=== PATIENT | female | born 1930 | race Caucasian/White ===

== ENCOUNTER 2016-08-28 09:37 | Inpatient (IN) | payer MEDICARE ==
[~2016-08-28] VITALS: Ht 160 cm; Wt 68.5 kg
[~2016-08-28 09:37] MED LIST: AC325T PO; ADV250-14 IH; ALBU0.632 NEB; ALBU2.5V4 IH; ALBU2.5V4 NEB; ALBU2.5V52 INH; ALBU8.5HRX INH; ALBUNEBRX NEB; ALBUTEROL; ALPR0.2550 PO; ALPR1TAB2 PO; AMOX400T12 PO; ASCO-262 PO; ASCO500C14; ASCO500C14 PO; ASPI-84; ATOR40TA; ATRV10T PO; AZMACORT; BENZ100C18 PO; CA C1TAB26 PO; CETI10TA17 PO; CHOL10003 PO; CLAR-19 PO; CLOT10TR11 PO; CO Q PO; CPR500T; CYAN10007 PO; DCS100C PO; DIGO125T91; DIGO250T15 PO; DIGO250T96 PO; DILT180C PO; DILT300C PO; DILT360C26 PO; DLT180CCR; DLT180CCR PO; DOCU-161 PO; DONE10TA41 PO; Diltiazem Hcl PO; E400C; E400C PO; ERGO400C; ERGO400C PO; FAMO20TA5 PO; FLUT1AER IH; FLUT1DIS26 INH; FLUT1DIS27 IH; FLUT1DIS27 INH; FLUT1DIS3 IH; FRSM40T; FRSM40T PO; FURO-124 PO; FURO40TA4 PO; INUL1TAB4 PO; KCL10CCR; KCL10CCR PO; KCL20TCR PO; LECITHIN; LEVO250T11 PO; LEVO250T7 PO; LEVO500T2 PO; LEVO500T69 PO; LEVO500T78 PO; LEVO50TA6 PO; LEVO750T24 GT; LEVO75TA57; LIDOCAINE VISCOUS PO; LVF500T PO; LVT.05T PO; Lecithin PO; MAGN250T13 PO; MAGN400T6 PO; MELA3TAB PO; MELO-195 PO; MEMA10TA22 PO; METH4TAB10 PO; METO25TA PO; METO50TA7 PO; MNTL10T; MONT10TA21 PO; MONT10TA24 PO; NITR100C10 PO; PANT40TA3 PO; PNT40TEC PO; POLY119P; POLY17PO23 PO; POTA-51 PO; POTA10TA36 PO; POTA20TA8 PO; PRAV40TA PO; PRAV40TA2 PO; PRAV80TA2 PO; PRD20T PO; PRED10TA PO; PRED10TA22 PO; PRED5TAB PO; PREMARIN; PROBIOTIC1 EACH PO; RT-ALBUINH INH; STOOL SOFTENER; UBID100C8 PO; VITA1CAP21 PO; VITA400T9 PO; Vitamin C; Vitamin D; WARF-48 PO; WARF5TAB6 PO; WRF2.5T; WRF2.5T PO; WRF5T; WRF5T PO
--- OUTSIDE RECORDS SUMMARY | 2016-08-28 09:43 | XMS REPORT | Continuity of Care Document ---
Author Author [facility] Organization [facility] Address Unknown Phone Unavailable Care Team Providers Care Electronics Repair Technician Name Role Phone MichaelleYo PCP [phone] Source Comments Some departments are not documenting in the electronic medical record. If you do not see the information that you expected, contact Release of Information in the Health Information Management department at [phone] for further assistance in locating additional records.[facility] Active Allergies and Adverse Reactions Allergen Noted Date Severity Reactions Comments Ambien 12/01/2014 High DELUSIONS Augmentin 12/01/2014 Low NAUSEA AND VOMITING Codeine 12/01/2014 Low NAUSEA AND VOMITING Duricef 12/01/2014 Medium RASH Halcion 12/01/2014 High DELUSIONS Iodine 12/02/2014 Medium RASH, SEE COMMENTS Has tolerated with Solu medrol and Diphenhydramine. Lemon 12/02/2014 High ANAPHYLAXIS Current Medications Prescription Sig. Disp. Refills Start End Date Status Date potassium chloride SR Take 40 mEq by mouth Active (K-DUR) 20 mEq tablet twice daily. magnesium oxide (MAG-OX) Take 400 mg by mouth Active 400 mg tablet daily. polyethylene glycol 3350 Take 17 g by mouth daily. Active (GLYCOLAX; MIRALAX) 17 gram/dose powder montelukast (SINGULAIR) Take 10 mg by mouth at Active 10 mg tablet bedtime daily. ascorbic acid (VITAMIN-C) Take 500 mg by mouth Active 500 mg tablet daily. ondansetron (ZOFRAN) 4 mg Take 4 mg by mouth every Active tablet 12 hours as needed for Nausea. albuterol 0.083% Inhale 2.5 mg solution as Active (PROVENTIL; VENTOLIN) 2.5 directed every 6 hours as mg /3 mL (0.083 %) needed for Wheezing. nebulizer solution furosemide (LASIX) 40 mg Take 40 mg by mouth Active tablet daily. levothyroxine (SYNTHROID) Take 50 mcg by mouth Active 50 mcg tablet daily. pantoprazole DR Take 40 mg by mouth Active (PROTONIX) 40 mg tablet daily. pravastatin (PRAVACHOL) Take 40 mg by mouth at Active 40 mg tablet bedtime daily. warfarin (COUMADIN) 5 mg Take by mouth as Active tablet directed. Takes 2.5mg once nightly on Saturday and Saturday, Take 5mg all other nights.Managed by Dr. Cook's office acetylcysteine (MUCOMYST) Take a total of 3 doses 30 mL 0 12/01/19 Active 200 mg/mL (20 %) solution of Mucomyst, each dose is 15 1200mg of a 20% solution. 2 dose today, and 1 in am 5/6 fluticasone-salmeterol Inhale 1 Puff by mouth Active (ADVAIR DISKUS) 250-50 every 12 hours. mcg inhalation disk Active Problems Problem Noted Date S/P AV kerri ablation 12/01/2014 Pacemaker 12/01/2014 Atrial fibrillation (HCC) 10/21/2014 Overview: 09/21/14: ECHO: Normal LV. EF 60. Pulm HTN w estimated PA pressure 55. 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 Mild mitral regurg. Moderate aortic stenosis. Moderate biatrial enlargement. Aortic stenosis 10/21/2014 Social History Tobacco Use Types Packs/Day Years Used Date Never Smoker Last Filed Vital Signs Vital Sign Reading Time Taken Blood Pressure 116/68 02/21/2015 1:06 PM CDT Pulse 70 02/21/2015 1:06 PM CDT Temperature 36.4 C (97.5 F) 12/02/2014 7:35 AM CDT Respiratory Rate - - Height 1.6 m (5' 2.99") 02/21/2015 1:06 PM CDT Weight 65.772 kg (145 lb) 02/21/2015 1:06 PM CDT Body Mass Index 25.69 02/21/2015 1:06 PM CDT Oxygen Saturation 96% 12/02/2014 7:35 AM CDT Plan of Care Health Maintenance Due Date Last Done Comments Physical (Comprehensive) 1938 Exam Pertussis Vaccine 1942 Tetanus Vaccine 1948 Breast Cancer Screening 1971 Shingles Vaccine 1991 Osteoporosis Screening 1996 Prevnar/Pneumovax (#1) 1996 Influenza Vaccine 03/29/2015 Results from Last 3 Months Not on file
--- NOTE | 2016-08-28 09:54 | ED Fever ---
History of Present Illness General Chief Complaint: Abdominal/GI Problems Stated Complaint: LETHARGIC Nursing Triage Note: Pt to ED via [facility] from home. Family reports pt is currently being treated for UTI and began having n/v/d last night at 2200. Family reports pt has been more lethargic than normal this morning and recorded a BP of 90/40 at home this AM. Sepsis Screen: No Definite Risk Source: patient, family, EMS, RN notes reviewed Exam Limitations: no limitations History of Present Illness Time seen by provider: 09:50 Initial Comments As above. Started on Macrobid yesterday for recurrent UTI but started throwing up p/ taking it, which is her problems c/ a lot of antibiotics. Was in here not that long ago for a UTI. Timing/Duration: getting worse Fever Quality: greater than 100.5 F Fever Therapy CNC SET UP OPERATOR: none Associated Symptoms: nausea/vomiting weakness Allergies and Home Medications Allergies Coded Allergies: amoxicillin (Verified Allergy, Unknown, 06/21/15) cefadroxil (Verified Allergy, Unknown, 06/21/15) clavulanic acid (Verified Allergy, Unknown, 06/21/15) codeine (Verified Allergy, Unknown, 06/21/15) haloperidol (Verified Allergy, Unknown, 06/21/15) iodine (Verified Allergy, Unknown, 06/21/15) triazolam (Verified Allergy, Unknown, 06/21/15) zolpidem (Verified Allergy, Unknown, 06/21/15) donepezil (Verified Adverse Reaction, Severe, 11/20/15) NAUSEA/VOMITING promethazine HCl (Unverified Adverse Reaction, Mild, 06/21/15) Home Medications Acetaminophen 325 Mg Tablet 650 MG PO Q4H PRN PRN PAIN (Reported) TAKES 2 (325MG) TABLET Albuterol Sulfate 18 Gm Hfa.aer.ad 2 PUFF INH Q4H PRN PRN SHORTNESS OF BREATH ( Reported) Albuterol Sulfate 2.5 Mg/3 Ml Vial.neb 2.5 MG NEB Q4H PRN PRN SHORTNESS OF BREATH (Reported) Albuterol Sulfate 2.5 Mg/3 Ml Vial.neb 2.5 MG IH BID (Reported) Cetirizine HCl 10 Mg Tablet 10 MG PO DAILY (Reported) Famotidine 20 Mg Tablet #60 20 MG PO BID Prescribed by: ZBIGNIEW HILTON on 07/23/16950 Fluticasone/Vilanterol 1 Each Blst.w.dev 1 PUFF IH DAILY (Reported) Furosemide 40 Mg Tablet 40 MG PO DAILY (Reported) IF PATIENT HAS A 4 POUND WEIGHT GAIN IN 1 WEEK, INCREASE TO 40 MG TWICE DAILY Levofloxacin 250 Mg Tablet #2 250 MG PO DAILY Prescribed by: ZBIGNIEW HILTON on 07/23/16950 Levothyroxine Sodium 50 Mcg Tablet 50 MCG PO DAILY (Reported) Magnesium Oxide 250 Mg Tablet 250 MG PO DAILY (Reported) Melatonin 3 Mg Tablet #30 6 MG PO HS Prescribed by: ZBIGNIEW HILTON on 07/23/16950 Montelukast Sodium 10 Mg Tablet 10 MG PO HS (Reported) Potassium Chloride 20 Meq Tab.er.prt 40 MEQ PO BID (Reported) TAKES 2 (20 MEQ) TABLETS Pravastatin Sodium 40 Mg Tablet 40 MG PO HS (Reported) Warfarin Sodium 5 Mg Tablet 2.5 MG PO SuMoTuWeFrSa@1800 (Reported) TAKES 1/2 OF A (5 MG) TABLET Warfarin Sodium 5 Mg Tablet 5 MG PO Th@1800 (Reported) Constitutional: see HPI fever weakness Psychiatric/Neurological: See HPI Weakness All Other Systems Reviewed Negative Unless Noted: Yes (Negative excepted noted.) Past Tbrhnqc-Prchcx-Jxueew Hx Patient Social History Recent Foreign Travel: No Contact w/Someone Who Travel: No Recent Infectious Disease Expo: No Recent Hopitalizations: No Immunizations Up To Date Tetanus Booster (TDap): Unknown PED Vaccines UTD: No Date of Pneumonia Vaccine: Jun 09, 2014 Date of Influenza Vaccine: May 31, 2016 Seasonal Allergies Seasonal Allergies: No Surgeries HX Surgeries: Yes (SINUS, HEMORRHOIDECTOMY, hiatal hernia, av node ablation) Surgeries: Abdominal, Appendectomy, Bladder Surgery, Breast, Cardiac, Eye Surgery, Gallbladder, Hysterectomy, Oophorectomy, Pacemaker Respiratory Hx Respiratory Disorders: Yes (RESPIRATORY ARREST MULTIPLE TIMES--ON VENT IN PAST) Respiratory Disorders: Asthma, Pneumonia Cardiovascular Hx Cardiac Disorders: Yes (PACEMAKER, AORTIC STENOSIS, av NODE ABLATION) Cardiac Disorders: Atrial Fibrillation, Chronic Edema/Swelling, Heart Murmur, High Cholesterol, Irregular Heartbeat, Valvular Heart Disease Neurological Hx Neurological Disorders: Yes Neurological Disorders: Dementia Reproductive System Hx Reproductive Disorders: No Sexually Transmitted Disease: No HIV/AIDS: No Female Reproductive Disorders: Denies Genitourinary Hx Genitourinary Disorders: Yes (acute renal failure after UTI) Genitourinary Disorders: Bladder Infection, Renal Failure Gastrointestinal Hx Gastrointestinal Disorders: Yes Gastrointestinal Disorders: Chronic Constipation, Irritable Bowel Musculoskeletal Hx Musculoskeletal Disorders: Yes (MULTIPLE FX R LOWER LEG) Musculoskeletal Disorders: Osteoporosis, Arthritis Endocrine Hx Endocrine Disorders: Yes Endocrine Disorders: Hypothyroidsim HEENT HX ENT Disorders: Yes HEENT Disorders: Cataract Loss of Vision: Denies Hearing Impairment: Denies Cancer Hx Cancer: No Psychosocial Hx Psychiatric Problems: No Integumentary HX Skin/Integumentary Disorder: No Blood Transfusions Hx Blood Disorders: No Adverse Reaction to a Blood Tr: No Family Medical History Family Medial History: Alzheimer's disease 19 MOTHER FHx: throat cancer 19 FATHER Physical Exam Vital Signs Vital Sign - Last 12Hours 08/28/16 09:40 Temp 101.0 Pulse 70 Resp 18 B/P 120/60 Pulse Ox 100 O2 Delivery Nasal Cannula O2 Flow Rate 2 Capillary Refill : Less Than 3 Seconds General Appearance: WD/WN no apparent distress obese HEENT: other (orophay) Neck: supple Respiratory: lungs clear no respiratory distress Cardiovascular: regular rate, rhythm Gastrointestinal: No rebound, tenderness (suprapubic) other (obese) Extremities: No pedal edema, No swelling Neurologic/Psychiatric: alert motor weakness (mild; generalized) depressed affect Skin: warm/dry Progress/Results/Core Measures Results/Orders Lab Results Laboratory Tests Test 08/28/16 09:49 08/28/16 10:00 08/28/16 10:25 Range/Units Activated Partial Thromboplast Time 38 H 24-35 SEC Alanine Aminotransferase (ALT/SGPT) 11 0-55 U/L Albumin 3.3 3.2-4.5 G/DL Alkaline Phosphatase 47 40-136 U/L Anion Gap 10 5-14 MMOL/L Aspartate Amino Transf (AST/SGOT) 26 5-34 U/L BUN/Creatinine Ratio 16 Band Neutrophils 26 % Basophils # (Auto) 0.0 0.0-0.1 10^3/uL Basophils % (Manual) 0 % Basophils (%) (Auto) 0 0-10 % Blood Urea Nitrogen 25 H 7-18 MG/DL Calcium Level 8.4 L 8.5-10.1 MG/DL Carbon Dioxide Level 24 21-32 MMOL/L Chloride Level 112 H 98-107 MMOL/L Creatinine 1.58 H 0.60-1.30 MG/DL Dohle Bodies SLIGHT Eosinophils # (Auto) 0.1 0.0-0.3 10^3/uL Eosinophils % (Manual) 0 % Eosinophils (%) (Auto) 1 0-10 % Estimat Glomerular Filtration Rate 31 Glucose Level 122 H 70-105 MG/DL Hematocrit 43 35-52 % Hemoglobin 13.6 11.5-16.0 G/DL INR Comment 2.9 H 0.8-1.4 Lymphocytes # (Auto) 0.3 L 1.0-4.0 X 10^3 Lymphocytes % (Manual) 5 % Lymphocytes (%) (Auto) 2 L 12-44 % Mean Corpuscular Hemoglobin 29 25-34 PG Mean Corpuscular Hemoglobin Concent 32 32-36 G/DL Mean Corpuscular Volume 91 80-99 FL Mean Platelet Volume 11.0 H 7.4-10.4 FL Monocytes # (Auto) 0.9 0.0-1.0 X 10^3 Monocytes % (Manual) 2 % Monocytes (%) (Auto) 5 0-12 % Neutrophils # (Auto) 17.4 H 1.8-7.8 X 10^3 Neutrophils % (Manual) 67 % Neutrophils (%) (Auto) 93 H 42-75 % Platelet Count 219 130-400 10^3/uL Poikilocytosis SLIGHT Potassium Level 3.8 3.6-5.0 MMOL/L Prothrombin Time 29.8 H 12.2-14.7 SEC Red Blood Count 4.69 4.35-5.85 10^6/uL Red Cell Distribution Width 15.1 H 10.0-14.5 % Sodium Level 146 H 135-145 MMOL/L Total Bilirubin 1.9 H 0.1-1.0 MG/DL Total Protein 5.6 L 6.4-8.2 G/DL Toxic Granulation 1+ White Blood Count 18.8 H 4.3-11.0 10^3/uL Urine Amorphous Sediment FEW CHARLES URATES H /LPF Urine Bacteria FEW H /HPF Urine Bilirubin 2+ H NEGATIVE Urine Casts PRESENT /LPF Urine Clarity CLEAR Urine Color YELLOW Urine Crystals PRESENT H /LPF Urine Culture Indicated YES Urine Glucose (UA) NEGATIVE NEGATIVE Urine Hyaline Casts >50 H /LPF Urine Ketones 1+ H NEGATIVE Urine Leukocyte Esterase 1+ H NEGATIVE Urine Mucus LARGE H /LPF Urine Nitrite NEGATIVE NEGATIVE Urine Protein 2+ H NEGATIVE Urine RBC 2-5 H /HPF Urine RBC (Auto) NEGATIVE NEGATIVE Urine Specific [place] 1.020 1.016-1.022 Urine Urobilinogen NORMAL NORMAL MG/DL Urine WBC 2-5 /HPF Urine pH 5 5-9 Lactic Acid Level 2.7 *H 0.5-2.0 MMOL/L My Orders Orders-MIKEY MAXWELL DO Cbc With Automated Diff (08/28/16 09:49) Comprehensive Metabolic Panel (08/28/16 09:49) Lactic Acid Analyzer (08/28/16 09:49) Protime With Inr (08/28/16 09:49) Partial Thromboplastin Time (08/28/16 09:49) Ua Culture If Indicated (08/28/16 09:49) Blood Culture (08/28/16 09:49) Influenza A And B Antigens (08/28/16 09:49) Chest 1 View, Ap/Pa Only (08/28/16 09:49) Doherty Cath Insertion (08/28/16 09:49) Manual Differential (08/28/16 09:49) Acetaminophen Tablet (Tylenol Tablet) (08/28/16 10:45) Urine Culture (08/28/16 10:00) Ciprofloxacin Iv 400mg/200ml (Cipro Iv S (08/28/16 10:45) Saline Lock/Iv-Start (08/28/16 10:42) Ns Iv 1000 Ml (Sodium Chloride 0.9%) (08/28/16 10:42) Ct Abdomen/Pelvis Wo (08/28/16 11:17) Medications Given in ED Current Medications Medications Dose Ordered Sig/Marcelino Route Start Time Stop Time Status Last Admin Dose Admin Acetaminophen 1000 mg 1,000 mg ONCE ONCE PO 08/28/16 10:45 08/28/16 10:46 DC 08/28/16 10:40 1,000 MG Ciprofloxacin/ Dextrose 200 ml @ 200 mls/hr ONCE ONCE IV 08/28/16 10:45 08/28/16 11:44 DC 08/28/16 10:55 200 MLS/HR Sodium Chloride 1,000 ml @ 0 mls/hr Q0M ONCE IV 08/28/16 10:42 08/28/16 10:44 DC 08/28/16 10:55 1,000 MLS/HR Vital Signs/I&O Vital Sign - Last 12Hours 08/28/16 09:40 Temp 101.0 Pulse 70 Resp 18 B/P 120/60 Pulse Ox 100 O2 Delivery Nasal Cannula O2 Flow Rate 2 Blood Pressure Mean: 80 Departure Communication Time/Spoke to Admitting Phy: 11:52 Impression Impression: Primary Impression: Sepsis Additional Impressions: Pyelonephritis Fever Disposition: ADMITTED INPATIENT Condition: Stable Decision to Admit Reason: Admit from ER (General) Decision to Admit/Date: Aug 28, 2016 Time/Decision to Admit Time: 11:52 Departure-Patient Inst. Referrals: ESTEPHANIE MAY MD (PCP/Family) Primary Care Physician MIKEY MAXWELL DO Aug 28, 2016 09:54
[2016-08-28 10:01] LABS: BASOPHILS % (AUTO) 0 % (0-10); EOSINOPHILS # (AUTO) 0.1 10^3/uL (0.0-0.3); EOSINOPHILS % (AUTO) 1 % (0-10); LYMPHOCYTES # (AUTO) 0.3 X 10^3 (1.0-4.0); LYMPHOCYTES % (AUTO) 2 % (12-44); MEAN CORPUSCULAR HEMOGLOBIN 29 PG (25-34); MEAN CORPUSCULAR HGB CONC 32 G/DL (32-36); MEAN CORPUSCULAR VOLUME 91 FL (80-99); MONOCYTES # (AUTO) 0.9 X 10^3 (0.0-1.0); MONOCYTES % (AUTO) 5 % (0-12); NEUTROPHILS # (AUTO) 17.4 X 10^3 (1.8-7.8); NEUTROPHILS % (AUTO) 93 % (42-75); PLATELET COUNT 219 10^3/uL (130-400); RED BLOOD COUNT 4.69 10^6/uL (4.35-5.85); RED CELL DISTRIBUTION WIDTH 15.1 % (10.0-14.5); WHITE BLOOD COUNT 18.8 10^3/uL (4.3-11.0)
[2016-08-28 10:12] LABS: INR 2.9 (0.8-1.4); PROTHROMBIN TIME PATIENT 29.8 SEC (12.2-14.7)
[2016-08-28 10:17] LABS: KETONES,URINE 1+ (NEGATIVE); LEUKOCYTE ESTERASE ,URINE 1+ (NEGATIVE); NITRITE,URINE NEGATIVE (NEGATIVE); PH,URINE 5 (5-9); PROTEIN,URINE 2+ (NEGATIVE); UROBILINOGEN,URINE NORMAL (NORMAL)
[2016-08-28 10:19] LABS: ALBUMIN 3.3 G/DL (3.2-4.5); BILIRUBIN,TOTAL 1.9 MG/DL (0.1-1.0); CALCIUM 8.4 MG/DL (8.5-10.1); CREATININE SERUM 1.58 MG/DL (0.60-1.30); POTASSIUM 3.8 MMOL/L (3.6-5.0); TOTAL PROTEIN 5.6 G/DL (6.4-8.2)
[2016-08-28 10:24] LABS: BAND NEUTROPHILS 26 %; BASOPHILS % (MANUAL) 0 %; EOSINOPHILS % (MANUAL) 0 %; LYMPHOCYTES % (MANUAL) 5 %; NEUTROPHILS % (MANUAL) 67 %; POIKILOCYTOSIS SLIGHT
[2016-08-28 10:35] LABS: HYALINE CASTS, URINE >50 /LPF
--- NOTE | 2016-08-28 10:35 | Diagnostic Imaging Report ---
INDICATION: Urinary tract infection, hypotension EXAMINATION: Portable chest at 10:24 AM. Heart is enlarged. Pulmonary vascularity is normal. There is unipolar pacemaker. There are no infiltrates, effusions or pneumothoraces. IMPRESSION: Cardiomegaly without evidence of pulmonary venous hypertension. Dictated by: Dictated on workstation # [id number]
[2016-08-28 10:36] LABS: BILIRUBIN,URINE 2+ (NEGATIVE)
[2016-08-28] MEDS ORDERED: NS IV 1000 ML 1,000 ML IV ONE ×2 (10:42→12:30)
[2016-08-28] MEDS ORDERED: CIPROFLOXACIN IV 400MG/200ML 200 ML IV ONE (10:45)
[2016-08-28] MEDS ORDERED: ACETAMINOPHEN 500 MG TAB (TYLENOL) PO ONE (10:45)
--- NOTE | 2016-08-28 12:07 | Diagnostic Imaging Report ---
PROCEDURE: CT abdomen and pelvis without contrast. TECHNIQUE: Multiple contiguous axial images were obtained through the abdomen and pelvis without the use of intravenous contrast. INDICATION: Lethargic. Abdominal cramping. Urinary tract infection. COMPARISON: CT abdomen and pelvis without contrast, 06/19/2015. FINDINGS: Linear atelectasis and/or scarring in the lung bases. Calcified granulomas in the left lung base, liver, and spleen. Partially visualized cardiac pacer wire and cardiomegaly. Multiple exophytic low-attenuation lesions in the kidneys appear stable on this noncontrast exam, presumably representing cysts. Cholecystectomy. Diffuse arterial calcifications including aortic. There are a couple or tiny punctate calcifications in the left kidney, which may represent nonobstructing renal calculi versus atherosclerotic calcifications. There is mildly increased perinephric stranding about both kidneys. No fluid collections in the abdomen. Doherty catheter within a decompressed bladder. Colonic diverticulosis without evidence of active diverticulitis. Hysterectomy. The pancreas and adrenal glands are unremarkable. The appendix is not identified and may be surgically absent. No suspicious inflammatory changes in the region of the cecum. No lymphadenopathy. No evidence of bowel obstruction. IMPRESSION: Mildly increased perinephric stranding about both kidneys. These findings are nonspecific but can be seen in pyelonephritis. CT of the abdomen and pelvis is otherwise stable on this noncontrast exam. Dictated by: Dictated on workstation # [id number]
[2016-08-28] MEDS ORDERED: VANCOMYCIN IV ADD-VANTAGE 1,000 MG in SODIUM CHLORIDE (ADD-VANTAGE) 250 ML IV ONE (12:30)
[2016-08-28 13:46] VITALS: BP 97/61
--- NOTE | 2016-08-28 14:23 | Progress Note-Hospitalist ---
Standard Progress Note Progress Notes/Assess & Plan Date Seen 08/28/16 Assess & Plan/Chief Complaint The patient's an 86-year-old white female who is noted to be a DO NOT RESUSCITATE status. She had been admitted here on 07/20/16 with what was feared to be urinary tract infection and sepsis. Ultimately although her lactic acid was elevated her urine cultures were negative. She has not been one to be very vigorous and the family states she has not really been any better since her discharge. Apparently she was thought to have urinary tract infection and was started on Macrodantin yesterday however as has been her custom with many antibiotics she apparently vomited that. The white blood count was elevated at 18,000 in the emergency room the temperature at 100 and the lactic acid at 2.7. She also has been hypertensive however that was noted to be a problem on her previous admission. Physical exam: Elderly white female who was confused. Lungs were clear to auscultation. CV was regular without murmur. Abdomen soft. Impression: She needs criteria for at least Sirs. To this point we have no defined site of infection. Plan: IV fluids and prophylactic Antibiotics Labs PERLA MACEDO MD Aug 28, 2016 14:22
[2016-08-28] MEDS ORDERED: NITR100C10 PO (14:57)
[2016-08-28] MEDS ORDERED: ONDA4TAB10 PO (15:05)
[2016-08-28] MEDS ORDERED: CNC1KV INJ (15:05)
[2016-08-28] MEDS ORDERED: ALPR0.5T7 PO (15:05)
[2016-08-28] MEDS ORDERED: FAMO-119 PO (15:05)
[2016-08-28] MEDS ORDERED: PRED5TAB PO (15:05)
[2016-08-28] MEDS ORDERED: MELA1TAB10 PO (15:05)
[2016-08-28] MEDS ORDERED: CATHETER FLUSH 10 ML SYR IV PRN (15:15)
[2016-08-28 16:00] VITALS: BP 109/62
[2016-08-28] MEDS ORDERED: RT-ALBUTEROL SULF 2.5 MG/3 ML PRE-MIX VIAL INH PRN (16:00)
[2016-08-28] MEDS: metroNIDAZOLE 500 MG/100 ML IVPB (PRE-MIX) IV SCH (16:03)
[2016-08-28] MEDS: RT-ADVAIR HFA 115/21 MCG PER PUFF IH SCH (18:24)
[2016-08-28] MEDS: NS IV 1000 ML 1,000 ML IV SCH ×2 (18:52→20:57)
[2016-08-28 20:01] VITALS: BP 102/52
[2016-08-28] MEDS ORDERED: warFARin 5 MG (COUMADIN) TAB ONE (21:27)
[2016-08-29] VITALS: BP 107/52
[2016-08-29] MEDS: metroNIDAZOLE 500 MG/100 ML IVPB (PRE-MIX) IV SCH ×2 (03:30→15:49)
[2016-08-29 04:00] VITALS: BP 111/60
[2016-08-29] MEDS: NS IV 1000 ML 1,000 ML IV SCH ×3 (05:40→20:35)
[2016-08-29] MEDS: RT-ADVAIR HFA 115/21 MCG PER PUFF IH SCH ×2 (06:21→19:25)
[2016-08-29 06:26] LABS: BASOPHILS % (AUTO) 0 % (0-10); EOSINOPHILS # (AUTO) 0.5 10^3/uL (0.0-0.3); EOSINOPHILS % (AUTO) 4 % (0-10); LYMPHOCYTES # (AUTO) 1.1 X 10^3 (1.0-4.0); LYMPHOCYTES % (AUTO) 8 % (12-44); MEAN CORPUSCULAR HEMOGLOBIN 30 PG (25-34); MEAN CORPUSCULAR HGB CONC 32 G/DL (32-36); MEAN CORPUSCULAR VOLUME 92 FL (80-99); MEAN PLATELET VOLUME 11.3 FL (7.4-10.4); MONOCYTES # (AUTO) 0.6 X 10^3 (0.0-1.0); MONOCYTES % (AUTO) 5 % (0-12); NEUTROPHILS # (AUTO) 11.4 X 10^3 (1.8-7.8); NEUTROPHILS % (AUTO) 83 % (42-75); PLATELET COUNT 181 10^3/uL (130-400); RED BLOOD COUNT 4.24 10^6/uL (4.35-5.85); RED CELL DISTRIBUTION WIDTH 15.2 % (10.0-14.5); WHITE BLOOD COUNT 13.6 10^3/uL (4.3-11.0)
[2016-08-29 06:51] LABS: BILIRUBIN,TOTAL 1.8 MG/DL (0.1-1.0); CALCIUM 7.6 MG/DL (8.5-10.1); CREATININE SERUM 1.28 MG/DL (0.60-1.30); POTASSIUM 3.9 MMOL/L (3.6-5.0); TOTAL PROTEIN 4.9 G/DL (6.4-8.2)
[2016-08-29 08:27] VITALS: BP 125/66
[2016-08-29] MEDS: CIPROFLOXACIN 400 MG/D5W 200 ML (PRE-MIX) IV SCH (08:42)
[2016-08-29] MEDS ORDERED: RX-ALBUTEROL INHALER (VENTOLIN HFA) 18 GM IH PRN (09:15)
[2016-08-29] MEDS ORDERED: FUROSEMIDE 40 MG (LASIX) TAB PO PRN (09:15)
[2016-08-29] MEDS ORDERED: ACETAMINOPHEN 325 MG TABLET/CAPLET (TYLENOL) PO PRN (09:15)
[2016-08-29] MEDS ORDERED: RT-ALBUTEROL SULF 2.5 MG/3 ML PRE-MIX VIAL INH PRN (09:15)
[2016-08-29 09:23] LABS: INR 3.3 (0.8-1.4); PROTHROMBIN TIME PATIENT 33.7 SEC (12.2-14.7)
--- NOTE | 2016-08-29 09:38 | Consultation-Cardiology ---
HPI-Cardiology Cardiology Consultation: Date of Consultation 08/29/16 Date of Admission 08/28/16 Attending Physician Rei Dockery MD Admitting Physician Yo Braswell MD Consulting Physician Josue Cook MD HPI: Chief Complaint: Sepsis Ms. Cody is an 86 year old female admitted from the ED to room 411 with sepsis. Her daughter and spouse are at the bedside. Daughter reports she has had increasing weakness over the course of the last few days. She states she was seen by her PCP and was found to have a UTI. She was give abx tx. Daughter reports she continued to not feel well at home. She states she began having n/v/d. She checked her blood pressure at home and her systolic was 97. This morning she is feeling better. No c/o CP, dyspnea, palpitations. Continues to feel weak. Review of Systems-Cardiology Review of Systems Constitutional: As described under HPI Eyes: No blurred vision, No drainage, No pain, No vision change Ears/Nose/Throat: No ear discharge, No ear pain, No nasal drainage, No ulcerations Respiratory: As described under HPI Cardiovascular: As described under HPI Gastrointestinal: No constipation, diarrhea nausea vomitingNo stool coloration changes Genitourinary: No dysuria, No discharge, No frequency, No hematuria, No urgency Skin: No rash, No skin related problems, No ulcerations Psychiatric/Neurological: No anxiety, No depression, No focal weakness, No seizure, No syncope Hematologic: No bleeding abnormalities All Other Systems Reviewed Negative Unless Noted: Yes (Negative excepted noted.) QHQ-Ncvjfy-Okfamu Hx Patient Social History Alcohol Use: Denies Use Recreational Drug Use: No Smoking Status: Never a Smoker Recent Foreign Travel: No Recent Infectious Disease Expo: No Physical Abuse Screen: No Sexual Abuse: No Immunizations Up To Date Tetanus Booster (TDap): Unknown Date of Pneumonia Vaccine: Jun 09, 2014 Date of Influenza Vaccine: May 31, 2016 Past Medical History PMH As described under Assessment. Family Medical History Family Medical History: No reported h/o premature CAD or SCD Family History: 19 FATHER FHx: throat cancer 19 MOTHER Alzheimer's disease Allergies and Home Medications Allergies Coded Allergies: amoxicillin (Verified Allergy, Unknown, 06/21/15) cefadroxil (Verified Allergy, Unknown, 06/21/15) clavulanic acid (Verified Allergy, Unknown, 06/21/15) codeine (Verified Allergy, Unknown, 06/21/15) haloperidol (Verified Allergy, Unknown, 06/21/15) iodine (Verified Allergy, Unknown, 06/21/15) triazolam (Verified Allergy, Unknown, 06/21/15) zolpidem (Verified Allergy, Unknown, 06/21/15) donepezil (Verified Adverse Reaction, Severe, 11/20/15) NAUSEA/VOMITING promethazine HCl (Unverified Adverse Reaction, Mild, 06/21/15) Home Medications Acetaminophen 325 Mg Tablet 650 MG PO Q4H PRN PRN PAIN (Reported) TAKES 2 (325MG) TABLET Albuterol Sulfate 18 Gm Hfa.aer.ad 2 PUFF INH Q4H PRN PRN SHORTNESS OF BREATH ( Reported) Albuterol Sulfate 2.5 Mg/3 Ml Vial.neb 2.5 MG NEB Q4H PRN PRN SHORTNESS OF BREATH (Reported) Alprazolam 0.5 Mg Tablet 0.25 MG PO TID PRN PRN ANXIETY (Reported) TAKES 1/2 (0.5MG) TABLETS Cetirizine HCl 10 Mg Tablet 10 MG PO DAILY (Reported) Cyanocobalamin 1,000 Mcg/Ml Inj 1,000 MCG INJ MONTHLY (Reported) Famotidine 20 Mg Tablet 20 MG PO BID (Reported) Fluticasone/Vilanterol 1 Each Blst.w.dev 1 PUFF IH DAILY (Reported) Furosemide 40 Mg Tablet 40 MG PO DAILY PRN PRN 4LB WEIGHT GAIN (Reported) Levothyroxine Sodium 50 Mcg Tablet 50 MCG PO DAILY (Reported) Magnesium Oxide 250 Mg Tablet 250 MG PO DAILY (Reported) Melatonin/Pyridoxine 1 Each Tablet 6 MG PO HS PRN PRN SLEEP (Reported) Montelukast Sodium 10 Mg Tablet 10 MG PO HS (Reported) Nitrofurantoin Monohyd/M-Cryst 100 Mg Capsule 10Days 100 MG PO BID (Reported) 10 DAY SUPPLY FILLED 08-27-16 Ondansetron HCl 4 Mg Tablet 4 MG PO TID PRN PRN NAUSEA (Reported) Potassium Chloride 20 Meq Tab.er.prt 40 MEQ PO BID (Reported) TAKES 2 (20 MEQ) TABLETS Pravastatin Sodium 40 Mg Tablet 40 MG PO HS (Reported) Prednisone 5 Mg Tablet 2.5 MG PO DAILY (Reported) TAKES 1/2 (5MG) TABLET Warfarin Sodium 5 Mg Tablet 2.5 MG PO RobertTuWCharoa@1800 (Reported) TAKES 1/2 OF A (5 MG) TABLET Warfarin Sodium 5 Mg Tablet 5 MG PO Th@1800 (Reported) Physical Exam-Cardiology Physical Exam Vital Signs/I&O Vital Sign - Last 12Hours 08/29/16 08/29/16 08/29/16 08/29/16 04:00 06:23 08:00 08:27 Temp 97.3 97.6 Pulse 69 76 Resp 18 12 B/P 111/60 125/66 Pulse Ox 97 91 94 O2 Delivery Room Air Nasal Cannula Room Air O2 Flow Rate 2.00 2.00 08/29/16 12:00 Temp 98.4 Pulse 70 Resp 20 B/P 127/60 Pulse Ox 96 O2 Delivery Nasal Cannula O2 Flow Rate 2.00 Intake and Output 08/29/16 00:00 Intake Total 1600 ml Output Total 350 ml Balance 1250 ml Capillary Refill : Less Than 3 SecondsLess Than 3 Seconds Constitutional: appears stated ageNo apparent distress, well-developed well- nourished HEENT: PERRLNo discharge, hearing is well preserved oral hygience is goodNo ulceration, No xanthelasmas are seen Neck: No carotid bruit, carotid pulses are 2 + bilaterally Respiratory: No accessory muscle use, No respiratory distress, chest expansion is symmetric chest is bilaterally symmetric lungs clear to auscultation Cardiovascular: irregularly irregularNo JVD, S1 and S2 systolic murmur Gastrointestinal: No tender, soft roundNo spleenomegaly Extremities: No clubbing, No cyanosis, No significant edema Neurologic/Psychiatric: alert oriented x 3 power is 5/5 both on sides Skin: No rash, No ulcerations Data Review Labs Laboratory Tests 08/29/16 06:04: Alanine Aminotransferase (ALT/SGPT) 11, Albumin 3.0L, Alkaline Phosphatase 50, Anion Gap 8, Aspartate Amino Transf (AST/SGOT) 25, B-Type Natriuretic Peptide 140.1H, BUN/Creatinine Ratio 20, Basophils # (Auto) 0.0, Basophils (%) (Auto) 0 , Blood Urea Nitrogen 26H, Calcium Level 7.6L, Carbon Dioxide Level 20L, Chloride Level 116H, Creatinine 1.28, Eosinophils # (Auto) 0.5H, Eosinophils (% ) (Auto) 4, Estimat Glomerular Filtration Rate 40, Glucose Level 89, Hematocrit 39, Hemoglobin 12.5, INR Comment 3.3H, Lymphocytes # (Auto) 1.1, Lymphocytes (% ) (Auto) 8L, Mean Corpuscular Hemoglobin 30, Mean Corpuscular Hemoglobin Concent 32, Mean Corpuscular Volume 92, Mean Platelet Volume 11.3H, Monocytes # (Auto) 0.6, Monocytes (%) (Auto) 5, Neutrophils # (Auto) 11.4H, Neutrophils (%) (Auto) 83H, Platelet Count 181, Potassium Level 3.9, Prothrombin Time 33.7H, Red Blood Count 4.24L, Red Cell Distribution Width 15.2H, Sodium Level 144, Total Bilirubin 1.8H, Total Protein 4.9L, White Blood Count 13.6H Microbiology 08/28/16 Blood Culture - Preliminary, Resulted No growth 08/28/16 Urine Culture - Preliminary, Resulted NO GROWTH Radiology NAME: OLIVERIOJOSIE Arcos [facility] REC#: [id number] PT STATUS: REG ER : 1930 PHYSICIAN: MIKEY MAXWELL DO ADMIT DATE: 08/28/16/ER Signed Date of Exam: 08/28/16 CHEST 1 VIEW, AP/PA ONLY INDICATION: Urinary tract infection, hypotension EXAMINATION: Portable chest at 10:24 AM. Heart is enlarged. Pulmonary vascularity is normal. There is unipolar pacemaker. There are no infiltrates, effusions or pneumothoraces. IMPRESSION: Cardiomegaly without evidence of pulmonary venous hypertension. Dictated by: Dictated on workstation # [id number] Dict: 08/28/16 1033 Trans: 08/28/16 1142 [facility] [id number] Interpreted by: MELODY COLLIER Electronically signed by:MELODY COLLIER 08/28/16 1145 NAME: JOSIE DURON [facility] REC#: [id number] PT STATUS: ADM IN : 1930 PHYSICIAN: MIKEY MAXWELL DO ADMIT DATE: 08/28/16/4TH Signed Date of Exam: 08/28/16 CT ABDOMEN/PELVIS WO PROCEDURE: CT abdomen and pelvis without contrast. TECHNIQUE: Multiple contiguous axial images were obtained through the abdomen and pelvis without the use of intravenous contrast. INDICATION: Lethargic. Abdominal cramping. Urinary tract infection. COMPARISON: CT abdomen and pelvis without contrast, 06/19/2015. FINDINGS: Linear atelectasis and/or scarring in the lung bases. Calcified granulomas in the left lung base, liver, and spleen. Partially visualized cardiac pacer wire and cardiomegaly. Multiple exophytic low-attenuation lesions in the kidneys appear stable on this noncontrast exam, presumably representing cysts. Cholecystectomy. Diffuse arterial calcifications including aortic. There are a couple or tiny punctate calcifications in the left kidney, which may represent nonobstructing renal calculi versus atherosclerotic calcifications. There is mildly increased perinephric stranding about both kidneys. No fluid collections in the abdomen. Doherty catheter within a decompressed bladder. Colonic diverticulosis without evidence of active diverticulitis. Hysterectomy. The pancreas and adrenal glands are unremarkable. The appendix is not identified and may be surgically absent. No suspicious inflammatory changes in the region of the cecum. No lymphadenopathy. No evidence of bowel obstruction. IMPRESSION: Mildly increased perinephric stranding about both kidneys. These findings are nonspecific but can be seen in pyelonephritis. CT of the abdomen and pelvis is otherwise stable on this noncontrast exam. Dictated by: Dictated on workstation # [id number] Dict: 08/28/16 1150 Trans: 08/28/16 1634 [id number] Interpreted by: MILO GIORDANO MD Electronically signed by:MILO GIORDANO MD 08/28/16 1637 A/P-Cardiology Assessment/Admission Diagnosis Sepsis likely d/t UTI - medical services managing Possible pyelonephritis per CT on 08-29-16 Aortic stenosis, mod on echo of 09/21/14 (valve area 1.2 sq cm), but severe on cardiac cath of 05/03/15 (valve area 0.58 sq cm). She has been evaluated at [facility] in Aug 2015 for AVR/TAVR and has been told that conservative therapy appears best at this time Mod pulmonary hypertension (mean PA pressure 25 mmHg), elevated LVEDP (20 mmHg) , mild MR and mild CAD on cardiac cath of 05/03/15 Atrial fibrillation with RVR that was very difficult to control on meds. She is now post AV junction ablation per Dr. Paz November 2014. It appears ablation resulted in CHB and therefore PPM was implanted S/p single chamber St Ti pacemaker implantation, post AV kerri ablation, by Dr Paz at [facility] in November 2014 - functioning normally per interrogation of February 2016 Recurrent pneumonias (Jun 2014 and September 2014) managed by Dr Braswell, her fam phy , and by Dr Estes, her pulmonolgist Chronic warfarin anticoagulation for stroke prophylaxis. Supra-therapeutic INR - hold warfarin Maturity onset diabetes mellitus. Chronic intermittent leg swelling, likely related to venous insufficiency, currently under fair control Hypothyroidism, being treated with thyroid replacement therapy and being managed by Dr. Braswell. Hyperlipidemia, being treated with statin therapy. History of chronic sinusitis H/o COPD, being managed by her annual giving officer, Dr White Mild carotid arterial disease on u/s of Jun 2013 Obstructive sleep apnea was not documented on studies in 2014, according to the patient Generalized weakness and malaise of undetermined etiology Nausea of undetermined etiology (mid Jul 2014), possibly related to digoxin therapy Depression, being managed by Dr Braswell Nasal colonization with MRSA (detected on nasal swab done at time of cardiac cath of 05/03/15) for which topical antibiotic treatment has been completed Discussion and Recomendations Sepsis likely r/t UTI. Management of UTI and sepsis per medical services. Cardiac status clinically stable. Continue current cardiac regimen. Monitor lab closely. Monitor INR closely d/t abx tx. Supra therapeutic INR today. We have discussed her cardiac status with her and her family. We would like to thank Dr. Soto for this consult. Further recommendations will be based on her hospital course. This consult is being scribed by Vinod Yates APRN on behalf of Dr. Cook after assessment and discussion regarding plan of care. Clinical Quality Measures DVT/VTE Risk/Contraindication: Risk Factor Score Per Nursin RFS Level Per Nursing on Admit: 4+=Very High Contraindications-Pharm: Other *list below* Physician Assessment Physician Assessment Lungs: clear Cor: reg with 2/6 EBTH at card base A&R * As documented in our note above * Complex management due to multiple comorbidities * Monitor closely * I spoke with her and her fam in detail CHARLOTTE YATES Aug 29, 2016 09:38 JOSUE COOK MD FACP [facility] CCDS Aug 29, 2016 14:[address] Soto for this consult. Further recommendations will be based on her hospital course. This consult is being scribed by Vinod Yates APRN on behalf of Dr. Cook after assessment and discussion regarding plan of care. Clinical Quality Measures DVT/VTE Risk/Contraindication: Risk Factor Score Per Nursin RFS Level Per Nursing on Admit: 4+=Very High Contraindications-Pharm: Other *list below* CHARLOTTE YATES Aug 29, 2016 09:38
--- NOTE | 2016-08-29 10:46 | Progress Note-Hospitalist ---
Progress Note Progress Notes/Assess & Plan Date Seen 08/29/16 Diagonsis/Assessment & Plan Chart Review: No fever since 101 yesterday morning Pt on Cipro and Vanc due to multiple allergies WBC down from 18 to 13.6 Lactic acid 2.6 down from 2.7 INR 3.3 BNP pending and will hold Coumadin upon review of labs Reviewed CT scan showing perinephric stranding consistent with pyelonephritis Patient Interview: Pt states that she is somewhat tired during visit. Pt denies having any pain currently. Physical exam was stable. Pt states that she feels that she is recovering. Pt family requests that Doherty DC. Pt had a BM yesterday morning, and had a liquid BM this morning. Pt has been placed on a heart healthy diet, and pt requests normal diet. Pt also sees Dr. Braswell and Dr. Cook. Max fever 101.0 vital signs stable, pleasant, oriented 3, family at the bedside regular rate and rhythm, clear to all sedation bilaterally No edema Laboratory Tests 08/29/16 06:04 1A: Acute polynephritis confirmed on CT scan w/h/o urinary tract infection with sepsis 07/13 with fever and elevated lactic acid, elevated creatinine, and elevated total bilirubin. 2. Mild dementia 3. Dehydration intravascular volume depletion and renal insufficiency-improved 4. Elevated total bilirubin reflective of hepatic dysfunction 5. History of sick sinus syndrome with a pacemaker on Coumadin-Will hold Coumadin tonight and repeat tomorrow 6. COPD-patient may use her own ICS from home 7. History of cardiac arrest 4 in the distant past now a DO NOT RESUSCITATE 8. Nausea and vomiting will use Zofran when necessary 9. Insomnia 10. Obstipation hx Plan: DC Doherty cath PT Switch to regular diet Heplock IVF Reconcile home meds Consult Dr. Cook Check BNP for heart failure SS consult Continue abx Consult Dr Correa for evaluation of recurrent pyelonephritis Scribed by Alok Blevins under the direct supervision of Dr. Aggarwal. JAGRUTI AGGARWAL DO Aug 29, 2016 10:46 JAGRUTI AGGARWAL DO Aug 29, 2016 10:46
--- NOTE | 2016-08-29 11:10 | Occupational Therapy Eval ---
OT Evaluation-General/PLF Medical Diagnosis Admission Date Aug 28, 2016 at 12:15 Medical Diagnosis: sepsis, UTI Onset Date: Aug 28, 2016 Therapy Diagnosis Therapy Diagnosis: weakness, decreased self care, decreased activity tolerance , decr mobility Height/Weight Height (Feet): 5 Height (Inches): 3.00 Weight (Pounds): 151 Weight (Ounces): 1.0 Precautions Precautions/Isolations: Fall Prevention, Standard Precautions Safety Interventions: Notify Family Referral Physician: Nahed Referral Reason: Evaluation/Treatment Medical History Pertinent Medical History: Atrial Fib, Arthritis, COPD, Dementia, GERD, Hypothroidism Additional Medical History Hiatal hernia repair, pacemaker, aortic stenosis, hx respiratory arrest and on vet, asthma, pneumonia, chronic edema, valvular heart disease, chronic constipation, irritable bowel, multiple R LE fx, osteoporosis. Current History Admitted from ED, with abdominal pain, lethargy. Recent tx for UTI. Family reported recent neck and shoulder injections for pain. Social History Current Living Status: Spouse ADL-Prior Level of Function ADL PLOF Comments Family reported that pt has been able to manage her basic self care skills except she reported that she has trouble "getting in/out of bed and out of the bathtub". She does not drive DME/Equipment: Bath Bench, Bedside Commode, Grab Bars, Shower, Shower Hose Card Dealer, Tub, Toilet/Riser Drive Self: No OT Current Status Subjective Pt seen in room, up in bed, agreeable to OT. Reported pain 0/10 Appearance Alert, cooperative. Does not know current year or date Mental Status/Objective Patient Orientation: Person, Place, Situation Attachments: Fox Catheter, IV, Telemetry Current Glasses/Contacts: Yes Hand Dominance: Right Upper Extremity ROM Grossly WFL bilat Upper Extremity Strength Grossly WFL. Had difficulty following instructions for muscle testing ADL-Treatment ADL-Current Pt was able to transition from supine to sit EOB without assistance but with some skilled cues. She also scooted forward in bed and up toward toe top of the bed with SBA. Stood partially without mobility device. Pt was able to remove and reapply slipper socks. She had not been up to the bathroom but, per her daughter, uses a BSC over toilet at home to make toilet taller and provide armrests for pushing up. OT found BSC for her to use once fox has been DCd. Pt returned to bed, 4 rails up, all needs met. Functional Crowley Measure 0=Not Assessed/NA 4=Minimal Assistance 1=Total Assistance 5=Supervision or Setup 2=Maximal Assistance 6=Modified Crowley 3=Moderate Assistance 7=Complete IndependenceIRFPAI Quality Coding Scale 6 Independent with activity with or without an assistive device 5 Patient requires set up or clean up by helper. Patient completes activity by themselves 4 Supervision or touching assist (CGA). [place] provide cues , steadying assist 3 The helper provides less than half the effort to complete the activity 2 The helper provides more than half the effort to complete the activity 1 Dependent. The helper does all the effort to complete an activity 7 Patient refused to complete or attempt activity 9 The patient did not perform the activity before the current illness or injury 88 Not attempted due to Medical conditions or safety concerns Education OT Patient Education: Purpose of tx/functional activities, Rehab process Teaching Recipient: Patient, Family Teaching Methods: Discussion Response to Teaching: Verbalize Understanding OT Strap Buckler Machine Goals Strap Buckler Machine Goals Time Frame: 2 weeks Eating (FIM): 6 Grooming(FIM): 6 Bathing(FIM): 5 Upper Body Dressing(FIM): 5 Lower Body Dressing(FIM): 5 Toileting(FIM): 6 Toilet/Commode Transfer(FIM): 6 Shower Transfer(FIM): 6 Additional Goals: 2-Verbalize Understanding, 3-ImproveStrength/Valerio 1=Demonstrate adherence to instructed precautions during ADL tasks. 2=Patient will verbalize/demonstrate understanding of assistive devices/ modifications for ADL. 3=Patient will improve strength/tolerance for activity to enable patient to perform ADL's. OT Education/Plan Problem List/Assessment Assessment: Decreased Activ Tolerance, Decreased Safety Aware, Decreased UE Strength, Dependent Transfers, Impaired Funct Balance, Impaired Self-Care Skills Pt would benefit from skilled OT to increase her independence in basic self care to allow her to safely return home and decrease caregiver burden. Discharge Recommendations Plan/Recommendations: Continue POC Treatment Plan/Plan of Care Treatment,Training & Education: Yes Patient would benefit from OT for education, treatment and training to promote independence in ADL's, mobility, safety and/or upper extremity function for ADL' s. Plan of Care: ADL Retraining, Functional Mobility, UE Funct Exercise/Act, UE Neuromus Re-Ed/Coord Treatment Duration: Sep 12, 2016 # of days/week 5 Visits Per Week: 5 Agreement: Yes Rehab Potential: Good Time/GCodes Start Time: 08:45 Stop Time: 09:20 Total Time Billed (hr/min): 35 Billed Treatment Time visit, 35 minutes evaluation moderate complexity TUNDE CARMONA OT Aug 29, 2016 11:10
[2016-08-29 12:00] VITALS: BP 127/60
--- NOTE | 2016-08-29 13:27 | CONSULTATION REPORT ---
DATE OF CONSULTATION: 08/29/2016 ATTENDING PHYSICIAN: Dr. Soto. SUMMARY: After reviewing the patient's record, interviewing her and examining her, this is an 86-year-old lady admitted with the diagnosis of sepsis. CAT scan was performed shows possible mild stranding, possibility of bilateral pyelonephritis, no obstruction. The patient does not have clinical picture of pyelonephritis. She does not have flank pain. Her urinalysis is negative. Her urine culture preliminary is negative. I reviewed her CT scan, I do not think she has pyelonephritis definitely bilateral she has no flank tenderness at all. IMPRESSION: Sepsis. Doubt urological origin definitely doubt pyelonephritis. RECOMMENDATION: We will see her pesthela Job ID: [id number] Dictated Date: 08/29/2016 12:10:53 Flight Engineer Performance Qualified Date: 08/29/2016 13:23:17/sridevi
[2016-08-29] MEDS: VANCOMYCIN 1 GM/NS 250 ML IVPB IV SCH ×2 (13:56)
--- NOTE | 2016-08-29 14:02 | History & Physical-Hospitalist ---
HPI History of Present Illness: HPI/Chief Complaint The patient's an 86-year-old white female who was admitted from the emergency room on 08/28. She presented there with signs and symptoms suggesting infection. Her family reported a rather marked decline in performance over the 2 days prior to admission. She had been seen by her provider the day prior and diagnosed with a urinary tract infection. She was placed on Macrodantin and had attempted to take one only to vomit it. Interestingly she had been admitted on July 20 with a similar presentation. She was discharged after 2 days. She took Levaquin by mouth to complete a course and then apparently a second course of Levaquin. Her daughter states that she never seem to be herself. On presentation to the emergency room she had a temperature of 101F. In addition her white blood count was 18,800 and her lactic acid was 2.7. Her urine specific gravity and the remainder of her laboratory suggested that she was dehydrated as well. This very much mirrored the record from 07/20. The daughter reminds me that 27 years ago the patient was admitted by Dr. Braswell with similar symptoms of nausea and vomiting. She decline very rapidly and he transferred her from the medical floor to the ICU and consulted me. She experienced acute renal failure and required ventilator management. Source: patient, family, EMS Exam Limitations: no limitations Date Seen 08/29/16 Attending Physician Rei Macedo MD PCP Yo Braswell MD Referring Physician Date of Admission Aug 28, 2016 at 12:15 Home Medications & Allergies Home Medications Reviewed patient Home Medication Reconciliation Form Allergies Coded Allergies: amoxicillin (Verified Allergy, Unknown, 06/21/15) cefadroxil (Verified Allergy, Unknown, 06/21/15) clavulanic acid (Verified Allergy, Unknown, 06/21/15) codeine (Verified Allergy, Unknown, 06/21/15) haloperidol (Verified Allergy, Unknown, 06/21/15) iodine (Verified Allergy, Unknown, 06/21/15) triazolam (Verified Allergy, Unknown, 06/21/15) zolpidem (Verified Allergy, Unknown, 06/21/15) donepezil (Verified Adverse Reaction, Severe, 11/20/15) NAUSEA/VOMITING promethazine HCl (Unverified Adverse Reaction, Mild, 06/21/15) Past Rmhsgyq-[id number]-Sfeipf Hx Patient Social History Alcohol Use: Denies Use Recreational Drug Use: No Smoking Status: Never a Smoker Physical Abuse Screen: No Sexual Abuse: No Recent Foreign Travel: No Contact w/other who traveled: No Recent Hopitalizations: No Recent Infectious Disease Expo: No Immunizations Up To Date Tetanus Booster (TDap): Unknown Date of Pneumonia Vaccine: Jun 09, 2014 Date of Influenza Vaccine: May 31, 2016 Seasonal Allergies Seasonal Allergies: No Surgeries HX Surgeries: Yes (SINUS, HEMORRHOIDECTOMY, hiatal hernia, av node ablation) Surgeries: Abdominal, Appendectomy, Bladder Surgery, Breast, Cardiac, Eye Surgery, Gallbladder, Hysterectomy, Oophorectomy, Pacemaker Respiratory Hx Respiratory Disorders: Yes (RESPIRATORY ARREST MULTIPLE TIMES--ON VENT IN PAST) Cardiovascular Hx Cardiovascular Disorders: Yes (PACEMAKER, AORTIC STENOSIS, av NODE ABLATION) Cardiac Disorders: Atrial Fibrillation, Chronic Edema/Swelling, Heart Murmur, High Cholesterol, Irregular Heartbeat, Valvular Heart Disease Neurological Hx Neurological Disorders: Yes Neurological Disorders: Dementia Reproductive System Hx Reproductive Disorders: No Sexually Transmitted Disease: No HIV/AIDS: No Female Reproductive Disorders: Denies Genitourinary Hx Genitourinary Disorders: Yes (acute renal failure after UTI) Genitourinary Disorders: Bladder Infection, Renal Failure Gastrointestinal Hx Gastrointestinal Disorders: Yes Gastrointestinal Disorders: Chronic Constipation, Irritable Bowel Musculoskeletal Hx Musculoskeletal Disorders: Yes (MULTIPLE FX R LOWER LEG) Musculoskeletal Disorders: Osteoporosis, Arthritis Endocrine Hx Endocrine Disorders: Yes Endocrine Disorders: Hypothyroidsim HEENT HX ENT Disorders: Yes HEENT Disorders: Cataract Loss of Vision: Denies Hearing Impairment: Denies Cancer Hx Cancer: No Psychosocial Hx Psychiatric Problems: No Integumentary HX Skin/Integumentary Disorder: No Blood Transfusions Hx Blood Disorders: No Adverse Reaction to a Blood Tr: No Family Medical History Family Hx: Alzheimer's disease 19 MOTHER FHx: throat cancer 19 FATHER Review of Systems Constitutional: see HPI EENTM: no symptoms reported Respiratory: no symptoms reported Cardiovascular: no symptoms reported Gastrointestinal: nausea vomiting Genitourinary: see HPI Musculoskeletal: no symptoms reported Skin: no symptoms reported Psychiatric/Neurological: No Symptoms Reported Physical Exam Physical Exam Vital Signs Vital Sign - Last 12Hours 08/28/16 09:40 Temp 101.0 Pulse 70 Resp 18 B/P 120/60 Pulse Ox 100 O2 Delivery Nasal Cannula O2 Flow Rate 2 Capillary Refill : Less Than 3 SecondsLess Than 3 Seconds General Appearance: Other Eyes: Bilateral Eye Normal Inspection HEENT: Normal ENT Inspection Neck: Normal Inspection Respiratory: Chest Non Tender Lungs Clear Normal Breath Sounds No Accessory Muscle Use No Respiratory Distress Cardiovascular: Regular Rate, Rhythm No Edema No Gallop No JVD No Murmur Normal Peripheral Pulses Gastrointestinal: Normal Bowel Sounds No Organomegaly No Pulsatile Mass Non Tender Soft Back: Normal Inspection No CVA Tenderness No Vertebral Tenderness Extremity: Normal Capillary Refill Neurologic/Psychiatric: Alert Oriented x3 No Motor/Sensory Deficits Normal Mood/Affect Skin: Normal Color Warm/Dry Lymphatic: No Adenopathy Comments Chest x-ray showed no evidence of pneumonia. UA was negative. CT suggested the possibility of pyelonephritis bilaterally on the basis of stranding. Results Results/Procedures Lab Laboratory Tests 08/28/16 09:49 08/29/16 06:04 Assessment/Plan Admission Diagnosis 1.sepsis. 2.pyelonephritis Assessment and Plan Empiric IV antibiotics for at least 5 days inpatient Clinical Quality Measures DVT/VTE Risk/Contraindication: Risk Factor Score Per Nursin RFS Level Per Nursing on Admit: 4+=Very High Contraindications-Pharm: Other *list below* REI MACEDO MD Aug 29, 2016 14:02
--- NOTE | 2016-08-29 14:07 | Physical Therapy Evaluation ---
PT Evaluation-General Medical Diagnosis Admission Date Aug 28, 2016 at 12:15 Medical Diagnosis: weakness Onset Date: Aug 28, 2016 Therapy Diagnosis Therapy Diagnosis: impaired mobility, strength, enduance Height/Weight Height (Feet): 5 Height (Inches): 3.00 Weight (Pounds): 151 Weight (Ounces): 1.0 Precautions Precautions/Isolations: Fall Prevention, Standard Precautions Referral Physician: Rosy Soto Reason for Referral: Evaluation/Treatment Medical History Pertinent Medical History: Atrial Fib, Arthritis, COPD, GERD, Hypothroidism Additional Medical History aortic stenosis, pacemaker, pneumonia, DM, hyperlipidemia, chronic sinusitis, sleep apnea, depression Current History went to ER with UTI and sepsis Reviewed History: Yes Social History Home: Single Level Current Living Status: Spouse Entry Into Home: Stairs With Railing PT Steps Into Home: 2 Prior/Core FIM Prior Level of Function Functional [place] Measure 0=Not Assessed/NA 4=Minimal Assistance 1=Total Assistance 5=Supervision or Setup 2=Maximal Assistance 6=Modified [place] 3=Moderate Assistance 7=Complete [place] Bed Mobility: 7 Transfers (B,C,W/C) (FIM): 7 Gait: 7 PT Evaluation-Current Subjective Patient in bed with family in the room. She agrees reluctantly to PT. She seems a little confused and has some trouble answering questions and following directions. She has no complaints of pain. Pt/Family Goals to be independent at home Objective Patient Orientation: Confused Attachments: Oxygen, IV ROM/Strength ROM Lower Extremities WNL Strenght Lower Extremities 4/5 gross strength bilateral lower extremities Neuromuscular (Tone, Coordination, Reflexes) WNL Sensory Vision: Functional Hearing: Functional Sensation Right Lower Extremit: Intact Sensation Left Lower Extremity: Intact Transfers Functional [place] Measure 0=Not Assessed/NA 4=Minimal Assistance 1=Total Assistance 5=Supervision or Setup 2=Maximal Assistance 6=Modified [place] 3=Moderate Assistance 7=Complete [place] Transfers (B, C, W/C) (FIM): 4 Scootin Rollin Supine to/from Sit: 4 Sit to/from Stand: 4 min assist for supine to sit and CGA for sit to stand, cues for safety and hand placement Gait Mode of Locomotion: Walk Anticipated Mode of Locomotion: Walk Gait (FIM): 4 Distance: 150' Gait Level of Assist: 4 Gait Persons Needed: 1 Gait Assistive Device: FWW Comments/Gait Description slow but not LOB Balance Sitting Static: Normal Sitting Dynamic: Normal Standing Static: Fair Standing Dynamic: Fair Treatment Patient in recliner post tx, she also performed bilateral lower extremity exercises while seated x 20 (hip flexion, AP, LAQ) Assessment/Needs Patient has impaired mobility, strength and endurance post UTI and sepsis, she seems confused and has trouble following directions and answering questions Rehab Potential: Fair PT Tubing Oiler Goals Custodial Goals PT Tubing Oiler Goals Time Frame: Sep 05, 2016 Transfers (B,C,W/C) (FIM): 5 Gait (FIM): 5 Distance: 200' Gait Level of Assist: 5 Gait Assistive Device: FWW PT Plan Problem List Problem List: Activity Tolerance, Functional Strength, Safety, Balance, Gait, Transfer, Bed Mobility Treatment/Plan Treatment Plan: Continue Plan of Care Treatment Plan: Bed Mobility, Education, Functional Activity Valerio, Functional Strength, Gait, Safety, Therapeutic Exercise, Transfers Treatment Duration: Sep 05, 2016 # of days/week 5-6 Visits Per Week: 5-6 Minutes/Day (M-F): 15-30 Minutes/Day (Sat/Simpson): 15-30 Pt/Family Agrees w/Plan: Yes Safety Risks/Education Patient Education: Gait Training, Transfer Techniques, Safety Issues Teaching Recipient: Patient Teaching Methods: Demonstration, Discussion Response to Teaching: Reinforcement Needed Discharge Recommendations Plan Patient will perform bed mobility and transfer training, balance and endurance training, functional strengthening, stair training, gait training, and education , to improve functional mobility and independence at home. Therapy D/C Recommendations: Home w/ Family Support Time/GCodes Time In: 1335 Time Out: 1400 Total Billed Treatment Time: 25 Total Billed Treatment 1 visit EVL 15 min GT 10 min DUNG CAT PT Aug 29, 2016 14:07
[2016-08-29 16:17] VITALS: BP 121/58
[2016-08-29] MEDS: ONDANSETRON 4 MG (ZOFRAN) ORAL DISSOLVE TAB PO PRN (16:35)
[2016-08-29] MEDS ORDERED: warFARin 5 MG (COUMADIN) TAB PO SCH (18:00)
[2016-08-29] MEDS ORDERED: warFARin 2.5 MG (COUMADIN) TAB PO SCH (18:00)
[2016-08-29 20:25] VITALS: BP 135/60
[2016-08-29] MEDS: MELATONIN 3 MG TABLET PO PRN (20:35)
[2016-08-29] MEDS: SIMvastatin 20 MG (ZOCOR) TAB PO SCH (20:35)
[2016-08-29] MEDS: ALPRAZolam 0.25 MG (XANAX) TAB PO PRN (20:35)
[2016-08-29] MEDS: MONTELUKAST 10 MG (SINGULAIR) TAB PO SCH (20:36)
[2016-08-29] MEDS: FAMOTIDINE 20 MG (PEPCID) TABLET PO SCH (20:36)
[2016-08-29] MEDS: KCL 20 MEQ TAB (K-DUR) PO SCH (20:36)
[2016-08-30 00:55] VITALS: BP 136/65
[2016-08-30] MEDS: metroNIDAZOLE 500 MG/100 ML IVPB (PRE-MIX) IV SCH ×2 (03:06→15:16)
[2016-08-30 04:54] VITALS: BP 139/67
[2016-08-30 05:44] LABS: BASOPHILS % (AUTO) 0 % (0-10); EOSINOPHILS # (AUTO) 0.7 10^3/uL (0.0-0.3); EOSINOPHILS % (AUTO) 7 % (0-10); LYMPHOCYTES # (AUTO) 1.6 X 10^3 (1.0-4.0); LYMPHOCYTES % (AUTO) 15 % (12-44); MEAN CORPUSCULAR HEMOGLOBIN 29 PG (25-34); MEAN CORPUSCULAR HGB CONC 32 G/DL (32-36); MEAN CORPUSCULAR VOLUME 91 FL (80-99); MEAN PLATELET VOLUME 11.4 FL (7.4-10.4); MONOCYTES # (AUTO) 0.6 X 10^3 (0.0-1.0); MONOCYTES % (AUTO) 6 % (0-12); NEUTROPHILS # (AUTO) 7.9 X 10^3 (1.8-7.8); NEUTROPHILS % (AUTO) 73 % (42-75); PLATELET COUNT 188 10^3/uL (130-400); RED BLOOD COUNT 4.38 10^6/uL (4.35-5.85); WHITE BLOOD COUNT 10.8 10^3/uL (4.3-11.0)
[2016-08-30 05:58] LABS: INR 3.1 (0.8-1.4); PROTHROMBIN TIME PATIENT 32.2 SEC (12.2-14.7)
[2016-08-30 06:10] LABS: ALBUMIN 3.2 G/DL (3.2-4.5); BILIRUBIN,TOTAL 1.6 MG/DL (0.1-1.0); CALCIUM 7.9 MG/DL (8.5-10.1); CREATININE SERUM 0.95 MG/DL (0.60-1.30); POTASSIUM 3.7 MMOL/L (3.6-5.0); TOTAL PROTEIN 5.5 G/DL (6.4-8.2)
[2016-08-30] MEDS: RT-ADVAIR HFA 115/21 MCG PER PUFF IH SCH (07:31)
[2016-08-30 08:00] VITALS: BP 137/63
[2016-08-30] MEDS: ONDANSETRON 4 MG (ZOFRAN) ORAL DISSOLVE TAB PO PRN (08:08)
[2016-08-30] MEDS: predniSONE 5 MG TAB PO SCH (08:09)
[2016-08-30] MEDS: LEVOTHYROXINE 50 MCG (LEVOTHROID) TAB PO SCH (08:10)
[2016-08-30] MEDS: MAGNESIUM OXIDE (MAG-OX)400 MG TAB PO SCH (08:10)
[2016-08-30] MEDS: LORATADINE (CLARITIN) 10 MG TAB PO SCH (08:10)
[2016-08-30] MEDS: CIPROFLOXACIN 400 MG/D5W 200 ML (PRE-MIX) IV SCH ×2 (08:11→20:36)
[2016-08-30] MEDS: KCL 20 MEQ TAB (K-DUR) PO SCH ×2 (08:11→20:36)
[2016-08-30] MEDS ORDERED: NON-FORMULARY MEDICATION 1 EA EA (Fluticasone/Vilanterol (Breo Ellipta 100-25 Mcg INH) 1 P IH SCH (09:00)
--- NOTE | 2016-08-30 09:12 | Progress Note-Cardiology ---
Cardiology SOAP Progress Note Subjective: Some gen fatigue and malaise and chest tightness. Overall, feels somewhat better Objective: I&O/Vital Signs Vital Sign - Last 12Hours 08/30/16 08/30/16 08/30/16 08/30/16 00:55 01:00 04:54 07:00 Temp 98.0 98.4 Pulse 74 70 70 69 Resp 18 20 B/P 136/65 139/67 Pulse Ox 96 97 O2 Delivery Nasal Cannula Room Air O2 Flow Rate 2.00 08/30/16 07:32 Pulse Ox 97 O2 Flow Rate 2.00 Intake and Output 08/30/16 00:00 Intake Total 1710 ml Output Total 1175 ml Balance 535 ml Weight (Pounds): 151 Weight (Ounces): 1.0 Weight (Calculated Kilograms): [id number] Constitutional: appears stated ageNo apparent distress, well-developed well- nourished Respiratory: No accessory muscle use, No respiratory distress, chest expansion is symmetric chest is bilaterally symmetric lungs clear to auscultation Cardiovascular: irregularly irregularNo JVD, S1 and S2 systolic murmur Gastrointestional: No tender, soft roundNo spleenomegaly Extremities: No clubbing, No cyanosis, No significant edema Neurologic/Psychiatric: alert oriented x 3 power is 5/5 both on sides Skin: No rash, No ulcerations Results/Procedures: Labs Laboratory Tests 08/30/16 05:27: Alanine Aminotransferase (ALT/SGPT) 10, Albumin 3.2, Alkaline Phosphatase 50, Anion Gap 9, Aspartate Amino Transf (AST/SGOT) 22, BUN/Creatinine Ratio 17, Basophils # (Auto) 0.0, Basophils (%) (Auto) 0, Blood Urea Nitrogen 16, Calcium Level 7.9L, Carbon Dioxide Level 19L, Chloride Level 116H, Creatinine 0.95, Eosinophils # (Auto) 0.7H, Eosinophils (%) (Auto) 7, Estimat Glomerular Filtration Rate 56, Glucose Level 96, Hematocrit 40, Hemoglobin 12.7, INR Comment 3.1H, Lymphocytes # (Auto) 1.6, Lymphocytes (%) (Auto) 15, Mean Corpuscular Hemoglobin 29, Mean Corpuscular Hemoglobin Concent 32, Mean Corpuscular Volume 91, Mean Platelet Volume 11.4H, Monocytes # (Auto) 0.6, Monocytes (%) (Auto) 6, Neutrophils # (Auto) 7.9H, Neutrophils (%) (Auto) 73, Platelet Count 188, Potassium Level 3.7, Prothrombin Time 32.2H, Red Blood Count 4.38, Red Cell Distribution Width 15.0H, Sodium Level 144, Total Bilirubin 1.6H, Total Protein 5.5L, White Blood Count 10.8 Microbiology 08/28/16 Blood Culture - Preliminary, Resulted No growth 08/28/16 Urine Culture - Preliminary, Resulted NO GROWTH Laboratory Tests 08/28/16 09:49 08/29/16 06:04 08/30/16 05:27 A/P: Assessment: Sepsis likely d/t UTI - medical services managing Possible pyelonephritis per CT on 08-29-16 Aortic stenosis, mod on echo of 09/21/14 (valve area 1.2 sq cm), but severe on cardiac cath of 05/03/15 (valve area 0.58 sq cm). She has been evaluated at [facility] in Aug 2015 for AVR/TAVR and has been told that conservative therapy appears best at this time Mod pulmonary hypertension (mean PA pressure 25 mmHg), elevated LVEDP (20 mmHg) , mild MR and mild CAD on cardiac cath of 05/03/15 Atrial fibrillation with RVR that was very difficult to control on meds. She is now post AV junction ablation per Dr. Paz November 2014. It appears ablation resulted in CHB and therefore PPM was implanted S/p single chamber St Ti pacemaker implantation, post AV kerri ablation, by Dr Paz at [facility] in November 2014 - functioning normally per interrogation of February 2016 Recurrent pneumonias (Jun 2014 and September 2014) managed by Dr Braswell, her fam phy , and by Dr Estes, her pulmonolgist Chronic warfarin anticoagulation for stroke prophylaxis. Supra-therapeutic INR - hold warfarin Maturity onset diabetes mellitus. Chronic intermittent leg swelling, likely related to venous insufficiency, currently under fair control Hypothyroidism, being treated with thyroid replacement therapy and being managed by Dr. Braswell. Hyperlipidemia, being treated with statin therapy. History of chronic sinusitis H/o COPD, being managed by her bellows charger assembler, Dr White Mild carotid arterial disease on u/s of Jun 2013 Obstructive sleep apnea was not documented on studies in 2014, according to the patient Generalized weakness and malaise of undetermined etiology Nausea of undetermined etiology (mid Jul 2014), possibly related to digoxin therapy Depression, being managed by Dr Braswell Nasal colonization with MRSA (detected on nasal swab done at time of cardiac cath of 05/03/15) for which topical antibiotic treatment has been completed Plan: Continue current regimen I spoke with her and her family and answered CV-related questions TINA SERNA MD FACP FACC CCDS Aug 30, 2016 09:12
--- NOTE | 2016-08-30 09:48 | Physical Therapy Daily Note ---
PT Daily Note-Current Subjective Patient is in bed and agrees to PT. Family present. Pain Numeric Pain Scale: 0-No Pain Location: No Pain Reported Mental Status Patient Orientation: Confused Attachments: IV Transfers Functional [place] Measure 0=Not Assessed/NA 4=Minimal Assistance 1=Total Assistance 5=Supervision or Setup 2=Maximal Assistance 6=Modified [place] 3=Moderate Assistance 7=Complete IndependenceIRFPAI Quality Coding Scale 6 Independent with activity with or without an assistive device 5 Patient requires set up or clean up by helper. Patient completes activity by themselves 4 Supervision or touching assist (CGA). Potlatch provide cues , steadying assist 3 The helper provides less than half the effort to complete the activity 2 The helper provides more than half the effort to complete the activity 1 Dependent. The helper does all the effort to complete an activity 7 Patient refused to complete or attempt activity 9 The patient did not perform the activity before the current illness or injury 88 Not attempted due to Medical conditions or safety concerns Transfers (B, C, W/C) (FIM): 5 Scootin Rollin Supine to/from Sit: 5 Sit to/from Stand: 5 Gait Training Gait (FIM): 5 Distance (FIM): 3=150 ft Distance: 300' x 2 Gait Level of Assist: 5 Gait Assistive Device: FWW slow and functional with FWW; patient required 1 standing recovery period due to fatigue. Exercises Seated Therapy Exercises: Ankle pumps, Long arc quads Seated Reps: 20 Assessment Patient tolerated treatment well and is up in recliner with needs met. Family present. PT to increase activity as tolerated by patient. PT Vocational Rehabilitation Supervisor Goals Residential Goals PT Residential Goals Time Frame: Sep 05, 2016 Transfers (B,C,W/C) (FIM): 5 Gait (FIM): 5 Distance: 200' Gait Level of Assist: 5 Gait Assistive Device: FWW PT Plan Treatment/Plan Treatment Plan: Continue Plan of Care Treatment Plan: Bed Mobility, Education, Functional Activity Valerio, Functional Strength, Gait, Safety, Therapeutic Exercise, Transfers Treatment Duration: Sep 05, 2016 Visits Per Week: 5-6 Minutes/Day (M-F): 15-30 Minutes/Day (Sat/Simpson): 15-30 Time/GCodes Time In: 840 Time Out: 903 Total Billed Treatment Time: 23 Total Billed Treatment 1 visit FA x 2 23 min CHAIM MARIA PT Aug 30, 2016 09:48
[2016-08-30] MEDS ORDERED: BREO ELLIPTA IH SCH (10:30)
--- NOTE | 2016-08-30 10:44 | Progress Note-Hospitalist ---
Progress Note HPI/CC on Admission The patient's an 86-year-old white female who was admitted from the emergency room on 08/28. She presented there with signs and symptoms suggesting infection. Her family reported a rather marked decline in performance over the 2 days prior to admission. She had been seen by her provider the day prior and diagnosed with a urinary tract infection. She was placed on Macrodantin and had attempted to take one only to vomit it. Interestingly she had been admitted on July 20 with a similar presentation. She was discharged after 2 days. She took Levaquin by mouth to complete a course and then apparently a second course of Levaquin. Her daughter states that she never seem to be herself. On presentation to the emergency room she had a temperature of 101F. In addition her white blood count was 18,800 and her lactic acid was 2.7. Her urine specific gravity and the remainder of her laboratory suggested that she was dehydrated as well. This very much mirrored the record from 07/20. The daughter reminds me that 27 years ago the patient was admitted by Dr. Braswell with similar symptoms of nausea and vomiting. She decline very rapidly and he transferred her from the medical floor to the ICU and consulted me. She experienced acute renal failure and required ventilator management. Progress Notes/Assess & Plan Date Seen 08/30/16 Diagonsis/Assessment & Plan Chart Review: No fever WBC normal 10.8 Creat 0.95 Total bilirubin 10.6 BNP 140 Pt maintained on Cipro and Vanc due to allergy profile. Dr. Correa was consulted due to CT scan findings of pyelonephritis but that is the only consistent source for sepsis. Will need swingbed to continue IV antibiotics to completely treat recurrent issue. Patient Interview: Dr. Aggarwal discusses CT results and the possibility of swingbed to assist pt with full recovery. Pt an family agree with plan to DC next Saturday after continued management over the weekend with IVbantibiotics. Physical exam was stable. Pt denies having BM. Pt normally takes Miralax at home. Pt family states that Lasix is prn. Pt has 6 days of Brio with her, and normally takes one each night. Dr. Aggarwal discusses K+ supplements with pt and family, as they were unsure why pt required it. no fever, vital signs stable, pleasant, oriented 3, family at the bedside regular rate and rhythm, clear to all sedation bilaterally No edema Laboratory Tests 08/30/16 05:27 1A: Acute polynephritis confirmed on CT scan w/h/o urinary tract infection with sepsis 07/13 with fever and elevated lactic acid, elevated creatinine, and elevated total bilirubin. 2. Mild dementia 3. Dehydration intravascular volume depletion and renal insufficiency-improved 4. Elevated total bilirubin reflective of hepatic dysfunction 5. History of sick sinus syndrome with a pacemaker on Coumadin-Will hold Coumadin tonight and repeat tomorrow 6. COPD-patient may use her own ICS from home 7. History of cardiac arrest 4 in the distant past now a DO NOT RESUSCITATE 8. Nausea and vomiting will use Zofran when necessary 9. Insomnia 10. Obstipation hx Plan: Swingbed tomorrow Lactulose Midline placement Check labs in AM Restart Coumadin 2.5 mg daily - lower dose because holding home med since INR was toxic but now 3.1 Scribed by Alok Blevins under the direct supervision of Dr. Aggarwal. JAGRUTI AGGARWAL DO Aug 30, 2016 10:44
[2016-08-30] MEDS: LACTULOSE SYRUP 10GM/15ML (ENULOSE) 30ML UDC PO SCH ×2 (11:22→20:36)
[2016-08-30 12:00] VITALS: BP 136/64
[2016-08-30] MEDS: VANCOMYCIN 1 GM/NS 250 ML IVPB IV SCH ×2 (12:25)
[2016-08-30] MEDS: ALPRAZolam 0.25 MG (XANAX) TAB PO PRN ×2 (15:16→20:37)
--- NOTE | 2016-08-30 15:32 | Occ Therapy Progress Note ---
Therapy Progress Note In AM, pt declined OT, In PM family reported that she had just gotten Xanax and asked that she not be seen. Well follow family wishes. TUNDE CARMONA OT Aug 30, 2016 15:32
[2016-08-30 16:00] VITALS: BP 157/69
[2016-08-30] MEDS ORDERED: warFARin 2.5 MG (COUMADIN) TAB PO SCH (18:00)
[2016-08-30] MEDS ORDERED: warFARin 5 MG (COUMADIN) TAB PO SCH (18:00)
[2016-08-30 19:00] VITALS: BP 139/74
[2016-08-30] MEDS: MELATONIN 3 MG TABLET PO PRN (20:36)
[2016-08-30] MEDS: SIMvastatin 20 MG (ZOCOR) TAB PO SCH (20:37)
[2016-08-30] MEDS: MONTELUKAST 10 MG (SINGULAIR) TAB PO SCH (20:37)
[2016-08-30] MEDS: FAMOTIDINE 20 MG (PEPCID) TABLET PO SCH (20:37)
[2016-08-31 00:30] VITALS: BP 129/74
[2016-08-31] MEDS: metroNIDAZOLE 500 MG/100 ML IVPB (PRE-MIX) IV SCH (03:07)
[2016-08-31 04:00] VITALS: BP 148/82
[2016-08-31 05:24] LABS: BASOPHILS % (AUTO) 0 % (0-10); EOSINOPHILS # (AUTO) 0.7 10^3/uL (0.0-0.3); EOSINOPHILS % (AUTO) 8 % (0-10); LYMPHOCYTES # (AUTO) 1.7 X 10^3 (1.0-4.0); LYMPHOCYTES % (AUTO) 20 % (12-44); MEAN CORPUSCULAR HEMOGLOBIN 29 PG (25-34); MEAN CORPUSCULAR HGB CONC 33 G/DL (32-36); MEAN CORPUSCULAR VOLUME 90 FL (80-99); MEAN PLATELET VOLUME 11.3 FL (7.4-10.4); MONOCYTES # (AUTO) 0.6 X 10^3 (0.0-1.0); MONOCYTES % (AUTO) 7 % (0-12); NEUTROPHILS # (AUTO) 5.6 X 10^3 (1.8-7.8); NEUTROPHILS % (AUTO) 65 % (42-75); PLATELET COUNT 190 10^3/uL (130-400); RED BLOOD COUNT 4.11 10^6/uL (4.35-5.85); RED CELL DISTRIBUTION WIDTH 14.9 % (10.0-14.5); WHITE BLOOD COUNT 8.6 10^3/uL (4.3-11.0)
[2016-08-31 05:33] LABS: INR 3.1 (0.8-1.4); PROTHROMBIN TIME PATIENT 32.2 SEC (12.2-14.7)
[2016-08-31 05:43] LABS: ALANINE AMINOTRANSFERASE 12 U/L (0-55); ALBUMIN 3.2 G/DL (3.2-4.5); ANION GAP 7 MMOL/L (5-14); ASPARTATE AMINO TRANSFERASE 18 U/L (5-34); BLOOD UREA NITROGEN 9 MG/DL (7-18); BUN/CREATININE RATIO 11; CALCIUM 8.1 MG/DL (8.5-10.1); CARBON DIOXIDE 18 MMOL/L (21-32); CHLORIDE 119 MMOL/L (98-107); CREATININE SERUM 0.83 MG/DL (0.60-1.30); GFR ESTIMATED > 60; GLUCOSE 102 MG/DL (70-105); POTASSIUM 3.8 MMOL/L (3.6-5.0); SODIUM 144 MMOL/L (135-145); TOTAL PROTEIN 5.4 G/DL (6.4-8.2)
[2016-08-31 08:00] VITALS: BP 144/66
[2016-08-31] MEDS: predniSONE 5 MG TAB PO SCH (08:49)
[2016-08-31] MEDS: MAGNESIUM OXIDE (MAG-OX)400 MG TAB PO SCH (08:49)
[2016-08-31] MEDS: ONDANSETRON 4 MG (ZOFRAN) ORAL DISSOLVE TAB PO PRN (08:49)
[2016-08-31] MEDS: ALPRAZolam 0.25 MG (XANAX) TAB PO PRN (08:49)
[2016-08-31] MEDS: LORATADINE (CLARITIN) 10 MG TAB PO SCH (08:49)
[2016-08-31] MEDS: KCL 20 MEQ TAB (K-DUR) PO SCH (08:49)
[2016-08-31] MEDS: LEVOTHYROXINE 50 MCG (LEVOTHROID) TAB PO SCH (08:49)
[2016-08-31] MEDS: CIPROFLOXACIN 400 MG/D5W 200 ML (PRE-MIX) IV SCH (08:50)
[2016-08-31] MEDS: LACTULOSE SYRUP 10GM/15ML (ENULOSE) 30ML UDC PO SCH (08:50)
--- NOTE | 2016-08-31 10:57 | Discharge Summary-Hospitalist ---
Diagnosis/Chief Complaint Date of Admission Aug 28, 2016 at 12:15 Date of Discharge Discharge Date: Aug 31, 2016 Admission Diagnosis 1.sepsis. 2.pyelonephritis Discharge Diagnosis 1A: Acute polynephritis confirmed on CT scan w/h/o urinary tract infection with sepsis 07/13 with fever and elevated lactic acid, elevated creatinine, and elevated total bilirubin. 2. Mild dementia 3. Dehydration intravascular volume depletion and renal insufficiency-improved 4. Elevated total bilirubin reflective of hepatic dysfunction 5. History of sick sinus syndrome with a pacemaker on Coumadin-Will hold Coumadin tonight and repeat tomorrow 6. COPD-patient may use her own ICS from home 7. History of cardiac arrest 4 in the distant past now a DO NOT RESUSCITATE 8. Nausea and vomiting will use Zofran when necessary 9. Insomnia 10. Obstipation hx Chart Review: No fever WBC normal 10.8 Creat 0.95 Total bilirubin 10.6 BNP 140 Pt maintained on Cipro and Vanc due to allergy profile. Dr. Correa was consulted due to CT scan findings of pyelonephritis but that is the only consistent source for sepsis. Will need swingbed to continue IV antibiotics to completely treat recurrent issue. Patient Interview: Dr. Aggarwal discusses CT results and the possibility of swingbed to assist pt with full recovery. Pt an family agree with plan to DC next Saturday after continued management over the weekend with IVbantibiotics. Physical exam was stable. Pt denies having BM. Pt normally takes Miralax at home. Pt family states that Lasix is prn. Pt has 6 days of Brio with her, and normally takes one each night. Dr. Aggarwal discusses K+ supplements with pt and family, as they were unsure why pt required it. no fever, vital signs stable, pleasant, oriented 3, family at the bedside regular rate and rhythm, clear to all sedation bilaterally No edema Laboratory Tests 08/30/16 05:27 1A: Acute polynephritis confirmed on CT scan w/h/o urinary tract infection with sepsis 07/13 with fever and elevated lactic acid, elevated creatinine, and elevated total bilirubin. 2. Mild dementia 3. Dehydration intravascular volume depletion and renal insufficiency-improved 4. Elevated total bilirubin reflective of hepatic dysfunction 5. History of sick sinus syndrome with a pacemaker on Coumadin-Will hold Coumadin tonight and repeat tomorrow 6. COPD-patient may use her own ICS from home 7. History of cardiac arrest 4 in the distant past now a DO NOT RESUSCITATE 8. Nausea and vomiting will use Zofran when necessary 9. Insomnia 10. Obstipation hx Plan: Swingbed tomorrow Lactulose Midline placement Check labs in AM Restart Coumadin 2.5 mg daily - lower dose because holding home med since INR was toxic but now 3.1 Scribed by Alok Blevins under the direct supervision of Dr. Aggarwal. Reason Hospital Visit/Course The patient's an 86-year-old white female who was admitted from the emergency room on 08/28. She presented there with signs and symptoms suggesting infection. Her family reported a rather marked decline in performance over the 2 days prior to admission. She had been seen by her provider the day prior and diagnosed with a urinary tract infection. She was placed on Macrodantin and had attempted to take one only to vomit it. Interestingly she had been admitted on July 20 with a similar presentation. She was discharged after 2 days. She took Levaquin by mouth to complete a course and then apparently a second course of Levaquin. Her daughter states that she never seem to be herself. On presentation to the emergency room she had a temperature of 101F. In addition her white blood count was 18,800 and her lactic acid was 2.7. Her urine specific gravity and the remainder of her laboratory suggested that she was dehydrated as well. This very much mirrored the record from 07/20. The daughter reminds me that 27 years ago the patient was admitted by Dr. Braswell with similar symptoms of nausea and vomiting. She decline very rapidly and he transferred her from the medical floor to the ICU and consulted me. She experienced acute renal failure and required ventilator management. Notes from 08/31/2016: Chart Review: No fever WBC normal at 8.6 Hgb 12 Creat 0.83 Blood Cx coag negative Staph deemed contaminant INR 3.1 on low dose Coumadin 2.5 mg Patient Interview: Dr. Aggarwal informs pt that she will remain at [facility] on swingbed. Pt denies having BM, even though she had bowel meds. Pt is not concerned, and denies suppository. Pt states that she would like to DC. Dr. Aggarwal informs pt that she will likely be stable enough for DC on Saturday. Physical exam was stable. Pt family member states that pt has been stressed and was rude last night. Pt did not sleep well last night. Pt family requests that night time dose of Xanax be increased. No fever, vital signs stable, pleasant, up in chair, family at the bedside Irregular rate and rhythm, clear to auscultation bilaterally No edema Plan: Increase night time dose of Xanax. DC IV Swingbed today Scribed by Alok Blevins under the direct supervision of Dr. Aggarwal. Hospital course: Patient had an uneventful hospital course she was placed on empiric antibiotics of Cipro and vancomycin due to multiple allergies on her list to treat for sepsis and CT scan confirmed acute polynephritis the urology evaluated the patient finding that not confirmatory but regardless she responded for lactic acid normalized her white count normalized her fever was completely resolved on the treatment but she was deemed stable for swing bed to complete IV antibiotics and discharged on Saturday and maintain strengthening through the weekend before discharge. Discharge Summary Discharge Physical Examination Allergies: Coded Allergies: amoxicillin (Verified Allergy, Unknown, 06/21/15) cefadroxil (Verified Allergy, Unknown, 06/21/15) clavulanic acid (Verified Allergy, Unknown, 06/21/15) codeine (Verified Allergy, Unknown, 06/21/15) haloperidol (Verified Allergy, Unknown, 06/21/15) iodine (Verified Allergy, Unknown, 06/21/15) triazolam (Verified Allergy, Unknown, 06/21/15) zolpidem (Verified Allergy, Unknown, 06/21/15) donepezil (Verified Adverse Reaction, Severe, 11/20/15) NAUSEA/VOMITING promethazine HCl (Unverified Adverse Reaction, Mild, 06/21/15) Vitals & I&Os Vital Signs Date Time Temp Pulse Resp B/P Pulse Ox O2 Delivery O2 Flow Rate FiO2 08/31/16 09:00 Nasal Cannula 2.00 08/31/16 08:58 95 08/31/16 08:00 97.3 68 20 144/66 Hospital Course Labs (last 24 hrs) Laboratory Tests 08/31/16 05:10: Alanine Aminotransferase (ALT/SGPT) 12, Albumin 3.2, Alkaline Phosphatase 55, Anion Gap 7, Aspartate Amino Transf (AST/SGOT) 18, BUN/Creatinine Ratio 11, Basophils # (Auto) 0.0, Basophils (%) (Auto) 0, Blood Urea Nitrogen 9, Calcium Level 8.1L, Carbon Dioxide Level 18L, Chloride Level 119H, Creatinine 0.83, Eosinophils # (Auto) 0.7H, Eosinophils (%) (Auto) 8, Estimat Glomerular Filtration Rate > 60, Glucose Level 102, Hematocrit 37, Hemoglobin 12.0, INR Comment 3.1H, Lymphocytes # (Auto) 1.7, Lymphocytes (%) (Auto) 20, Mean Corpuscular Hemoglobin 29, Mean Corpuscular Hemoglobin Concent 33, Mean Corpuscular Volume 90, Mean Platelet Volume 11.3H, Monocytes # (Auto) 0.6, Monocytes (%) (Auto) 7, Neutrophils # (Auto) 5.6, Neutrophils (%) (Auto) 65, Platelet Count 190, Potassium Level 3.8, Prothrombin Time 32.2H, Red Blood Count 4.11L, Red Cell Distribution Width 14.9H, Sodium Level 144, Total Bilirubin 1.0, Total Protein 5.4L, White Blood Count 8.6 Microbiology 08/28/16 Blood Culture - Preliminary, Resulted No growth 08/28/16 Urine Culture - Final, Complete NO GROWTH Pending Labs Laboratory Tests 08/31/16 05:10: Alanine Aminotransferase (ALT/SGPT) 12, Albumin 3.2, Alkaline Phosphatase 55, Anion Gap 7, Aspartate Amino Transf (AST/SGOT) 18, BUN/Creatinine Ratio 11, Basophils # (Auto) 0.0, Basophils (%) (Auto) 0, Blood Urea Nitrogen 9, Calcium Level 8.1, Carbon Dioxide Level 18, Chloride Level 119, Creatinine 0.83, Eosinophils # (Auto) 0.7, Eosinophils (%) (Auto) 8, Estimat Glomerular Filtration Rate > 60, Glucose Level 102, Hematocrit 37, Hemoglobin 12.0, INR Comment 3.1, Lymphocytes # (Auto) 1.7, Lymphocytes (%) (Auto) 20, Mean Corpuscular Hemoglobin 29, Mean Corpuscular Hemoglobin Concent 33, Mean Corpuscular Volume 90, Mean Platelet Volume 11.3, Monocytes # (Auto) 0.6, Monocytes (%) (Auto) 7, Neutrophils # (Auto) 5.6, Neutrophils (%) (Auto) 65, Platelet Count 190, Potassium Level 3.8, Prothrombin Time 32.2, Red Blood Count 4.11, Red Cell Distribution Width 14.9, Sodium Level 144, Total Bilirubin 1.0, Total Protein 5.4, White Blood Count 8.6 Discharge Home Medications: Active Scripts Active Reported Cyanocobalamin Injection (Cyanocobalamin) 1,000 Mcg/Ml Inj 1,000 Mcg INJ MONTHLY Melatonin 3 mg Tablet (Melatonin/Pyridoxine) 1 Each Tablet 6 Mg PO HS PRN Pepcid (Famotidine) 20 Mg Tablet 20 Mg PO BID Ondansetron HCl 4 Mg Tablet 4 Mg PO TID PRN Prednisone 5 Mg Tablet 2.5 Mg PO DAILY TAKES 1/2 (5MG) TABLET Alprazolam 0.5 Mg Tablet 0.25 Mg PO TID PRN TAKES 1/2 (0.5MG) TABLETS Nitrofurantoin Hoke-Mcr 100 mg (Nitrofurantoin Monohyd/M-Cryst) 100 Mg Capsule 100 Mg PO BID 10 Days 10 DAY SUPPLY FILLED 08-27-16 Warfarin Sodium 5 Mg Tablet 5 Mg PO TH@1800 Breo Ellipta 100-25 Mcg INH (Fluticasone/Vilanterol) 1 Each Blst.w.dev 1 Puff IH DAILY Albuterol Sulfate 2.5 Mg/3 Ml Vial.neb 2.5 Mg NEB Q4H PRN Furosemide 40 Mg Tablet 40 Mg PO DAILY PRN Ventolin Hfa (Albuterol Sulfate) 18 Gm Hfa.aer.ad 2 Puff INH Q4H PRN Cetirizine HCl 10 Mg Tablet 10 Mg PO DAILY Montelukast Sodium 10 Mg Tablet 10 Mg PO HS Pravastatin Sodium 40 Mg Tablet 40 Mg PO HS Levothyroxine Sodium 50 Mcg Tablet 50 Mcg PO DAILY Klor-Con M20 (Potassium Chloride) 20 Meq Tab.er.prt 40 Meq PO BID TAKES 2 (20 MEQ) TABLETS Magnesium (Magnesium Oxide) 250 Mg Tablet 250 Mg PO DAILY Warfarin Sodium 5 Mg Tablet 2.5 Mg PO SUMOTUWEFRSA@1800 TAKES 1/2 OF A (5 MG) TABLET Tylenol (Acetaminophen) 325 Mg Tablet 650 Mg PO Q4H PRN TAKES 2 (325MG) TABLET Instructions to patient/family Please see electonic discharge instructions given to patient. Clinical Quality Measures DVT/VTE Risk/Contraindication: Risk Factor Score Per Nursin RFS Level Per Nursing on Admit: 4+=Very High Contraindications-Pharm: Other *list below* JAGRUTI AGGARWAL DO Aug 31, 2016 10:57
--- NOTE | 2016-08-31 12:23 | Progress Note-Cardiology ---
Cardiology SOAP Progress Note Subjective: Sitting up in a chair at the bedside. No c/o. Objective: I&O/Vital Signs Vital Sign - Last 12Hours 08/31/16 08/31/16 08/31/16 08/31/16 04:00 07:00 08:00 08:58 Temp 97.4 97.3 Pulse 70 74 68 Resp 18 20 B/P 148/82 144/66 Pulse Ox 98 98 95 O2 Delivery Room Air Room Air 08/31/16 09:00 O2 Delivery Nasal Cannula O2 Flow Rate 2.00 Intake and Output 08/31/16 00:00 Intake Total 3585 ml Output Total 1000 ml Balance 2585 ml Weight (Pounds): 151 Weight (Ounces): 1.0 Weight (Calculated Kilograms): 68.813502 Constitutional: appears stated ageNo apparent distress, well-developed well- nourished Respiratory: No accessory muscle use, No respiratory distress, chest expansion is symmetric chest is bilaterally symmetric lungs clear to auscultation Cardiovascular: irregularly irregularNo JVD, S1 and S2 systolic murmur Gastrointestional: No tender, soft roundNo spleenomegaly Extremities: No clubbing, No cyanosis, No significant edema Neurologic/Psychiatric: alert power is 5/5 both on sides Skin: No rash, No ulcerations Results/Procedures: Labs Laboratory Tests 08/31/16 05:10: Alanine Aminotransferase (ALT/SGPT) 12, Albumin 3.2, Alkaline Phosphatase 55, Anion Gap 7, Aspartate Amino Transf (AST/SGOT) 18, BUN/Creatinine Ratio 11, Basophils # (Auto) 0.0, Basophils (%) (Auto) 0, Blood Urea Nitrogen 9, Calcium Level 8.1L, Carbon Dioxide Level 18L, Chloride Level 119H, Creatinine 0.83, Eosinophils # (Auto) 0.7H, Eosinophils (%) (Auto) 8, Estimat Glomerular Filtration Rate > 60, Glucose Level 102, Hematocrit 37, Hemoglobin 12.0, INR Comment 3.1H, Lymphocytes # (Auto) 1.7, Lymphocytes (%) (Auto) 20, Mean Corpuscular Hemoglobin 29, Mean Corpuscular Hemoglobin Concent 33, Mean Corpuscular Volume 90, Mean Platelet Volume 11.3H, Monocytes # (Auto) 0.6, Monocytes (%) (Auto) 7, Neutrophils # (Auto) 5.6, Neutrophils (%) (Auto) 65, Platelet Count 190, Potassium Level 3.8, Prothrombin Time 32.2H, Red Blood Count 4.11L, Red Cell Distribution Width 14.9H, Sodium Level 144, Total Bilirubin 1.0, Total Protein 5.4L, White Blood Count 8.6 Microbiology 08/28/16 Blood Culture - Preliminary, Resulted No growth 08/28/16 Urine Culture - Final, Complete NO GROWTH A/P: Assessment: Sepsis likely d/t UTI - medical services managing Possible pyelonephritis per CT on 08-29-16 Aortic stenosis, mod on echo of 09/21/14 (valve area 1.2 sq cm), but severe on cardiac cath of 05/03/15 (valve area 0.58 sq cm). She has been evaluated at [facility] in Aug 2015 for AVR/TAVR and has been told that conservative therapy appears best at this time Mod pulmonary hypertension (mean PA pressure 25 mmHg), elevated LVEDP (20 mmHg) , mild MR and mild CAD on cardiac cath of 05/03/15 Atrial fibrillation with RVR that was very difficult to control on meds. She is now post AV junction ablation per Dr. Paz November 2014. It appears ablation resulted in CHB and therefore PPM was implanted S/p single chamber St Ti pacemaker implantation, post AV kerri ablation, by Dr Paz at [facility] in November 2014 - functioning normally per interrogation of February 2016 Recurrent pneumonias (Jun 2014 and September 2014) managed by Dr Braswell, her fam phy , and by Dr Estes, her pulmonolgist Chronic warfarin anticoagulation for stroke prophylaxis. Supra-therapeutic INR - hold warfarin Maturity onset diabetes mellitus. Chronic intermittent leg swelling, likely related to venous insufficiency, currently under fair control Hypothyroidism, being treated with thyroid replacement therapy and being managed by Dr. Braswell. Hyperlipidemia, being treated with statin therapy. History of chronic sinusitis H/o COPD, being managed by her physical medicine physician, Dr White Mild carotid arterial disease on u/s of Jun 2013 Obstructive sleep apnea was not documented on studies in 2014, according to the patient Generalized weakness and malaise of undetermined etiology Nausea of undetermined etiology (mid Jul 2014), possibly related to digoxin therapy Depression, being managed by Dr Braswell Nasal colonization with MRSA (detected on nasal swab done at time of cardiac cath of 05/03/15) for which topical antibiotic treatment has been completed Plan: Episode of confusion yesterday; spoke with family they are making arrangements for in home care assistance when discharged INR remains elevated at 3.1. Continue to hold warfarin until INR falls below 3.[address] Cook spoke with her and her family and answered CV-related questions Physician Assessment Physician Assessment Lungs: clear Cor: reg A&R * Complex management due to multiple comorbidities, including dementia and ing * Discussed her issues with her daughter CHARLOTTE ENG CUSTOMER LIAISON Aug 31, 2016 12:23 TINA COOK MD FACP FAC CCDS Aug 31, 2016 14:46
[2016-08-31] MEDS ORDERED: BREO ELLIPTA IH SCH (21:00)
[2016-08-31] MEDS ORDERED: ALPRAZolam 0.5 MG (XANAX) TAB PO SCH (21:00)
== END 2016-08-31 10:56 | disposition swing bed (61) | DRG 872 ==
LOC: EDUNIT# 09:37 → ER 09:39 → 4TH 12:15
PROVIDERS: ADMIT Internal Medicine; ATTEND Internal Medicine
DX: A41.9 Sepsis, unspecified organism (principal); N10 Acute pyelonephritis; J45.909 Unspecified asthma, uncomplicated; I35.0 Nonrheumatic aortic (valve) stenosis; I48.91 Unspecified atrial fibrillation; E11.9 Type 2 diabetes mellitus without complications; J44.9 Chronic obstructive pulmonary disease, unspecified; G47.33 Obstructive sleep apnea (adult) (pediatric); Z66 Do not resuscitate; F03.90 Unspecified dementia, unspecified severity, without behavioral disturbance, psychotic disturbance, mood disturbance, and anxiety; E03.9 Hypothyroidism, unspecified; E78.00 Pure hypercholesterolemia, unspecified; R01.1 Cardiac murmur, unspecified; M81.0 Age-related osteoporosis without current pathological fracture; R60.9 Edema, unspecified; M19.91 Primary osteoarthritis, unspecified site; K58.9 Irritable bowel syndrome, unspecified; I87.2 Venous insufficiency (chronic) (peripheral); E78.5 Hyperlipidemia, unspecified; F32.9 Major depressive disorder, single episode, unspecified; G47.00 Insomnia, unspecified; Z95.0 Presence of cardiac pacemaker
CPT/HCPCS: 36415; 51702; 53620; 71010; 74176; 76937; 80053; 81000; 83605; 83880; 85007; 85025; 85027; 85610; 85730; 87040; 87088; 94640; 94760; 96361; 96365; 96367

== ENCOUNTER 2016-08-31 08:42 | Inpatient (IN) | payer MEDICARE ==
[~2016-08-31] VITALS: Ht 160 cm; Wt 68.5 kg
[~2016-08-31 08:42] MED LIST changes: +ALPR0.5T7 PO; +CNC1KV INJ; +FAMO-119 PO; +MELA1TAB10 PO; +ONDA4TAB10 PO
[2016-08-31] MEDS ORDERED: FUROSEMIDE 40 MG (LASIX) TAB PO PRN (11:15)
[2016-08-31] MEDS ORDERED: RT-ALBUTEROL SULF 2.5 MG/3 ML PRE-MIX VIAL INH PRN (11:15)
[2016-08-31] MEDS ORDERED: CATHETER FLUSH 10 ML SYR IV PRN (11:15)
[2016-08-31] MEDS ORDERED: metroNIDAZOLE 500MG/100ML IVPB 100 ML IV SCH (11:15)
[2016-08-31] MEDS ORDERED: ONDANSETRON 4 MG (ZOFRAN) ORAL DISSOLVE TAB PO PRN (11:15)
--- OUTSIDE RECORDS SUMMARY | 2016-08-31 11:58 | XMS REPORT | Continuity of Care Document ---
Author Author [facility] Organization [facility] Address Unknown Phone Unavailable Care Team Providers Care Perinatal Social Worker Name Role Phone MichaelleYo PCP [phone] Source Comments Some departments are not documenting in the electronic medical record. If you do not see the information that you expected, contact Release of Information in the Health Information Management department at [phone] for further assistance in locating additional records.[facility] Active Allergies and Adverse Reactions Allergen [...]
[2016-08-31 12:00] VITALS: BP 149/74
--- NOTE | 2016-08-31 12:03 | Physical Therapy Evaluation ---
PT Evaluation-General Medical Diagnosis Admission Date Aug 31, 2016 at 10:57 Medical Diagnosis: weakness Onset Date: Aug 29, 2016 Therapy Diagnosis Therapy Diagnosis: general debility/weakness Height/Weight Height (Feet): 5 Height (Inches): 3.00 Weight (Pounds): 151 Weight (Ounces): 1.0 Precautions Precautions/Isolations: Standard Precautions Referral Physician: Charles Reason for Referral: Evaluation/Treatment Medical History Pertinent Medical History: Atrial Fib, Arthritis, COPD, Dementia, GERD, Hypothroidism Additional Medical History aortic stenosis, pacemaker, pneumonia, DM, hyperlipidemia, chronic sinusitis, sleep apnea, depression Current History SWB status Reviewed History: Yes Social History Home: Single Level Current Living Status: Spouse Prior/Core FIM Prior Level of Function Functional [place] Measure 0=Not Assessed/NA 4=Minimal Assistance 1=Total Assistance 5=Supervision or Setup 2=Maximal Assistance 6=Modified [place] 3=Moderate Assistance 7=Complete [place] Bed Mobility: 7 Transfers (B,C,W/C) (FIM): 7 Gait: 7 good family support PT Evaluation-Current Subjective Patient just out of shower with family assisting with ADL's. Pain Numeric Pain Scale: 0-No Pain Location: No Pain Reported Objective Patient Orientation: Confused Problem Solving: Fair ROM/Strength ROM Lower Extremities bilateral LE WFL Strenght Lower Extremities bilateral LE WFL Integumentary/Posture Integumentary refer to nursing notes Bowel Incontinence: No Bladder Incontinence: No Posture WNL Neuromuscular (Tone, Coordination, Reflexes) grossly intact Sensory Vision: Wears Glasses Hearing: Impaired Transfers Functional [place] Measure 0=Not Assessed/NA 4=Minimal Assistance 1=Total Assistance 5=Supervision or Setup 2=Maximal Assistance 6=Modified [place] 3=Moderate Assistance 7=Complete [place] Transfers (B, C, W/C) (FIM): 4 Scootin Rollin Supine to/from Sit: 4 Sit to/from Stand: 4 Sit to Lying (QC): 4 Lying to Sitting/Side of Bed(Q: 4 Sit to Stand (QC): 4 Chair/Fvh-md-Twung Xfer(QC): 4 Gait Does the Patient Walk?: Yes Mode of Locomotion: Walk Anticipated Mode of Locomotion: Walk Gait (FIM): 4 Distance (FIM): 3=150 ft Distance: 400' Walk 50 ft with 2 Turns(QC): 4 Walk 150 ft (QC): 4 Gait Level of Assist: 4 Gait Persons Needed: 1 Gait Assistive Device: FWW Comments/Gait Description close CGA for safety Balance Sitting Static: Normal Sitting Dynamic: Normal Standing Static: Normal Standing Dynamic: Normal Treatment Gait training with and without FWW in hallway 400' with close CGA for safety. Patient demonstrates NBOS and decreased gerda/gait sequence due to dementia. Assessment/Needs 86 y.o. female, will benefit from short term skilled PT to address functional strength and mobility to improve current LOF and to safely return to home with family at maximum LOF. Rehab Potential: Good PT Glass Melt Operator Goals Care Home Goals PT Care Home Goals Time Frame: Sep 07, 2016 Transfers (B,C,W/C) (FIM): 6 Sit to Lying (QC): 5 Lying-Sitting on Side/Bed(QC): 5 Sit to Stand (QC): 5 Rollin Chair/Uwg-hk-Svkmp Xfer(QC): 5 Does the Patient Walk: Yes Gait (FIM): 5 Gait distance (FIM): 3=150 ft Walk 50ft with 2 Turns (QC): 5 Walk 150 ft (QC): 5 Gait Level of Assist: 5 Gait Assistive Device: FWW PT Plan Problem List Problem List: Activity Tolerance, Safety Treatment/Plan Treatment Plan: Continue Plan of Care Treatment Plan: Education, Functional Activity Valerio, Functional Strength, Gait , Safety, Therapeutic Exercise, Transfers Treatment Duration: Sep 07, 2016 # of days/week 5-6 Visits Per Week: 5-6 Minutes/Day (M-F): 15-30 Minutes/Day (Sat/Simpson): PRN Pt/Family Agrees w/Plan: Yes Safety Risks/Education Patient Education: Safety Issues Teaching Recipient: Patient, Family Teaching Methods: Discussion Response to Teaching: Verbalize Understanding Discharge Recommendations Therapy D/C Recommendations: Home w/ Family Support Time/GCodes Time In: 1120 Time Out: 1145 Total Billed Treatment Time: 25 Total Billed Treatment 1 visit EVL 10 min GT 15 min CHAIM MARIA PT Aug 31, 2016 12:03
[2016-08-31] MEDS: ACETAMINOPHEN 325 MG TABLET/CAPLET (TYLENOL) PO PRN (13:53)
--- NOTE | 2016-08-31 14:27 | Occ Therapy Progress Note ---
Therapy Progress Note 1415 Attempted to complete OT evaluation but pt was out of the building with family. Will see tomorrow. TUNDE CARMONA OT Aug 31, 2016 14:27
[2016-08-31] MEDS: metroNIDAZOLE 500MG/100ML IVPB 100 ML IV SCH (15:30)
[2016-08-31] MEDS: ALPRAZolam 0.25 MG (XANAX) TAB PO PRN (15:30)
[2016-08-31] MEDS: warFARin 2.5 MG (COUMADIN) TAB PO SCH (18:00)
[2016-08-31 18:10] VITALS: BP 131/73
[2016-08-31] MEDS: BREO ELLIPTA IH SCH (19:08)
[2016-08-31] MEDS: FAMOTIDINE 20 MG (PEPCID) TABLET PO SCH (20:01)
[2016-08-31] MEDS: KCL 20 MEQ TAB (K-DUR) PO SCH (20:02)
[2016-08-31] MEDS: SIMvastatin 20 MG (ZOCOR) TAB PO SCH (20:02)
[2016-08-31] MEDS: MONTELUKAST 10 MG (SINGULAIR) TAB PO SCH (20:02)
[2016-08-31] MEDS: MELATONIN 3 MG TABLET PO PRN (20:02)
[2016-08-31] MEDS: ALPRAZolam 0.5 MG (XANAX) TAB PO SCH (20:02)
[2016-08-31] MEDS: CIPROFLOXACIN IV 400MG/200ML 200 ML IV SCH (20:05)
[2016-08-31] MEDS: LACTULOSE SYRUP 10GM/15ML (ENULOSE) 30ML UDC PO SCH (20:09)
[2016-09-01] MEDS: metroNIDAZOLE 500MG/100ML IVPB 100 ML IV SCH ×2 (03:23→15:21)
[2016-09-01 06:00] VITALS: BP 124/82
[2016-09-01] MEDS: predniSONE 5 MG TAB PO SCH (06:06)
[2016-09-01] MEDS: LEVOTHYROXINE 50 MCG (LEVOTHROID) TAB PO SCH (06:06)
[2016-09-01] MEDS: KCL 20 MEQ TAB (K-DUR) PO SCH ×2 (06:07→17:43)
--- NOTE | 2016-09-01 09:13 | Physical Therapy Daily Note ---
PT Daily Note-Current Subjective States that she is doing okay and ready to go home. Pain Numeric Pain Scale: 0-No Pain Transfers Functional [place] Measure 0=Not Assessed/NA 4=Minimal Assistance 1=Total Assistance 5=Supervision or Setup 2=Maximal Assistance 6=Modified [place] 3=Moderate Assistance 7=Complete IndependenceIRFPAI Quality Coding Scale 6 Independent with activity with or without an assistive device 5 Patient requires set up or clean up by helper. Patient completes activity by themselves 4 Supervision or touching assist (CGA). [place] provide cues , steadying assist 3 The helper provides less than half the effort to complete the activity 2 The helper provides more than half the effort to complete the activity 1 Dependent. The helper does all the effort to complete an activity 7 Patient refused to complete or attempt activity 9 The patient did not perform the activity before the current illness or injury 88 Not attempted due to Medical conditions or safety concerns Transfers (B, C, W/C) (FIM): 5 Supine to/from Sit: 5 Gait Training Gait (FIM): 5 Distance: 500' Gait Level of Assist: 5 Gait Persons Needed: 1 Gait Assistive Device: FWW Exercises Seated Therapy Exercises: Ankle pumps, Long arc quads, Hip flexion Seated Reps: 15 Assessment Current Status: Excellent Progress The patient did well with all activities. PT Event Marketing Specialist Goals Event Marketing Specialist Goals PT Fpc Goals Time Frame: Sep 07, 2016 Transfers (B,C,W/C) (FIM): 6 Gait (FIM): 5 Gait distance (FIM): 3=150 ft Gait Level of Assist: 5 Gait Assistive Device: FWW PT Plan Treatment/Plan Treatment Plan: Continue Plan of Care Treatment Plan: Education, Functional Activity Valerio, Functional Strength, Gait , Safety, Therapeutic Exercise, Transfers Treatment Duration: Sep 07, 2016 Visits Per Week: 5-6 Minutes/Day (M-F): 15-30 Minutes/Day (Sat/Simpson): PRN Time/GCodes Time In: 851 Time Out: 911 Total Billed Treatment Time: 20' Total Billed Treatment 1, GT x 15' MILLER MANZO PT Sep 01, 2016 09:13
--- NOTE | 2016-09-01 09:46 | Occupational Therapy Eval ---
OT Evaluation-General/PLF Medical Diagnosis Admission Date Aug 31, 2016 at 10:57 Medical Diagnosis: weakness Onset Date: Aug 29, 2016 Therapy Diagnosis Therapy Diagnosis: weakness, decr self care, decr activity tolerance, decr functional mobility Height/Weight Height (Feet): 5 Height (Inches): 3.00 Weight (Pounds): 151 Weight (Ounces): 1.0 Precautions Precautions/Isolations: Standard Precautions Safety Interventions: Bed Exit Alarm Referral Physician: Charles Referral Reason: Evaluation/Treatment Medical History Pertinent Medical History: Atrial Fib, Arthritis, COPD, Dementia, GERD, Hypothroidism Additional Medical History Hiatal hernia repair, pacemaker, aortic stenosis, hx respiratory arrest and on vent, asthma, pneumonia, chronic edema, valvular heart disease, chronic constipation, irritable bowel, multiple R LE fx, osteoporosis Current History Admitted from ED with abdominal pain, lethargy. Recent tx for UTI. Acute care admitting dx sepsis, UTI. Family reported recent neck and shoulder injections for pain. Reviewed History: Yes Social History Home: Single Level Current Living Status: Spouse ADL-Prior Level of Function ADL PLOF Comments Patient and family reported that pt has been able to manage her basic self care skills except that she reported that she has trouble "getting in and out of bed and out of the bathtub." She does not drive DME/Equipment: Bath Bench, Bedside Commode, Grab Bars, Shower, Shower Hose Automotive Painter, Tub, Toilet/Riser Drive Self: No OT Current Status Subjective Pt seen in room, up in recliner, agreeable to OT. pain reported 0/10 Appearance Alert, cooperative, confused Mental Status/Objective Patient Orientation: Person, Place, Situation Attachments: Saline Lock Current Glasses/Contacts: Yes Hand Dominance: Right Upper Extremity ROM Grossly WFL bilat Upper Extremity Strength Grossly WFL ADL-Treatment ADL-Current Pt agreed to ADLs. Sit to stand from recliner with pt recalled to push up from chair and not pull up from walker. Pt walked close CGA, FWW to bathroom but needed s little help maneuvering walker in smaller space. She was able to get on and off BSC over toilet (she uses this at home) with supervision and stood with supervision, FWW to manage clothing and toilet hygiene. She walked to sink CGA, FWW and stood at sink with supervision to brush teeth, wash face and hands , comb hair. Skilled cues or walker placement. She declined to change clothing but on acute care was able to take slipper socks off and on. Family reports that she is able to feed herself with only occasional help to cut up meet or open packages. Pt was returned to recliner, sitting back down with SBA. Family in room, all needs met. Skilled cues and supervision needed for patient safety. Information on ADL results shared with , pt and daughter. Functional [place] Measure 0=Not Assessed/NA 4=Minimal Assistance 1=Total Assistance 5=Supervision or Setup 2=Maximal Assistance 6=Modified [place] 3=Moderate Assistance 7=Complete IndependenceIRFPAI Quality Coding Scale 6 Independent with activity with or without an assistive device 5 Patient requires set up or clean up by helper. Patient completes activity by themselves 4 Supervision or touching assist (CGA). [place] provide cues , steadying assist 3 The helper provides less than half the effort to complete the activity 2 The helper provides more than half the effort to complete the activity 1 Dependent. The helper does all the effort to complete an activity 7 Patient refused to complete or attempt activity 9 The patient did not perform the activity before the current illness or injury 88 Not attempted due to Medical conditions or safety concerns Eating (FIM): 5 Eating (QC): 5 Grooming (FIM): 5 (supervision) Oral Hygiene (QC): 4 Toileting Hygiene (QC): 4 (supervision) Toileting (FIM): 5 Transfers (B, C, W/C) (FIM): 5 (supervision) Toilet/Commode Transfer (FIM): 5 (supervision) Pt stated that she had taken a shower last evening, with her daughter's help. Education OT Patient Education: Modified ADL techniques, Progress toward Goal/Update tx plan, Purpose of tx/functional activities, Rehab process, Safety issues, Transfer techniques Teaching Recipient: Patient, Family Teaching Methods: Demonstration, Discussion Response to Teaching: Verbalize Understanding, Return Demonstration, Reinforcement Needed OT Track Repair Supervisor Goals Nursing Home Goals Time Frame: Sep 07, 2016 Eating (FIM): 6 Eating (QC): 6 Oral Hygiene (QC): 6 Grooming(FIM): 6 Toileting Hygiene (QC): 6 Upper Body Dressing(FIM): 5 Lower Body Dressing(FIM): 5 Toileting(FIM): 6 Toilet/Commode Transfer(FIM): 6 Toilet/Commode Transfer (QC): 6 Additional Goals: 2-Verbalize Understanding, 3-ImproveStrength/Valerio 1=Demonstrate adherence to instructed precautions during ADL tasks. 2=Patient will verbalize/demonstrate understanding of assistive devices/ modifications for ADL. 3=Patient will improve strength/tolerance for activity to enable patient to perform ADL's. OT Education/Plan Problem List/Assessment Assessment: Decreased Activ Tolerance, Decreased Safety Aware, Decreased UE Strength, Dependent Transfers, Impaired Funct Balance, Impaired Self-Care Skills Pt would benefit from skilled OT to increase her independence in basic self care to allow her to safely return to her home, with family, and decrease caregiver burden. Discharge Recommendations Plan/Recommendations: Continue POC Treatment Plan/Plan of Care Treatment,Training & Education: Yes Patient would benefit from OT for education, treatment and training to promote independence in ADL's, mobility, safety and/or upper extremity function for ADL' s. Plan of Care: ADL Retraining, Functional Mobility, UE Funct Exercise/Act, UE Neuromus Re-Ed/Coord Treatment Duration: Sep 07, 2016 # of days/week 5 Visits Per Week: 5 Agreement: Yes (family agreement) Rehab Potential: Good Time/GCodes Start Time: 09:00 Stop Time: 09:35 Total Time Billed (hr/min): 35 Billed Treatment Time visit, 15 minutes evaluation moderate complexity, 20 minutes ADL TUNDE CARMONA OT Sep 01, 2016 09:46
[2016-09-01] MEDS: MAGNESIUM OXIDE (MAG-OX)400 MG TAB PO SCH (09:47)
[2016-09-01] MEDS: LACTULOSE SYRUP 10GM/15ML (ENULOSE) 30ML UDC PO SCH ×2 (09:47→20:02)
[2016-09-01] MEDS: LORATADINE (CLARITIN) 10 MG TAB PO SCH (09:47)
[2016-09-01] MEDS: CIPROFLOXACIN IV 400MG/200ML 200 ML IV SCH ×2 (09:49→20:01)
[2016-09-01] MEDS: ALPRAZolam 0.25 MG (XANAX) TAB PO PRN (14:04)
--- NOTE | 2016-09-01 16:09 | Progress Note-Cardiology ---
Cardiology SOAP Progress Note Subjective: No cp or palp or syncope Objective: I&O/Vital Signs Vital Sign - Last 12Hours 09/01/16 09/01/16 06:00 09:00 Temp 98.8 Pulse 76 Resp 19 B/P 124/82 Pulse Ox 94 O2 Delivery Room Air Room Air Intake and Output 09/01/16 00:00 Intake Total 1440 ml Output Total 1300 ml Balance 140 ml Weight (Pounds): 151 Weight (Ounces): 1.0 Weight (Calculated Kilograms): 68.550094 Constitutional: AAO x 3 well-developed well-nourished Respiratory: No accessory muscle use, lungs clear to percussion lungs clear to auscultation Cardiovascular: regular rate-rhythm S1 and S2 systolic murmur (2/6 BETH at card base) Gastrointestional: No tender, softNo guarding, No rebound, audible bowel sounds Extremities: No clubbing, No cyanosis, No significant edema Neurologic/Psychiatric: grossly intact power is 5/5 both on sides Skin: No rash on exposed areas, No ulcerations on exposed areas A/P: Assessment: Sepsis likely d/t UTI - medical services managing Possible pyelonephritis per CT on 08-29-16 Aortic stenosis, mod on echo of 09/21/14 (valve area 1.2 sq cm), but severe on cardiac cath of 05/03/15 (valve area 0.58 sq cm). She has been evaluated at [facility] in Aug 2015 for AVR/TAVR and has been told that conservative therapy appears best at this time Mod pulmonary hypertension (mean PA pressure 25 mmHg), elevated LVEDP (20 mmHg) , mild MR and mild CAD on cardiac cath of 05/03/15 Atrial fibrillation with RVR that was very difficult to control on meds. She is now post AV junction ablation per Dr. Paz November 2014. It appears ablation resulted in CHB and therefore PPM was implanted S/p single chamber St Ti pacemaker implantation, post AV kerri ablation, by Dr Paz at [facility] in November 2014 - functioning normally per interrogation of February 2016 Recurrent pneumonias (Jun 2014 and September 2014) managed by Dr Braswell, her fam phy , and by Dr Estes, her pulmonolgist Chronic warfarin anticoagulation for stroke prophylaxis. Supra-therapeutic INR - hold warfarin Maturity onset diabetes mellitus. Chronic intermittent leg swelling, likely related to venous insufficiency, currently under fair control Hypothyroidism, being treated with thyroid replacement therapy and being managed by Dr. Braswell. Hyperlipidemia, being treated with statin therapy. History of chronic sinusitis H/o COPD, being managed by her cement block maker, Dr White Mild carotid arterial disease on u/s of Jun 2013 Obstructive sleep apnea was not documented on studies in 2014, according to the patient Generalized weakness and malaise of undetermined etiology Nausea of undetermined etiology (mid Jul 2014), possibly related to digoxin therapy Depression, being managed by Dr Braswell Plan: Continue current regimen Follow labs, given current antibiotic therapy and long-term warfarin anticoag I spoke with her and her fam and answered card-related questions TINA SERNA MD FACP FACC CCDS Sep 01, 2016 16:09
[2016-09-01] MEDS: warFARin 2.5 MG (COUMADIN) TAB PO SCH (17:43)
[2016-09-01 18:30] VITALS: BP 159/70
[2016-09-01] MEDS: BREO ELLIPTA IH SCH (18:48)
[2016-09-01] MEDS: FAMOTIDINE 20 MG (PEPCID) TABLET PO SCH (20:00)
[2016-09-01] MEDS: MONTELUKAST 10 MG (SINGULAIR) TAB PO SCH (20:00)
[2016-09-01] MEDS: ALPRAZolam 0.5 MG (XANAX) TAB PO SCH (20:01)
[2016-09-01] MEDS: SIMvastatin 20 MG (ZOCOR) TAB PO SCH (20:01)
[2016-09-01] MEDS: ACETAMINOPHEN 325 MG TABLET/CAPLET (TYLENOL) PO PRN (21:56)
[2016-09-01] MEDS: MELATONIN 3 MG TABLET PO PRN (21:57)
[2016-09-02] MEDS: metroNIDAZOLE 500MG/100ML IVPB 100 ML IV SCH ×2 (02:51→15:15)
[2016-09-02] MEDS: predniSONE 5 MG TAB PO SCH (05:31)
[2016-09-02] MEDS: KCL 20 MEQ TAB (K-DUR) PO SCH ×2 (05:32→17:08)
[2016-09-02] MEDS: LEVOTHYROXINE 50 MCG (LEVOTHROID) TAB PO SCH (05:32)
[2016-09-02 05:40] LABS: BASOPHILS # (AUTO) 0.1 10^3/uL (0.0-0.1); BASOPHILS % (AUTO) 1 % (0-10); EOSINOPHILS # (AUTO) 0.7 10^3/uL (0.0-0.3); EOSINOPHILS % (AUTO) 11 % (0-10); LYMPHOCYTES # (AUTO) 2.2 X 10^3 (1.0-4.0); LYMPHOCYTES % (AUTO) 35 % (12-44); MEAN CORPUSCULAR HEMOGLOBIN 29 PG (25-34); MEAN CORPUSCULAR HGB CONC 33 G/DL (32-36); MEAN CORPUSCULAR VOLUME 90 FL (80-99); MEAN PLATELET VOLUME 11.3 FL (7.4-10.4); MONOCYTES # (AUTO) 0.8 X 10^3 (0.0-1.0); MONOCYTES % (AUTO) 13 % (0-12); NEUTROPHILS # (AUTO) 2.6 X 10^3 (1.8-7.8); NEUTROPHILS % (AUTO) 40 % (42-75); PLATELET COUNT 212 10^3/uL (130-400); RED BLOOD COUNT 4.35 10^6/uL (4.35-5.85); RED CELL DISTRIBUTION WIDTH 14.8 % (10.0-14.5); WHITE BLOOD COUNT 6.4 10^3/uL (4.3-11.0)
[2016-09-02 05:50] LABS: INR 2.3 (0.8-1.4)
[2016-09-02 06:00] LABS: CALCIUM 8.8 MG/DL (8.5-10.1); CREATININE SERUM 0.99 MG/DL (0.60-1.30); POTASSIUM 4.2 MMOL/L (3.6-5.0)
[2016-09-02 06:36] VITALS: BP 181/88
[2016-09-02 08:00] VITALS: BP 159/83
[2016-09-02] MEDS: LACTULOSE SYRUP 10GM/15ML (ENULOSE) 30ML UDC PO SCH ×3 (09:00→20:33)
[2016-09-02] MEDS: MAGNESIUM OXIDE (MAG-OX)400 MG TAB PO SCH (09:03)
[2016-09-02] MEDS: LORATADINE (CLARITIN) 10 MG TAB PO SCH (09:03)
[2016-09-02] MEDS: CIPROFLOXACIN IV 400MG/200ML 200 ML IV SCH ×2 (09:04→20:23)
[2016-09-02] MEDS: ALPRAZolam 0.25 MG (XANAX) TAB PO PRN (13:50)
--- NOTE | 2016-09-02 15:07 | Progress Note-Cardiology ---
Cardiology SOAP Progress Note Subjective: Does not report cp of palp or syncope Family reports that she has been more restless and confused at times Objective: I&O/Vital Signs Vital Sign - Last 12Hours 09/02/16 09/02/16 09/02/16 06:36 07:45 08:00 Temp 96.6 97.1 Pulse 72 70 Resp 22 18 B/P 181/88 159/83 Pulse Ox 96 98 O2 Delivery Room Air Room Air Room Air Intake and Output 09/02/16 00:00 Intake Total 2300 ml Output Total 200 ml Balance 2100 ml Weight (Pounds): 151 Weight (Ounces): 1.0 Weight (Calculated Kilograms): 68.608809 Constitutional: AAO x 3 well-developed well-nourished Respiratory: lungs clear to percussion lungs clear to auscultation Cardiovascular: regular rate-rhythm S1 and S2 systolic murmur Gastrointestional: soft audible bowel sounds Extremities: No clubbing, No cyanosis, No significant edema Neurologic/Psychiatric: grossly intact power is 5/5 both on sides Skin: No rash on exposed areas, No ulcerations on exposed areas Results/Procedures: Labs Laboratory Tests 09/02/16 05:30: Anion Gap 8, BUN/Creatinine Ratio 10, Basophils # (Auto) 0.1, Basophils (%) ( Auto) 1, Blood Urea Nitrogen 10, Calcium Level 8.8, Carbon Dioxide Level 24, Chloride Level 112H, Creatinine 0.99, Eosinophils # (Auto) 0.7H, Eosinophils (% ) (Auto) 11H, Estimat Glomerular Filtration Rate 53, Glucose Level 92, Hematocrit 39, Hemoglobin 12.7, INR Comment 2.3H, Lymphocytes # (Auto) 2.2, Lymphocytes (%) (Auto) 35, Magnesium Level 2.0, Mean Corpuscular Hemoglobin 29, Mean Corpuscular Hemoglobin Concent 33, Mean Corpuscular Volume 90, Mean Platelet Volume 11.3H, Monocytes # (Auto) 0.8, Monocytes (%) (Auto) 13H, Neutrophils # (Auto) 2.6, Neutrophils (%) (Auto) 40L, Platelet Count 212, Potassium Level 4.2, Prothrombin Time 25.0H, Red Blood Count 4.35, Red Cell Distribution Width 14.8H, Sodium Level 144, White Blood Count 6.4 Laboratory Tests 09/02/16 05:30 A/P: Assessment: Sepsis likely d/t UTI - medical services managing Possible pyelonephritis per CT on 08-29-16 Aortic stenosis, mod on echo of 09/21/14 (valve area 1.2 sq cm), but severe on cardiac cath of 05/03/15 (valve area 0.58 sq cm). She has been evaluated at [facility] in Aug 2015 for AVR/TAVR and has been told that conservative therapy appears best at this time Mod pulmonary hypertension (mean PA pressure 25 mmHg), elevated LVEDP (20 mmHg) , mild MR and mild CAD on cardiac cath of 05/03/15 Atrial fibrillation with RVR that was very difficult to control on meds. She is now post AV junction ablation per Dr. Paz November 2014. It appears ablation resulted in CHB and therefore PPM was implanted S/p single chamber St Ti pacemaker implantation, post AV kerri ablation, by Dr Paz at [facility] in November 2014 - functioning normally per interrogation of February 2016 Recurrent pneumonias (Jun 2014 and September 2014) managed by Dr Braswell, her fam phy , and by Dr Estes, her pulmonolgist Chronic warfarin anticoagulation for stroke prophylaxis. Supra-therapeutic INR - hold warfarin Maturity onset diabetes mellitus. Chronic intermittent leg swelling, likely related to venous insufficiency, currently under fair control Hypothyroidism, being treated with thyroid replacement therapy and being managed by Dr. Braswell. Hyperlipidemia, being treated with statin therapy. History of chronic sinusitis H/o COPD, being managed by her nurse midwife, Dr White Mild carotid arterial disease on u/s of Jun 2013 Obstructive sleep apnea was not documented on studies in 2014, according to the patient Generalized weakness and malaise of undetermined etiology Nausea of undetermined etiology (mid Jul 2014), possibly related to digoxin therapy Depression, being managed by Dr Braswell Plan: Continue current regimen Follow labs, given current antibiotic therapy and long-term warfarin anticoag. INR is in the therapeutic range today, but lower than before. Repeat tomorrow TINA SERNA MD FACP FACC CCDS Sep 02, 2016 15:07
[2016-09-02] MEDS: warFARin 2.5 MG (COUMADIN) TAB PO SCH (17:08)
[2016-09-02 18:40] VITALS: BP 141/67
[2016-09-02] MEDS: BREO ELLIPTA IH SCH (18:41)
[2016-09-02] MEDS: MONTELUKAST 10 MG (SINGULAIR) TAB PO SCH (20:22)
[2016-09-02] MEDS: SIMvastatin 20 MG (ZOCOR) TAB PO SCH (20:22)
[2016-09-02] MEDS: FAMOTIDINE 20 MG (PEPCID) TABLET PO SCH (20:22)
[2016-09-02] MEDS: ALPRAZolam 0.5 MG (XANAX) TAB PO SCH (20:22)
[2016-09-03] MEDS: metroNIDAZOLE 500MG/100ML IVPB 100 ML IV SCH (02:58)
[2016-09-03] MEDS: LEVOTHYROXINE 50 MCG (LEVOTHROID) TAB PO SCH (05:47)
[2016-09-03] MEDS: predniSONE 5 MG TAB PO SCH (05:47)
[2016-09-03] MEDS: KCL 20 MEQ TAB (K-DUR) PO SCH (05:48)
[2016-09-03 06:08] LABS: INR 2.4 (0.8-1.4); PROTHROMBIN TIME PATIENT 26.2 SEC (12.2-14.7)
[2016-09-03 06:24] VITALS: BP 141/65
[2016-09-03] MEDS: MAGNESIUM OXIDE (MAG-OX)400 MG TAB PO SCH (08:37)
[2016-09-03] MEDS: LORATADINE (CLARITIN) 10 MG TAB PO SCH (08:37)
[2016-09-03] MEDS: CIPROFLOXACIN IV 400MG/200ML 200 ML IV SCH (08:37)
[2016-09-03] MEDS: LACTULOSE SYRUP 10GM/15ML (ENULOSE) 30ML UDC PO SCH ×2 (08:37→08:41)
--- NOTE | 2016-09-03 09:20 | Occupational Ther Daily Note ---
OT Current Status-Daily Note Subjective Pt seen in room, anticipating DC today. Pt declined tx but report on functional status obtained from family. Mental Status/Objective Patient Orientation: Person, Confused Functional [place] Measure 0=Not Assessed/NA 4=Minimal Assistance 1=Total Assistance 5=Supervision or Setup 2=Maximal Assistance 6=Modified [place] 3=Moderate Assistance 7=Complete [place] ADL-Treatment Report of ADL status from patient's daughter who is an RN. Functional [place] Measure 0=Not Assessed/NA 4=Minimal Assistance 1=Total Assistance 5=Supervision or Setup 2=Maximal Assistance 6=Modified [place] 3=Moderate Assistance 7=Complete IndependenceIRFPAI Quality Coding Scale 6 Independent with activity with or without an assistive device 5 Patient requires set up or clean up by helper. Patient completes activity by themselves 4 Supervision or touching assist (CGA). [place] provide cues , steadying assist 3 The helper provides less than half the effort to complete the activity 2 The helper provides more than half the effort to complete the activity 1 Dependent. The helper does all the effort to complete an activity 7 Patient refused to complete or attempt activity 9 The patient did not perform the activity before the current illness or injury 88 Not attempted due to Medical conditions or safety concerns Eating (FIM): 5 (setup) Eating (QC): 5 (setup) Grooming (FIM): 5 (supervision) Oral Hygiene (QC): 4 (supervision) Toileting Hygiene (QC): 4 (supervision, SBA) Toileting (FIM): 5 (supervision, SBA) Toilet/Commode Transfer (FIM): 5 (Supervision, SBA) OT Short Term Goals Short Term Goals 1=Demonstrate adherence to instructed precautions during ADL tasks. 2=Patient will verbalize/demonstrate understanding of assistive devices/ modifications for ADL. 3=Patient will improve strength/tolerance for activity to enable patient to perform ADL's. OT Fci Goals Fci Goals Time Frame: Sep 07, 2016 Eating (FIM): 6 Eating (QC): 6 Oral Hygiene (QC): 6 Grooming(FIM): 6 Toileting Hygiene (QC): 6 Upper Body Dressing(FIM): 5 Lower Body Dressing(FIM): 5 Toileting(FIM): 6 Toilet/Commode Transfer(FIM): 6 Toilet/Commode Transfer (QC): 6 Additional Goals: 2-Verbalize Understanding, 3-ImproveStrength/Valerio 1=Demonstrate adherence to instructed precautions during ADL tasks. 2=Patient will verbalize/demonstrate understanding of assistive devices/ modifications for ADL. 3=Patient will improve strength/tolerance for activity to enable patient to perform ADL's. OT Education/Plan Problem List/Assessment Pt would benefit from skilled OT to increase her independence in basic self care to allow her to safely return to her home, with family, and decrease caregiver burden. Discharge Recommendations Plan/Recommendations: Continue POC (Unless DCd from hospital today) Treatment Plan/Plan of Care Patient would benefit from OT for education, treatment and training to promote independence in ADL's, mobility, safety and/or upper extremity function for ADL' s. Plan of Care: ADL Retraining, Functional Mobility, UE Funct Exercise/Act, UE Neuromus Re-Ed/Coord Treatment Duration: Sep 07, 2016 Visits Per Week: 5 Agreement: Yes (family agreement) Rehab Potential: Good Time/GCodes Start Time: 09:00 Stop Time: 09:05 Total Time Billed (hr/min): 5 Billed Treatment Time visit, 5 minutes. tx refused TUNDE CARMONA OT Sep 03, 2016 09:20
--- NOTE | 2016-09-03 10:25 | Discharge Summary-Hospitalist ---
Diagnosis/Chief Complaint Date of Admission Aug 31, 2016 at 10:57 Date of Discharge Discharge Diagnosis Acute pyelonephritis with sepsis and elevated lactic acid with resistant organism with multiple antibiotic allergies Congestive heart failure Dementia Reason Hospital Visit/Course Notes from 09/03/2016: Chart Review: No fever Vitals stable INR 2.4 today cargoman: RN has no concerns regarding pt. Patient Interview: Pt states that she is ready for DC to home. Pt and family request home health. Physical exam was stable. Dr. Aggarwal informs pt that antibiotics have finished. Pt saw Dr. Cook yesterday. Pt family reports that Dr. Braswell discussed starting Exelon patch. Plan: DC with follow-up with Dr. Braswell. Home health Scribed by Alok Blevisn under the direct supervision of Dr. Aggarwal. Hospital course: Patient had a brief hospital course on swing bed to complete IV antibiotics and strengthening with physical therapy. Overall she responded well her INR returned back to within normal range at 2.4 at day of discharge and labs remained normal she was afebrile and ready to go home on home health. Discharge Summary Discharge Physical Examination Allergies: Coded Allergies: amoxicillin (Verified Allergy, Unknown, 06/21/15) cefadroxil (Verified Allergy, Unknown, 06/21/15) clavulanic acid (Verified Allergy, Unknown, 06/21/15) codeine (Verified Allergy, Unknown, 06/21/15) haloperidol (Verified Allergy, Unknown, 06/21/15) iodine (Verified Allergy, Unknown, 06/21/15) triazolam (Verified Allergy, Unknown, PT TAKES ALPRAZOLAM AT HOME, 08/31/16) zolpidem (Verified Allergy, Unknown, 06/21/15) donepezil (Verified Adverse Reaction, Severe, 11/20/15) NAUSEA/VOMITING promethazine HCl (Unverified Adverse Reaction, Mild, 06/21/15) Vitals & I&Os Vital Signs Date Time Temp Pulse Resp B/P Pulse Ox O2 Delivery O2 Flow Rate FiO2 09/03/16 11:32 09/03/16 09:00 Room Air 09/03/16 06:24 96.4 71 18 97 Hospital Course Labs (last 24 hrs) Laboratory Tests 09/03/16 05:45: INR Comment 2.4H, Prothrombin Time 26.2H Pending Labs Laboratory Tests 09/03/16 05:45: INR Comment 2.4, Prothrombin Time 26.2 Discharge Home Medications: Active Scripts Active Reported Cyanocobalamin Injection (Cyanocobalamin) 1,000 Mcg/Ml Inj 1,000 Mcg INJ MONTHLY Melatonin 3 mg Tablet (Melatonin/Pyridoxine) 1 Each Tablet 6 Mg PO HS PRN Pepcid (Famotidine) 20 Mg Tablet 20 Mg PO BID Prednisone 5 Mg Tablet 2.5 Mg PO DAILY TAKES 1/2 (5MG) TABLET Alprazolam 0.5 Mg Tablet 0.25 Mg PO TID PRN TAKES 1/2 (0.5MG) TABLETS Warfarin Sodium 5 Mg Tablet 5 Mg PO TH@1800 Breo Ellipta 100-25 Mcg INH (Fluticasone/Vilanterol) 1 Each Blst.w.dev 1 Puff IH DAILY Albuterol Sulfate 2.5 Mg/3 Ml Vial.neb 2.5 Mg NEB Q4H PRN Furosemide 40 Mg Tablet 40 Mg PO DAILY PRN Ventolin Hfa (Albuterol Sulfate) 18 Gm Hfa.aer.ad 2 Puff INH Q4H PRN Cetirizine HCl 10 Mg Tablet 10 Mg PO DAILY Montelukast Sodium 10 Mg Tablet 10 Mg PO HS Pravastatin Sodium 40 Mg Tablet 40 Mg PO HS Levothyroxine Sodium 50 Mcg Tablet 50 Mcg PO DAILY Klor-Con M20 (Potassium Chloride) 20 Meq Tab.er.prt 40 Meq PO BID TAKES 2 (20 MEQ) TABLETS Magnesium (Magnesium Oxide) 250 Mg Tablet 250 Mg PO DAILY Warfarin Sodium 5 Mg Tablet 2.5 Mg PO SUMOTUWEFRSA@1800 TAKES 1/2 OF A (5 MG) TABLET Tylenol (Acetaminophen) 325 Mg Tablet 650 Mg PO Q4H PRN TAKES 2 (325MG) TABLET Instructions to patient/family Please see electonic discharge instructions given to patient. Clinical Quality Measures DVT/VTE Risk/Contraindication: Contraindications-Pharm: Other *list below* Other: on coumadin JAGRUTI AGGARWAL DO Sep 03, 2016 10:24
--- NOTE | 2016-09-03 10:30 | Progress Note-Cardiology ---
Cardiology SOAP Progress Note Subjective: Sitting up in a chair at the bedside. No c/o this morning. Daughter and spouse at the bedside. Objective: I&O/Vital Signs Vital Sign - Last 12Hours 09/03/16 09/03/16 09/03/16 06:24 09:00 11:32 Temp 96.4 Pulse 71 Resp 18 B/P 141/65 Pulse Ox 97 O2 Delivery Room Air Room Air Intake and Output 09/03/16 00:00 Intake Total 1735 ml Output Total 1460 ml Balance 275 ml Weight (Pounds): 151 Weight (Ounces): 1.0 Weight (Calculated Kilograms): 68.613702 Constitutional: AAO x 3 well-developed well-nourished Respiratory: lungs clear to percussion lungs clear to auscultation Cardiovascular: regular rate-rhythm S1 and S2 systolic murmur Gastrointestional: No tender, soft audible bowel sounds Extremities: No clubbing, No cyanosis, significant edema (mild bilat LE edema) Neurologic/Psychiatric: grossly intact power is 5/5 both on sides Skin: No rash on exposed areas, No ulcerations on exposed areas Results/Procedures: Labs Laboratory Tests 09/03/16 05:45: INR Comment 2.4H, Prothrombin Time 26.2H A/P: Assessment: Sepsis likely d/t UTI - medical services managing Possible pyelonephritis per CT on 08-29-16 Aortic stenosis, mod on echo of 09/21/14 (valve area 1.2 sq cm), but severe on cardiac cath of 05/03/15 (valve area 0.58 sq cm). She has been evaluated at [facility] in Aug 2015 for AVR/TAVR and has been told that conservative therapy appears best at this time Mod pulmonary hypertension (mean PA pressure 25 mmHg), elevated LVEDP (20 mmHg) , mild MR and mild CAD on cardiac cath of 05/03/15 Atrial fibrillation with RVR that was very difficult to control on meds. She is now post AV junction ablation per Dr. Paz November 2014. It appears ablation resulted in CHB and therefore PPM was implanted S/p single chamber St Ti pacemaker implantation, post AV kerri ablation, by Dr Paz at [facility] in November 2014 - functioning normally per interrogation of February 2016 Recurrent pneumonias (Jun 2014 and September 2014) managed by Dr Braswell, her fam phy , and by Dr Estes, her pulmonolgist Chronic warfarin anticoagulation for stroke prophylaxis. Supra-therapeutic INR - hold warfarin Maturity onset diabetes mellitus. Chronic intermittent leg swelling, likely related to venous insufficiency, currently under fair control Hypothyroidism, being treated with thyroid replacement therapy and being managed by Dr. Braswell. Hyperlipidemia, being treated with statin therapy. History of chronic sinusitis H/o COPD, being managed by her mine motor operator, Dr White Mild carotid arterial disease on u/s of Jun 2013 Obstructive sleep apnea was not documented on studies in 2014, according to the patient Generalized weakness and malaise of undetermined etiology Nausea of undetermined etiology (mid Jul 2014), possibly related to digoxin therapy Depression, being managed by Dr Braswell Plan: Continue current regimen Follow labs, given current antibiotic therapy and long-term warfarin anticoag. INR therapeutic today at 2.4 INR as an outpatient on F/U in 2 weeks Physician Assessment Physician Assessment Lungs: good bilat air entry Cor: reg A&R * As documented in our note above * I spoke with the patient and her fam and answered questions [place]TE ENG Sep 03, 2016 10:30 TINA SERNA MD FACP FAC CCDS Sep 03, 2016 11:47
--- NOTE | 2016-09-03 10:53 | Discharge Inst-Home Health ---
Discharge Inst-to Home Health Patient Instructions Patient Instructions/FollowUp: Obtain close folow up with Branden Cook and Michaelle in 1 week Patient Problems: Pyelonephritis Sepsis VIA [place] DISCHARGE ORDERS Allergies: Coded Allergies: amoxicillin (Verified Allergy, Unknown, 06/21/15) cefadroxil (Verified Allergy, Unknown, 06/21/15) clavulanic acid (Verified Allergy, Unknown, 06/21/15) codeine (Verified Allergy, Unknown, 06/21/15) haloperidol (Verified Allergy, Unknown, 06/21/15) iodine (Verified Allergy, Unknown, 06/21/15) triazolam (Verified Allergy, Unknown, PT TAKES ALPRAZOLAM AT HOME, 08/31/16) zolpidem (Verified Allergy, Unknown, 06/21/15) donepezil (Verified Adverse Reaction, Severe, 11/20/15) NAUSEA/VOMITING promethazine HCl (Unverified Adverse Reaction, Mild, 06/21/15) Height (Feet): 5 Height (Inches): 3.00 Weight (Pounds): 151 Weight (Ounces): 1.0 Home Health Need/Face to Face Reason Pt Homebound weakness following sepsis I Have Seen Pt Gpdn-pi-Dlzj: Yes Date of Face to Face: Sep 03, 2016 Discharged To: Home Diagnosis/Conditions HH Order: Med administration Strengthen Consult/Follow Up/New Order *I certify that based on my findings, the following services are medically necessary Home Health Services: Services: Nursing Services, Electroplating Worker-Evaluate & Treat, Physical Therapy-Evaluate & Treat, Speech Language-Evaluate & Treat My clinical findings support the need for the above services; see Diagnosis. Dicharge Diet: Cardiac Diet Daily Activity as Tolerated: Yes Discharge Medications: New, Converted, or Re-newed RX: Other (no new meds) I certify that this patient is under my care and that I, a nurse practitioner or a physician; a assistant service manager working with me, had a face to face encounter that - meets the physician face to face encounter requirements with this patient as dated. JAGRUTI AGGARWAL DO Sep 03, 2016 10:53
--- NOTE | 2016-09-03 11:14 | Therapy Team Discharge Summary ---
Therapy Discharge Summary Discharge Recommendations Date of Discharge Therapy D/C Recommendations: Home w/ Family Support Physical Therapy Patient to dismiss to home with family on this date at [facility]. Patient received PT intervention to improve gross motor skills and mobility with exercise and ambulation. Patient has a very attentive family and will dismiss to home with them. Goals attained. PT Care Home Goals Instructor Nurse Goals PT Care Home Goals Time Frame: Sep 07, 2016 Transfers (B,C,W/C) (FIM): 6 Sit to Lying (QC): 5 Lying-Sitting on Side/Bed(QC): 5 Sit to Stand (QC): 5 Rollin Chair/Vgc-kr-Oxwxn Xfer(QC): 5 Does the Patient Walk: Yes Gait (FIM): 5 Gait distance (FIM): 3=150 ft Walk 50ft with 2 Turns (QC): 5 Walk 150 ft (QC): 5 Gait Level of Assist: 5 Gait Assistive Device: FWW OT Care Home Goals Care Home Goals Time Frame: Sep 07, 2016 Eating (FIM): 6 Eating (QC): 6 Oral Hygiene (QC): 6 Grooming(FIM): 6 Toileting Hygiene (QC): 6 Upper Body Dressing(FIM): 5 Lower Body Dressing(FIM): 5 Toileting(FIM): 6 Toilet/Commode Transfer(FIM): 6 Toilet/Commode Transfer (QC): 6 Additional Goals: 2-Verbalize Understanding, 3-ImproveStrength/Valerio 1=Demonstrate adherence to instructed precautions during ADL tasks. 2=Patient will verbalize/demonstrate understanding of assistive devices/ modifications for ADL. 3=Patient will improve strength/tolerance for activity to enable patient to perform ADL's. CHAIM MARIA PT Sep 03, 2016 11:14
--- NOTE | 2016-09-03 12:06 | Therapy Team Discharge Summary ---
Therapy Discharge Summary Discharge Recommendations Date of Discharge Sep 03, 2016 at 11:33 Therapy D/C Recommendations: Home w/ Family Support Occupational Therapy Pt was seen for skilled OT to increase her independence in basic self care to allow her to return to her home safely with family support and decrease caregiver burden. On admission pt needed setup or supervision with eating, grooming and toileting. Functional status was the same on discharge, due in part to discharge soon after evaluation. No goals were met due to short duration of tx plan. Equipment used included bedside commode over toilet and FWW. DC OT PT Penitentiary Goals Penitentiary Goals PT Penitentiary Goals Time Frame: Sep 07, 2016 Transfers (B,C,W/C) (FIM): 6 Sit to Lying (QC): 5 Lying-Sitting on Side/Bed(QC): 5 Sit to Stand (QC): 5 Rollin Chair/Ydl-eo-Zoyxs Xfer(QC): 5 Does the Patient Walk: Yes Gait (FIM): 5 Gait distance (FIM): 3=150 ft Walk 50ft with 2 Turns (QC): 5 Walk 150 ft (QC): 5 Gait Level of Assist: 5 Gait Assistive Device: FWW OT Six Pack Packer Goals Penitentiary Goals Time Frame: Sep 07, 2016 Eating (FIM): 6 (not met) Eating (QC): 6 (not met) Oral Hygiene (QC): 6 (not met) Grooming(FIM): 6 (not met) Toileting Hygiene (QC): 6 (not met) Upper Body Dressing(FIM): 5 (not met) Lower Body Dressing(FIM): 5 (not met) Toileting(FIM): 6 (not met) Toilet/Commode Transfer(FIM): 6 (not met) Toilet/Commode Transfer (QC): 6 (not met) Additional Goals: 2-Verbalize Understanding, 3-ImproveStrength/Valerio 1=Demonstrate adherence to instructed precautions during ADL tasks. 2=Patient will verbalize/demonstrate understanding of assistive devices/ modifications for ADL. 3=Patient will improve strength/tolerance for activity to enable patient to perform ADL's. TUNDE CARMONA OT Sep 03, 2016 12:06
== END 2016-09-03 11:33 | disposition home health service (06) | DRG 872 ==
LOC: 4TH 10:57
PROVIDERS: ADMIT Internal Medicine; ATTEND Internal Medicine
DX: A41.9 Sepsis, unspecified organism (principal); N10 Acute pyelonephritis; J45.909 Unspecified asthma, uncomplicated; I35.0 Nonrheumatic aortic (valve) stenosis; I48.91 Unspecified atrial fibrillation; E11.9 Type 2 diabetes mellitus without complications; J44.9 Chronic obstructive pulmonary disease, unspecified; I50.9 Heart failure, unspecified; Z66 Do not resuscitate; G47.33 Obstructive sleep apnea (adult) (pediatric); F03.90 Unspecified dementia, unspecified severity, without behavioral disturbance, psychotic disturbance, mood disturbance, and anxiety; E03.9 Hypothyroidism, unspecified; E78.00 Pure hypercholesterolemia, unspecified; R01.1 Cardiac murmur, unspecified; M81.0 Age-related osteoporosis without current pathological fracture; R60.9 Edema, unspecified; M19.91 Primary osteoarthritis, unspecified site; K58.9 Irritable bowel syndrome, unspecified; I87.2 Venous insufficiency (chronic) (peripheral); E78.5 Hyperlipidemia, unspecified; F32.9 Major depressive disorder, single episode, unspecified; G47.00 Insomnia, unspecified; Z95.0 Presence of cardiac pacemaker
CPT/HCPCS: 36415; 80048; 83735; 85025; 85610; 93005; 94640; 94760

== ENCOUNTER → 2016-09-05 | Outpatient (CLI) | payer MEDICARE ==
[~2016-09-05] MED LIST changes: +ALBU18HF2 IH; +LORA10TA7 PO; +MELA1TAB27 PO; +ONDA4TAB11 PO; +POLY17PO6 PO; +RIVA1.5C6 PO; +VITA150T PO
--- OUTSIDE RECORDS SUMMARY | 2016-09-05 14:57 | XMS REPORT | Continuity of Care Document ---
Author Author [facility] Organization [facility] Address Unknown Phone Unavailable Care Team Providers Care Mcat Instructor Name Role Phone MichaelleYo PCP [phone] Source Comments Some departments are not documenting in the electronic medical record. If you do not see the information that you expected, contact Release of Information in the Health Information Management department at [phone] for further assistance in locating additional records.[facility] Active Allergies and Adverse Reactions Allergen Noted [...]
[2016-09-05 15:08] LABS: INR 2.4 (0.8-1.4)
== END ==
LOC: HH 14:54
PROVIDERS: ATTEND Internal Medicine Cardiovascular Disease
DX: Z51.81 Encounter for therapeutic drug level monitoring (principal); Z79.01 Long term (current) use of anticoagulants
CPT/HCPCS: 85610

== ENCOUNTER → 2016-09-12 | Outpatient (CLI) | payer MEDICARE ==
--- OUTSIDE RECORDS SUMMARY | 2016-09-12 12:08 | XMS REPORT | Continuity of Care Document ---
Author Author [facility] Organization [facility] Address Unknown Phone Unavailable Care Team Providers Care Software Test And Validation Engineer Name Role Phone MichaelleYo PCP [phone] Source Comments Some departments are not documenting in the electronic medical record. If you do not see the information that you expected, contact Release of Information in the Health Information Management department at [phone] for further assistance in locating additional records.[facility] Active Allergies and Adverse Reactions Allergen [...]
[2016-09-12 12:23] LABS: INR 1.8 (0.8-1.4); PROTHROMBIN TIME PATIENT 20.9 SEC (12.2-14.7)
== END ==
LOC: HH 12:04
PROVIDERS: ATTEND Internal Medicine Cardiovascular Disease
DX: Z51.81 Encounter for therapeutic drug level monitoring (principal); Z79.01 Long term (current) use of anticoagulants
CPT/HCPCS: 85610

== ENCOUNTER → 2016-09-21 | Outpatient (CLI) | payer MEDICARE ==
--- OUTSIDE RECORDS SUMMARY | 2016-09-21 14:47 | XMS REPORT | Continuity of Care Document ---
Author Author [facility] Organization [facility] Address Unknown Phone Unavailable Care Team Providers Care Chief Nurse Anesthetist Name Role Phone MichaelleYo PCP [phone] Source Comments Some departments are not documenting in the electronic medical record. If you do not see the information that you expected, contact Release of Information in the Health Information Management department at [phone] for further assistance in locating additional records.[facility] Active Allergies and Adverse Reactions Allergen [...]
[2016-09-21 14:54] LABS: INR 1.9 (0.8-1.4); PROTHROMBIN TIME PATIENT 21.2 SEC (12.2-14.7)
== END ==
LOC: HH 14:44
PROVIDERS: ATTEND Internal Medicine Cardiovascular Disease
DX: Z51.81 Encounter for therapeutic drug level monitoring (principal); Z79.01 Long term (current) use of anticoagulants
CPT/HCPCS: 85610

== ENCOUNTER 2016-11-20 15:52 | Inpatient (IN) | payer MEDICARE ==
[~2016-11-20] VITALS: Ht 165.1 cm; Wt 77.1 kg
[~2016-11-20 15:52] MED LIST changes: -ALBU18HF2 IH; -LORA10TA7 PO; -MELA1TAB27 PO; -ONDA4TAB11 PO; -POLY17PO6 PO; -RIVA1.5C6 PO; -VITA150T PO
[2016-11-20 16:10] LABS: BASOPHILS % (AUTO) 0 % (0-10); EOSINOPHILS # (AUTO) 0.2 10^3/uL (0.0-0.3); EOSINOPHILS % (AUTO) 3 % (0-10); LYMPHOCYTES # (AUTO) 0.8 X 10^3 (1.0-4.0); LYMPHOCYTES % (AUTO) 11 % (12-44); MEAN CORPUSCULAR HEMOGLOBIN 29 PG (25-34); MEAN CORPUSCULAR HGB CONC 32 G/DL (32-36); MEAN CORPUSCULAR VOLUME 90 FL (80-99); MEAN PLATELET VOLUME 10.7 FL (7.4-10.4); MONOCYTES # (AUTO) 0.4 X 10^3 (0.0-1.0); MONOCYTES % (AUTO) 6 % (0-12); NEUTROPHILS # (AUTO) 5.8 X 10^3 (1.8-7.8); NEUTROPHILS % (AUTO) 81 % (42-75); PLATELET COUNT 201 10^3/uL (130-400); RED BLOOD COUNT 4.68 10^6/uL (4.35-5.85); RED CELL DISTRIBUTION WIDTH 16.8 % (10.0-14.5); WHITE BLOOD COUNT 7.2 10^3/uL (4.3-11.0)
[2016-11-20] MEDS ORDERED: NS IV 500 ML 500 ML IV SCH (16:15)
[2016-11-20] MEDS ORDERED: methylPREDNISolone 125 MG (Solu-MEDROL) VIAL IVP ONE (16:15)
[2016-11-20] MEDS ORDERED: diphenhydrAMINE 50 MG/ML INJ (BENADRYL) IVP ONE (16:15)
[2016-11-20] MEDS ORDERED: ONDANSETRON 4 MG/2 ML (SDV) Z0FRAN IVP ONE (16:15)
--- NOTE | 2016-11-20 16:16 | ED Abdominal Pain ---
General Chief Complaint: Abdominal/GI Problems Stated Complaint: NAUSEA/VOMITING Nursing Triage Note: TO ROOM 05 VIA WC WITH FAMILY. COMPLAINTS OF N/V STARTING LAST NIGHT. WAS SEEN AT THE URGENT CARE AND WAS GIVEN ZOFRAN AND IVF. STATES SHE HAD LEUKOCYTES IN HER URINE AT THAT TIME. Sepsis Screen: No Definite Risk Source of Information: Patient, Family Exam Limitations: No Limitations History of Present Illness Time Seen By Provider: 16:16 Initial Comments Brought to ER by family with worsening abdominal pain and darkish colored emesis. This began this morning and she was seen at urgent care. She was diagnosed with urinary tract infection. Vomiting is persisted and she's been a bit constipated they state. Patient abdomen is also bit more distended than usual. Previous history of cholecystectomy, umbilical hernia repair, hysterectomy. She is a DO NOT RESUSCITATE status. Timing/Duration: 12 Hours Severity/Quality: Moderate Location: Generalized Abdomen Radiation: No Radiation Allergies and Home Medications Allergies Coded Allergies: amoxicillin (Verified Allergy, Unknown, 06/21/15) cefadroxil (Verified Allergy, Unknown, 06/21/15) clavulanic acid (Verified Allergy, Unknown, 06/21/15) codeine (Verified Allergy, Unknown, 06/21/15) haloperidol (Verified Allergy, Unknown, 06/21/15) iodine (Verified Allergy, Unknown, 06/21/15) triazolam (Verified Allergy, Unknown, PT TAKES ALPRAZOLAM AT HOME, 08/31/16) zolpidem (Verified Allergy, Unknown, 06/21/15) donepezil (Verified Adverse Reaction, Severe, 11/20/15) NAUSEA/VOMITING promethazine HCl (Unverified Adverse Reaction, Mild, 06/21/15) Home Medications Acetaminophen 325 Mg Tablet, 650 MG PO Q4H PRN for PAIN, (Reported) TAKES 2 (325MG) TABLET Albuterol Sulfate 18 Gm Hfa.aer.ad, 2 PUFF INH Q4H PRN for SHORTNESS OF BREATH, (Reported) Albuterol Sulfate 2.5 Mg/3 Ml Vial.neb, 2.5 MG NEB Q4H PRN for SHORTNESS OF BREATH, (Reported) Alprazolam 0.5 Mg Tablet, 0.25 MG PO TID PRN for ANXIETY, (Reported) TAKES 1/2 (0.5MG) TABLETS Cetirizine HCl 10 Mg Tablet, 10 MG PO DAILY, (Reported) Cyanocobalamin 1,000 Mcg/Ml Inj, 1,000 MCG INJ MONTHLY, (Reported) Famotidine 20 Mg Tablet, 20 MG PO BID, (Reported) Fluticasone/Vilanterol 1 Each Blst.w.dev, 1 PUFF IH DAILY, (Reported) Furosemide 40 Mg Tablet, 40 MG PO DAILY PRN for 4LB WEIGHT GAIN, (Reported) Levothyroxine Sodium 50 Mcg Tablet, 50 MCG PO DAILY, (Reported) Magnesium Oxide 250 Mg Tablet, 250 MG PO DAILY, (Reported) Melatonin/Pyridoxine 1 Each Tablet, 6 MG PO HS PRN for SLEEP, (Reported) Montelukast Sodium 10 Mg Tablet, 10 MG PO HS, (Reported) Ondansetron HCl 4 Mg Tablet, 4 MG PO TID PRN for NAUSEA, (Reported) Potassium Chloride 20 Meq Tab.er.prt, 40 MEQ PO BID, (Reported) TAKES 2 (20 MEQ) TABLETS Pravastatin Sodium 40 Mg Tablet, 40 MG PO HS, (Reported) Prednisone 5 Mg Tablet, 2.5 MG PO DAILY, (Reported) TAKES 1/2 (5MG) TABLET Warfarin Sodium 5 Mg Tablet, 2.5 MG PO SuMoTuWeFrSa@1800, (Reported) TAKES 1/2 OF A (5 MG) TABLET Warfarin Sodium 5 Mg Tablet, 5 MG PO Th@1800, (Reported) Review of Systems Constitutional: see HPI EENTM: No Symptoms Reported Respiratory: No Symptoms Reported Cardiovascular: No Symptoms Reported Gastrointestinal: See HPI, Abdominal Pain, Constipated, Denies Diarrhea, Nausea , Vomiting Genitourinary: No Symptoms Reported Musculoskeletal: no symptoms reported Skin: no symptoms reported Psychiatric/Neurological: No Symptoms Reported Past Ukbbvnc-Xrvahd-Hscpgt Hx Patient Social History Recent Foreign Travel: No Contact w/Someone Who Travel: No Recent Infectious Disease Expo: No Recent Hopitalizations: Yes Immunizations Up To Date Tetanus Booster (TDap): Unknown PED Vaccines UTD: No Date of Pneumonia Vaccine: Jun 09, 2014 Date of Influenza Vaccine: May 31, 2016 Seasonal Allergies Seasonal Allergies: No Surgeries HX Surgeries: Yes (SINUS, HEMORRHOIDECTOMY, hiatal hernia, av node ablation) Surgeries: Abdominal, Appendectomy, Bladder Surgery, Breast, Cardiac, Eye Surgery, Gallbladder, Hysterectomy, Oophorectomy, Pacemaker Respiratory Hx Respiratory Disorders: Yes (RESPIRATORY ARREST MULTIPLE TIMES--ON VENT IN PAST) Respiratory Disorders: Asthma, Pneumonia Cardiovascular Hx Cardiac Disorders: Yes (PACEMAKER, AORTIC STENOSIS, av NODE ABLATION) Cardiac Disorders: Atrial Fibrillation, Chronic Edema/Swelling, Heart Murmur, High Cholesterol, Irregular Heartbeat, Valvular Heart Disease Neurological Hx Neurological Disorders: Yes Neurological Disorders: Dementia Reproductive System Hx Reproductive Disorders: No Sexually Transmitted Disease: No HIV/AIDS: No Female Reproductive Disorders: Denies Genitourinary Hx Genitourinary Disorders: Yes (acute renal failure after UTI) Genitourinary Disorders: Bladder Infection, Renal Failure, UTI-Chronic Gastrointestinal Hx Gastrointestinal Disorders: Yes Gastrointestinal Disorders: Chronic Constipation, Irritable Bowel Musculoskeletal Hx Musculoskeletal Disorders: Yes (MULTIPLE FX R LOWER LEG) Musculoskeletal Disorders: Osteoporosis, Arthritis Endocrine Hx Endocrine Disorders: Yes Endocrine Disorders: Hypothyroidsim HEENT HX ENT Disorders: Yes HEENT Disorders: Cataract Loss of Vision: Denies Hearing Impairment: Denies Cancer Hx Cancer: No Psychosocial Hx Psychiatric Problems: No Integumentary HX Skin/Integumentary Disorder: No Blood Transfusions Hx Blood Disorders: No Adverse Reaction to a Blood Tr: No Family Medical History Family Medial History: Alzheimer's disease 19 MOTHER FHx: throat cancer 19 FATHER Physical Exam Vital Signs VS - Last 72 Hours, by Label 11/20/16 15:55 Temp 100.5 Pulse 71 Resp 16 B/P (MAP) 176/80 Pulse Ox 92 Capillary Refill : Less Than 3 Seconds General Appearance: WD/WN, no apparent distress HEENT: PERRL/EOMI, normal ENT inspection Neck: non-tender, full range of motion Respiratory: normal breath sounds, no respiratory distress, no accessory muscle use Gastrointestinal: soft, abnormal bowel sounds (hypoactive), distended Neurologic/Psychiatric: alert, normal mood/affect, oriented x 3 Skin: normal color, warm/dry Progress/Results/Core Measures Results/Orders Lab Results Laboratory Tests Test 11/20/16 16:00 Range/Units White Blood Count 7.2 4.3-11.0 10^3/uL Red Blood Count 4.68 4.35-5.85 10^6/uL Hemoglobin 13.4 11.5-16.0 G/DL Hematocrit 42 35-52 % Mean Corpuscular Volume 90 80-99 FL Mean Corpuscular Hemoglobin 29 25-34 PG Mean Corpuscular Hemoglobin Concent 32 32-36 G/DL Red Cell Distribution Width 16.8 H 10.0-14.5 % Platelet Count 201 130-400 10^3/uL Mean Platelet Volume 10.7 H 7.4-10.4 FL Neutrophils (%) (Auto) 81 H 42-75 % Lymphocytes (%) (Auto) 11 L 12-44 % Monocytes (%) (Auto) 6 0-12 % Eosinophils (%) (Auto) 3 0-10 % Basophils (%) (Auto) 0 0-10 % Neutrophils # (Auto) 5.8 1.8-7.8 X 10^3 Lymphocytes # (Auto) 0.8 L 1.0-4.0 X 10^3 Monocytes # (Auto) 0.4 0.0-1.0 X 10^3 Eosinophils # (Auto) 0.2 0.0-0.3 10^3/uL Basophils # (Auto) 0.0 0.0-0.1 10^3/uL Sodium Level 141 135-145 MMOL/L Potassium Level 4.2 3.6-5.0 MMOL/L Chloride Level 108 H 98-107 MMOL/L Carbon Dioxide Level 23 21-32 MMOL/L Anion Gap 10 5-14 MMOL/L Blood Urea Nitrogen 18 7-18 MG/DL Creatinine 0.88 0.60-1.30 MG/DL Estimat Glomerular Filtration Rate > 60 BUN/Creatinine Ratio 20 Glucose Level 136 H 70-105 MG/DL Calcium Level 8.4 L 8.5-10.1 MG/DL Total Bilirubin 2.6 H 0.1-1.0 MG/DL Aspartate Amino Transf (AST/SGOT) 26 5-34 U/L Alanine Aminotransferase (ALT/SGPT) 19 0-55 U/L Alkaline Phosphatase 64 40-136 U/L Total Protein 6.4 6.4-8.2 G/DL Albumin 3.7 3.2-4.5 G/DL Lipase 8 8-78 U/L My Orders Orders - MAHNAZ DE PAZ MOTORCYCLE ASSEMBLER Cbc With Automated Diff (11/20/16 16:05) Comprehensive Metabolic Panel (11/20/16 16:05) Lipase (11/20/16 16:05) Ua Culture If Indicated (11/20/16 16:05) Saline Lock/Iv-Start (11/20/16 16:05) Ct Abdomen/Pelvis W (11/20/16 16:05) Ondansetron Injection (Zofran Injectio (11/20/16 16:15) Ns Iv 500 Ml (Sodium Chloride 0.9%) (11/20/16 16:15) Diphenhydramine Injection (Benadryl Inje (11/20/16 16:15) Methylprednisolone Sod Succ (Solu-Medrol (11/20/16 16:15) Prochlorperazine Injection (Compazine In (11/20/16 17:45) Medications Given in ED Current Medications Medications Dose Ordered Sig/Marcelino Route Start Time Stop Time Status Last Admin Dose Admin Diphenhydramine HCl 12.5 mg ONCE ONCE IVP 11/20/16 16:15 11/20/16 16:16 DC 11/20/16 16:23 12.5 MG Methylprednisolone Sodium Succinate 125 mg ONCE ONCE IVP 11/20/16 16:15 11/20/16 16:16 DC 11/20/16 16:25 125 MG Ondansetron HCl 4 mg ONCE ONCE IVP 11/20/16 16:15 11/20/16 16:16 DC 11/20/16 16:20 4 MG Vital Signs/I&O Vital Sign - Last 12Hours 11/20/16 15:55 Temp 100.5 Pulse 71 Resp 16 B/P (MAP) 176/80 Pulse Ox 92 Blood Pressure Mean: 112 Progress Note : Progress Note 1635-patient's allergy list includes iodine. I discussed this with the family and they state that she has had IV contrast for scans before and has done fine after being premedicated with Solu-Medrol and Benadryl so that is what we have done. Diagnostic Imaging Diagonstic Imaging: CT Comments NAME: JOSIE DURON MED REC#: [id number] PT STATUS: REG ER : [id number] PHYSICIAN: MAHNAZ DE PAZ APRN ADMIT DATE: 11/20/16/ER Draft Date of Exam:11/20/16 CT ABDOMEN/PELVIS W PROCEDURE: CT abdomen and pelvis with contrast. TECHNIQUE: Multiple contiguous axial images were obtained through the abdomen and pelvis after administration of intravenous contrast. DATE: 11/20/2016. COMPARISON: CT abdomen and pelvis 08/28/2016. INDICATION: 86-year-old female, nausea and vomiting. Lower to mid abdominal pain. Fever. FINDINGS: There is a calcified left lower lobe pulmonary nodule on axial image 15 which measures 8mm in size. This is compatible with benign etiology and likely relates to sequela of prior granulomatous disease. The additional visualized portions of the lung bases are grossly clear. The heart is enlarged. There is no identified pericardial effusion. There is reflux of contrast into hepatic veins which is suggestive of elevated right-sided heart pressures. There is oral contrast material within the esophagus which may relate to slow intestinal transit and/or gastroesophageal reflux. The liver is normal in size and contour. There is no identified liver lesion. The gallbladder is not well-seen and may be surgically absent or contracted. There is no intrahepatic or extrahepatic bile duct dilation. The main pancreatic duct is not abnormally dilated. The pancreatic parenchyma is unremarkable. There are small splenic calcifications most likely relating to sequela of prior granulomatous disease. The spleen is not enlarged. The adrenal glands are unremarkable. There is a low-attenuation right renal lesion on axial image 43 which measures up to 3.6 cm in size with internal attenuation of -5 Hounsfield units. This is consistent with a benign cyst. There is a low-attenuation left renal lesion on axial image 30 which measures 1.3 cm in size also consistent with a benign cyst. There are multiple subcentimeter low-attenuation renal lesions bilaterally which are too small to characterize. The urinary collecting systems are not distended. There is no identified renal or ureteral stone. The urinary bladder is unremarkable. The uterus is not seen and may be surgically absent. There is extensive diverticulosis. There is abnormal inflammatory stranding adjacent to the mid sigmoid colon as seen on axial image 64 and adjacent sequential images. This would be most suggestive of acute diverticulitis. There is no free intraperitoneal air. There is no focal drainable fluid collection. There is no free pelvic fluid. There are atherosclerotic calcifications. There is no identified abnormally enlarged lymph node within the abdomen or pelvis which specifically meets CT size criteria for adenopathy. There is no identified acute bony abnormality. IMPRESSION: CT ABDOMEN AND PELVIS. 1. Inflammatory stranding adjacent to the mid sigmoid colon in an area of prominent diverticular disease most suggestive of acute diverticulitis. No drainable fluid collection or abscess. Dictated on workstation # [id number] Dict: 11/20/16 1732 Trans: 11/20/16 1741 [id number] Interpreted by: RITA RUVALCABA MD Electronically signed by: Departure Communication Time/Spoke to Admitting Phy: 17:[address] Dockery accepts pt for admission Impression Impression: Primary Impression: Intractable nausea and vomiting Additional Impression: Diverticulitis of intestine Disposition: ADMITTED INPATIENT Condition: Stable Decision to Admit Reason: Admit from ER (General) Decision to Admit/Date: Nov 20, 2016 Time/Decision to Admit Time: 17:46 Departure-Patient Inst. Referrals: ESTEPHANIE MAY MD (PCP/Family) Primary Care Physician MAHNAZ DE PAZ APRN Nov 20, 2016 16:16
[2016-11-20 16:33] LABS: ALANINE AMINOTRANSFERASE 19 U/L (0-55); ALBUMIN 3.7 G/DL (3.2-4.5); ANION GAP 10 MMOL/L (5-14); ASPARTATE AMINO TRANSFERASE 26 U/L (5-34); BILIRUBIN,TOTAL 2.6 MG/DL (0.1-1.0); BLOOD UREA NITROGEN 18 MG/DL (7-18); BUN/CREATININE RATIO 20; CALCIUM 8.4 MG/DL (8.5-10.1); CARBON DIOXIDE 23 MMOL/L (21-32); CHLORIDE 108 MMOL/L (98-107); CREATININE SERUM 0.88 MG/DL (0.60-1.30); GFR ESTIMATED > 60; GLUCOSE 136 MG/DL (70-105); LIPASE 8 U/L (8-78); POTASSIUM 4.2 MMOL/L (3.6-5.0); SODIUM 141 MMOL/L (135-145); TOTAL PROTEIN 6.4 G/DL (6.4-8.2)
--- NOTE | 2016-11-20 17:42 | Diagnostic Imaging Report ---
PROCEDURE: CT abdomen and pelvis with contrast. TECHNIQUE: Multiple contiguous axial images were obtained through the abdomen and pelvis after administration of intravenous contrast. DATE: 11/20/2016. COMPARISON: CT abdomen and pelvis 08/28/2016. INDICATION: 86-year-old female, nausea and vomiting. Lower to mid abdominal pain. Fever. FINDINGS: There is a calcified left lower lobe pulmonary nodule on axial image 15 which measures 8mm in size. This is compatible with benign etiology and likely relates to sequela of prior granulomatous disease. The additional visualized portions of the lung bases are grossly clear. The heart is enlarged. There is no identified pericardial effusion. There is reflux of contrast into hepatic veins which is suggestive of elevated right-sided heart pressures. There is oral contrast material within the esophagus which may relate to slow intestinal transit and/or gastroesophageal reflux. The liver is normal in size and contour. There is no identified liver lesion. The gallbladder is not well-seen and may be surgically absent or contracted. There is no intrahepatic or extrahepatic bile duct dilation. The main pancreatic duct is not abnormally dilated. The pancreatic parenchyma is unremarkable. There are small splenic calcifications most likely relating to sequela of prior granulomatous disease. The spleen is not enlarged. The adrenal glands are unremarkable. There is a low-attenuation right renal lesion on axial image 43 which measures up to 3.6 cm in size with internal attenuation of -5 Hounsfield units. This is consistent with a benign cyst. There is a low-attenuation left renal lesion on axial image 30 which measures 1.3 cm in size also consistent with a benign cyst. There are multiple subcentimeter low-attenuation renal lesions bilaterally which are too small to characterize. The urinary collecting systems are not distended. There is no identified renal or ureteral stone. The urinary bladder is unremarkable. The uterus is not seen and may be surgically absent. There is extensive diverticulosis. There is abnormal inflammatory stranding adjacent to the mid sigmoid colon as seen on axial image 64 and adjacent sequential images. This would be most suggestive of acute diverticulitis. There is no free intraperitoneal air. There is no focal drainable fluid collection. There is no free pelvic fluid. There are atherosclerotic calcifications. There is no identified abnormally enlarged lymph node within the abdomen or pelvis which specifically meets CT size criteria for adenopathy. There is no identified acute bony abnormality. IMPRESSION: CT ABDOMEN AND PELVIS. 1. Inflammatory stranding adjacent to the mid sigmoid colon in an area of prominent diverticular disease most suggestive of acute diverticulitis. No drainable fluid collection or abscess. Dictated by: Dictated on workstation # [id number]
[2016-11-20] MEDS ORDERED: PROCHLORPERAZINE 10 MG/2ML INJ (COMPAZINE) IV ONE (17:45)
[2016-11-20] MEDS ORDERED: metroNIDAZOLE 500MG/100ML IVPB 100 ML IV ONE (18:00)
[2016-11-20] MEDS ORDERED: CIPROFLOXACIN IV 400MG/200ML 200 ML IV ONE (18:00)
[2016-11-20 18:02] LABS: INR 2.8 (0.8-1.4)
[2016-11-20] MEDS ORDERED: warFARin 2.5 MG (COUMADIN) TAB PO ONE (18:15)
[2016-11-20 18:21] LABS: BILIRUBIN,URINE NEGATIVE (NEGATIVE); KETONES,URINE NEGATIVE (NEGATIVE); LEUKOCYTE ESTERASE ,URINE 1+ (NEGATIVE); NITRITE,URINE NEGATIVE (NEGATIVE); PH,URINE 6 (5-9); PROTEIN,URINE 2+ (NEGATIVE); UROBILINOGEN,URINE NORMAL (NORMAL)
[2016-11-20 18:28] LABS: WBC,URINE 0-2 /HPF
[2016-11-20] MEDS ORDERED: NS IV 1000 ML 1,000 ML IV SCH (22:15)
[2016-11-20] MEDS ORDERED: ONDANSETRON 4 MG/2 ML (SDV) Z0FRAN IV PRN (22:15)
[2016-11-20] MEDS ORDERED: RT-ALBUTEROL/IPRATROPIUM 3 ML (DUONEB) VIAL INH PRN (23:45)
[2016-11-21 00:39] VITALS: BP 125/70
[2016-11-21] MEDS: metroNIDAZOLE 500 MG/100 ML IVPB (PRE-MIX) IV SCH ×3 (02:45→18:42)
[2016-11-21 04:55] VITALS: BP 129/67
[2016-11-21] MEDS: CIPROFLOXACIN 400 MG/D5W 200 ML (PRE-MIX) IV SCH ×2 (05:16→17:07)
[2016-11-21] MEDS: RT-ALBUTEROL/IPRATROPIUM 3 ML (DUONEB) VIAL INH SCH ×4 (06:48→18:47)
[2016-11-21 08:00] VITALS: BP 147/70
[2016-11-21] MEDS ORDERED: VITA150T PO (09:39)
[2016-11-21] MEDS ORDERED: LORA10TA7 PO (09:39)
[2016-11-21] MEDS ORDERED: ALBU18HF2 IH (09:39)
[2016-11-21] MEDS ORDERED: RIVA1.5C6 PO (09:39)
[2016-11-21] MEDS ORDERED: ONDA4TAB11 PO (09:39)
[2016-11-21] MEDS ORDERED: MELA1TAB27 PO (09:39)
[2016-11-21] MEDS ORDERED: POLY17PO6 PO (09:39)
[2016-11-21 10:27] LABS: BASOPHILS % (AUTO) 0 % (0-10); EOSINOPHILS % (AUTO) 0 % (0-10); LYMPHOCYTES # (AUTO) 0.4 X 10^3 (1.0-4.0); LYMPHOCYTES % (AUTO) 7 % (12-44); MEAN CORPUSCULAR HEMOGLOBIN 29 PG (25-34); MEAN CORPUSCULAR HGB CONC 32 G/DL (32-36); MEAN CORPUSCULAR VOLUME 89 FL (80-99); MEAN PLATELET VOLUME 11.2 FL (7.4-10.4); MONOCYTES # (AUTO) 0.2 X 10^3 (0.0-1.0); MONOCYTES % (AUTO) 4 % (0-12); NEUTROPHILS # (AUTO) 5.3 X 10^3 (1.8-7.8); NEUTROPHILS % (AUTO) 89 % (42-75); PLATELET COUNT 190 10^3/uL (130-400); RED BLOOD COUNT 4.55 10^6/uL (4.35-5.85); RED CELL DISTRIBUTION WIDTH 16.5 % (10.0-14.5)
[2016-11-21 10:39] LABS: BAND NEUTROPHILS 0 %; BASOPHILS % (MANUAL) 0 %; EOSINOPHILS % (MANUAL) 0 %; LYMPHOCYTES % (MANUAL) 11 %; NEUTROPHILS % (MANUAL) 89 %
[2016-11-21 10:40] LABS: ANISOCYTOSIS SLIGHT
[2016-11-21 10:49] LABS: ALBUMIN 3.6 G/DL (3.2-4.5); BILIRUBIN,TOTAL 1.8 MG/DL (0.1-1.0); CALCIUM 8.5 MG/DL (8.5-10.1); CREATININE SERUM 0.92 MG/DL (0.60-1.30); POTASSIUM 3.5 MMOL/L (3.6-5.0); TOTAL PROTEIN 6.3 G/DL (6.4-8.2)
--- NOTE | 2016-11-21 11:01 | History & Physical-Hospitalist ---
HPI History of Present Illness: HPI/Chief Complaint CC: Acute diverticulitis and abdominal pain. HPI: This is a 86 [address] pt [address] Braswell's known to me from 08/31/16 admission for Pyelonephritis that presented w/acute diverticulitis and abdominal pain. Chart Review: Admission labs stable INR 2.8 CT abdomen revealed sigmoid colon diverticulitis Will check labs today Patient Interview: Pt was taken to urgent care Saturday morning for possible UTI. Pt was given antibiotics. Pt continued to vomit when she returned home. Physical exam stable. Pt has been in pain Pt has not had any BMs and is severely constipated. Pt was Pt has a pacemaker Pt's vomiting is now under control. Pt has been on Zofran. Scribed by Alok Blevins under the direct supervision of Dr. Aggarwal. Source: patient Exam Limitations: no limitations Date Seen 11/21/16 Attending Physician Rei Dockery MD PCP Yo Braswell MD Referring Physician Date of Admission Nov 20, 2016 at 17:56 Home Medications & Allergies Home Medications Reviewed patient Home Medication Reconciliation Form Allergies Allergies Coded Allergies amoxicillin (Verified Allergy, Unknown, 06/21/15) cefadroxil (Verified Allergy, Unknown, 06/21/15) clavulanic acid (Verified Allergy, Unknown, 06/21/15) codeine (Verified Allergy, Unknown, 06/21/15) haloperidol (Verified Allergy, Unknown, 06/21/15) iodine (Verified Allergy, Unknown, 06/21/15) triazolam (Verified Allergy, Unknown, PT TAKES ALPRAZOLAM AT HOME, 08/31/16) zolpidem (Verified Allergy, Unknown, 06/21/15) donepezil (Verified Adverse Reaction, Severe, 11/20/15) NAUSEA/VOMITING promethazine HCl (Unverified Adverse Reaction, Mild, 06/21/15) Past Mhywcpv-Fcidev-Jxeqji Hx Patient Social History Marrital Status: Employed/Student: retired Alcohol Use: Occasionally Uses Recreational Drug Use: No Smoking Status: Never a Smoker Physical Abuse Screen: No Sexual Abuse: No Recent Foreign Travel: No Contact w/other who traveled: No Recent Hopitalizations: Yes Recent Infectious Disease Expo: No Immunizations Up To Date Tetanus Booster (TDap): Unknown Date of Pneumonia Vaccine: Jun 09, 2014 Date of Influenza Vaccine: May 31, 2016 Seasonal Allergies Seasonal Allergies: No Surgeries HX Surgeries: Yes (SINUS, HEMORRHOIDECTOMY, hiatal hernia, av node ablation) Surgeries: Abdominal, Appendectomy, Bladder Surgery, Breast, Cardiac, Eye Surgery, Gallbladder, Hysterectomy, Oophorectomy, Pacemaker Respiratory Hx Respiratory Disorders: Yes (RESPIRATORY ARREST MULTIPLE TIMES--ON VENT IN PAST) Cardiovascular Hx Cardiovascular Disorders: Yes (PACEMAKER, AORTIC STENOSIS, av NODE ABLATION) Cardiac Disorders: Atrial Fibrillation, Chronic Edema/Swelling, Heart Murmur, High Cholesterol, Irregular Heartbeat, Valvular Heart Disease Neurological Hx Neurological Disorders: Yes Neurological Disorders: Dementia Reproductive System Hx Reproductive Disorders: No Sexually Transmitted Disease: No HIV/AIDS: No Female Reproductive Disorders: Denies Genitourinary Hx Genitourinary Disorders: Yes (acute renal failure after UTI) Genitourinary Disorders: Bladder Infection, Renal Failure, UTI-Chronic Gastrointestinal Hx Gastrointestinal Disorders: Yes Gastrointestinal Disorders: Chronic Constipation, Irritable Bowel Musculoskeletal Hx Musculoskeletal Disorders: Yes (MULTIPLE FX R LOWER LEG) Musculoskeletal Disorders: Osteoporosis, Arthritis Endocrine Hx Endocrine Disorders: Yes Endocrine Disorders: Hypothyroidsim HEENT HX ENT Disorders: Yes HEENT Disorders: Cataract Loss of Vision: Denies Hearing Impairment: Denies Cancer Hx Cancer: No Psychosocial Hx Psychiatric Problems: No Integumentary HX Skin/Integumentary Disorder: No Blood Transfusions Hx Blood Disorders: No Adverse Reaction to a Blood Tr: No Family Medical History Family Hx: Alzheimer's disease 19 MOTHER FHx: throat cancer 19 FATHER Review of Systems Constitutional: see HPI, dizziness, malaise, weakness EENTM: no symptoms reported Respiratory: no symptoms reported Cardiovascular: no symptoms reported Gastrointestinal: abdominal pain (LLQ), constipation Genitourinary: no symptoms reported Musculoskeletal: no symptoms reported Skin: no symptoms reported Psychiatric/Neurological: No Symptoms Reported All Other Systems Reviewed Negative Unless Noted: Yes Physical Exam Physical Exam Vital Signs Vital Sign - Last 12Hours 11/20/16 11/20/16 11/21/16 11/21/16 15:55 22:00 00:39 06:51 Temp 100.5 Pulse 71 Resp 16 B/P (MAP) 176/80 Pulse Ox 92 O2 Delivery Nasal Cannula O2 Flow Rate 2.00 FiO2 96 Capillary Refill : Less Than 3 Seconds General Appearance: No Apparent Distress, WD/WN, Chronically ill, Obese Eyes: Bilateral Eye Normal Inspection, Bilateral Eye PERRL HEENT: PERRL/EOMI, Normal ENT Inspection, Pharynx Normal Neck: Full Range of Motion, Normal Inspection, Non Tender, Supple, Carotid Bruit Respiratory: Chest Non Tender, Lungs Clear, Normal Breath Sounds, No Accessory Muscle Use, No Respiratory Distress Cardiovascular: Regular Rate, Rhythm, No Edema, No Gallop, No JVD, No Murmur, Normal Peripheral Pulses Gastrointestinal: Normal Bowel Sounds, No Organomegaly, No Pulsatile Mass, Soft , Tenderness (mild) Back: Normal Inspection, No CVA Tenderness, No Vertebral Tenderness Extremity: Normal Capillary Refill, Normal Inspection, Normal Range of Motion, Non Tender, No Calf Tenderness, No Pedal Edema Neurologic/Psychiatric: Alert, Oriented x3, No Motor/Sensory Deficits, Normal Mood/Affect Skin: Normal Color, Warm/Dry Lymphatic: No Adenopathy Results Results/Procedures Lab Laboratory Tests 11/20/16 16:00 11/21/16 10:20 Assessment/Plan Admission Diagnosis Assessment: Abdominal pain with subtle diverticulitis on CT scan Severe constipation in need of disimpaction and soapsuds enema Dementia Atrial fibrillation Hypertension Overall debility Recurrent pyelonephritis and UTIs Assessment and Plan Plan: Consult Dr. Rhoades and Dr. Cook Maintain Cipro and Flagyl Heplock IVF Soapsuds enema since her daughter is in the room disimpacting her currently Clinical Quality Measures DVT/VTE Risk/Contraindication: Risk Factor Score Per Nursin RFS Level Per Nursing on Admit: 4+=Very High JAGRUTI AGGARWAL DO Nov 21, 2016 11:01
[2016-11-21 12:00] VITALS: BP 129/64
--- NOTE | 2016-11-21 13:18 | Consultation-Cardiology ---
HPI-Cardiology Cardiology Consultation: Date of Consultation 11/21/16 Date of Admission 11/20/16 Attending Physician Rei Dockery MD Admitting Physician Yo Braswell MD Consulting Physician TINA SERNA MD, FACP, FACC, FSCAI, CCDS HPI: Chief Complaint: Nausea, vomiting, abd pain 86 yo woman admitted to Dr Soto with N/V and abdominal discomfort on 11/20/16. She has been diagnosed with diverticulitis and UTI and constipation by Dr Soto. We have been asked to see her for cardiac comanagement. She denies palp or syncope or cp. Has chronic shortness of breath and fatigue that are their usual baseline. She denies ankle swelling Review of Systems-Cardiology Review of Systems Constitutional: malaise, tiredness, No weight loss, No weight gain Eyes: No vision change Ears/Nose/Throat: No nasal drainage, No recent hearing loss, No ulcerations Respiratory: As described under HPI Cardiovascular: As described under HPI Gastrointestinal: As described under HPI Genitourinary: As described under HPI Musculoskeletal: back pain (chronic), joint pain (chronic) Skin: No ulcerations Psychiatric/Neurological: No focal weakness, No seizure, No syncope Hematologic: No bleeding abnormalities All Other Systems Reviewed Negative Unless Noted: Yes LJA-Snbxva-Grgrui Hx Patient Social History Marrital Status: Employed/Student: retired Alcohol Use: Occasionally Uses Recreational Drug Use: No Smoking Status: Never a Smoker Recent Foreign Travel: No Recent Infectious Disease Expo: No Physical Abuse Screen: No Sexual Abuse: No Immunizations Up To Date Tetanus Booster (TDap): Unknown Date of Pneumonia Vaccine: Jun 09, 2014 Date of Influenza Vaccine: May 31, 2016 Past Medical History PMH As described under Assessment. Family Medical History Family Medical History: No reported h/o premature CAD or SCD Family History: Alzheimer's disease 19 MOTHER FHx: throat cancer 19 FATHER Allergies and Home Medications Allergies Coded Allergies: amoxicillin (Verified Allergy, Unknown, 06/21/15) cefadroxil (Verified Allergy, Unknown, 06/21/15) clavulanic acid (Verified Allergy, Unknown, 06/21/15) codeine (Verified Allergy, Unknown, 06/21/15) haloperidol (Verified Allergy, Unknown, 06/21/15) iodine (Verified Allergy, Unknown, 06/21/15) triazolam (Verified Allergy, Unknown, PT TAKES ALPRAZOLAM AT HOME, 08/31/16) zolpidem (Verified Allergy, Unknown, 06/21/15) donepezil (Verified Adverse Reaction, Severe, 11/20/15) NAUSEA/VOMITING promethazine HCl (Unverified Adverse Reaction, Mild, 06/21/15) Home Medications Acetaminophen 325 Mg Tablet, 650 MG PO Q4H PRN for PAIN-MILD, (Reported) TAKES 2 (325MG) TABLET Albuterol Sulfate 2.5 Mg/3 Ml Vial.neb, 2.5 MG NEB Q4H PRN for SHORTNESS OF BREATH, (Reported) Albuterol Sulfate 18 Gm Hfa.aer.ad, 2 PUFF IH Q4H PRN for SHORTNESS OF BREATH, ( Reported) Alprazolam 0.5 Mg Tablet, 0.25 MG PO TID PRN for ANXIETY, (Reported) TAKES 1/2 (0.5MG) TABLETS Fluticasone/Vilanterol 1 Each Blst.w.dev, 1 PUFF IH HS, (Reported) Furosemide 40 Mg Tablet, 40 MG PO DAILY PRN for 4LB WEIGHT GAIN, (Reported) Levothyroxine Sodium 50 Mcg Tablet, 50 MCG PO DAILY, (Reported) Loratadine 10 Mg Tablet, 10 MG PO HS, (Reported) Magnesium Oxide 250 Mg Tablet, 250 MG PO DAILY, (Reported) Melatonin/Pyridoxine HCl (B6) 1 Each Tablet, 1.5 MG PO HS, (Reported) TAKES 1/2 OF A (3 MG) TABLET Montelukast Sodium 10 Mg Tablet, 10 MG PO HS, (Reported) Ondansetron 4 Mg Tab.rapdis, 4 MG PO Q8H PRN for N/V, (Reported) Polyethylene Glycol 3350 17 Gm Powd.pack, 8.5 GM PO DAILY@1800, (Reported) TAKES 1/2 CAPFUL Potassium Chloride 20 Meq Tab.er.prt, 20 MEQ PO BID, (Reported) Pravastatin Sodium 40 Mg Tablet, 40 MG PO HS, (Reported) Prednisone 5 Mg Tablet, 2.5 MG PO DAILY, (Reported) TAKES 1/2 (5MG) TABLET Rivastigmine Tartrate 1.5 Mg Capsule, 1.5 MG PO BID, (Reported) Vitamin B Complex & Vit C No.4 150 Mg Tablet, 150 MG PO DAILY, (Reported) Warfarin Sodium 5 Mg Tablet, 2.5 MG PO MoTuWeFrSa@1800, (Reported) TAKES 1/2 OF A (5 MG) TABLET Warfarin Sodium 5 Mg Tablet, 5 MG PO SuTh@1800, (Reported) Physical Exam-Cardiology Physical Exam Vital Signs/I&O Vital Sign - Last 12Hours 11/21/16 11/21/16 11/21/16 11/21/16 04:55 06:51 08:00 08:00 Temp 97.4 97.1 Pulse 62 70 Resp 18 18 B/P (MAP) 129/67 147/70 Pulse Ox 95 96 96 O2 Delivery Nasal Cannula Nasal Cannula O2 Flow Rate 2.00 2.00 2.00 2.00 FiO2 96 11/21/16 12:00 Temp 96.8 Pulse 75 Resp 20 B/P (MAP) 129/64 Pulse Ox 93 O2 Delivery Nasal Cannula O2 Flow Rate 2.00 Intake and Output 11/21/16 00:00 Intake Total 100 ml Balance 100 ml Capillary Refill : Less Than 3 Seconds Constitutional: AAO x 3, well-developed, well-nourished HEENT: oral hygience is good, No xanthelasmas are seen Neck: carotid pulses are 2 + bilaterally, with good upstrokes Respiratory: No accessory muscle use, lungs clear to auscultation, No stridor, No wheezing Cardiovascular: regular rate-rhythm, S1 and S2, systolic murmur (faint BETH at cardiac base) Gastrointestinal: No tender, soft, No guarding, No rebound, audible bowel sounds Extremities: No clubbing, No cyanosis, No significant edema Neurologic/Psychiatric: oriented x 3, grossly intact, power is 5/5 both on sides Skin: No rash on exposed areas, No ulcerations on exposed areas Data Review Labs Laboratory Tests 11/20/16 16:00: White Blood Count 7.2, Red Blood Count 4.68, Hemoglobin 13.4, Hematocrit 42, Mean Corpuscular Volume 90, Mean Corpuscular Hemoglobin 29, Mean Corpuscular Hemoglobin Concent 32, Red Cell Distribution Width 16.8H, Platelet Count 201, Mean Platelet Volume 10.7H, Neutrophils (%) (Auto) 81H, Lymphocytes (%) (Auto) 11L, Monocytes (%) (Auto) 6, Eosinophils (%) (Auto) 3, Basophils (%) (Auto) 0, Neutrophils # (Auto) 5.8, Lymphocytes # (Auto) 0.8L, Monocytes # (Auto) 0.4, Eosinophils # (Auto) 0.2, Basophils # (Auto) 0.0, Prothrombin Time 29.0H, INR Comment 2.8H, Sodium Level 141, Potassium Level 4.2, Chloride Level 108H, Carbon Dioxide Level 23, Anion Gap 10, Blood Urea Nitrogen 18, Creatinine 0.88, Estimat Glomerular Filtration Rate > 60, BUN/Creatinine Ratio 20, Glucose Level 136H, Calcium Level 8.4L, Total Bilirubin 2.6H, Aspartate Amino Transf (AST/SGOT ) 26, Alanine Aminotransferase (ALT/SGPT) 19, Alkaline Phosphatase 64, Total Protein 6.4, Albumin 3.7, Lipase 8 11/20/16 18:15: Urine Color YELLOW, Urine Clarity CLEAR, Urine pH 6, Urine Specific [place] 1.020, Urine Protein 2+H, Urine Glucose (UA) NEGATIVE, Urine Ketones NEGATIVE, Urine Nitrite NEGATIVE, Urine Bilirubin NEGATIVE, Urine Urobilinogen NORMAL, Urine Leukocyte Esterase 1+H, Urine RBC (Auto) 1+H, Urine RBC 2-5H, Urine WBC 0- 2, Urine Crystals NONE, Urine Bacteria NONE, Urine Casts NONE, Urine Mucus NEGATIVE, Urine Culture Indicated NO 11/21/16 10:20: White Blood Count 6.0, Red Blood Count 4.55, Hemoglobin 13.0, Hematocrit 41, Mean Corpuscular Volume 89, Mean Corpuscular Hemoglobin 29, Mean Corpuscular Hemoglobin Concent 32, Red Cell Distribution Width 16.5H, Platelet Count 190, Mean Platelet Volume 11.2H, Neutrophils (%) (Auto) 89H, Lymphocytes (%) (Auto) 7L, Monocytes (%) (Auto) 4, Eosinophils (%) (Auto) 0, Basophils (%) (Auto) 0, Neutrophils # (Auto) 5.3, Lymphocytes # (Auto) 0.4L, Monocytes # (Auto) 0.2, Eosinophils # (Auto) 0.0, Basophils # (Auto) 0.0, Sodium Level 139, Potassium Level 3.5L, Chloride Level 107, Carbon Dioxide Level 21, Anion Gap 11, Blood Urea Nitrogen 17, Creatinine 0.92, Estimat Glomerular Filtration Rate 58, BUN/ Creatinine Ratio 18, Glucose Level 187H, Calcium Level 8.5, Total Bilirubin 1.8H , Aspartate Amino Transf (AST/SGOT) 26, Alanine Aminotransferase (ALT/SGPT) 19, Alkaline Phosphatase 65, Total Protein 6.3L, Albumin 3.6, Neutrophils % (Manual ) 89, Lymphocytes % (Manual) 11, Monocytes % (Manual) 0, Eosinophils % (Manual) 0, Basophils % (Manual) 0, Band Neutrophils 0, Anisocytosis SLIGHT Laboratory Tests 11/20/16 16:00 11/21/16 10:20 A/P-Cardiology Assessment/Admission Diagnosis Recurrent UTI and pyelonephritis, managed by Dr Soto Diverticulitis and constipation, managed by Dr Soto and Dr Rhoades Aortic stenosis, mod on echo of 09/21/14 (valve area 1.2 sq cm), but severe on cardiac cath of 05/03/15 (valve area 0.58 sq cm). She has been evaluated at [facility] in Aug 2015 for AVR/TAVR and has been told that conservative therapy appears best at this time Mod pulmonary hypertension (mean PA pressure 25 mmHg), elevated LVEDP (20 mmHg) , mild MR and mild CAD on cardiac cath of 05/03/15 Atrial fibrillation with RVR that was very difficult to control on meds. She is now post AV junction ablation per Dr. Paz November 2014. It appears ablation resulted in CHB and therefore PPM was implanted S/p single chamber St Ti pacemaker implantation, post AV kerri ablation, by Dr Paz at [facility] in November 2014 - functioning normally per interrogation of February 2016 Recurrent pneumonias (Jun 2014 and September 2014) managed by Dr Braswell, her fam phy , and by Dr Estes, her pulmonolgist Chronic warfarin anticoagulation for stroke prophylaxis Maturity onset diabetes mellitus. Chronic intermittent leg swelling, likely related to venous insufficiency, currently under fair control Hypothyroidism, being treated with thyroid replacement therapy and being managed by Dr. Braswell. Hyperlipidemia, being treated with statin therapy. History of chronic sinusitis H/o COPD, being managed by her front office java developer, Dr White Mild carotid arterial disease on u/s of Jun 2013 Obstructive sleep apnea was not documented on studies in 2014, according to the patient Generalized weakness and malaise of undetermined etiology Nausea of undetermined etiology (mid Jul 2014), possibly related to digoxin therapy Depression, being managed by Dr Braswell Discussion and Recomendations * She has multiple comorbidities as outlined above * Continue previous cardiac regimen * Replenish K * Follow labs Clinical Quality Measures DVT/VTE Risk/Contraindication: Risk Factor Score Per Nursin RFS Level Per Nursing on Admit: 4+=Very High TINA SERNA MD FACP FAC CCDS Nov 21, 2016 13:17
[2016-11-21] MEDS ORDERED: KCL 20 MEQ TAB (K-DUR) PO ONE (13:30)
[2016-11-21 16:43] VITALS: BP 159/69
[2016-11-21 20:17] VITALS: BP 123/63
[2016-11-21] MEDS: POLYETHYLENE GLYCOL 17 GM (MIRALAX) PACK PO SCH (20:21)
[2016-11-21] MEDS ORDERED: MELATONIN 3 MG TABLET PO SCH (21:00)
--- NOTE | 2016-11-21 23:27 | CONSULTATION REPORT ---
DATE OF SERVICE: 11/21/2016 ATTENDING PRIMARY CARE PHYSICIAN: Dr. Braswell. ADMITTING PHYSICIAN: Dr. Dockery. CONSULTING PHYSICIAN: Dr. Soto. HISTORY OF PRESENT ILLNESS: The patient is an 86-year-old female who was admitted yesterday for abdominal discomfort. She also had flank pain and was found to have pyelonephritis. She was started on IV antibiotics and has done well from a urologic standpoint. CT scan was performed which also did show significant amount of constipated stool within the sigmoid colon as well as significant sigmoid diverticulosis with some mild inflammation consistent with a mild acute diverticulitis. There was minimal edema with no fluid collections as well as no abscess. She is accompanied by her daughter and she reports that she has had a longstanding history of constipation because she forgets to take adequate amounts of water as well as her normally prescribed MiraLax and stool softeners. She has received Fleets enemas and she has had a significant bowel movement and does feel better at this time. She reports that her last colonoscopy was approximately 3 to 4 years ago. It was explained to the family that in this scenario we would do a followup colonoscopy in the next 6 weeks. However at this time the patient is DNR and they will proceed with conservative management at this time. For now we will advance her diet and continue with oral laxatives as well as enemas as necessary. PAST MEDICAL HISTORY: 1. Atrial fibrillation. 2. Lower extremity edema. 3. Hypercholesterolemia. 4. Valvular heart disease. 5. Degenerative joint disease. 6. Osteoporosis. 7. Chronic urinary tract infection. 8. Diverticulosis. PAST SURGICAL HISTORY: 1. Hemorrhoidectomy. 2. AV kerri sinus ablation. 3. Pacemaker implantation. 4. Hiatal hernia repair. 5. Hemorrhoidectomy. ALLERGIES: AMOXICILLIN, CEFADROXIL, MEVALONIC ACID, CODEINE, HALLOPERIDOL, IODINE, TRIAZOLAM, ZOLPIDEM, DONEPEZIL, PROMETHAZINE. MEDICATIONS: Albuterol q. 4 hours prn., alprazolam 0.5 mg t.i.d. prn., Breo-Ellipta 1 puff daily, furosemide 40 mg daily, levothyroxine 50 mcg daily, loratadine 10 mg daily, magnesium 250 mg daily, melatonin daily, montelukast 10 mg daily, Zofran prn, MiraLax b.i.d, [id number] mg daily, prednisone 2.5 mg daily, rivastigmine 1.5 mg b.i.d., vitamin B daily, Coumadin 2.5 mg 5 days per week, 5 mg 2 days per week. SOCIAL HISTORY: Negative smoking. Negative alcohol. FAMILY HISTORY: Mother with Alzheimer disease. Father with oropharyngeal cancer. REVIEW OF SYSTEMS: Well-nourished female currently in no acute distress. She is not experiencing any shortness of breath or difficulty breathing. No chest pain, palpitations or diaphoresis. No nausea or vomiting. She has a longstanding history of constipation which has worsened in the past several years due to issues with memory and dementia. No red blood per rectum. No dark tarry stools. No fevers or chills. No recent inadvertent weight loss. PHYSICAL EXAMINATION: VITAL SIGNS: Temperature 97.1, blood pressure 147/70, pulse 70, respirations 96% on 2 L/nasal cannula. CHEST: Scattered rales and rhonchi bilaterally. HEART: Regular. EXTREMITIES: Plus 1/3 bilateral lower extremity edema. Negative Jillian sign. HEENT: No scleral icterus. NECK: No cervical lymphadenopathy. ABDOMEN: Soft. Nondistended. There is mild discomfort in the left lower abdominal quadrant upon deep palpation. There are no peritoneal signs. LABORATORY DATA: WBC 6.0, hemoglobin 13.0, hematocrit 41 and platelets 190,000. ASSESSMENT AND PLAN: The patient is an 86-year-old female with chronic constipation and acute on chronic diverticulitis. We will proceed with conservative management with oral laxatives as well as enemas prn. The patient is DNR and the daughter is accompanying the patient and it was explained to her that normally we would proceed with followup colonoscopy. However due to the patient's status and functional capacity we will proceed with conservative management for now. Job ID: [id number] DocumentID: [id number] Dictated Date: 11/21/2016 12:01:28 Addiction Professional Date: 11/21/2016 23:27:28 Dictated By: AL CRAFT MD
[2016-11-22] VITALS: BP 125/64
[2016-11-22] MEDS: metroNIDAZOLE 500 MG/100 ML IVPB (PRE-MIX) IV SCH ×3 (02:07→17:45)
[2016-11-22 04:12] VITALS: BP 152/75
[2016-11-22] MEDS: CIPROFLOXACIN 400 MG/D5W 200 ML (PRE-MIX) IV SCH ×2 (05:00→18:45)
[2016-11-22 06:22] LABS: BASOPHILS % (AUTO) 0 % (0-10); EOSINOPHILS % (AUTO) 0 % (0-10); LYMPHOCYTES # (AUTO) 1.1 X 10^3 (1.0-4.0); LYMPHOCYTES % (AUTO) 10 % (12-44); MEAN CORPUSCULAR HEMOGLOBIN 29 PG (25-34); MEAN CORPUSCULAR HGB CONC 32 G/DL (32-36); MEAN CORPUSCULAR VOLUME 89 FL (80-99); MEAN PLATELET VOLUME 11.2 FL (7.4-10.4); MONOCYTES # (AUTO) 1.2 X 10^3 (0.0-1.0); MONOCYTES % (AUTO) 10 % (0-12); NEUTROPHILS # (AUTO) 9.2 X 10^3 (1.8-7.8); NEUTROPHILS % (AUTO) 80 % (42-75); PLATELET COUNT 214 10^3/uL (130-400); RED BLOOD COUNT 4.35 10^6/uL (4.35-5.85); RED CELL DISTRIBUTION WIDTH 16.7 % (10.0-14.5); WHITE BLOOD COUNT 11.5 10^3/uL (4.3-11.0)
[2016-11-22] MEDS: RT-ALBUTEROL/IPRATROPIUM 3 ML (DUONEB) VIAL INH SCH ×4 (06:31→19:19)
[2016-11-22 06:33] LABS: INR 3.4 (0.8-1.4); PROTHROMBIN TIME PATIENT 33.9 SEC (12.2-14.7)
[2016-11-22 06:35] LABS: CALCIUM 8.5 MG/DL (8.5-10.1); MAGNESIUM 2.2 MG/DL (1.8-2.4); POTASSIUM 4.1 MMOL/L (3.6-5.0)
[2016-11-22 07:00] LABS: THYROID STIMULATING HORMONE 2.72 UIU/ML (0.35-4.94)
[2016-11-22 08:00] VITALS: BP 136/71
[2016-11-22] MEDS: POLYETHYLENE GLYCOL 17 GM (MIRALAX) PACK PO SCH (08:20)
[2016-11-22] MEDS ORDERED: ACETAMINOPHEN 500 MG TAB (TYLENOL) PO PRN (09:15)
--- NOTE | 2016-11-22 09:27 | Progress Note-Cardiology ---
Cardiology SOAP Progress Note Subjective: Sitting up in a chair at the bedside. States she feels better this morning. Daughter and spouse at the bedside as well. C/O RUQ discomfort. No c/o CP, SOB , palpitations, syncope or near syncope. Objective: I&O/Vital Signs Vital Sign - Last 12Hours 11/22/16 11/22/16 11/22/16 11/22/16 00:00 04:12 06:31 08:00 Temp 96.9 98.6 98.1 Pulse 70 69 70 Resp 20 16 20 B/P (MAP) 125/64 152/75 136/71 Pulse Ox 93 98 96 98 O2 Delivery Nasal Cannula Nasal Cannula Nasal Cannula O2 Flow Rate 2.00 2.00 2.00 11/22/16 08:10 Pulse Ox 97 O2 Flow Rate 0.00 Intake and Output 11/22/16 00:00 Intake Total 2130 ml Output Total 1475 ml Balance 655 ml Weight (Pounds): 170 Weight (Ounces): 0.0 Weight (Calculated Kilograms): 77.407416 Constitutional: AAO x 3, well-developed, well-nourished Respiratory: No accessory muscle use, lungs clear to auscultation, No stridor, No wheezing Cardiovascular: regular rate-rhythm, S1 and S2, systolic murmur (faint BETH at cardiac base) Gastrointestional: No tender, soft, No guarding, No rebound, audible bowel sounds Extremities: No clubbing, No cyanosis, No significant edema Neurologic/Psychiatric: oriented x 3, grossly intact, power is 5/5 both on sides Skin: No rash on exposed areas, No ulcerations on exposed areas Results/Procedures: Labs Laboratory Tests 11/22/16 05:40: White Blood Count 11.5H, Red Blood Count 4.35, Hemoglobin 12.5, Hematocrit 39, Mean Corpuscular Volume 89, Mean Corpuscular Hemoglobin 29, Mean Corpuscular Hemoglobin Concent 32, Red Cell Distribution Width 16.7H, Platelet Count 214, Mean Platelet Volume 11.2H, Neutrophils (%) (Auto) 80H, Lymphocytes (%) (Auto) 10L, Monocytes (%) (Auto) 10, Eosinophils (%) (Auto) 0, Basophils (%) (Auto) 0, Neutrophils # (Auto) 9.2H, Lymphocytes # (Auto) 1.1, Monocytes # (Auto) 1.2H, Eosinophils # (Auto) 0.0, Basophils # (Auto) 0.0, Prothrombin Time 33.9H, INR Comment 3.4H, Sodium Level 143, Potassium Level 4.1, Chloride Level 112H, Carbon Dioxide Level 22, Anion Gap 9, Blood Urea Nitrogen 19H, Creatinine 1.00, Estimat Glomerular Filtration Rate 53, BUN/Creatinine Ratio 19, Glucose Level 124H, Calcium Level 8.5, Magnesium Level 2.2, Thyroid Stimulating Hormone (TSH) 2.72 A/P: Assessment: Recurrent UTI and pyelonephritis, managed by Dr Soto Diverticulitis and constipation, managed by Dr Soto and Dr Rhoades Aortic stenosis, mod on echo of 09/21/14 (valve area 1.2 sq cm), but severe on cardiac cath of 05/03/15 (valve area 0.58 sq cm). She has been evaluated at [facility] in Aug 2015 for AVR/TAVR and has been told that conservative therapy appears best at this time Mod pulmonary hypertension (mean PA pressure 25 mmHg), elevated LVEDP (20 mmHg) , mild MR and mild CAD on cardiac cath of 05/03/15 Atrial fibrillation with RVR that was very difficult to control on meds. She is now post AV junction ablation per Dr. Paz November 2014. 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 Chronic intermittent leg swelling, likely related to venous insufficiency, currently under fair control Hypothyroidism, being treated with thyroid replacement therapy and being managed by Dr. Braswell. Hyperlipidemia, being treated with statin therapy. History of chronic sinusitis H/o COPD, being managed by her floor representative, Dr White Mild carotid arterial disease on u/s of Jun 2013 Obstructive sleep apnea was not documented on studies in 2014, according to the patient Generalized weakness and malaise of undetermined etiology Nausea of undetermined etiology (mid Jul 2014), possibly related to digoxin therapy Depression, being managed by Dr Braswell Plan: * She has multiple comorbidities as outlined above * Continue previous cardiac regimen * Supra-therapeutic INR - (3.4), likely d/t abx tx. Hold warfarin until INR below 3.0 * Follow labs Physician Assessment Physician Assessment Lungs: good air entry Cor: reg ECG: a fib, paced vent rhythm A&R * As documented in our note above * Monitor labs [place] [employer] Nov 22, 2016 09:27 TINA SERNA MD FACP [facility] CCDS Nov 22, 2016 10:27
[2016-11-22] MEDS ORDERED: FUROSEMIDE 40 MG (LASIX) TAB PO PRN (09:45)
[2016-11-22] MEDS ORDERED: RX-ALBUTEROL INHALER (VENTOLIN HFA) 18 GM IH PRN (09:45)
[2016-11-22] MEDS ORDERED: ALPRAZolam 0.5 MG (XANAX) TAB PO PRN (09:45)
[2016-11-22] MEDS ORDERED: RT-ALBUTEROL SULF 2.5 MG/3 ML PRE-MIX VIAL IH PRN (09:45)
[2016-11-22] MEDS ORDERED: ONDANSETRON 4 MG (ZOFRAN) ORAL DISSOLVE TAB PO PRN (09:45)
[2016-11-22] MEDS ORDERED: ACETAMINOPHEN 325 MG TABLET/CAPLET (TYLENOL) PO PRN (09:45)
[2016-11-22] MEDS ORDERED: ALBUTEROL INHALER HFA (VENTOLIN HFA) 18 GM IH PRN (10:15)
[2016-11-22] MEDS: predniSONE 5 MG TAB PO SCH (10:44)
[2016-11-22] MEDS: RIVASTIGMINE 1.5 MG (EXELON) CAP PO SCH ×2 (10:44→21:10)
--- NOTE | 2016-11-22 10:49 | Progress Note-Hospitalist ---
Progress Note HPI/CC on Admission CC: Acute diverticulitis and abdominal pain. HPI: This is a 86 [address] pt of [address] Braswell's known to me from 08/31/16 admission for Pyelonephritis that presented w/acute diverticulitis and abdominal pain. Chart Review: Admission labs stable INR 2.8 CT abdomen revealed sigmoid colon diverticulitis Will check labs today Patient Interview: Pt was taken to urgent care Saturday morning for possible UTI. Pt was given antibiotics. Pt continued to vomit when she returned home. Physical exam stable. Pt has been in pain Pt has not had any BMs and is severely constipated. Pt was Pt has a pacemaker Pt's vomiting is now under control. Pt has been on Zofran. Scribed by Alok Blevins under the direct supervision of Dr. Aggarwal. 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 Pt has had some BMs Pt is not requiring O2 Patient Interview: Pt is experiencing abdominal pain. Pt has had BMs Pt was informed that her home meds were restarted. Physical exam stable. Pt tried to eat breakfast, but she did not eat it. Pt did drink Ensure. No fever, vital signs stable, pleasant, up in bathroom brushing teeth with helping Irregular irregular rhythm no exercise or murmurs, clear to auscultation bilaterally good expansion Nontender abdomen No edema Laboratory Tests 11/22/16 05:40 Assessment: Abdominal pain with subtle diverticulitis on CT scan Severe constipation s/p evacuation via soapsuds enema Dementia Atrial fibrillation Hypertension Overall debility Recurrent pyelonephritis and UTIs Plan: Consult Dr. Rhoades and Dr. Cook Maintain Cipro and Flagyl PT Tylenol for right upper quadrant pain Possible DC tomorrow Restart regular diet Scribed by Natalia Hoskins under the direct supervision of Dr. Aggarwal. JAGRUTI AGGARWAL DO Nov 22, 2016 10:49
--- NOTE | 2016-11-22 11:32 | Physical Therapy Evaluation ---
PT Evaluation-General Medical Diagnosis Admission Date Nov 20, 2016 at 17:56 Medical Diagnosis: abdominal pain Onset Date: Nov 20, 2016 Therapy Diagnosis Therapy Diagnosis: general debility Height/Weight Height (Feet): 5 Height (Inches): 5.00 Weight (Pounds): 170 Weight (Ounces): 0.0 Precautions Precautions/Isolations: Fall Prevention, Standard Precautions Referral Physician: Charles Reason for Referral: Evaluation/Treatment Medical History Pertinent Medical History: Atrial Fib, Arthritis, COPD, Dementia, GERD, HTN, Hypothroidism Additional Medical History abdominal pain Current History vomiting x 2 days; sigmoid colon diverticulitis Reviewed History: Yes Social History Home: Single Level Current Living Status: Spouse Prior/Core FIM Prior Level of Function Functional Sutter Measure 0=Not Assessed/NA 4=Minimal Assistance 1=Total Assistance 5=Supervision or Setup 2=Maximal Assistance 6=Modified Sutter 3=Moderate Assistance 7=Complete Sutter Bed Mobility: 6 Transfers (B,C,W/C) (FIM): 6 Gait: 6 occasional use of FWW per spouse report; spouse is primary caregiver due to patient's dementia PT Evaluation-Current Subjective Patient is very agreeable to participate with PT. Patient states she is feeling better. Pain Numeric Pain Scale: 0-No Pain Location: No Pain Reported Objective Patient Orientation: Confused Problem Solving: Poor ROM/Strength ROM Lower Extremities bilateral LE WFL Strenght Lower Extremities bilateral LE 4/5 grossly Integumentary/Posture Integumentary refer to nursing notes Bowel Incontinence: No Bladder Incontinence: No Posture WNL Neuromuscular (Tone, Coordination, Reflexes) grossly intact Sensory Vision: Wears Glasses Hearing: Functional Sensation Right Lower Extremit: Intact Sensation Left Lower Extremity: Intact Transfers Functional Sutter Measure 0=Not Assessed/NA 4=Minimal Assistance 1=Total Assistance 5=Supervision or Setup 2=Maximal Assistance 6=Modified Sutter 3=Moderate Assistance 7=Complete Sutter Transfers (B, C, W/C) (FIM): 5 Scootin Rollin Supine to/from Sit: 5 Sit to/from Stand: 5 Gait Mode of Locomotion: Walk Anticipated Mode of Locomotion: Walk Gait (FIM): 5 Distance (FIM): 3=150 ft Distance: 300' Gait Level of Assist: 5 Gait Assistive Device: FWW Comments/Gait Description safe and functional with FWW Balance Sitting Static: Normal Sitting Dynamic: Normal Standing Static: Normal Standing Dynamic: Normal Assessment/Needs 86 y.o. female, will benefit from short term skilled PT to address functional mobility to ensure safe return to home with spouse. Rehab Potential: Good PT Short Term Goals Short Term Goals Time Frame: December 25, 2016 Transfers (B,C,W/C) (FIM): 6 Gait (FIM): 6 Distance (FIM): 3=150 ft Gait Level of Assist: 6 Gait Assistive Device: FWW PT Plan Treatment/Plan Treatment Plan: Continue Plan of Care Treatment Plan: Education, Functional Activity Valerio, Functional Strength, Gait , Safety, Therapeutic Exercise, Transfers Treatment Duration: November 27, 2016 # of days/week 5 Visits Per Week: 5 Pt/Family Agrees w/Plan: Yes Discharge Recommendations Therapy D/C Recommendations: Home w/ Family Support Time/GCodes Time In: 1010 Time Out: 1030 Total Billed Treatment Time: 20 Total Billed Treatment 1 visit EVLowC 20 min CHAIM MARIA PT Nov 22, 2016 11:32
[2016-11-22 12:00] VITALS: BP 146/80
--- NOTE | 2016-11-22 15:19 | Occupational Therapy Eval ---
OT Evaluation-General/PLF Medical Diagnosis Admission Date Nov 20, 2016 at 17:56 Medical Diagnosis: Acute diverticulitis Onset Date: Nov 20, 2016 Therapy Diagnosis Therapy Diagnosis: Weakness, Decreased ADL skills Height/Weight Height (Feet): 5 Height (Inches): 5.00 Weight (Pounds): 170 Weight (Ounces): 0.0 Precautions Precautions/Isolations: Fall Prevention, Standard Precautions Safety Interventions: Bed Exit Alarm Weight Bear Status Weight Bearing Restriction: Weight Bearing/Tolerated Referral Physician: Charles Referral Reason: Activity Tolerance, Self Care, Evaluation/Treatment, Strengthening/ROM Medical History Pertinent Medical History: Atrial Fib, Arthritis, COPD, Dementia, GERD, HTN, Hypothroidism Additional Medical History sinus surgery, appendectomy, pacemaker, renal failure, multiple fx right LE Current History Pt. experienced vomitting and severe constipation. Spouse states that pt. has been confused for approximately 6 weeks. Spouse states that pt. was taking a bath and could not get out of tub. Someone is always with her, whether it is her daughter or spouse. Reviewed History: Yes Social History Home: Single Level Current Living Status: Spouse Entry Into Home: Stairs With Railing Steps Into Home: 3 ADL-Prior Level of Function ADL PLOF Comments Previous to 6 weeks ago, pt. was independent with basic self care needs. Pt. lives in [place] with spouse. Spouse states that pt. does not always know who he is. DME/Equipment: Bath Chair, Shower, Tub/Shower DME/Equipment Comments Pt. has a 2 wheeled walker and [address] Self: No OT Current Status Subjective No pain reported. Pt. is unable to answer all questions. Spouse is able to answer questions for her that she does not know. Appearance Pt. is sitting in chair. Has just came from bathroom. Spouse stated that he walked with her. Mental Status/Objective Patient Orientation: Unable to Assess Current Glasses/Contacts: Yes Hand Dominance: Right Upper Extremity ROM WFL Upper Extremity Strength 3+/5 bilateral UE strength for daily tasks. ADL-Treatment Functional [place] Measure 0=Not Assessed/NA 4=Minimal Assistance 1=Total Assistance 5=Supervision or Setup 2=Maximal Assistance 6=Modified [place] 3=Moderate Assistance 7=Complete IndependenceIRFPAI Quality Coding Scale 6 Independent with activity with or without an assistive device 5 Patient requires set up or clean up by helper. Patient completes activity by themselves 4 Supervision or touching assist (CGA). [place] provide cues , steadying assist 3 The helper provides less than half the effort to complete the activity 2 The helper provides more than half the effort to complete the activity 1 Dependent. The helper does all the effort to complete an activity 7 Patient refused to complete or attempt activity 9 The patient did not perform the activity before the current illness or injury 88 Not attempted due to Medical conditions or safety concerns Grooming (FIM): 5 (Pt. was able to brush teeth in sink with SBA.) Lower Body Dressing (FIM): 5 (Pt. is able to doff/don socks by bringing feet up to her when sitting in chair, with SBA.) Toileting (FIM): 5 (Spouse and pt. both state that she was able to toilet self with SBA.) Transfers (B, C, W/C) (FIM): 5 Toilet/Commode Transfer (FIM): 5 Other Treatments Pt. is sitting up in chair. Speak with her and spouse regarding purpose of occupational therapy. Spouse verbalizes understanding. States that pt. will have someone with her at all times. Education OT Patient Education: Modified ADL techniques, Progress toward Goal/Update tx plan, Purpose of tx/functional activities, Reviewed precautions, Rehab process, Transfer techniques Teaching Recipient: Patient Teaching Methods: Demonstration, Discussion Response to Teaching: Verbalize Understanding, Return Demonstration OT Short Term Goals Short Term Goals Transfers (B,C,W/C) (FIM): 6 1=Demonstrate adherence to instructed precautions during ADL tasks. 2=Patient will verbalize/demonstrate understanding of assistive devices/ modifications for ADL. 3=Patient will improve strength/tolerance for activity to enable patient to perform ADL's. OT Fci Goals Fci Goals Time Frame: December 06, 2016 Eating (FIM): 6 Grooming(FIM): 6 Bathing(FIM): 5 Upper Body Dressing(FIM): 6 Lower Body Dressing(FIM): 6 Toileting(FIM): 6 Transfers (B,C,W/C) (FIM): 6 Toilet/Commode Transfer(FIM): 6 Shower Transfer(FIM): 5 Additional Goals: 1-Demonstrate ADL Tasks, 2-Verbalize Understanding, 3- ImproveStrength/Valerio 1=Demonstrate adherence to instructed precautions during ADL tasks. 2=Patient will verbalize/demonstrate understanding of assistive devices/ modifications for ADL. 3=Patient will improve strength/tolerance for activity to enable patient to perform ADL's. OT Education/Plan Problem List/Assessment Assessment: Decreased Activ Tolerance, Decreased UE Strength, Dependent Transfers, Impaired Bed Mobility, Impaired Cognition, Impaired Funct Balance, Impaired I ADL's, Impaired Self-Care Skills, Restricted Funct UE ROM Discharge Recommendations Plan/Recommendations: Continue POC Therapy D/C Recommendations: Home w/ Family Support, Occupational Therapy Home Care, Scheduled Assistance Barriers to Progress Cognition and weakness Treatment Plan/Plan of Care Treatment,Training & Education: Yes Patient would benefit from OT for education, treatment and training to promote independence in ADL's, mobility, safety and/or upper extremity function for ADL' s. Plan of Care: ADL Retraining, Functional Mobility, UE Funct Exercise/Act Treatment Duration: December 06, 2016 Visits Per Week: 5-6 Agreement: Yes Rehab Potential: Fair Time/GCodes Start Time: 09:45 Stop Time: 10:00 Total Time Billed (hr/min): 15 Billed Treatment Time 1, KASIA Navarro OT Nov 22, 2016 15:19
[2016-11-22 15:35] VITALS: BP 149/70
[2016-11-22] MEDS: KCL 20 MEQ TAB (K-DUR) PO SCH (17:45)
[2016-11-22] MEDS ORDERED: POLYETHYLENE GLYCOL 17 GM (MIRALAX) PACK PO SCH (18:00)
[2016-11-22] MEDS: RT-ADVAIR HFA 45/21 MCG PER PUFF IH SCH (19:20)
[2016-11-22 19:55] VITALS: BP 157/72
[2016-11-22] MEDS ORDERED: LORATADINE (CLARITIN) 10 MG TAB PO SCH (21:00)
[2016-11-22] MEDS ORDERED: MONTELUKAST 10 MG (SINGULAIR) TAB PO SCH (21:00)
[2016-11-22] MEDS ORDERED: SIMvastatin 20 MG (ZOCOR) TAB PO SCH (21:00)
[2016-11-22] MEDS ORDERED: MELATONIN 3 MG TABLET PO SCH (21:00)
[2016-11-23 00:27] VITALS: BP 117/72
[2016-11-23] MEDS: metroNIDAZOLE 500 MG/100 ML IVPB (PRE-MIX) IV SCH ×2 (02:34→10:31)
[2016-11-23 04:31] VITALS: BP 157/76
[2016-11-23] MEDS: CIPROFLOXACIN 400 MG/D5W 200 ML (PRE-MIX) IV SCH (06:25)
[2016-11-23] MEDS: KCL 20 MEQ TAB (K-DUR) PO SCH (06:26)
[2016-11-23] MEDS: predniSONE 5 MG TAB PO SCH (06:26)
[2016-11-23] MEDS ORDERED: LEVOTHYROXINE 50 MCG (LEVOTHROID) TAB PO SCH (06:30)
[2016-11-23] MEDS ORDERED: MULTIVIT W/MINERALS TAB (THERAGRAN M) PO SCH (07:00)
[2016-11-23] MEDS: RT-ALBUTEROL/IPRATROPIUM 3 ML (DUONEB) VIAL INH SCH ×2 (07:36→10:56)
[2016-11-23] MEDS: RT-ADVAIR HFA 45/21 MCG PER PUFF IH SCH (07:37)
[2016-11-23] MEDS ORDERED: MAGNESIUM OXIDE (MAG-OX)400 MG TAB PO SCH (08:00)
[2016-11-23 08:19] VITALS: BP 130/69
[2016-11-23] MEDS: RIVASTIGMINE 1.5 MG (EXELON) CAP PO SCH (09:03)
--- NOTE | 2016-11-23 09:29 | Physical Therapy Progress Note ---
Therapy Progress Note Treatment attempted but patient refused. She states she has been ambulating in the hallway with her and does not want to ambulate right now. Will try back later today. DUNG CAT PT Nov 23, 2016 09:29
--- NOTE | 2016-11-23 10:15 | Progress Note-Cardiology ---
Cardiology SOAP Progress Note Subjective: Feels well. Denies cp or palp or syncope. Wishes to go home Objective: I&O/Vital Signs Vital Sign - Last 12Hours 11/23/16 11/23/16 11/23/16 11/23/16 00:27 04:31 07:37 07:39 Temp 98.6 97.1 Pulse 67 70 Resp 16 20 B/P (MAP) 117/72 157/76 Pulse Ox 97 98 96 96 O2 Delivery Room Air Room Air 11/23/16 08:19 Temp 98.7 Pulse 70 Resp 18 B/P (MAP) 130/69 Pulse Ox 96 O2 Delivery Room Air Intake and Output 11/23/16 00:00 Intake Total 500 ml Output Total 500 ml Balance 0 ml Weight (Pounds): 170 Weight (Ounces): 0.0 Weight (Calculated Kilograms): 77.074841 Constitutional: AAO x 3, well-developed, well-nourished Respiratory: No accessory muscle use, lungs clear to auscultation, No stridor, No wheezing Cardiovascular: regular rate-rhythm, S1 and S2, systolic murmur (faint BETH at cardiac base) Gastrointestional: No tender, soft, No guarding, No rebound, audible bowel sounds Extremities: No clubbing, No cyanosis, No significant edema Neurologic/Psychiatric: oriented x 3, grossly intact, power is 5/5 both on sides Skin: No rash on exposed areas, No ulcerations on exposed areas A/P: Assessment: Recurrent UTI and pyelonephritis, managed by Dr Soto Diverticulitis and constipation, managed by Dr Soto and Dr Rhoades Aortic stenosis, mod on echo of 09/21/14 (valve area 1.2 sq cm), but severe on cardiac cath of 05/03/15 (valve area 0.58 sq cm). She has been evaluated at [facility] in Aug 2015 for AVR/TAVR and has been told that conservative therapy appears best at this time Mod pulmonary hypertension (mean PA pressure 25 mmHg), elevated LVEDP (20 mmHg) , mild MR and mild CAD on cardiac cath of 05/03/15 Atrial fibrillation with RVR that was very difficult to control on meds. She is now post AV junction ablation per Dr. Paz November 2014. It appears ablation resulted in CHB and therefore PPM was implanted S/p single chamber St Ti pacemaker implantation, post AV kerri ablation, by Dr Paz at [facility] in November 2014 - functioning normally per interrogation of February 2016 Recurrent pneumonias (Jun 2014 and September 2014) managed by Dr Braswell, her fam phy , and by Dr Estes, her pulmonolgist Chronic warfarin anticoagulation for stroke prophylaxis - Supra-therapeutic INR likely d/t abx (3.4 on 11-22-16) Maturity onset diabetes mellitus. Chronic intermittent leg swelling, likely related to venous insufficiency, currently under fair control Hypothyroidism, being treated with thyroid replacement therapy and being managed by Dr. Braswell. Hyperlipidemia, being treated with statin therapy. 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
--- NOTE | 2016-11-23 10:45 | Discharge Summary-Hospitalist ---
Diagnosis/Chief Complaint Date of Admission Nov 20, 2016 at 17:56 Date of Discharge Discharge Date: Nov 23, 2016 Admission Diagnosis Assessment: Abdominal pain with subtle diverticulitis on CT scan Severe constipation in need of disimpaction and soapsuds enema Dementia Atrial fibrillation Hypertension Overall debility Recurrent pyelonephritis and UTIs Discharge Diagnosis Assessment: Abdominal pain with subtle diverticulitis on CT scan caused by severe constipation since she had stopped taking the fiver caplets, Miralax and probiotic due to memory problems Severe constipation s/p evacuation via soapsuds enema Dementia Atrial fibrillation Hypertension Overall debility Recurrent pyelonephritis and UTIs Dementia with behavior issues at home Chart Review: All home meds reconciled. 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 Pt has had some BMs Pt is not requiring O2 Patient Interview: Pt is experiencing abdominal pain. Pt has had BMs Pt was informed that her home meds were restarted. Physical exam stable. Pt tried to eat breakfast, but she did not eat it. Pt did drink Ensure. No fever, vital signs stable, pleasant, up in bathroom brushing teeth with helping Irregular irregular rhythm no exercise or murmurs, clear to auscultation bilaterally good expansion Nontender abdomen No edema Laboratory Tests 11/22/16 05:40 Assessment: Abdominal pain with subtle diverticulitis on CT scan Severe constipation s/p evacuation via soapsuds enema Dementia Atrial fibrillation Hypertension Overall debility Recurrent pyelonephritis and UTIs Plan: Consult Dr. Rhoades and Dr. Cook Maintain Cipro and Flagyl PT Tylenol for right upper quadrant pain Possible DC tomorrow Restart regular diet Scribed by Natalia Hoskins under the direct supervision of Dr. Aggarwal. Reason Hospital Visit/Course CC: Acute diverticulitis and abdominal pain. HPI: This is a 86 yo[address] pt of [address] Braswell's known to me from 08/31/16 admission for Pyelonephritis that presented w/acute diverticulitis and abdominal pain. Chart Review: Admission labs stable INR 2.8 CT abdomen revealed sigmoid colon diverticulitis Will check labs today Patient Interview: Pt was taken to urgent care Saturday morning for possible UTI. Pt was given antibiotics. Pt continued to vomit when she returned home. Physical exam stable. Pt has been in pain Pt has not had any BMs and is severely constipated. Pt was Pt has a pacemaker Pt's vomiting is now under control. Pt has been on Zofran. Scribed by Alok Blevins under the direct supervision of Dr. Aggarwal. Note from 11/23/16: Patient doing much better Maintained on antibiotics but will not go home on them because subtle diverticulitis was caused by the severe constipation now resolved INR is pending at this current time because she has been on fluoroquinolone and that has made supratherapeutic will follow up on that and Dr. Cook will manage No falls or pain In process of moving to assisted living in [place] at [facility] No pain is reported and takes Tylenol when she has it No fever, vital signs stable, pleasant, up in chair, family at bedside Irregular irregular rhythm clear to all sedation bilaterally Nontender abdomen No edema Hospital course: Patient had evidence of hospital course she was conservatively treated for acute diverticulitis that was a subtle finding on CT scan that resulted from severe constipation that was resolved with soapsuds enema. Apparently due to her dementia she refused to take her MiraLAX probiotic and fiber caplets due to behavior problems and that resulted in abdominal pain and the whole situation that she had while hospitalized. She is in the process of moving into assisted living with her in the very near future and her daughter who is a nurse is managing all about and does not need any type of social support at this current time. INR was pending at time of discharge the Dr. Payan follow-up I did reconcile all of her discharge medication and she will the close follow-up with her primary care provider and Dr. Cook to evaluate for any need to change bowel regimen to prevent this from occurring again. Overall debility noted and becoming more complex each hospitalization precluding anything but a poor prognosis long-term considering her advanced age of 86 and comorbidities. Discharge Summary Discharge Physical Examination Allergies: Coded Allergies: amoxicillin (Verified Allergy, Unknown, 06/21/15) cefadroxil (Verified Allergy, Unknown, 06/21/15) clavulanic acid (Verified Allergy, Unknown, 06/21/15) codeine (Verified Allergy, Unknown, 06/21/15) haloperidol (Verified Allergy, Unknown, 06/21/15) iodine (Verified Allergy, Unknown, 06/21/15) triazolam (Verified Allergy, Unknown, PT TAKES ALPRAZOLAM AT HOME, 08/31/16) zolpidem (Verified Allergy, Unknown, 06/21/15) donepezil (Verified Adverse Reaction, Severe, 11/20/15) NAUSEA/VOMITING promethazine HCl (Unverified Adverse Reaction, Mild, 06/21/15) Vitals & I&Os Vital Signs Date Time Temp Pulse Resp B/P (MAP) Pulse Ox O2 Delivery O2 Flow Rate FiO2 11/23/16 08:19 98.7 70 18 130/69 96 Room Air 11/22/16 12:00 2.00 11/21/16 06:51 96 Hospital Course Labs (last 24 hrs) Laboratory Tests 11/23/16 10:30: Pending Labs Laboratory Tests 11/23/16 10:30: Prothrombin Time [Pending], INR Comment [Pending] Discharge Home Medications: Active Scripts Active Reported Ventolin Hfa (Albuterol Sulfate) 18 Gm Hfa.aer.ad 2 Puff IH Q4H PRN Ondansetron Odt (Ondansetron) 4 Mg Tab.rapdis 4 Mg PO Q8H PRN Miralax (Polyethylene Glycol 3350) 17 Gm Powd.pack 8.5 Gm PO DAILY@1800 TAKES 1/2 CAPFUL Loratadine 10 Mg Tablet 10 Mg PO HS Super B Complex (Vitamin B Complex & Vit C No.4) 150 Mg Tablet 150 Mg PO DAILY Rivastigmine (Rivastigmine Tartrate) 1.5 Mg Capsule 1.5 Mg PO BID Melatonin 3 mg Tablet (Melatonin/Pyridoxine HCl (B6)) 1 Each Tablet 1.5 Mg PO HS TAKES 1/2 OF A (3 MG) TABLET Prednisone 5 Mg Tablet 2.5 Mg PO DAILY TAKES 1/2 (5MG) TABLET Alprazolam 0.5 Mg Tablet 0.25 Mg PO TID PRN TAKES 1/2 (0.5MG) TABLETS Warfarin Sodium 5 Mg Tablet 5 Mg PO SUTH@1800 Breo Ellipta 100-25 Mcg INH (Fluticasone/Vilanterol) 1 Each Blst.w.dev 1 Puff IH HS Albuterol Sulfate 2.5 Mg/3 Ml Vial.neb 2.5 Mg NEB Q4H PRN Furosemide 40 Mg Tablet 40 Mg PO DAILY PRN Montelukast Sodium 10 Mg Tablet 10 Mg PO HS Pravastatin Sodium 40 Mg Tablet 40 Mg PO HS Levothyroxine Sodium 50 Mcg Tablet 50 Mcg PO DAILY Klor-Con M20 (Potassium Chloride) 20 Meq Tab.er.prt 20 Meq PO BID Magnesium (Magnesium Oxide) 250 Mg Tablet 250 Mg PO DAILY Warfarin Sodium 5 Mg Tablet 2.5 Mg PO MOTUWDONTRELL@1800 TAKES 1/2 OF A (5 MG) TABLET Tylenol (Acetaminophen) 325 Mg Tablet 650 Mg PO Q4H PRN TAKES 2 (325MG) TABLET Instructions to patient/family Please see electonic discharge instructions given to patient. Clinical Quality Measures DVT/VTE Risk/Contraindication: Risk Factor Score Per Nursin RFS Level Per Nursing on Admit: 4+=Very High JAGRUTI AGGARWAL DO Nov 23, 2016 10:45
[2016-11-23 10:48] LABS: INR 2.6 (0.8-1.4); PROTHROMBIN TIME PATIENT 27.4 SEC (12.2-14.7)
== END 2016-11-23 11:35 | disposition home or self-care (01) | DRG 392 ==
LOC: EDUNIT# 15:52 → ER 15:53 → 4TH 17:56
PROVIDERS: ADMIT Internal Medicine; ATTEND Internal Medicine
DX: K57.32 Diverticulitis of large intestine without perforation or abscess without bleeding (principal); N12 Tubulo-interstitial nephritis, not specified as acute or chronic; K59.09 Other constipation; K58.1 Irritable bowel syndrome with constipation; F03.91 Unspecified dementia, unspecified severity, with behavioral disturbance; E78.00 Pure hypercholesterolemia, unspecified; J45.909 Unspecified asthma, uncomplicated; Z66 Do not resuscitate; I48.91 Unspecified atrial fibrillation; R01.1 Cardiac murmur, unspecified; I10 Essential (primary) hypertension; M81.0 Age-related osteoporosis without current pathological fracture; M19.91 Primary osteoarthritis, unspecified site; E03.9 Hypothyroidism, unspecified; E11.9 Type 2 diabetes mellitus without complications; F32.9 Major depressive disorder, single episode, unspecified; I27.2 Other secondary pulmonary hypertension; Z95.0 Presence of cardiac pacemaker
CPT/HCPCS: 36415; 51701; 74177; 80048; 80053; 81000; 83690; 83735; 84443; 85007; 85025; 85027; 85610; 93005; 94640; 94664; 94760; 96361; 96365; 96375

== ENCOUNTER → 2017-02-01 | Outpatient (CLI) | payer MEDICARE ==
[~2017-02-01] MED LIST changes: +ALBU18HF2 IH; +LORA10TA7 PO; +MELA1TAB27 PO; +ONDA4TAB11 PO; +POLY17PO6 PO; +RIVA1.5C6 PO; +VITA150T PO
--- NOTE | 2017-02-01 17:40 | Diagnostic Imaging Report ---
PROCEDURE: US abdomen complete. INDICATION: Abdominal pain, hyperbilirubinemia. Nausea. TECHNIQUE: Multiple real-time lowery scale sonographic images of the abdomen. CORRELATION STUDY: None. FINDINGS: LIVER: 15 cm in length. Increased echogenicity suggestive of some degree of fatty infiltration. GALLBLADDER: Surgically absent by report. COMMON BILE DUCT: Normal at 7 mm. PANCREAS: Limited in visualization. The visualized portions appearing unremarkable. SPLEEN: Unremarkable. ABDOMINAL AORTA: Proximal portions appearing unremarkable. Mid and distal aspect not visualized. INFERIOR VENA CAVA: Limited in visualization. RIGHT KIDNEY: 14 cm. Hypoechoic mass inferiorly likely reflective of cyst at 4.3 x 4.1 x 3.0 cm in size. LEFT KIDNEY: 10.3 cm. Hypoechoic mass most compatible with cyst at 1.7 cm in size. ASCITES: None. IMPRESSION: 1. Likely changes of hepatic steatosis. 2. Bilateral renal cysts. 3. Postcholecystectomy changes without bile duct dilatation. Dictated by: Dictated on workstation # [id number]
== END ==
LOC: RAD 06:42
DX: N28.1 Cyst of kidney, acquired (principal); Z90.49 Acquired absence of other specified parts of digestive tract; R10.11 Right upper quadrant pain; R10.12 Left upper quadrant pain; R11.0 Nausea
CPT/HCPCS: 76700

== ENCOUNTER → 2017-02-08 | Outpatient (CLI) | payer MEDICARE ==
--- NOTE | 2017-02-08 14:05 | Diagnostic Imaging Report ---
PROCEDURE: CT abdomen and pelvis without contrast. TECHNIQUE: Multiple contiguous axial images were obtained through the abdomen and pelvis without the use of intravenous contrast. INDICATION: Abdominal pain. Loss of appetite. COMPARISON: 11/20/2016 FINDINGS: Included views of the lung bases are clear. Calcified granulomas noted within the left lung base. There is moderate cardiomegaly. CT abdomen: There is colonic diverticulosis, but no CT evidence of acute diverticulitis. Normal appendix cannot be adequately identified, but there is no pericecal inflammation. Evaluation of kidneys demonstrates multiple rounded subcentimeter hypodense parenchymal foci. A few larger exophytic hypodense cystic lesions are also noted, largest extending from the inferior pole of the right kidney. Nonobstructive left renal calculus is also present. No calculi are seen along the course of the ureters. Additionally, there is no hydroureteronephrosis or other evidence of obstruction. Multiple calcified splenic and hepatic granuloma are noted. Otherwise, the spleen, liver, pancreas, and adrenal glands have an unremarkable noncontrast CT appearance. There is no loculated fluid collection, free fluid, nor free air within the abdomen. No abnormal mesenteric or retroperitoneal adenopathy is seen. There is moderate calcified aortic and arterial atherosclerosis. Bony structures show no acute abnormalities. CT pelvis: Urinary bladder is unopacified. No calculi are seen within the urinary bladder. There is no loculated fluid collection, free fluid, nor free air within the pelvis. No abnormal lymph nodes are seen. Bony structures show no acute abnormalities. IMPRESSION: 1. No acute abnormalities within the abdomen or pelvis. 2. Nonobstructive left renal calculus. 3. Bilateral hypodense renal cysts. 4. Multiple additional subcentimeter hypodense renal foci. These may represent small cysts as well, although they are incompletely characterized on this exam. 5. Colonic diverticulosis, but no CT evidence of acute diverticulitis. 6. Cardiomegaly. Dictated by: Dictated on workstation # [id number]
== END ==
LOC: RAD 13:02
PROVIDERS: ATTEND Family Medicine
DX: I51.7 Cardiomegaly (principal); N28.1 Cyst of kidney, acquired; N20.0 Calculus of kidney; K57.30 Diverticulosis of large intestine without perforation or abscess without bleeding; R63.4 Abnormal weight loss
CPT/HCPCS: 74176

== ENCOUNTER → 2017-06-17 | Outpatient (CLI) | payer MEDICARE | LOC: CARD 09:37 | PROVIDERS: ATTEND Nurse Practitioner Family | DX: I35.0 Nonrheumatic aortic (valve) stenosis (principal); I48.1 Persistent atrial fibrillation; I65.23 Occlusion and stenosis of bilateral carotid arteries; I50.32 Chronic diastolic (congestive) heart failure; Z79.01 Long term (current) use of anticoagulants | CPT/HCPCS: 93306 ==

== ENCOUNTER → 2017-06-27 | Outpatient (CLI) | payer MEDICARE ==
--- NOTE | 2017-06-27 08:55 | Diagnostic Imaging Report ---
PROCEDURE: CT abdomen and pelvis without contrast. TECHNIQUE: Multiple contiguous axial images were obtained through the abdomen and pelvis without the use of intravenous contrast. INDICATION: Left lower quadrant pain. Compared 02/08/2017. There are extensive diverticula at the sigmoid colon. There were however no findings of active or acute diverticulitis. No bowel obstruction. No perforation, ascites, abscess, hematoma, or fluid collection. There is no focal inflammatory process. The uterus absent. There is no adnexal lesion. The unopacified urinary bladder unremarkable. There are pelvic phleboliths present with no definite opaque ureteral stone. There is an intrarenal calculus in the left kidney within an upper pole calyx measuring 2 mm nonobstructing. There are some low-density left renal nodules stable from prior exams presumed cystic. No perinephric or periureteric edema. Hepatosplenic granulomatous calcifications chronic. Adrenals, pancreas, biliary ducts unremarkable. The atherosclerotic aortoiliac vessels nonaneurysmal. IMPRESSION: 1. Extensive distal colonic and sigmoidal diverticulosis, however, no findings of active or acute diverticulitis. 2. Intrarenal calculus on the left with chronic apparent left renal cortical cysts. No appreciable ureteral stone or hydronephrosis. Dictated by: Dictated on workstation # [id number]
== END ==
LOC: RAD 08:17
PROVIDERS: ATTEND Family Medicine
DX: K57.30 Diverticulosis of large intestine without perforation or abscess without bleeding (principal); N20.0 Calculus of kidney
CPT/HCPCS: 74176

== ENCOUNTER 2017-08-10 06:44 | Inpatient (IN) | payer MEDICARE ==
[~2017-08-10] VITALS: Ht 160 cm; Wt 68.0 kg
--- OUTSIDE RECORDS SUMMARY | 2017-08-10 06:55 | XMS REPORT | Clinical Summary ---
Author Author [facility] Organization [facility] Address Unknown Phone Unavailable Care Team Providers Care Reproduction Order Processor Name Role Phone PCP Unavailable Source Comments Some departments are not documenting in the electronic medical record. If you do not see the information that you expected, contact Release of Information in the Health Information Management department at [phone] for further assistance in locating additional records.[facility] Allergies Active Allergy Reactions Severity Noted Date Comments Zolpidem DELUSIONS High 12/01/2014 Triazolam DELUSIONS High 12/01/2014 Lemon ANAPHYLAXIS High 12/02/2014 Cefadroxil RASH Medium 12/01/2014 Iodine RASH, SEE COMMENTS Medium 12/02/2014 Has tolerated with Solu medrol and Diphenhydramine. Amoxicillin-Pot NAUSEA AND VOMITING Low 12/01/2014 Clavulanate Codeine NAUSEA AND VOMITING Low 12/01/2014 Current Medications Prescription Sig. Disp. Refills Start [...] stenosis. Moderate biatrial enlargement. Aortic stenosis 10/21/2014 Family History Medical History Relation Name Comments Cancer Brother Cancer Father Heart Disease Father Kidney Disease Mother Stroke Mother Cancer Sister Relation Name Status Comments Brother Father Mother Sister Social History Tobacco Use Types Packs/Day Years Used Date Never Smoker Sex Assigned at Date Recorded Not on file Last Filed Vital Signs Vital Sign Reading Time Taken Blood Pressure 116/68 02/21/2015 1:06 PM CDT Pulse 70 02/21/2015 1:06 PM CDT Temperature 36.4 C (97.5 F) 12/02/2014 7:35 AM CDT Respiratory Rate - - Oxygen Saturation 96% 12/02/2014 7:35 AM CDT Inhaled Oxygen - - Concentration Weight 65.8 kg (145 lb) 02/21/2015 1:06 PM CDT Height 160 cm (5' 2.99") 02/21/2015 1:06 PM CDT Body Mass Index 25.69 02/21/2015 1:06 PM CDT Plan of Treatment Health Maintenance Due Date Last Done Comments PHYSICAL (COMPREHENSIVE) 1938 EXAM PERTUSSIS VACCINE 1942 TETANUS VACCINE 1948 SHINGLES VACCINE 1991 OSTEOPOROSIS SCREENING 1996 PREVNAR/PNEUMOVAX (#1) 1996 INFLUENZA VACCINE 02/26/2017 Results Not on filefrom Last 3 Months
--- OUTSIDE RECORDS SUMMARY | 2017-08-10 07:07 | XMS REPORT | Continuity of Care Document ---
Author Author [facility] Organization [facility] Address Unknown Phone Unavailable Allergies Active Description Code Type Severity Reaction Onset Reported/Identified Relationship to Patient Clinical Status Yes MARK MARK Moderate COUGHING 08/23/2011 Yes lemon [id number] Drug Allergy Severe ANAPHYLAXIS 06/21/2015 Yes promethazine HCl [id number] Drug Allergy Mild N/A 06/21/2015 Yes amoxicillin [id number] Drug Allergy Unknown N/A 06/21/2015 Yes cefadroxil [id number] Drug Allergy Unknown N/A 06/21/2015 Yes clavulanic acid [id number] Drug Allergy Unknown N/A 06/21/2015 Yes codeine [id number] Drug Allergy Unknown N/A 06/21/2015 Yes haloperidol [id number] Drug Allergy Unknown N/A 06/21/2015 Yes iodine [id number] Drug Allergy Unknown N/A 06/21/2015 Yes triazolam [id number] Drug Allergy Unknown N/A 06/21/2015 Yes zolpidem [id number] Drug Allergy Unknown N/A 06/21/2015 Yes donepezil [id number] Drug Allergy Severe N/A 11/20/2015 Yes triazolam [id number] Drug Allergy Unknown PT TAKES ALPRAZ 08/31/2016 Medications There is no data. Problems Date Dx Coded Attending Type Code Diagnosis Diagnosed By 06/27/1502 CHANDU CORTEZ DO Ot M48.02 SPINAL STENOSIS, CERVICAL REGION 08/08/2010 Ot 244.9 08/08/2010 Ot 250.00 08/08/2010 Ot 401.9 08/08/2010 Ot 414.01 08/08/2010 Ot 427.31 08/08/2010 Ot 427.32 08/08/2010 Ot 427.81 08/08/2010 Ot 482.1 08/08/2010 Ot 493.90 08/11/2010 Ot 244.9 08/11/2010 Ot 250.00 08/11/2010 Ot 401.9 08/11/2010 Ot 414.01 08/11/2010 Ot 427.31 08/11/2010 Ot 427.32 08/11/2010 Ot 427.81 08/11/2010 Ot 482.1 08/11/2010 Ot 493.90 11/19/2010 Ot 038.9 11/19/2010 Ot 244.9 11/19/2010 Ot 250.00 11/19/2010 Ot 276.50 11/19/2010 Ot 401.9 11/19/2010 Ot 427.31 11/19/2010 Ot 440.9 11/19/2010 Ot 493.90 11/19/2010 Ot 599.0 11/19/2010 Ot 995.91 08/27/2011 Ot 401.9 HYPERTENSION NOS 08/27/2011 Ot 493.90 ASTHMA, UNSPECIFIED 08/27/2011 Ot 558.9 NONINF GASTROENTERIT NEC 11/16/2011 Ot 272.4 HYPERLIPIDEMIA NEC/NOS 11/16/2011 Ot 276.1 HYPOSMOLALITY 11/16/2011 Ot 276.8 HYPOPOTASSEMIA 11/16/2011 Ot 401.9 HYPERTENSION NOS 11/16/2011 Ot 461.0 AC MAXILLARY SINUSITIS 11/16/2011 Ot 491.22 OBSTRUCTIVE CHRONIC BRONCHITIS WITH ACUT 11/16/2011 Ot 493.20 CHRONIC OBSTRUCTIVE ASTHMA, NOS 11/16/2011 Ot 558.9 NONINF GASTROENTERIT NEC 11/16/2011 Ot 599.0 URIN TRACT INFECTION NOS 11/16/2011 Ot 782.3 EDEMA 06/14/2012 Ot 465.9 ACUTE URI NOS 06/14/2012 Ot 491.21 OBSTR CHRONIC BRONCHITIS, W (ACUTE) EXAC 06/14/2012 Ot 786.2 COUGH 06/14/2012 Ot V58.61 ANTICOAGULANTS,LT,CURRENT USE 06/14/2012 Ot V58.69 OTH MED,LT, CURRENT USE 07/01/2012 Ot 401.9 HYPERTENSION NOS 07/01/2012 Ot 486 PNEUMONIA, ORGANISM NOS 07/01/2012 Ot 493.90 ASTHMA, UNSPECIFIED 12/26/2012 ESTEPHANIE MAY MD R Ot 276.50 VOLUME DEPLETION, UNSPECIFIED 12/26/2012 ESTEPHANIE MAY MD R Ot 401.9 HYPERTENSION NOS 12/26/2012 ESTEPHANIE MAY MD R Ot 414.01 CORONARY ATHEROSCLEROSIS OF [place] CORON 12/26/2012 YADIRA BERRY, ESTEPHANIE R Ot 493.22 CHRONIC OBSTRUCTIVE ASTHMA, W (ACUTE) EX 12/26/2012 YADIRA BERRY, ESTEPHANIE R Ot 530.81 ESOPHAGEAL REFLUX 12/26/2012 YADIRA BERRY, ESTEPHANIE R Ot 558.9 NONINF GASTROENTERIT NEC 12/26/2012 ESTEPHANIE MAY MD R Ot 562.10 DIVERTICULOSIS COLON (W/O MENT OF HEMORR 12/26/2012 ESTEPHANIE MAY MD R Ot 599.0 URIN TRACT INFECTION NOS 12/26/2012 ESTEPHANIE MAY MD R Ot 787.60 FULL INCONTINENCE OF FECES 06/18/2014 KAREEM BERRY FACC, ALI FACP CCDS Ot 396.8 06/18/2014 KAREEM BERRY FACC, ALI FACP CCDS Ot 397.0 06/18/2014 KAREEM BERRY FACC, ALI FACP CCDS Ot 427.31 06/18/2014 KAREEM BERRY FACC, ALI FACP CCDS Ot 496 07/05/2014 KAREEM BERRY FACC, ALI FACP CCDS Ot 396.8 07/05/2014 KAREEM BERRY FACC, ALI FACP CCDS Ot 397.0 07/05/2014 KAREEM BERRY FACC, ALI FACP CCDS Ot 427.31 07/05/2014 KAREEM BERRY FACC, ALI FACP CCDS Ot 496 07/15/2014 YADIRA BERRY, ESTEPHANIE R Ot 244.9 07/15/2014 YADIRA BERRY, ESTEPHANIE R Ot 250.00 07/15/2014 YADIRA BERRY ESTEPHANIE R Ot 272.4 07/15/2014 YADIRA BERRY, ESTEPHANIE R Ot 276.8 07/15/2014 YADIRA BERRY, ESTEPHANIE R Ot 396.2 07/15/2014 YADIRA BERRY, ESTEPHANIE R Ot 397.0 07/15/2014 YADIRA BERRY, ESTEPHANIE R Ot 401.9 07/15/2014 YADIRA BERRY, ESTEPHANIE R Ot 427.31 07/15/2014 YADIRA BERRY, ESTEPHANIE R Ot 427.89 07/15/2014 YADIRA BERRY, ESTEPHANIE R Ot 433.10 07/15/2014 YADIRA BERRY ESTEPHANIE R Ot 459.81 07/15/2014 SEGLIE MD, ESTEPHANIE R Ot 486 07/15/2014 YADIRA BERRY, ESTEPHANIE R Ot 493.22 07/15/2014 YADIRA BERRY, ESTEPHANIE R Ot 716.90 07/15/2014 YADIRA BERRY, ESTEPHANIE R Ot 733.00 07/15/2014 YADIRA BERRY, ESTEPHANIE R Ot 786.50 07/15/2014 YADIRA BERRY, ESTEPHANIE R Ot E932.0 07/15/2014 YADIRA BERRY, ESTEPHANIE R Ot V58.61 07/16/2014 YADIRA BERRY, ESTEPHANIE R Ot 244.9 07/16/2014 YADIRA BERRY, ESTEPHANIE R Ot 250.00 07/16/2014 YADIRA BERRY, ESTEPHANIE R Ot 272.4 07/16/2014 YADIRA BERRY, ESTEPHANIE R Ot 276.8 07/16/2014 YADIRA BERRY, ESTEPHANIE R Ot 396.2 07/16/2014 YADIRA BERRY, ESTEPHANIE R Ot 397.0 07/16/2014 YADIRA BERRY, ESTEPHANIE R Ot 401.9 07/16/2014 YADIRA BERRY, ESTEPHANIE R Ot 427.31 07/16/2014 YADIRA BERRY, ESTEPHANIE R Ot 427.89 07/16/2014 YADIRA BERRY, ESTEPHANIE R Ot 433.10 07/16/2014 YADIRA BERRY, ESTEPHANIE R Ot 459.81 07/16/2014 YADIRA BERRY, ESTEPHANIE R Ot 486 07/16/2014 YADIRA BERRY, ESTEPHANIE R Ot 493.22 07/16/2014 YADIRA BERRY, ESTEPHANIE R Ot 716.90 07/16/2014 YADIRA BERRY, ESTEPHANIE R Ot 733.00 07/16/2014 YADIRA BERRY, ESTEPHANIE R Ot 786.50 07/16/2014 YADIRA BERRY, ESTEPHANIE R Ot E932.0 07/16/2014 YADIRA BERRY, ESTEPHANIE R Ot V58.61 07/16/2014 YADIRA BERRY, ESTEPHANIE R Ot 244.9 07/16/2014 YADIRA BERRY, ESTEPHANIE R Ot 250.00 07/16/2014 YADIRA BERRY, ESTEPHANIE R Ot 272.4 07/16/2014 YADIRA BERRY, ESTEPHANIE R Ot 276.8 07/16/2014 YADIRA BERRY, ESTEPHANIE R Ot 396.2 07/16/2014 YADIRA BERRY, ESTEPHANIE R Ot 397.0 07/16/2014 YADIRA BERRY, ESTEPHANIE R Ot 401.9 07/16/2014 YADIRA BERRY, ESTEPHANIE R Ot 427.31 07/16/2014 YADIRA BERRY, ESTEPHANIE R Ot 427.89 07/16/2014 YADIRA BERRY, ESTEPHANIE R Ot 433.10 07/16/2014 YADIRA BERRY, ESTEPHANIE R Ot 459.81 07/16/2014 YADIRA BERRY, ESTEPHANIE R Ot 486 07/16/2014 YADIRA BERRY, ESTEPHANIE R Ot 493.22 07/16/2014 YADIRA BERRY, ETSEPHANIE R Ot 716.90 07/16/2014 YADIRA BERRY, ESTEPHANIE R Ot 733.00 07/16/2014 YADIRA BERRY, ESTEPHANIE R Ot 786.50 07/16/2014 YADIRA BERRY, ESTEPHANIE R Ot E932.0 07/16/2014 YADIRA BERRY, ESTEPHANIE R Ot V58.61 07/17/2014 YADIRA BERRY, ESTEPHANIE R Ot 244.9 07/17/2014 YADIRA BERRY, ESTEPHANIE R Ot 250.00 07/17/2014 YADIRA BERRY, ESTEPHANIE R Ot 272.4 07/17/2014 YADIRA BERRY, ESTEPHANIE R Ot 276.8 07/17/2014 YADIRA BERRY, ESTEPHANIE R Ot 396.2 07/17/2014 YADIRA BERRY, ESTEPHANIE R Ot 397.0 07/17/2014 YADIRA BERRY, ESTEPHANIE R Ot 401.9 07/17/2014 YADIRA BERRY, ESTEPHANIE R Ot 427.31 07/17/2014 YADIRA BERRY, ESTEPHANIE R Ot 427.89 07/17/2014 YADIRA BERRY, ESTEPHANIE R Ot 433.10 07/17/2014 YADIRA BERRY, ESTEPHANIE R Ot 459.81 07/17/2014 YADIRA BERRY, ESTEPHANIE R Ot 486 07/17/2014 YADIRA BERRY, ESTEPHANIE R Ot 493.22 07/17/2014 YADIRA BERRY, ESTEPHANIE R Ot 716.90 07/17/2014 YADIRA BERRY, ESTEPHANIE R Ot 733.00 07/17/2014 YADIRA BERRY, ESTEPHANIE R Ot 786.50 07/17/2014 YADIRA BERRY, ESTEPHANIE R Ot E932.0 07/17/2014 YADIRA BERRY, ESTEPHANIE R Ot V58.61 07/18/2014 YADIRA BERRY, ESTEPHANIE R Ot 244.9 07/18/2014 YADIRA BERRY, ESTEPHANIE R Ot 250.00 07/18/2014 YADIRA BERRY, ESTEPHANIE R Ot 272.4 07/18/2014 YADIRA BERRY, ESTEPHANIE R Ot 276.8 07/18/2014 YADIRA BERRY, ESTEPHANIE R Ot 396.2 07/18/2014 YADIRA BERRY, ESTEPHANIE R Ot 397.0 07/18/2014 YADIRA BERRY, ESTEPHANIE R Ot 401.9 07/18/2014 YADIRA BERRY, ESTEPHANIE R Ot 427.31 07/18/2014 YADIRA BERRY, ESTEPHANIE R Ot 427.89 07/18/2014 YADIRA BERRY, ESTEPHANIE R Ot 433.10 07/18/2014 YADIRA BERRY, ESTEPHANIE R Ot 459.81 07/18/2014 YADIRA BERRY, ESTEPHANIE R Ot 486 07/18/2014 YADIRA BERRY, ESTEPHANIE R Ot 493.22 07/18/2014 YADIRA BERRY, ESTEPHANIE R Ot 716.90 07/18/2014 YADIRA BERRY, ESTEPHANIE R Ot 733.00 07/18/2014 YADIRA BERRY, ESTEPHANIE R Ot 786.50 07/18/2014 YADIRA BERRY, ESTEPHANIE R Ot E932.0 07/18/2014 YADIRA BERRY, ESTEPHANIE R Ot V58.61 07/19/2014 YADIRA BERRY, ESTEPHANIE R Ot 244.9 07/19/2014 YADIRA BERRY, ESTEPHANIE R Ot 250.00 07/19/2014 YADIRA BERRY, ESTEPHANIE R Ot 272.4 07/19/2014 YADIRA BERRY, ESTEPHANIE R Ot 276.8 07/19/2014 YADIRA BERRY, ESTEPHANIE R Ot 396.2 07/19/2014 YADIRA BERRY, ESTEPHANIE R Ot 397.0 07/19/2014 YADIRA BERRY, ESTEPHANIE R Ot 401.9 07/19/2014 YADIRA BERRY, ESTEPHANIE R Ot 427.31 07/19/2014 YADIRA BERRY, ESTEPHANIE R Ot 427.89 07/19/2014 ESTEPHANIE MAY MD R Ot 433.10 07/19/2014 YADIRA BERRY, ESTEPHANIE R Ot 459.81 07/19/2014 YADIRA BERRY, ESTEPHANIE R Ot 486 07/19/2014 YADIRA BERRY, ESTEPHANIE R Ot 493.22 07/19/2014 ESTEPHANIE MAY MD R Ot 716.90 07/19/2014 ESTEPHANIE MAY MD R Ot 733.00 07/19/2014 YADIRA BERRY ESTEPHANIE R Ot 786.50 07/19/2014 YADIRA BERRY, ESTEPHANIE R Ot E932.0 07/19/2014 ESTEPHANIE MAY MD R Ot V58.61 07/19/2014 YADIRA BERRY, ESTEPHANIE R Ot 112.0 THRUSH 07/19/2014 YADIRA BERRY, ESTEPHANIE R Ot 244.9 HYPOTHYROIDISM NOS 07/19/2014 YADIRA BERRY, ESTEPHANIE R Ot 250.00 DIAB WAQAR WO COMPL, TYPE II OR UNSPEC TY 07/19/2014 ESTEPHANIE MAY MD R Ot 272.4 HYPERLIPIDEMIA NEC/NOS 07/19/2014 YADIRA BERRY, ESTEPHANIE R Ot 276.8 HYPOPOTASSEMIA 07/19/2014 ESTEPHANIE MAY MD R Ot 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 07/19/2014 ESTEPHANIE MAY MD R Ot 397.0 TRICUSPID VALVE DISEASE 07/19/2014 YADIRA BERRY, ESTEPHANIE R Ot 401.9 HYPERTENSION NOS 07/19/2014 ESTEPHANIE MAY MD R Ot 427.31 ATRIAL FIBRILLATION 07/19/2014 YADIRA BERRY, ESTEPHANIE R Ot 427.89 CARDIAC DYSRHYTHMIAS NEC 07/19/2014 ESTEPHANIE MAY MD R Ot 433.10 CAROTID ARTERY OCCLUSION W O CEREBRAL IN 07/19/2014 ESTEPHANIE MAY MD R Ot 459.81 VENOUS INSUFFICIENCY NOS 07/19/2014 ESTEPHANIE MAY MD R Ot 486 PNEUMONIA, ORGANISM NOS 07/19/2014 YADIRA BERRY, ESTEPHANIE R Ot 493.22 CHRONIC OBSTRUCTIVE ASTHMA, W (ACUTE) EX 07/19/2014 ESTEPHANIE MAY MD R Ot 716.90 ARTHROPATHY NOS-UNSPEC 07/19/2014 ESTEPHANIE MAY MD R Ot 733.00 OSTEOPOROSIS NOS 07/19/2014 ESTEPHANIE MAY MD R Ot 780.57 UNSPECIFIED SLEEP APNEA 07/19/2014 ESTEPHANIE MAY MD R Ot 786.50 CHEST PAIN NOS 07/19/2014 ESTEPHANIE MAY MD R Ot E932.0 ADV EFF CORTICOSTEROIDS 07/19/2014 ESTEPHANIE MAY MD R Ot V58.61 ANTICOAGULANTS,LT,CURRENT USE 07/24/2014 ESTEPHANIE MAY MD R Ot 250.00 DIAB WAQAR WO COMPL, TYPE II OR UNSPEC TY 07/24/2014 ESTEPHANIE MAY MD R Ot 427.31 ATRIAL FIBRILLATION 07/24/2014 ESTEPHANIE MAY MD R Ot 493.92 ASTHMA, UNSPECIFIED, W (ACUTE) EXACERBAT 07/24/2014 ESTEPHANIE MAY MD R Ot 250.00 07/24/2014 ESTEPHANIE MAY MD R Ot 427.31 07/24/2014 ESTEPHANIE MAY MD R Ot 493.92 07/28/2014 ESTEPHANIE MAY MD R Ot 427.31 07/28/2014 ESTEPHANIE MAY MD R Ot 785.0 07/28/2014 ESTEPHANIE MAY MD R Ot 786.09 08/20/2014 Ot 473.9 08/20/2014 Ot 611.79 08/20/2014 Ot 793.81 08/20/2014 Ot V76.12 08/20/2014 Ot 486 08/20/2014 Ot 793.81 08/20/2014 Ot 217 08/20/2014 Ot 427.31 08/20/2014 Ot 785.1 08/20/2014 Ot 719.06 08/20/2014 Ot 786.2 08/20/2014 Ot 924.5 08/20/2014 Ot E000.8 08/20/2014 Ot E849.0 08/20/2014 Ot E884.4 08/20/2014 Ot V15.89 08/20/2014 Ot V67.09 08/20/2014 Ot V76.12 08/20/2014 Ot 473.9 08/20/2014 CARLOS YOUSIF Ot 733.90 08/20/2014 CARLOS YOUSIF Ot V76.12 08/20/2014 CARLOS YOUSIF Ot 733.90 08/20/2014 CARLOS YOUSIF Ot V76.12 08/20/2014 KAREEM BERRY FACC, ALI FACP CCDS Ot 396.8 08/20/2014 KAREEM BERRY FACC, ALI FACP CCDS Ot 397.0 08/20/2014 KAREEM BERRY FACC, ALI FACP CCDS Ot 427.31 08/20/2014 KAREEM BERRY FACC, ALI FACP CCDS Ot 496 08/20/2014 YADIRA BERRY, ESTEPHANIE R Ot 427.31 08/20/2014 YADIRA BERRY, ESTEPHANIE R Ot 785.0 08/20/2014 YADIRA BERRY, ESTEPHANIE R Ot 786.09 08/20/2014 KAREEM BERRY FACC, ALI FACP CCDS Ot 250.00 08/20/2014 KAREEM BERRY FACC, ALI FACP CCDS Ot 401.9 08/20/2014 KAREEM BERRY FACC, ALI FACP CCDS Ot 427.31 08/20/2014 KAREEM BERRY FACC, ALI FACP CCDS Ot 496 08/20/2014 KAREEM BERRY FACC, ALI FACP CCDS Ot V58.61 08/20/2014 KAREEM BERRY FACC, ALI FACP CCDS Ot 276.8 08/20/2014 KAREEM BERRY FACC, ALI FACP CCDS Ot 401.9 08/20/2014 KAREEM BERRY FACC, ALI FACP CCDS Ot 427.31 08/20/2014 KAREEM BERRY FACC, ALI FACP CCDS Ot V58.61 08/20/2014 KAREEM BERRY FACC, ALI FACP CCDS Ot V58.83 08/20/2014 KAREEM BERRY FACC, ALI FACP CCDS Ot 244.9 08/20/2014 KAREEM BERRY FACC, ALI FACP CCDS Ot 250.00 08/20/2014 KAREEM BERRY FACC, ALI FACP CCDS Ot 272.4 08/20/2014 KAREEM BERRY FACC, ALI FACP CCDS Ot 424.1 08/20/2014 KAREEM BERRY FACC, ALI FACP CCDS Ot 427.31 08/20/2014 KAREEM BERRY FACC, ALI FACP CCDS Ot 427.81 08/20/2014 KAREEM BERRY FACC, ALI FACP CCDS Ot 447.9 08/20/2014 KAREEM BERRY FACC, ALI FACP CCDS Ot 496 08/20/2014 KAREEM BERRY FACC, ALI FACP CCDS Ot 729.81 08/20/2014 KAREEM BERRY FACC, ALI FACP CCDS Ot 787.02 08/20/2014 KAREEM BERRY FACC, ALI FACP CCDS Ot V12.59 08/20/2014 KAREEM BERRY FACC, ALI FACP CCDS Ot V58.61 08/28/2014 KAREEM BERRY FACC, ALI FACP CCDS Ot 250.00 08/28/2014 KAREEM BERRY FACC, ALI FACP CCDS Ot 401.9 08/28/2014 KAREEM BERRY FACC, ALI FACP CCDS Ot 427.31 08/28/2014 KAREEM BERRY FACC, ALI FACP CCDS Ot 496 08/28/2014 KAREEM BERRY FACC, ALI FACP CCDS Ot V58.61 09/01/2014 KAREEM BERRY FACC, ALI FACP CCDS Ot 276.8 09/01/2014 KAREEM BERRY FACC, ALI FACP CCDS Ot 401.9 09/01/2014 KAREEM BERRY FACC, ALI FACP CCDS Ot 427.31 09/01/2014 KAREEM BERRY FACC, ALI FACP CCDS Ot V58.61 09/01/2014 KAREEM BERRY FACC, ALI FACP CCDS Ot V58.83 09/02/2014 YADIRA BERRY, ESTEPHANIE R Ot 413.9 09/02/2014 YADIRA BERRY, ESTEPHANIE R Ot V57.89 09/22/2014 KAREEM BERRY FACC, ALI FACP CCDS Ot 244.9 09/22/2014 KAREEM BERRY FACC, ALI FACP CCDS Ot 250.00 09/22/2014 KAREEM BERRY FACC, ALI FACP CCDS Ot 272.4 09/22/2014 KAREEM BERRY FACC, ALI FACP CCDS Ot 424.1 09/22/2014 KAREEM BERRY FACC, ALI FACP CCDS Ot 427.31 09/22/2014 KAREEM BERRY FACC, ALI FACP CCDS Ot 427.81 09/22/2014 KAREEM BERRY FACC, ALI FACP CCDS Ot 447.9 09/22/2014 KAREEM BERRY FACC, ALI FACP CCDS Ot 496 09/22/2014 KAREEM BERRY FACC, ALI FACP CCDS Ot 729.81 09/22/2014 KAREEM BERRY [facility], [facility] CCDS Ot 787.02 09/22/2014 KAREEM BERRY FAC, TINA FACP CCDS Ot V12.59 09/22/2014 KAREEM BERRY [facility], [facility] CCDS Ot V58.61 09/24/2014 Ot 244.9 09/24/2014 Ot 250.00 09/24/2014 Ot 272.4 09/24/2014 Ot 424.1 09/24/2014 Ot 427.31 09/24/2014 Ot 427.81 09/24/2014 Ot 447.9 09/24/2014 Ot 496 09/24/2014 Ot V12.59 09/24/2014 Ot V58.61 09/30/2014 Ot 244.9 HYPOTHYROIDISM NOS 09/30/2014 Ot 250.00 DIAB WAQAR WO COMPL, TYPE II OR UNSPEC TY 09/30/2014 Ot 276.8 HYPOPOTASSEMIA 09/30/2014 Ot 424.1 AORTIC VALVE DISORDER 09/30/2014 Ot 427.31 ATRIAL FIBRILLATION 09/30/2014 Ot 496 CHR AIRWAY OBSTRUCT NEC 09/30/2014 Ot 786.50 CHEST PAIN NOS 09/30/2014 Ot V58.61 ANTICOAGULANTS,LT,CURRENT USE 09/30/2014 Ot V58.69 OTH MED,LT, CURRENT USE 10/19/2014 YADIRA BERRY, ESTEPHANIE R Ot 244.9 HYPOTHYROIDISM NOS 10/19/2014 YADIRA BERRY, ESTEPHANIE R Ot 401.9 HYPERTENSION NOS 10/19/2014 YADIRA BERRY, ESTEPHANIE R Ot 424.1 AORTIC VALVE DISORDER 10/19/2014 YADIRA BERRY, ESTEPHANIE R Ot 427.31 ATRIAL FIBRILLATION 10/19/2014 YADIRA BERRY, ESTEPHANIE R Ot 482.1 PSEUDOMONAL PNEUMONIA 10/19/2014 YADIRA BERRY, ESTEPHANIE R Ot 493.20 CHRONIC OBSTRUCTIVE ASTHMA, NOS 10/19/2014 YADIRA BERRY, ESTEPHANIE R Ot 530.81 ESOPHAGEAL REFLUX 10/19/2014 YADIRA BERRY, ESTEPHANIE R Ot 716.90 ARTHROPATHY NOS-UNSPEC 10/19/2014 YADIRA BERRY, ESTEPHANIE R Ot 733.00 OSTEOPOROSIS NOS 10/19/2014 FIGUEROA MAY MDYD R Ot V58.61 ANTICOAGULANTS,LT,CURRENT USE 10/21/2014 Ot 244.9 10/21/2014 Ot 250.00 10/21/2014 Ot 272.4 10/21/2014 Ot 424.1 10/21/2014 Ot 427.31 10/21/2014 Ot 427.81 10/21/2014 Ot 447.9 10/21/2014 Ot 496 10/21/2014 Ot V12.59 10/21/2014 Ot V58.61 10/29/2014 YADIRA BERRY, ESTEPHANIE R Ot 413.9 10/29/2014 YADIRA BERRY, ESTEPHANIE R Ot V57.89 11/04/2014 Ot 786.2 11/05/2014 YADIRA BERRY, ESTEPHANIE R Ot 413.9 11/05/2014 YADIRA BERRY, ESTEPHANIE R Ot V57.89 11/10/2014 Ot 244.9 11/10/2014 Ot 250.00 11/10/2014 Ot 272.4 11/10/2014 Ot 424.1 11/10/2014 Ot 427.31 11/10/2014 Ot 427.81 11/10/2014 Ot 447.9 11/10/2014 Ot 496 11/10/2014 Ot V12.59 11/10/2014 Ot V58.61 11/12/2014 Ot 786.2 11/17/2014 KAREEM BERRY FACC, TINA FACP CCDS Ot 244.9 HYPOTHYROIDISM NOS 11/17/2014 KAREEM BERRY FACC, TINA FACP CCDS Ot 250.00 DIAB WAQAR WO COMPL, TYPE II OR UNSPEC TY 11/17/2014 KAREEM BERRY FACC, TINA FACP CCDS Ot 272.4 HYPERLIPIDEMIA NEC/NOS 11/17/2014 KAREEM BERRY FACC, TINA FACP CCDS Ot 424.1 AORTIC VALVE DISORDER 11/17/2014 KAREEM BERRY FACC, ALI FACP CCDS Ot 427.31 ATRIAL FIBRILLATION 11/17/2014 KAREEM BERRY FACC, TINA FACP CCDS Ot 427.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 11/17/2014 KAREEM BERRY FACC, TINA FACP CCDS Ot 447.9 ARTERIAL DISEASE NOS 11/17/2014 KAREEM BERRY FACC, ALI FACP CCDS Ot 496 CHR AIRWAY OBSTRUCT NEC 11/17/2014 KAREEM BERRY FACC, ALI FACP CCDS Ot 729.81 SWELLING OF LIMB 11/17/2014 KAREEM BERRY FACC, ALI FACP CCDS Ot 787.02 NAUSEA ALONE 11/17/2014 KAREEM BERRY FAC, TINA PATIÑOP CCDS Ot V12.59 HX-CIRCULATORY SYST DIS,NEC 11/17/2014 KAREEM BERRY FACC, TINA PATIÑO CCDS Ot V58.61 ANTICOAGULANTS,LT,CURRENT USE 11/30/2014 YADIRA BERRY, ESTEPHANIE R Ot 413.9 ANGINA PECTORIS NEC/NOS 11/30/2014 YADIRA BERRY, ESTEPHANIE R Ot V57.89 REHABILITATION PROC NEC 12/15/2014 YADIRA BERRY, ESTEPHANIE R Ot 413.9 12/15/2014 YADIRA BERRY, ESTEPHANIE R Ot V57.89 12/15/2014 YADIRA BERRY, ESTEPHANIE R Ot 413.9 12/15/2014 YADIRA BERRY, ESTEPHANIE R Ot V57.89 12/15/2014 YADIRA BERRY, ESTEPHANIE R Ot 413.9 12/15/2014 YADIRA BERRY, ESTEPHANIE R Ot V57.89 12/16/2014 YADIRA BERRY, ESTEPHANIE R Ot 413.9 12/16/2014 YADIRA BERRY, ESTEPHANIE R Ot V57.89 12/20/2014 YADIRA BERRY, ESTEPHANIE R Ot 413.9 12/20/2014 YADIRA BERRY, ESTEPHANIE R Ot V57.89 12/20/2014 YADIRA BERRY, ESTEPHANIE R Ot 413.9 12/20/2014 YADIRA BERRY, ESTEPHANIE R Ot V57.89 12/25/2014 KATE GUERRERO DO Ot 296.90 12/25/2014 KATE GUERRERO DO Ot 427.31 12/25/2014 KATE GUERRERO DO Ot 786.09 12/25/2014 YADIRA BERRY, ESTEPHANIE R Ot 496 12/26/2014 YADIRA BERRY, ESTEPHANIE R Ot 496 01/01/2015 YADIRA BERRY, ESTEPHANIE R Ot 244.9 HYPOTHYROIDISM NOS 01/01/2015 YADIRA BERRY, ESTEPHANIE R Ot 276.50 VOLUME DEPLETION, UNSPECIFIED 01/01/2015 YADIRA BERRY, ESTEPHANIE R Ot 424.90 ENDOCARDITIS NOS 01/01/2015 YADIRA BERRY, ESTEPHANIE R Ot 427.31 ATRIAL FIBRILLATION 01/01/2015 YADIRA BERRY, ESTEPHANIE R Ot 493.20 CHRONIC OBSTRUCTIVE ASTHMA, NOS 01/01/2015 YADIRA BERRY, ESTEPHANIE R Ot 530.81 ESOPHAGEAL REFLUX 01/01/2015 YADIRA BERRY, ESTEPHANIE R Ot 536.2 PERSISTENT VOMITING 01/01/2015 YADIRA BERRY, ESTEPHANIE R Ot 564.00 UNSPEC CONSTIPATION 01/01/2015 YADIRA BERRY, ESTEPHANIE R Ot 599.0 URIN TRACT INFECTION NOS 01/01/2015 YADIRA BERRY, ESTEPHANIE R Ot 716.90 ARTHROPATHY NOS-UNSPEC 01/01/2015 YADIRA BERRY, ESTEPHANIE R Ot 733.00 OSTEOPOROSIS NOS 01/01/2015 YADIRA BERRY, ESTEPHANIE R Ot 780.79 OTH MALAISE FATIGUE 01/01/2015 YADIRA BERRY, ESTEPHANIE R Ot 785.2 CARDIAC MURMURS NEC 01/01/2015 YADIRA BERRY, ESTEPHANIE R Ot V45.89 POSTSURGICAL STATES NEC 01/08/2015 KATE GUERRERO DO Ot 327.51 PERIODIC LIMB MOVEMENT DISORDER 01/08/2015 KATE GUERRERO DO Ot 786.09 RESPIRATORY ABNORM NEC 01/12/2015 KATE GUERRERO DO Ot 296.90 01/12/2015 KATE GUERRERO DO Ot 427.31 01/12/2015 KATE GUERRERO DO Ot 786.09 01/21/2015 YADIRA BERRY, ESTEPHANIE R Ot 244.9 01/21/2015 YADIRA BERRY, ESTEPHANIE R Ot 276.50 01/21/2015 YADIRA BERRY, ESTEPHANIE R Ot 424.90 01/21/2015 YADIRA BERRY, ESTEPHANIE R Ot 427.31 01/21/2015 YADIRA BERRY, ESTEPHANIE R Ot 493.20 01/21/2015 YADIRA BERRY, ESTEPHANIE R Ot 530.81 01/21/2015 YADIRA BERRY, ESTEPHANIE R Ot 536.2 01/21/2015 YADIRA BERRY, ESTEPHANIE R Ot 564.00 01/21/2015 YADIRA BERRY, ESTEPHANIE R Ot 599.0 01/21/2015 YADIRA BERRY, ESTEPHANIE R Ot 716.90 01/21/2015 YADIRA BERRY, ESTEPHANIE R Ot 733.00 01/21/2015 YADIRA BERRY, ESTEPHANIE R Ot 780.79 01/21/2015 YADIRA BERRY, ESTEPHANIE R Ot 785.2 01/21/2015 YADIRA BERRY, ESTEPHANIE R Ot V45.89 01/26/2015 YADIRA BERRY, ESTEPHANIE R Ot 413.9 01/26/2015 YADIRA BERRY, ESTEPHANIE R Ot V57.89 02/03/2015 YADIRA BERRY, ESTEPHANIE R Ot 413.9 02/03/2015 YADIRA BERRY, ESTEPHANIE R Ot V57.89 03/09/2015 YADIRA BERRY, ESTEPHANIE R Ot 413.9 ANGINA PECTORIS NEC/NOS 03/09/2015 YADIRA BERRY, ESTEPHANIE R Ot V57.89 REHABILITATION PROC NEC 03/11/2015 SIMRAN JEFFRIES DUCO POLISHER Ot 496 03/11/2015 SIMRAN JEFFRIES DUCO POLISHER Ot 799.02 03/11/2015 SIMRAN JEFFRIES DUCO POLISHER Ot V12.59 03/17/2015 SIMRAN JEFFRIES DUCO POLISHER Ot 496 03/17/2015 SIMRAN JEFFRIES DUCO POLISHER Ot 799.02 03/17/2015 SIMRAN JEFFRIES DUCO POLISHER Ot V12.59 03/30/2015 KATE GUERRERO DO Ot 473.9 03/30/2015 KATE GUERRERO DO Ot 496 04/27/2015 KATE GUERRERO DO Ot 473.9 CHRONIC SINUSITIS NOS 04/27/2015 KATE GUERRERO DO Ot 496 CHR AIRWAY OBSTRUCT NEC 05/03/2015 KAREEM BERRY FACC, TINA PATIÑOP CCDS Ot E11.9 TYPE 2 DIABETES MELLITUS WITHOUT COMPLIC 05/03/2015 KAREEM BERRY FACC, TINA FACP CCDS Ot I08.0 RHEUMATIC DISORDERS OF BOTH MITRAL AND A 05/03/2015 KAREEM BERRY FACC, TINA FACP CCDS Ot I25.10 ATHSCL HEART DISEASE OF [place] CORONARY 05/03/2015 KAREEM BERRY FACC, TINA FACP CCDS Ot 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 [place] 05/03/2015 KAREEM BERRY FACC, TINA FACP CCDS Ot I27.2 OTHER SECONDARY PULMONARY HYPERTENSION 05/03/2015 KAREEM BERRY FACC, TINA PATIÑOP CCDS Ot R06.02 SHORTNESS OF BREATH 05/03/2015 KAREEM BERRY FACC, TINA FACP CCDS Ot R53.83 OTHER FATIGUE 05/03/2015 KAREEM MD FACC, ALI FACP CCDS Ot Z79.01 CONTACT PERSON (CURRENT) USE OF ANTICOAGULANT 05/03/2015 KAREEM BERRY FACC, TINA FACP CCDS Ot Z79.899 OTHER FDC (CURRENT) DRUG THERAPY 05/03/2015 KAREEM BERRY FACAdamaris, ALI FACP CCDS Ot Z95.0 PRESENCE OF CARDIAC PACEMAKER 06/19/2015 Ot 471.9 06/19/2015 Ot 473.9 06/19/2015 Ot 473.9 06/19/2015 Ot 786.2 06/19/2015 Ot 611.79 06/19/2015 Ot 793.81 06/19/2015 Ot V76.12 06/19/2015 Ot 486 06/19/2015 Ot 793.81 06/19/2015 Ot 217 06/19/2015 Ot 427.31 06/19/2015 Ot 785.1 06/19/2015 Ot 719.06 06/19/2015 Ot 786.2 06/19/2015 Ot 924.5 06/19/2015 Ot E000.8 06/19/2015 Ot E849.0 06/19/2015 Ot E884.4 06/19/2015 Ot V15.89 06/19/2015 Ot V67.09 06/19/2015 Ot V76.12 06/19/2015 Ot 473.9 06/19/2015 CARLOS YOUSIF MEASUREMENT COORDINATOR Ot 733.90 06/19/2015 CARLOS YOUSIF MEASUREMENT COORDINATOR Ot V76.12 06/19/2015 CARLOS YOUSIF MEASUREMENT COORDINATOR Ot 733.90 06/19/2015 CARLOS YOUSIF MEASUREMENT COORDINATOR Ot V76.12 06/19/2015 KAREEM BERRY FACC, TINA FACP CCDS Ot 396.8 06/19/2015 KAREEM BERRY FACC, TINA FACP CCDS Ot 397.0 06/19/2015 KAREEM BERRY FACC, ALI FACP CCDS Ot 427.31 06/19/2015 KAREEM PATIÑOC, ALI FACP CCDS Ot 496 06/19/2015 YADIRA BERRY, ESTEPHANIE R Ot 427.31 06/19/2015 YADIRA BERRY, ESTEPHANIE R Ot 785.0 06/19/2015 YADIRA BERRY, ESTEPHANIE R Ot 786.09 06/19/2015 KAREEM BERRY FACC, ALI FACP CCDS Ot 250.00 06/19/2015 KAREEM BERRY FACC, ALI FACP CCDS Ot 401.9 06/19/2015 KAREEM BERRY FACC, ALI FACP CCDS Ot 427.31 06/19/2015 KAREEM BERRY FACC, ALI FACP CCDS Ot 496 06/19/2015 KAREEM BERRY FACC, ALI FACP CCDS Ot V58.61 06/19/2015 KAREEM BERRY FACC, ALI FACP CCDS Ot 276.8 06/19/2015 KAREEM BERRY FACC, ALI FACP CCDS Ot 401.9 06/19/2015 KAREEM BERRY FACC, ALI FACP CCDS Ot 427.31 06/19/2015 KAREEM BERRY FACC, ALI FACP CCDS Ot V58.61 06/19/2015 KAREEM BERRY FACC, ALI FACP CCDS Ot V58.83 06/19/2015 Ot 244.9 06/19/2015 Ot 250.00 06/19/2015 Ot 272.4 06/19/2015 Ot 424.1 06/19/2015 Ot 427.31 06/19/2015 Ot 427.81 06/19/2015 Ot 447.9 06/19/2015 Ot 496 06/19/2015 Ot V12.59 06/19/2015 Ot V58.61 06/19/2015 Ot 786.2 06/19/2015 KATE GUERRERO DO Ot 296.90 06/19/2015 KATE GUERRERO DO Ot 427.31 06/19/2015 KATE GUERRERO DO Ot 786.09 06/19/2015 YADIRA BERRY, ESTEPHANIE Miller Ot 496 06/19/2015 KAREEM BERRY FACC, ALI FACP CCDS Ot 244.9 06/19/2015 KAREEM BERRY FACC, ALI FACP CCDS Ot 250.00 06/19/2015 KAREEM BERRY FACC, ALI FACP CCDS Ot 272.4 06/19/2015 KAREEM BERRY FACC, ALI FACP CCDS Ot 424.1 06/19/2015 KAREEM BERRY FACC, ALI FACP CCDS Ot 427.31 06/19/2015 KAREEM BERRY FACC, ALI FACP CCDS Ot 427.81 06/19/2015 KAREEM BERRY FACC, ALI FACP CCDS Ot 447.9 06/19/2015 KAREEM BERRY FACC, ALI FACP CCDS Ot 496 06/19/2015 KAREEM BERRY FACC, ALI FACP CCDS Ot 729.81 06/19/2015 KAREEM BERRY FACC, ALI FACP CCDS Ot 787.02 06/19/2015 KAREEM BERRY FACC, ALI FACP CCDS Ot V12.59 06/19/2015 KAREEM BERRY FACC, ALI FACP CCDS Ot V58.61 06/19/2015 SIMRAN JEFFRIES DU[employer] POLISHER Ot 496 06/19/2015 SIMRAN JEFFRIES DUCO POLISHER Ot 799.02 06/19/2015 SIMRAN JEFFRIES DUCO POLISHER Ot V12.59 06/19/2015 KATE GUERRERO DO Ot 473.9 06/19/2015 KATE GUERRERO DO Ot 496 06/20/2015 KAREEM BERRY FACC, ALI FACP CCDS Ot 244.9 06/20/2015 KAREEM BERRY FACC, ALI FACP CCDS Ot 250.00 06/20/2015 KAREEM BERRY FACC, ALI FACP CCDS Ot 272.4 06/20/2015 KAREEM BERRY FACC, ALI FACP CCDS Ot 424.1 06/20/2015 KAREEM BERRY FACC, ALI FACP CCDS Ot 427.31 06/20/2015 KAREEM BERRY FACC, ALI FACP CCDS Ot 427.81 06/20/2015 KAREEM BERRY FACC, ALI FACP CCDS Ot 447.9 06/20/2015 KAREEM BERRY FACC, ALI FACP CCDS Ot 496 06/20/2015 KAREEM BERRY FACC, ALI FACP CCDS Ot 729.81 06/20/2015 KAREEM BERRY FACC, ALI FACP CCDS Ot 787.02 06/20/2015 KAREEM BERRY FACC, ALI FACP CCDS Ot V12.59 06/20/2015 KAREEM BERRY FACC, ALI FACP CCDS Ot V58.61 06/20/2015 KATE GUERRERO DO Ot 473.9 06/20/2015 KATE GUERRERO DO Ot 496 06/21/2015 KAREEM BERRY FACC, ALI FACP CCDS Ot 244.9 06/21/2015 KAREEM BERRY FACC, ALI FACP CCDS Ot 250.00 06/21/2015 KAREEM MD FACC, ALI FACP CCDS Ot 272.4 06/21/2015 KAREEM BERRY FACC, ALI FACP CCDS Ot 424.1 06/21/2015 KAREEM BERRY FACC, ALI FACP CCDS Ot 427.31 06/21/2015 KAREEM BERRY FACC, ALI FACP CCDS Ot 427.81 06/21/2015 KAREEM BERRY FACC, ALI FACP CCDS Ot 447.9 06/21/2015 KAREEM BERRY FACC, ALI FACP CCDS Ot 496 06/21/2015 KAREEM BERRY FACC, ALI FACP CCDS Ot 729.81 06/21/2015 KAREEM BERRY FACC, ALI FACP CCDS Ot 787.02 06/21/2015 KAREEM BERRY FACC, ALI FACP CCDS Ot V12.59 06/21/2015 KAREEM BERRY FACC, ALI FACP CCDS Ot V58.61 06/21/2015 KATE GUERRERO DO Ot 473.9 06/21/2015 KATE GUERRERO DO Ot 496 06/21/2015 YADIRA BERRY, ESTEPHANIE R Ot E03.9 06/21/2015 YADIRA BERRY, ESTEPHANIE R Ot E78.0 06/21/2015 YADIRA BERRY, ESTEPHANIE R Ot E86.9 06/21/2015 YADIRA BERRY, ESTEPHANIE R Ot F03.90 06/21/2015 YADIRA BERRY, ESTEPHANIE R Ot I48.91 06/21/2015 YADIRA BERRY, ESTEPHANIE R Ot J44.9 06/21/2015 YADIRA BERRY, ESTEPHANIE R Ot J45.909 06/21/2015 YADIRA BERRY, ESTEPHANIE R Ot K21.9 06/21/2015 YADIRA BERRY, ESTEPHANIE R Ot K52.9 06/21/2015 YADIRA BERRY, ESTEPHANIE R Ot M81.0 06/21/2015 YADIRA BERRY, ESTEPHANIE R Ot R01.1 06/21/2015 YADIRA BERRY, ESTEPHANIE R Ot R60.9 06/21/2015 YADIRA BERRY, ESTEPHANIE R Ot Z95.0 06/22/2015 YADIRA BERRY, ESTEPHANIE R Ot E03.9 06/22/2015 YADIRA BERRY, ESTEPHANIE R Ot E78.0 06/22/2015 YADIRA BERRY, ESTEPHANIE R Ot E86.9 06/22/2015 YADIRA BERRY, ESTEPHANIE R Ot F03.90 06/22/2015 YADIRA BERRY, ESTEPHANIE R Ot I48.91 06/22/2015 YADIRA BERRY, ESTEPHANIE R Ot J44.9 06/22/2015 YADIRA BERRY, ESTEPHANIE R Ot J45.909 06/22/2015 YADIRA BERRY, ESTEPHANIE R Ot K21.9 06/22/2015 YADIRA BERRY, ESTEPHANIE R Ot K52.9 06/22/2015 YADIRA BERRY, ESTEPHANIE R Ot M81.0 06/22/2015 YADIRA BERRY, ESTEPHANIE R Ot R01.1 06/22/2015 YADIRA BERRY, ESTEPHANIE R Ot R60.9 06/22/2015 YADIRA BERRY, ESTEPHANIE R Ot Z95.0 06/23/2015 YADIRA BERRY, ESTEPHANIE R Ot E03.9 06/23/2015 YADIRA BERRY, ESTEPHANIE R Ot E78.0 06/23/2015 YADIRA BERRY, ESTEPHANIE R Ot E86.9 06/23/2015 YADIRA BERRY, ESTEPHANIE R Ot F03.90 06/23/2015 YADIRA BERRY, ESTEPHANIE R Ot I48.91 06/23/2015 YADIRA BERRY, ESTEPHANIE R Ot J44.9 06/23/2015 YADIRA BERRY, ESTEPHANIE R Ot J45.909 06/23/2015 YADIRA BERRY, ESTEPHANIE R Ot K21.9 06/23/2015 YADIRA BERRY, ESTEPHANIE R Ot K52.9 06/23/2015 YADIRA BERRY, ESTEPHANIE R Ot M81.0 06/23/2015 YADIRA BERRY, ESTEPHANIE R Ot R01.1 06/23/2015 YADIRA BERRY, ESTEPHANIE R Ot R60.9 06/23/2015 YADIRA BERRY, ESTEPHANIE R Ot Z95.0 06/23/2015 YADIRA BERRY, ESTEPHANIE R Ot E03.9 06/23/2015 YADIRA BERRY, ESTEPHANIE R Ot E78.0 06/23/2015 YADIRA BERRY, ESTEPHANIE R Ot E86.9 06/23/2015 YADIRA BERRY, ESTEPHANIE R Ot F03.90 06/23/2015 YADIRA BERRY, ESTEPHANIE R Ot I48.91 06/23/2015 YADIRA BERRY, ESTEPHANIE R Ot J44.9 06/23/2015 YADIRA BERRY, ESTEPHANIE R Ot J45.909 06/23/2015 YADIRA BERRY, ESTEPHANIE R Ot K21.9 06/23/2015 YADIRA BERRY, ESTEPHANIE R Ot K52.9 06/23/2015 YADIRA BERRY, ESTEPHANIE R Ot M81.0 06/23/2015 YADIRA BERRY, ESTEPHANIE R Ot R01.1 06/23/2015 YADIRA BERRY, ESTEPHANIE R Ot R60.9 06/23/2015 YADIRA BERRY, ESTEPHANIE R Ot Z95.0 06/24/2015 YADIRA BERRY, ESTEPHANIE R Ot E03.9 06/24/2015 YADIRA BERRY, ESTEPHANIE R Ot E78.0 06/24/2015 YADIRA BERRY, ESTEPHANIE R Ot E86.9 06/24/2015 YADIRA BERRY, ESTEPHANIE R Ot F03.90 06/24/2015 YADIRA BERRY, ESTEPHANIE R Ot I48.91 06/24/2015 YADIRA BERRY, ESTEPHANIE R Ot J44.9 06/24/2015 YADIRA BERRY, ESTEPHANIE R Ot J45.909 06/24/2015 YADIRA BERRY, ESTPEHANIE R Ot K21.9 06/24/2015 YADIRA BERRY, ESTEPHANIE R Ot K52.9 06/24/2015 YADIRA BERRY, ESTEPHANIE R Ot M81.0 06/24/2015 YADIRA BERRY, ESTEPHANIE R Ot R01.1 06/24/2015 YADIRA BERRY, ESTEPHANIE R Ot R60.9 06/24/2015 YADIRA BERRY, ESTEPHANIE R Ot Z95.0 06/24/2015 YADIRA BERRY, ESTEPHANIE R Ot E03.9 HYPOTHYROIDISM, UNSPECIFIED 06/24/2015 YADIRA BERRY, ESTEPHANIE R Ot E78.0 PURE HYPERCHOLESTEROLEMIA 06/24/2015 YADIRA BERRY, ESTEPHANIE R Ot E86.9 VOLUME DEPLETION, UNSPECIFIED 06/24/2015 YADIRA BERRY, ESTEPHANIE R Ot F03.90 UNSPECIFIED DEMENTIA WITHOUT BEHAVIORAL 06/24/2015 YADIRA BERRY, ESTEPHANIE R Ot I48.91 UNSPECIFIED ATRIAL FIBRILLATION 06/24/2015 ESTEPHANIE MAY MD R Ot J18.9 PNEUMONIA, UNSPECIFIED ORGANISM 06/24/2015 ESTEPHANIE MAY MD R Ot J44.9 CHRONIC OBSTRUCTIVE PULMONARY DISEASE, U 06/24/2015 ESTEPHANIE MAY MD R Ot J45.909 UNSPECIFIED ASTHMA, UNCOMPLICATED 06/24/2015 ESTEPHANIE MAY MD R Ot K21.9 GASTRO-ESOPHAGEAL REFLUX DISEASE WITHOUT 06/24/2015 ESTEPHANIE MAY MD R Ot K52.9 NONINFECTIVE GASTROENTERITIS AND COLITIS 06/24/2015 ESTEPHANIE MAY MD R Ot M81.0 AGE-RELATED OSTEOPOROSIS W/O CURRENT PAT 06/24/2015 ESTEPHANIE MAY MD Ot R01.1 CARDIAC MURMUR, UNSPECIFIED 06/24/2015 ESTEPHANIE MAY MD Ot R60.9 EDEMA, UNSPECIFIED 06/24/2015 ESTEPHANIE MAY MD R Ot Z95.0 PRESENCE OF CARDIAC PACEMAKER 06/25/2015 KAREEM PATIÑOC, ALI FACP CCDS Ot 244.9 06/25/2015 KAREEM PATIÑOC, ALI FACP CCDS Ot 250.00 06/25/2015 KAREEM BERRY FACC, ALI FACP CCDS Ot 272.4 06/25/2015 KAREEM BERRY FACC, ALI FACP CCDS Ot 424.1 06/25/2015 KAREEM BERRY FACC, ALI FACP CCDS Ot 427.31 06/25/2015 KAREEM BERRY FACC, ALI FACP CCDS Ot 427.81 06/25/2015 KAREEM BERRY FACC, ALI FACP CCDS Ot 447.9 06/25/2015 KAREEM BERRY FACC, ALI FACP CCDS Ot 496 06/25/2015 KAREEM BERRY FACC, ALI FACP CCDS Ot 729.81 06/25/2015 KAREEM BERRY FACC, ALI FACP CCDS Ot 787.02 06/25/2015 KAREEM PATIÑOC, ALI FACP CCDS Ot V12.59 06/25/2015 KAREEM PATIÑOC, ALI FACP CCDS Ot V58.61 06/25/2015 KATE GUERRERO DO Ot 473.9 06/25/2015 KATE GUERRERO DO Ot 496 06/29/2015 ESTEPHANIE MAY MD R Ot E03.9 HYPOTHYROIDISM, UNSPECIFIED 06/29/2015 YADIRA BERRY ESTEPHANIE R Ot E78.0 PURE HYPERCHOLESTEROLEMIA 06/29/2015 YADIRA BERRY ESTEPHANIE R Ot F03.90 UNSPECIFIED DEMENTIA WITHOUT BEHAVIORAL 06/29/2015 FIGUEROA MAY MDYD R Ot I48.91 UNSPECIFIED ATRIAL FIBRILLATION 06/29/2015 YADIRA BERRY ESTEPHANIE R Ot J18.9 PNEUMONIA, UNSPECIFIED ORGANISM 06/29/2015 YADIRA BERRY ESTEPHANIE R Ot J44.1 CHRONIC OBSTRUCTIVE PULMONARY DISEASE W 06/29/2015 ESTEPHANIE MAY MD R Ot J45.909 UNSPECIFIED ASTHMA, UNCOMPLICATED 06/29/2015 ESTEPHANIE MAY MD R Ot K21.9 GASTRO-ESOPHAGEAL REFLUX DISEASE WITHOUT 06/29/2015 ESTEPHANIE MAY MD R Ot M81.0 AGE-RELATED OSTEOPOROSIS W/O CURRENT PAT 06/29/2015 YADIRA BERRY ESTEPHANIE R Ot R01.1 CARDIAC MURMUR, UNSPECIFIED 06/29/2015 ESTEPHANIE MAY MD R Ot R60.9 EDEMA, UNSPECIFIED 06/29/2015 FIGUEROA MAY MDYD R Ot Z95.0 PRESENCE OF CARDIAC PACEMAKER 08/29/2015 NICACARLOS MEASUREMENT COORDINATOR Ot Z12.31 08/29/2015 NICACARLOS MEASUREMENT COORDINATOR Ot Z95.0 09/14/2015 NICACARLOS MEASUREMENT COORDINATOR Ot Z12.31 09/14/2015 NICACARLOS MEASUREMENT COORDINATOR Ot Z95.0 11/20/2015 TINA SERNA MD, FACC FACP CCDS Ot 244.9 HYPOTHYROIDISM NOS 11/20/2015 TINA SERNA MD, FACC FACP CCDS Ot 250.00 DIAB WAQAR WO COMPL, TYPE II OR UNSPEC TY 11/20/2015 TINA SERNA MD, FACC FACP CCDS Ot 272.4 HYPERLIPIDEMIA NEC/NOS 11/20/2015 TINA SERNA MD, FACC FACP CCDS Ot 424.1 AORTIC VALVE DISORDER 11/20/2015 TINA SERNA MD, FACC FACP CCDS Ot 427.31 ATRIAL FIBRILLATION 11/20/2015 TINA SERNA MD, FACC FACP CCDS Ot 427.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 11/20/2015 TINA SERNA MD, FACC FACP CCDS Ot 447.9 ARTERIAL DISEASE NOS 11/20/2015 KAREEM BERRY [facility] FACP CCDS Ot 496 CHR AIRWAY OBSTRUCT NEC 11/20/2015 KAREEM BERRY FACC, TINA FACP CCDS Ot 729.81 SWELLING OF LIMB 11/20/2015 KAREEM PATIÑO, ALI FACP CCDS Ot 787.02 NAUSEA ALONE 11/20/2015 KAREEM PATIÑO, [facility] FACP CCDS Ot V12.59 HX-CIRCULATORY SYST DIS,NEC 11/20/2015 KAREEM BERRY FACC, TINA FACP CCDS Ot V58.61 ANTICOAGULANTS,LT,CURRENT USE 11/20/2015 KATE GUERRERO DO Ot 473.9 11/20/2015 KATE GUERRERO DO Ot 496 11/22/2015 ESTEPHANIE MAY MD R Ot E03.9 HYPOTHYROIDISM, UNSPECIFIED 11/22/2015 ESTEPHANIE MAY MD Ot E78.0 PURE HYPERCHOLESTEROLEMIA 11/22/2015 ESTEPHANIE MAY MD R Ot F03.90 UNSPECIFIED DEMENTIA WITHOUT BEHAVIORAL 11/22/2015 ESTEPHANIE MAY MD R Ot 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 11/22/2015 ESTEPHANIE MAY MD R Ot I48.91 UNSPECIFIED ATRIAL FIBRILLATION 11/22/2015 ESTEPHANIE MAY MD R Ot J18.9 PNEUMONIA, UNSPECIFIED ORGANISM 11/22/2015 ESTEPHANIE MAY MD R Ot J44.9 CHRONIC OBSTRUCTIVE PULMONARY DISEASE, U 11/22/2015 ESTEPHANIE MAY MD R Ot J45.909 UNSPECIFIED ASTHMA, UNCOMPLICATED 11/22/2015 ESTEPHANIE MAY MD R Ot K21.9 GASTRO-ESOPHAGEAL REFLUX DISEASE WITHOUT 11/22/2015 ESTEPHANIE MAY MD Ot M81.0 AGE-RELATED OSTEOPOROSIS W/O CURRENT PAT 11/22/2015 ESTEPHANIE MAY MD Ot N39.0 URINARY TRACT INFECTION, SITE NOT SPECIF 11/22/2015 ESTEPHANIE MAY MD Ot Z79.01 CONTACT PERSON (CURRENT) USE OF ANTICOAGULANT 11/22/2015 ESTEPHANIE MAY MD Ot Z95.0 PRESENCE OF CARDIAC PACEMAKER 12/08/2015 CARLOS YOUSIF MEASUREMENT COORDINATOR Ot Z12.31 ENCNTR SCREEN MAMMOGRAM FOR MALIGNANT NE 12/08/2015 JEAN CLAUDE YOUSIFY W MEASUREMENT COORDINATOR Ot Z95.0 PRESENCE OF CARDIAC PACEMAKER 12/09/2015 SIMRAN JEFFRIES APRN Ot J18.9 PNEUMONIA, UNSPECIFIED ORGANISM 12/09/2015 SIMRAN JEFFRIES APRN Ot J44.9 CHRONIC OBSTRUCTIVE PULMONARY DISEASE, U 12/29/2015 ESTEPHANIE MAY MD R Ot E03.9 HYPOTHYROIDISM, UNSPECIFIED 12/29/2015 ESTEPHANIE MAY MD R Ot J45.909 UNSPECIFIED ASTHMA, UNCOMPLICATED 12/29/2015 FIGUEROA MAY MDYD R Ot M54.5 LOW BACK PAIN 12/29/2015 ESTEPHANIE MAY MD R Ot N39.0 URINARY TRACT INFECTION, SITE NOT SPECIF 12/29/2015 ESTEPHANIE MAY MD R Ot R06.02 SHORTNESS OF BREATH 12/29/2015 KAREEM BERRY FAC, TINA BENITO CCDS Ot I48.91 UNSPECIFIED ATRIAL FIBRILLATION 12/30/2015 ESTEPHANIE MAY MD R Ot M54.2 CERVICALGIA 12/31/2015 ESTEPHANIE MAY MD R Ot M54.2 CERVICALGIA 12/31/2015 KATE GUERRERO DO Ot J30.9 ALLERGIC RHINITIS, UNSPECIFIED 01/04/2016 SIMRAN JEFFRIES APRN Ot J18.9 PNEUMONIA, UNSPECIFIED ORGANISM 01/04/2016 SIMRAN JEFFRIES APRN Ot J44.9 CHRONIC OBSTRUCTIVE PULMONARY DISEASE, U 01/06/2016 SIMRAN JEFFRIES APRN Ot J18.9 PNEUMONIA, UNSPECIFIED ORGANISM 01/06/2016 SIMRAN JEFFRIES APRN Ot J44.9 CHRONIC OBSTRUCTIVE PULMONARY DISEASE, U 01/19/2016 YADIRA BERRY ESTEPHANIE R Ot M54.2 CERVICALGIA 01/19/2016 KATE GUERRERO DO Ot J30.9 ALLERGIC RHINITIS, UNSPECIFIED 01/20/2016 ESTEPHANIE MAY MD R Ot E03.9 HYPOTHYROIDISM, UNSPECIFIED 01/20/2016 ESTEPHANIE MAY MD R Ot J45.909 UNSPECIFIED ASTHMA, UNCOMPLICATED 01/20/2016 ESTEPHANIE MAY MD R Ot M54.5 LOW BACK PAIN 01/20/2016 ESTEPHANIE AMY MD R Ot N39.0 URINARY TRACT INFECTION, SITE NOT SPECIF 01/20/2016 ESTEPHANIE MAY MD R Ot R06.02 SHORTNESS OF BREATH 01/20/2016 KAREEM BERRY FAC, TINA PATIÑOP CCDS Ot I48.91 UNSPECIFIED ATRIAL FIBRILLATION 02/02/2016 ESTEPHANIE MAY MD R Ot M54.2 CERVICALGIA 02/02/2016 KATE GUERRERO DO Ot J30.9 ALLERGIC RHINITIS, UNSPECIFIED 03/21/2016 CHANDU CORTEZ DO Ot M48.02 SPINAL STENOSIS, CERVICAL REGION 03/23/2016 CHANDU CORTEZ DO Ot M48.02 SPINAL STENOSIS, CERVICAL REGION 03/29/2016 CHANDU CORTEZ DO Ot M48.02 SPINAL STENOSIS, CERVICAL REGION 07/20/2016 CARLOS YOUSIF Ot Z12.31 ENCNTR SCREEN MAMMOGRAM FOR MALIGNANT NE 07/20/2016 CARLOS YOUSIF Ot Z95.0 PRESENCE OF CARDIAC PACEMAKER 07/20/2016 SIMRAN JEFFRIES APRN Ot J18.9 PNEUMONIA, UNSPECIFIED ORGANISM 07/20/2016 SIMRAN JEFFRIES APRN Ot J44.9 CHRONIC OBSTRUCTIVE PULMONARY DISEASE, U 07/20/2016 ESTEPHANIE MAY MD R Ot M54.2 CERVICALGIA 07/20/2016 ESTEPHANIE MAY MD Ot E03.9 HYPOTHYROIDISM, UNSPECIFIED 07/20/2016 ESTEPHANIE MAY MD Ot J45.909 UNSPECIFIED ASTHMA, UNCOMPLICATED 07/20/2016 ESTEPHANIE MAY MD Ot M54.5 LOW BACK PAIN 07/20/2016 ESTEPHANIE MAY MD Ot N39.0 URINARY TRACT INFECTION, SITE NOT SPECIF 07/20/2016 ESTEPHANIE MAY MD R Ot R06.02 SHORTNESS OF BREATH 07/20/2016 KAREEM BERRY FAC, TINA FACP CCDS Ot I48.91 UNSPECIFIED ATRIAL FIBRILLATION 07/20/2016 KATE GUERRERO DO Ot J30.9 ALLERGIC RHINITIS, UNSPECIFIED 07/20/2016 Ot V15.89 HX-HEALTH HAZARDS NEC 07/20/2016 Ot V67.09 SURGERY FOLLOW-UP, OTHER SURGERY 07/20/2016 Ot V76.12 OTH SCREEN MAMMO-MALIGN NEOPLASM OF PETEY 07/20/2016 Ot 473.9 CHRONIC SINUSITIS NOS 07/20/2016 QUICK, CARLOS W MEASUREMENT COORDINATOR Ot 733.90 BONE CARTILAGE DIS NOS 07/20/2016 CARLOS YOUSIF MEASUREMENT COORDINATOR Ot V76.12 OTH SCREEN MAMMO-MALIGN NEOPLASM OF PETEY 07/20/2016 CARLOS YOUSIF MEASUREMENT COORDINATOR Ot 733.90 BONE CARTILAGE DIS NOS 07/20/2016 CARLOS YOUSIF MEASUREMENT COORDINATOR Ot V76.12 OTH SCREEN MAMMO-MALIGN NEOPLASM OF PETEY 07/20/2016 KAREEM BERRY FACC, TINA FACP CCDS Ot 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 07/20/2016 KAREEM BERRY FACC, ALI FACP CCDS Ot 397.0 TRICUSPID VALVE DISEASE 07/20/2016 KAREEM BERRY FACC, ALI FACP CCDS Ot 427.31 ATRIAL FIBRILLATION 07/20/2016 KAREEM BERRY FACC, ALI FACP CCDS Ot 496 CHR AIRWAY OBSTRUCT NEC 07/20/2016 FIGUEROA MAY MDYD R Ot 427.31 ATRIAL FIBRILLATION 07/20/2016 YADIRA BERRY ESTEPHANIE R Ot 785.0 TACHYCARDIA NOS 07/20/2016 YADIRA BERRY ESTEPHANIE R Ot 786.09 RESPIRATORY ABNORM NEC 07/20/2016 KAREEM BERRY FACC, ALI FACP CCDS Ot 250.00 DIAB WAQAR WO COMPL, TYPE II OR UNSPEC TY 07/20/2016 KAREEM BERRY FACC, ALI FACP CCDS Ot 401.9 HYPERTENSION NOS 07/20/2016 KAREEM BERRY FACC, ALI FACP CCDS Ot 427.31 ATRIAL FIBRILLATION 07/20/2016 KAREEM BERRY FACC, ALI FACP CCDS Ot 496 CHR AIRWAY OBSTRUCT NEC 07/20/2016 KAREEM BERRY FACC, ALI FACP CCDS Ot V58.61 ANTICOAGULANTS,LT,CURRENT USE 07/20/2016 KAREEM BERRY FACC, ALI FACP CCDS Ot 276.8 HYPOPOTASSEMIA 07/20/2016 KAREEM BERRY FACC, ALI FACP CCDS Ot 401.9 HYPERTENSION NOS 07/20/2016 KAREEM BERRY FACC, ALI FACP CCDS Ot 427.31 ATRIAL FIBRILLATION 07/20/2016 KAREEM BERRY FACC, ALI FACP CCDS Ot V58.61 ANTICOAGULANTS,LT,CURRENT USE 07/20/2016 KAREEM BERRY FACC, TINA FACP CCDS Ot V58.83 ENCOUNTER FOR THERAPEUTIC DRUG MONITORIN 07/20/2016 Ot 244.9 HYPOTHYROIDISM NOS 07/20/2016 Ot 250.00 DIAB WAQAR WO COMPL, TYPE II OR UNSPEC TY 07/20/2016 Ot 272.4 HYPERLIPIDEMIA NEC/NOS 07/20/2016 Ot 424.1 AORTIC VALVE DISORDER 07/20/2016 Ot 427.31 ATRIAL FIBRILLATION 07/20/2016 Ot 427.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 07/20/2016 Ot 447.9 ARTERIAL DISEASE NOS 07/20/2016 Ot 496 CHR AIRWAY OBSTRUCT NEC 07/20/2016 Ot V12.59 HX- CIRCULATORY SYST DIS,NEC 07/20/2016 Ot V58.61 ANTICOAGULANTS,LT,CURRENT USE 07/20/2016 Ot 786.2 COUGH 07/20/2016 KATE GUERRERO DO Ot 296.90 UNSPECIFIED EPISODIC MOOD DISORDER 07/20/2016 KATE GUERRERO DO Ot 427.31 ATRIAL FIBRILLATION 07/20/2016 KATE GUERRERO DO Ot 786.09 RESPIRATORY ABNORM NEC 07/20/2016 YADIRA BERRY, ESTEPHANIE R Ot 496 CHR AIRWAY OBSTRUCT NEC 07/20/2016 KAREEM BERRY FACC, ALI FACP CCDS Ot 244.9 HYPOTHYROIDISM NOS 07/20/2016 KAREEM BERRY FACC, ALI FACP CCDS Ot 250.00 DIAB WAQAR WO COMPL, TYPE II OR UNSPEC TY 07/20/2016 KAREEM BERRY FACC, ALI FACP CCDS Ot 272.4 HYPERLIPIDEMIA NEC/NOS 07/20/2016 KAREEM BERRY FACC, ALI FACP CCDS Ot 424.1 AORTIC VALVE DISORDER 07/20/2016 KAREEM BERRY FACC, ALI FACP CCDS Ot 427.31 ATRIAL FIBRILLATION 07/20/2016 KAREEM BERRY FACC, ALI FACP CCDS Ot 427.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 07/20/2016 KAREEM BERRY FACC, ALI FACP CCDS Ot 447.9 ARTERIAL DISEASE NOS 07/20/2016 KAREEM BERRY FACC, ALI FACP CCDS Ot 496 CHR AIRWAY OBSTRUCT NEC 07/20/2016 KAREEM BERRY FACC, ALI FACP CCDS Ot 729.81 SWELLING OF LIMB 07/20/2016 KAREEM BERRY FACC, ALI FACP CCDS Ot 787.02 NAUSEA ALONE 07/20/2016 KAREEM BERRY FACC, ALI FACP CCDS Ot V12.59 HX-CIRCULATORY SYST DIS,NEC 07/20/2016 KAREEM BERRY FACC, ALI FACP CCDS Ot V58.61 ANTICOAGULANTS,LT,CURRENT USE 07/20/2016 SIMRAN JEFFRIES APRN Ot 496 CHR AIRWAY OBSTRUCT NEC 07/20/2016 SIMRAN JEFFRIES APRN Ot 799.02 HYPOXEMIA 07/20/2016 SIMRAN JEFFRIES APRN Ot V12.59 HX-CIRCULATORY SYST DIS,NEC 07/20/2016 KATE GUERRERO DO Ot 473.9 07/20/2016 KATE GUERRERO DO Ot 496 07/20/2016 CARLOS YOUSIF MEASUREMENT COORDINATOR Ot Z12.31 ENCNTR SCREEN MAMMOGRAM FOR MALIGNANT NE 07/20/2016 CARLOS YOUSIF MEASUREMENT COORDINATOR Ot Z95.0 PRESENCE OF CARDIAC PACEMAKER 07/20/2016 SIMRAN JEFFRIES APRN Ot J18.9 PNEUMONIA, UNSPECIFIED ORGANISM 07/20/2016 SIMRAN JEFFRIES APRN Ot J44.9 CHRONIC OBSTRUCTIVE PULMONARY DISEASE, U 07/20/2016 YADIRA BERRY, ESTEPHANIE R Ot M54.2 CERVICALGIA 07/20/2016 YADIRA BERRY, ESTEPHANIE R Ot E03.9 HYPOTHYROIDISM, UNSPECIFIED 07/20/2016 YADIRA BERRY, ESTEPHANIE R Ot J45.909 UNSPECIFIED ASTHMA, UNCOMPLICATED 07/20/2016 YADIRA BERRY, ESTEPHANIE R Ot M54.5 LOW BACK PAIN 07/20/2016 YADIRA BERRY, ESTEPHANIE R Ot N39.0 URINARY TRACT INFECTION, SITE NOT SPECIF 07/20/2016 YADIRA BERRY, ESTEPHANIE R Ot R06.02 SHORTNESS OF BREATH 07/20/2016 KAREEM BERRY FAC, ALI FACP CCDS Ot I48.91 UNSPECIFIED ATRIAL FIBRILLATION 07/20/2016 KATE GUERRERO DO Ot J30.9 ALLERGIC RHINITIS, UNSPECIFIED 07/21/2016 JASEN LUZ JAGRUTI Ot A41.9 SEPSIS, UNSPECIFIED ORGANISM 07/21/2016 JASEN LUZ JAGRUTI Ot E03.9 HYPOTHYROIDISM, UNSPECIFIED 07/21/2016 JASEN LUZ JAGRUTI Ot E78.00 PURE HYPERCHOLESTEROLEMIA, UNSPECIFIED 07/21/2016 JASEN LUZ JAGRUTI Ot E86.0 DEHYDRATION 07/21/2016 JASEN LUZ JAGRUTI Ot F03.90 UNSPECIFIED DEMENTIA WITHOUT BEHAVIORAL 07/21/2016 AGGARWAL DO, JAGRUTI Ot J44.9 CHRONIC OBSTRUCTIVE PULMONARY DISEASE, U 07/21/2016 AGGARWAL DO, JAGRUTI Ot J45.909 UNSPECIFIED ASTHMA, UNCOMPLICATED 07/21/2016 AGGARWAL DO, JAGRUTI Ot K21.9 GASTRO-ESOPHAGEAL REFLUX DISEASE WITHOUT 07/21/2016 AGGARWAL DO, JAGRUTI Ot K76.89 OTHER SPECIFIED DISEASES OF LIVER 07/21/2016 AGGARWAL DO JAGRUTI Ot M81.0 AGE-RELATED OSTEOPOROSIS W/O CURRENT PAT 07/21/2016 JASEN DO JAGRUTI Ot N28.9 DISORDER OF KIDNEY AND URETER, UNSPECIFI 07/21/2016 AGGARWAL DO, JAGRUTI Ot N30.00 ACUTE CYSTITIS WITHOUT HEMATURIA 07/21/2016 AGGARWAL DO JAGRUTI Ot R11.2 NAUSEA WITH VOMITING, UNSPECIFIED 07/21/2016 JASEN DO JAGRUTI Ot Z66 DO NOT RESUSCITATE 07/21/2016 JASEN LUZ JAGRUTI Ot Z79.01 FDC (CURRENT) USE OF ANTICOAGULANT 07/21/2016 JASEN LUZ JAGRUTI Ot Z95.0 PRESENCE OF CARDIAC PACEMAKER 07/22/2016 JASEN LUZ JAGRUTI Ot A41.9 SEPSIS, UNSPECIFIED ORGANISM 07/22/2016 JASEN LUZ JAGRUTI Ot E03.9 HYPOTHYROIDISM, UNSPECIFIED 07/22/2016 JASEN DO, JAGRUTI Ot E78.00 PURE HYPERCHOLESTEROLEMIA, UNSPECIFIED 07/22/2016 JASEN DO JAGRUTI Ot E86.0 DEHYDRATION 07/22/2016 JASEN LUZ JAGRUTI Ot F03.90 UNSPECIFIED DEMENTIA WITHOUT BEHAVIORAL 07/22/2016 JASEN LUZ JAGRUTI Ot J44.9 CHRONIC OBSTRUCTIVE PULMONARY DISEASE, U 07/22/2016 JASEN LUZ JAGRUTI Ot J45.909 UNSPECIFIED ASTHMA, UNCOMPLICATED 07/22/2016 JASEN DO JAGRUTI Ot K21.9 GASTRO-ESOPHAGEAL REFLUX DISEASE WITHOUT 07/22/2016 AGGARWAL DO, JAGRUTI Ot K76.89 OTHER SPECIFIED DISEASES OF LIVER 07/22/2016 JASEN DO JAGRUTI Ot M81.0 AGE-RELATED OSTEOPOROSIS W/O CURRENT PAT 07/22/2016 JASEN DO JAGRUTI Ot N28.9 DISORDER OF KIDNEY AND URETER, UNSPECIFI 07/22/2016 AGGARWAL DO JAGRUTI Ot N30.00 ACUTE CYSTITIS WITHOUT HEMATURIA 07/22/2016 AGGARWAL DO, JAGRUTI Ot R11.2 NAUSEA WITH VOMITING, UNSPECIFIED 07/22/2016 AGGARWAL DO, JAGRUTI Ot Z66 DO NOT RESUSCITATE 07/22/2016 AGGARWAL DO, JAGRUTI Ot Z79.01 CONTACT PERSON (CURRENT) USE OF ANTICOAGULANT 07/22/2016 AGGARWAL DO, JAGRUTI Ot Z95.0 PRESENCE OF CARDIAC PACEMAKER 07/23/2016 AGGARWAL DO, JAGRUTI Ot A41.9 SEPSIS, UNSPECIFIED ORGANISM 07/23/2016 AGGARWAL DO, JAGRUTI Ot E03.9 HYPOTHYROIDISM, UNSPECIFIED 07/23/2016 AGGARWAL DO, JAGRUTI Ot E78.00 PURE HYPERCHOLESTEROLEMIA, UNSPECIFIED 07/23/2016 AGGARWAL DO, JAGRUTI Ot E86.0 DEHYDRATION 07/23/2016 AGGARWAL DO, JAGRUTI Ot F03.90 UNSPECIFIED DEMENTIA WITHOUT BEHAVIORAL 07/23/2016 JASEN DO JAGRUTI Ot J44.9 CHRONIC OBSTRUCTIVE PULMONARY DISEASE, U 07/23/2016 JASEN LUZ JAGRUTI Ot J45.909 UNSPECIFIED ASTHMA, UNCOMPLICATED 07/23/2016 JASEN DO JAGRUTI Ot K21.9 GASTRO-ESOPHAGEAL REFLUX DISEASE WITHOUT 07/23/2016 AGGARWAL DO, JAGRUTI Ot K76.89 OTHER SPECIFIED DISEASES OF LIVER 07/23/2016 JASEN DO, JAGRUTI Ot M81.0 AGE-RELATED OSTEOPOROSIS W/O CURRENT PAT 07/23/2016 JASEN DO, JAGRUTI Ot N28.9 DISORDER OF KIDNEY AND URETER, UNSPECIFI 07/23/2016 AGGARWAL DO, JAGRUTI Ot N30.00 ACUTE CYSTITIS WITHOUT HEMATURIA 07/23/2016 JASEN DO JAGRUTI Ot R11.2 NAUSEA WITH VOMITING, UNSPECIFIED 07/23/2016 AGGARWAL DO JAGRUTI Ot Z66 DO NOT RESUSCITATE 07/23/2016 AGGARWAL DO JAGRUTI Ot Z79.01 FDC (CURRENT) USE OF ANTICOAGULANT 07/23/2016 AGGARWAL DO, JAGRUTI Ot Z95.0 PRESENCE OF CARDIAC PACEMAKER 07/23/2016 AGGARWAL DO, JAGRUTI Ot A41.9 SEPSIS, UNSPECIFIED ORGANISM 07/23/2016 AGGARWAL DO, JAGRUTI Ot E03.9 HYPOTHYROIDISM, UNSPECIFIED 07/23/2016 AGGARWAL DO, JAGRUTI Ot E78.00 PURE HYPERCHOLESTEROLEMIA, UNSPECIFIED 07/23/2016 AGGARWAL DO, JAGRUTI Ot E86.0 DEHYDRATION 07/23/2016 AGGARWAL DO, JAGRUTI Ot F03.90 UNSPECIFIED DEMENTIA WITHOUT BEHAVIORAL 07/23/2016 AGGARWALJAGRUTI MACHADO DO Ot G47.00 INSOMNIA, UNSPECIFIED 07/23/2016 JAGRUTI AGGARWAL DO Ot J44.9 CHRONIC OBSTRUCTIVE PULMONARY DISEASE, U 07/23/2016 JAGRUTI AGGARWAL DO Ot J45.909 UNSPECIFIED ASTHMA, UNCOMPLICATED 07/23/2016 AGGARWALTRAE MACHADO DOI Ot K21.9 GASTRO-ESOPHAGEAL REFLUX DISEASE WITHOUT 07/23/2016 AGGARWALTRAE MACHADO DOI Ot K59.00 CONSTIPATION, UNSPECIFIED 07/23/2016 AGGARWALTRAE MACHADO DOI Ot K76.89 OTHER SPECIFIED DISEASES OF LIVER 07/23/2016 AGGARWALTRAE MACHADO DOI Ot M81.0 AGE-RELATED OSTEOPOROSIS W/O CURRENT PAT 07/23/2016 JAGRUTI AGGARWAL DO Ot N28.9 DISORDER OF KIDNEY AND URETER, UNSPECIFI 07/23/2016 TRAE AGGARWAL DOI Ot N30.00 ACUTE CYSTITIS WITHOUT HEMATURIA 07/23/2016 JAGRUTI AGGARWAL DO Ot R11.2 NAUSEA WITH VOMITING, UNSPECIFIED 07/23/2016 JAGRUTI AGGARWAL DO Ot Z66 DO NOT RESUSCITATE 07/23/2016 JAGRUTI AGGARWAL DO Ot Z79.01 CONTACT PERSON (CURRENT) USE OF ANTICOAGULANT 07/23/2016 JASEN LUZ JAGRUTI Ot Z95.0 PRESENCE OF CARDIAC PACEMAKER 08/28/2016 Ot V15.89 HX-HEALTH HAZARDS NEC 08/28/2016 Ot V67.09 SURGERY FOLLOW-UP, OTHER SURGERY 08/28/2016 Ot V76.12 OTH SCREEN MAMMO-MALIGN NEOPLASM OF [place] 08/28/2016 Ot 473.9 CHRONIC SINUSITIS NOS 08/28/2016 CARLOS YOUSIF MEASUREMENT COORDINATOR Ot 733.90 BONE CARTILAGE DIS NOS 08/28/2016 CARLOS YOUSIF MEASUREMENT COORDINATOR Ot V76.12 OTH SCREEN MAMMO-MALIGN NEOPLASM OF [place] 08/28/2016 CARLOS YOUSIF MEASUREMENT COORDINATOR Ot 733.90 BONE CARTILAGE DIS NOS 08/28/2016 CARLOS YOUSIF MEASUREMENT COORDINATOR Ot V76.12 OTH SCREEN MAMMO-MALIGN NEOPLASM OF [place] 08/28/2016 KAREEM BERRY FACC, TINA FACP CCDS Ot 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 08/28/2016 KAREEM BERRY FACC, ALI FACP CCDS Ot 397.0 TRICUSPID VALVE DISEASE 08/28/2016 KAREEM BERRY FACC, ALI FACP CCDS Ot 427.31 ATRIAL FIBRILLATION 08/28/2016 KAREEM BERRY FACC, ALI FACP CCDS Ot 496 CHR AIRWAY OBSTRUCT NEC 08/28/2016 FIGUEROA MAY MDYD R Ot 427.31 ATRIAL FIBRILLATION 08/28/2016 YADIRA BERRY, ESTEPHANIE R Ot 785.0 TACHYCARDIA NOS 08/28/2016 YADIRA BERRY, ESTEPHANIE R Ot 786.09 RESPIRATORY ABNORM NEC 08/28/2016 KAREEM BERRY FACC, ALI FACP CCDS Ot 250.00 DIAB WAQAR WO COMPL, TYPE II OR UNSPEC TY 08/28/2016 KAREEM BERRY FACC, ALI FACP CCDS Ot 401.9 HYPERTENSION NOS 08/28/2016 KAREEM BERRY FACAdamaris, ALI FACP CCDS Ot 427.31 ATRIAL FIBRILLATION 08/28/2016 KAREEM BERRY FACAdamaris, ALI FACP CCDS Ot 496 CHR AIRWAY OBSTRUCT NEC 08/28/2016 KAREEM BERRY FACAdamaris, ALI FACP CCDS Ot V58.61 ANTICOAGULANTS,LT,CURRENT USE 08/28/2016 KAREEM BERRY FACAdamaris, ALI FACP CCDS Ot 276.8 HYPOPOTASSEMIA 08/28/2016 KAREEM BERRY FACAdamaris, ALI FACP CCDS Ot 401.9 HYPERTENSION NOS 08/28/2016 KAREEM BERRY FACAdamaris, ALI FACP CCDS Ot 427.31 ATRIAL FIBRILLATION 08/28/2016 KAREEM BERRY FACC, ALI FACP CCDS Ot V58.61 ANTICOAGULANTS,LT,CURRENT USE 08/28/2016 KAREEM BERRY FACAdamaris, ALI FACP CCDS Ot V58.83 ENCOUNTER FOR THERAPEUTIC DRUG MONITORIN 08/28/2016 Ot 244.9 HYPOTHYROIDISM NOS 08/28/2016 Ot 250.00 DIAB WAQAR WO COMPL, TYPE II OR UNSPEC TY 08/28/2016 Ot 272.4 HYPERLIPIDEMIA NEC/NOS 08/28/2016 Ot 424.1 AORTIC VALVE DISORDER 08/28/2016 Ot 427.31 ATRIAL FIBRILLATION 08/28/2016 Ot 427.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 08/28/2016 Ot 447.9 ARTERIAL DISEASE NOS 08/28/2016 Ot 496 CHR AIRWAY OBSTRUCT NEC 08/28/2016 Ot V12.59 HX- CIRCULATORY SYST DIS,NEC 08/28/2016 Ot V58.61 ANTICOAGULANTS,LT,CURRENT USE 08/28/2016 Ot 786.2 COUGH 08/28/2016 KATE GUERRERO DO Ot 296.90 UNSPECIFIED EPISODIC MOOD DISORDER 08/28/2016 KATE GUERRERO DO Ot 427.31 ATRIAL FIBRILLATION 08/28/2016 KATE GUERRERO DO Ot 786.09 RESPIRATORY ABNORM NEC 08/28/2016 YADIRA BERRY, ESTEPHANIE Miller Ot 496 CHR AIRWAY OBSTRUCT NEC 08/28/2016 KAREEM BERRY FACC, ALI FACP CCDS Ot 244.9 HYPOTHYROIDISM NOS 08/28/2016 KAREEM BERRY FACC, ALI FACP CCDS Ot 250.00 DIAB WAQAR WO COMPL, TYPE II OR UNSPEC TY 08/28/2016 KAREEM MD FACC, ALI FACP CCDS Ot 272.4 HYPERLIPIDEMIA NEC/NOS 08/28/2016 KAREEM BERRY FACC, ALI FACP CCDS Ot 424.1 AORTIC VALVE DISORDER 08/28/2016 KAREEM BERRY FACC, ALI FACP CCDS Ot 427.31 ATRIAL FIBRILLATION 08/28/2016 KAREEM BERRY FACC, ALI FACP CCDS Ot 427.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 08/28/2016 KAREEM BERRY FACC, ALI FACP CCDS Ot 447.9 ARTERIAL DISEASE NOS 08/28/2016 KAREEM BERRY FACAdamaris, ALI FACP CCDS Ot 496 CHR AIRWAY OBSTRUCT NEC 08/28/2016 KAREEM BERRY FACC, ALI FACP CCDS Ot 729.81 SWELLING OF LIMB 08/28/2016 KAREEM PATIÑOC, ALI FACP CCDS Ot 787.02 NAUSEA ALONE 08/28/2016 KAREEM PATIÑOC, ALI FACP CCDS Ot V12.59 HX-CIRCULATORY SYST DIS,NEC 08/28/2016 KAREEM PATIÑOC, ALI FACP CCDS Ot V58.61 ANTICOAGULANTS,LT,CURRENT USE 08/28/2016 SIMRAN JEFFRIES [employer] Ot 496 CHR AIRWAY OBSTRUCT NEC 08/28/2016 SIMRAN JEFFRIES [employer] Ot 799.02 HYPOXEMIA 08/28/2016 SIMRAN JEFFRIES [employer] Ot V12.59 HX-CIRCULATORY SYST DIS,NEC 08/28/2016 KATE GUERRERO DO Ot 473.9 08/28/2016 KATE GUERRERO DO Ot 496 08/28/2016 QUICK, CARLOS W MEASUREMENT COORDINATOR Ot Z12.31 ENCNTR SCREEN MAMMOGRAM FOR MALIGNANT NE 08/28/2016 CARLOS YOUSIF W MEASUREMENT COORDINATOR Ot Z95.0 PRESENCE OF CARDIAC PACEMAKER 08/28/2016 SIMRAN JEFFRIES APRN Ot J18.9 PNEUMONIA, UNSPECIFIED ORGANISM 08/28/2016 SIMRAN JEFFRIES APRN Ot J44.9 CHRONIC OBSTRUCTIVE PULMONARY DISEASE, U 08/28/2016 ESTEPHANIE MAY MD R Ot M54.2 CERVICALGIA 08/28/2016 ESTEPHANIE MAY MD R Ot E03.9 HYPOTHYROIDISM, UNSPECIFIED 08/28/2016 ESTEPHANIE MAY MD R Ot J45.909 UNSPECIFIED ASTHMA, UNCOMPLICATED 08/28/2016 ESTEPHANIE MAY MD R Ot M54.5 LOW BACK PAIN 08/28/2016 ESTEPHANIE MAY MD R Ot N39.0 URINARY TRACT INFECTION, SITE NOT SPECIF 08/28/2016 ESTEPHANIE MAY MD R Ot R06.02 SHORTNESS OF BREATH 08/28/2016 KAREEM BERRY FAC, TINA [facility] CCDS Ot I48.91 UNSPECIFIED ATRIAL FIBRILLATION 08/28/2016 KATE GUERRERO DO Ot J30.9 ALLERGIC RHINITIS, UNSPECIFIED 08/29/2016 PERLA MACEDO MD Ot A41.9 SEPSIS, UNSPECIFIED ORGANISM 08/29/2016 PERLA MACEDO MD Ot E03.9 HYPOTHYROIDISM, UNSPECIFIED 08/29/2016 PERLA MACEDO MD Ot E78.00 PURE HYPERCHOLESTEROLEMIA, UNSPECIFIED 08/29/2016 PERLA MACEDO MD Ot F03.90 UNSPECIFIED DEMENTIA WITHOUT BEHAVIORAL 08/29/2016 PERLA MACEDO MD Ot 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 08/29/2016 PERLA MACEDO MD Ot I48.91 UNSPECIFIED ATRIAL FIBRILLATION 08/29/2016 PERLA MACEDO MD Ot J45.909 UNSPECIFIED ASTHMA, UNCOMPLICATED 08/29/2016 PERLA MACEDO MD Ot K58.9 IRRITABLE BOWEL SYNDROME WITHOUT DIARRHE 08/29/2016 PERLA MACEDO MD Ot M19.91 PRIMARY OSTEOARTHRITIS, UNSPECIFIED SITE 08/29/2016 PERLA MACEDO MD Ot M81.0 AGE-RELATED OSTEOPOROSIS W/O CURRENT PAT 08/29/2016 PERLA MACEDO MD Ot N12 TUBULO-INTERSTITIAL NEPHRITIS, NOT SPCF 08/29/2016 PERLA MACEDO MD Ot R01.1 CARDIAC MURMUR, UNSPECIFIED 08/29/2016 PERLA MACEDO MD Ot R60.9 EDEMA, UNSPECIFIED 08/29/2016 PERLA MACEDO MD Ot Z66 DO NOT RESUSCITATE 08/29/2016 PERLA MACEDO MD Ot Z95.0 PRESENCE OF CARDIAC PACEMAKER 08/30/2016 PERLA MACEDO MD Ot A41.9 SEPSIS, UNSPECIFIED ORGANISM 08/30/2016 PERLA MACEDO MD Ot E03.9 HYPOTHYROIDISM, UNSPECIFIED 08/30/2016 PERLA MACEDO MD Ot E78.00 PURE HYPERCHOLESTEROLEMIA, UNSPECIFIED 08/30/2016 PERLA MCAEDO MD Ot F03.90 UNSPECIFIED DEMENTIA WITHOUT BEHAVIORAL 08/30/2016 PERLA MACEDO MD Ot 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 08/30/2016 PERLA MACEDO MD Ot I48.91 UNSPECIFIED ATRIAL FIBRILLATION 08/30/2016 PERLA MACEDO MD Ot J45.909 UNSPECIFIED ASTHMA, UNCOMPLICATED 08/30/2016 PERLA MACEDO MD Ot K58.9 IRRITABLE BOWEL SYNDROME WITHOUT DIARRHE 08/30/2016 PERLA MACEDO MD Ot M19.91 PRIMARY OSTEOARTHRITIS, UNSPECIFIED SITE 08/30/2016 PERLA MACEDO MD Ot M81.0 AGE-RELATED OSTEOPOROSIS W/O CURRENT PAT 08/30/2016 PERLA MACEDO MD Ot N12 TUBULO-INTERSTITIAL NEPHRITIS, NOT SPCF 08/30/2016 PERLA MACEDO MD Ot R01.1 CARDIAC MURMUR, UNSPECIFIED 08/30/2016 PERLA MACEDO MD Ot R60.9 EDEMA, UNSPECIFIED 08/30/2016 PERLA MACEDO MD Ot Z66 DO NOT RESUSCITATE 08/30/2016 PERLA MACEDO MD Ot Z95.0 PRESENCE OF CARDIAC PACEMAKER 08/31/2016 PERLA MACEDO MD Ot A41.9 SEPSIS, UNSPECIFIED ORGANISM 08/31/2016 PERLA MACEDO MD Ot E03.9 HYPOTHYROIDISM, UNSPECIFIED 08/31/2016 PERLA MACEDO MD Ot E11.9 TYPE 2 DIABETES MELLITUS WITHOUT COMPLIC 08/31/2016 PERLA MACEDO MD Ot E78.00 PURE HYPERCHOLESTEROLEMIA, UNSPECIFIED 08/31/2016 PERLA MACEDO MD Ot E78.5 HYPERLIPIDEMIA, UNSPECIFIED 08/31/2016 PERLA MAECDO MD Ot F03.90 UNSPECIFIED DEMENTIA WITHOUT BEHAVIORAL 08/31/2016 PERLA MACEDO MD Ot F32.9 MAJOR DEPRESSIVE DISORDER, SINGLE EPISOD 08/31/2016 PERLA MACEDO MD Ot G47.00 INSOMNIA, UNSPECIFIED 08/31/2016 PERLA MACEDO MD Ot G47.33 OBSTRUCTIVE SLEEP APNEA (ADULT) (PEDIATR 08/31/2016 PERLA MACEDO MD Ot 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 08/31/2016 PERLA MACEDO MD Ot I48.91 UNSPECIFIED ATRIAL FIBRILLATION 08/31/2016 PERLA MACEDO MD Ot I87.2 VENOUS INSUFFICIENCY (CHRONIC) (PERIPHER 08/31/2016 PERLA MACEDO MD Ot J44.9 CHRONIC OBSTRUCTIVE PULMONARY DISEASE, U 08/31/2016 PERLA MACEDO MD Ot J45.909 UNSPECIFIED ASTHMA, UNCOMPLICATED 08/31/2016 PERLA MACEDO MD Ot K58.9 IRRITABLE BOWEL SYNDROME WITHOUT DIARRHE 08/31/2016 PERLA MACEDO MD Ot M19.91 PRIMARY OSTEOARTHRITIS, UNSPECIFIED SITE 08/31/2016 PERLA MACEDO MD Ot M81.0 AGE-RELATED OSTEOPOROSIS W/O CURRENT PAT 08/31/2016 PERLA MACEDO MD Ot N10 ACUTE PYELONEPHRITIS 08/31/2016 PERLA MACEDO MD Ot N12 TUBULO-INTERSTITIAL NEPHRITIS, NOT SPCF 08/31/2016 PERLA MACEDO MD Ot R01.1 CARDIAC MURMUR, UNSPECIFIED 08/31/2016 PERLA MACEDO MD Ot R60.9 EDEMA, UNSPECIFIED 08/31/2016 PERLA MACEDO MD Ot Z66 DO NOT RESUSCITATE 08/31/2016 PERLA MACEDO MD Ot Z95.0 PRESENCE OF CARDIAC PACEMAKER 08/31/2016 KAREEM BERRY FACC, ALI FACP CCDS Ot 244.9 HYPOTHYROIDISM NOS 08/31/2016 KAREEM BERRY FACC, ALI FACP CCDS Ot 250.00 DIAB WAQAR WO COMPL, TYPE II OR UNSPEC TY 08/31/2016 KAREEM BERRY FACC, TINA FACP CCDS Ot 272.4 HYPERLIPIDEMIA NEC/NOS 08/31/2016 KAREEM BERRY FACC, ALI FACP CCDS Ot 424.1 AORTIC VALVE DISORDER 08/31/2016 KAREEM BERRY FACC, ALI FACP CCDS Ot 427.31 ATRIAL FIBRILLATION 08/31/2016 KAREEM BERRY FACC, ALI FACP CCDS Ot 427.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 08/31/2016 KAREEM BERRY FACC, ALI FACP CCDS Ot 447.9 ARTERIAL DISEASE NOS 08/31/2016 KAREEM BERRY FACC, ALI FACP CCDS Ot 496 CHR AIRWAY OBSTRUCT NEC 08/31/2016 KAREEM BERRY FACC, TINA FACP CCDS Ot 729.81 SWELLING OF LIMB 08/31/2016 KAREEM BERRY FACC, ALI FACP CCDS Ot 787.02 NAUSEA ALONE 08/31/2016 KAREEM BERRY FACC, ALI FACP CCDS Ot V12.59 HX-CIRCULATORY SYST DIS,NEC 08/31/2016 KAREEM BERRY FACC, TINA FACP CCDS Ot V58.61 ANTICOAGULANTS,LT,CURRENT USE 08/31/2016 KATE GUERRERO DO Ot 473.9 08/31/2016 KATE GUERRERO DO Ot 496 09/03/2016 JAGRUTI AGGARWAL DO Ot A41.9 SEPSIS, UNSPECIFIED ORGANISM 09/03/2016 JAGRUTI AGGARWAL DO Ot E03.9 HYPOTHYROIDISM, UNSPECIFIED 09/03/2016 JAGRUTI AGGARWAL DO Ot E11.9 TYPE 2 DIABETES MELLITUS WITHOUT COMPLIC 09/03/2016 JAGRUTI AGGARWAL DO Ot E78.00 PURE HYPERCHOLESTEROLEMIA, UNSPECIFIED 09/03/2016 TRAE AGGARWAL DOI Ot E78.5 HYPERLIPIDEMIA, UNSPECIFIED 09/03/2016 TRAE AGGARWAL DOI Ot F03.90 UNSPECIFIED DEMENTIA WITHOUT BEHAVIORAL 09/03/2016 JAGRUTI AGGARWAL DO Ot F32.9 MAJOR DEPRESSIVE DISORDER, SINGLE EPISOD 09/03/2016 TRAE AGGARWAL DOI Ot G47.00 INSOMNIA, UNSPECIFIED 09/03/2016 TRAE AGGARWAL DOI Ot G47.33 OBSTRUCTIVE SLEEP APNEA (ADULT) (PEDIATR 09/03/2016 JAGRUTI AGGARWAL DO Ot 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 09/03/2016 JAGRUTI AGGARWAL DO Ot I48.91 UNSPECIFIED ATRIAL FIBRILLATION 09/03/2016 TRAE AGGARWAL DOI Ot I50.9 HEART FAILURE, UNSPECIFIED 09/03/2016 TRAE AGGARWAL DOI Ot I87.2 VENOUS INSUFFICIENCY (CHRONIC) (PERIPHER 09/03/2016 TRAE AGGARWAL DOI Ot J44.9 CHRONIC OBSTRUCTIVE PULMONARY DISEASE, U 09/03/2016 TRAE AGGARWAL DOI Ot J45.909 UNSPECIFIED ASTHMA, UNCOMPLICATED 09/03/2016 JASEN LUZ JAGRUTI Ot K58.9 IRRITABLE BOWEL SYNDROME WITHOUT DIARRHE 09/03/2016 JASEN LUZ JAGRUTI Ot M19.91 PRIMARY OSTEOARTHRITIS, UNSPECIFIED SITE 09/03/2016 TRAE AGGARWAL DOI Ot M81.0 AGE-RELATED OSTEOPOROSIS W/O CURRENT PAT 09/03/2016 TRAE AGGARWAL DOI Ot N10 ACUTE PYELONEPHRITIS 09/03/2016 TRAE AGGARWAL DOI Ot R01.1 CARDIAC MURMUR, UNSPECIFIED 09/03/2016 TRAE AGGARWAL DOI Ot R60.9 EDEMA, UNSPECIFIED 09/03/2016 JASEN LUZ JAGRUTI Ot Z66 DO NOT RESUSCITATE 09/03/2016 TRAE AGGARWAL DOI Ot Z95.0 PRESENCE OF CARDIAC PACEMAKER 09/06/2016 TINA SERNA MD, FACCP CCDS Ot Z51.81 ENCOUNTER FOR THERAPEUTIC DRUG LEVEL MON 09/06/2016 TINA SERNA MD, FACCP CCDS Ot Z79.01 FDC (CURRENT) USE OF ANTICOAGULANT 09/13/2016 TINA SERNA MD, FACCP CCDS Ot Z51.81 ENCOUNTER FOR THERAPEUTIC DRUG LEVEL MON 09/13/2016 TINA SERNA MD, FACCP CCDS Ot Z79.01 FDC (CURRENT) USE OF ANTICOAGULANT 09/18/2016 TINA SERNA MD, FACCP CCDS Ot Z51.81 ENCOUNTER FOR THERAPEUTIC DRUG LEVEL MON 09/18/2016 TINA SERNA MD, FACCP CCDS Ot Z79.01 CONTACT PERSON (CURRENT) USE OF ANTICOAGULANT 09/21/2016 TINA SERNA MD, FACCP CCDS Ot Z79.01 FDC (CURRENT) USE OF ANTICOAGULANT 09/24/2016 TINA SERNA MD, FACC FACP CCDS Ot Z51.81 ENCOUNTER FOR THERAPEUTIC DRUG LEVEL MON 09/24/2016 KAREEM BERRY FAC, ALI FACP CCDS Ot Z79.01 FDC (CURRENT) USE OF ANTICOAGULANT 09/26/2016 KAREEM BERRY FAC, ALI FACP CCDS Ot Z51.81 ENCOUNTER FOR THERAPEUTIC DRUG LEVEL MON 09/26/2016 KAREEM BERRY FACC, ALI FACP CCDS Ot Z79.01 CONTACT PERSON (CURRENT) USE OF ANTICOAGULANT 09/28/2016 KAREEM BERRY FAC, ALI FACP CCDS Ot Z51.81 ENCOUNTER FOR THERAPEUTIC DRUG LEVEL MON 09/28/2016 KAREEM BERRY FAC, ALI FACP CCDS Ot Z79.01 FDC (CURRENT) USE OF ANTICOAGULANT 10/12/2016 KAREEM BERRY FAC, ALI FACP CCDS Ot Z51.81 ENCOUNTER FOR THERAPEUTIC DRUG LEVEL MON 10/12/2016 KAREEM BERRY FACC, ALI FACP CCDS Ot Z79.01 CONTACT PERSON (CURRENT) USE OF ANTICOAGULANT 11/23/2016 PERLA MACEDO MD Ot E03.9 HYPOTHYROIDISM, UNSPECIFIED 11/23/2016 PERLA MACEDO MD Ot E11.9 TYPE 2 DIABETES MELLITUS WITHOUT COMPLIC 11/23/2016 PERLA MACEDO MD Ot E78.00 PURE HYPERCHOLESTEROLEMIA, UNSPECIFIED 11/23/2016 PERLA MACEDO MD Ot F03.91 UNSPECIFIED DEMENTIA WITH BEHAVIORAL DIS 11/23/2016 PERLA MACEDO MD Ot F32.9 MAJOR DEPRESSIVE DISORDER, SINGLE EPISOD 11/23/2016 PERLA MACEDO MD Ot I10 ESSENTIAL (PRIMARY) HYPERTENSION 11/23/2016 PERLA MACEDO MD Ot I27.2 OTHER SECONDARY PULMONARY HYPERTENSION 11/23/2016 PERLA MACEDO MD Ot I48.91 UNSPECIFIED ATRIAL FIBRILLATION 11/23/2016 PERLA MACEDO MD Ot J45.909 UNSPECIFIED ASTHMA, UNCOMPLICATED 11/23/2016 PERLA MACEDO MD Ot K57.32 DVTRCLI OF LG INT W/O PERFORATION OR ABS 11/23/2016 PERLA MACEDO MD Ot K58.1 IRRITABLE BOWEL SYNDROME WITH CONSTIPATI 11/23/2016 PERLA MACEDO MD Ot K59.09 OTHER CONSTIPATION 11/23/2016 PERLA MACEDO MD Ot M19.91 PRIMARY OSTEOARTHRITIS, UNSPECIFIED SITE 11/23/2016 ODGERS MD, PERLA K Ot M81.0 AGE-RELATED OSTEOPOROSIS W/O CURRENT PAT 11/23/2016 PERLA MACEDO MD Ot N12 TUBULO-INTERSTITIAL NEPHRITIS, NOT SPCF 11/23/2016 PERLA MACEDO MD Ot R01.1 CARDIAC MURMUR, UNSPECIFIED 11/23/2016 PERLA MACEDO MD Ot Z66 DO NOT RESUSCITATE 11/23/2016 PERLA MACEDO MD Ot Z95.0 PRESENCE OF CARDIAC PACEMAKER 02/04/2017 ANNMARIE FARIAI L [employer] Ot N28.1 CYST OF KIDNEY, ACQUIRED 02/04/2017 FARIAANNMARIEI L [employer]ER Ot R10.11 RIGHT UPPER QUADRANT PAIN 02/04/2017 FARIA, ANGÉLICA L [employer] Ot R10.12 LEFT UPPER QUADRANT PAIN 02/04/2017 FARIA, ANGÉLICA L [employer] Ot R11.0 NAUSEA 02/04/2017 FARIAANNMARIEI L [employer] POL[employer]ER Ot Z90.49 ACQUIRED ABSENCE OF OTHER SPECIFIED PART 02/04/2017 FARIAANNMARIEI L [employer] POLISHER Ot N28.1 CYST OF KIDNEY, ACQUIRED 02/04/2017 FARIA, ANGÉLICA L [employer] POLISHER Ot R10.11 RIGHT UPPER QUADRANT PAIN 02/04/2017 FARIA, ANGÉLICA L [employer] POLISHER Ot R10.12 LEFT UPPER QUADRANT PAIN 02/04/2017 FARIA, ANGÉLICA L [employer] POLISHER Ot R11.0 NAUSEA 02/04/2017 FARIA, ANGÉLICA L [employer] POL[employer]ER Ot Z90.49 ACQUIRED ABSENCE OF OTHER SPECIFIED PART 02/06/2017 CARLOS YOUSIF MEASUREMENT COORDINATOR Ot Z12.31 ENCNTR SCREEN MAMMOGRAM FOR MALIGNANT NE 02/06/2017 CARLOS YOUSIF MEASUREMENT COORDINATOR Ot Z95.0 PRESENCE OF CARDIAC PACEMAKER 02/06/2017 SIMRAN JEFFRIES APRN Ot J18.9 PNEUMONIA, UNSPECIFIED ORGANISM 02/06/2017 SIMRAN JEFFRIES APRN Ot J44.9 CHRONIC OBSTRUCTIVE PULMONARY DISEASE, U 02/06/2017 ESTEPHANIE MAY MD R Ot M54.2 CERVICALGIA 02/06/2017 ESTEHPANIE MAY MD Ot E03.9 HYPOTHYROIDISM, UNSPECIFIED 02/06/2017 ESTEPHANIE MAY MD Ot J45.909 UNSPECIFIED ASTHMA, UNCOMPLICATED 02/06/2017 SEGLIE MD, ESTEPHANIE R Ot M54.5 LOW BACK PAIN 02/06/2017 YADIRA BERRY, ESTEPHANIE R Ot N39.0 URINARY TRACT INFECTION, SITE NOT SPECIF 02/06/2017 YADIRA BERRY, ESTEPHANIE R Ot R06.02 SHORTNESS OF BREATH 02/06/2017 KAREEM PATIÑO, ALI FACP CCDS Ot I48.91 UNSPECIFIED ATRIAL FIBRILLATION 02/06/2017 KATE GUERRERO DO Ot J30.9 ALLERGIC RHINITIS, UNSPECIFIED 02/06/2017 KAREEM BERRY [facility], ALI FACP CCDS Ot Z51.81 ENCOUNTER FOR THERAPEUTIC DRUG LEVEL MON 02/06/2017 KAREEM BERRY [facility], ALI FACP CCDS Ot Z79.01 FDC (CURRENT) USE OF ANTICOAGULANT 02/06/[address] [facility] [facility] CCDS Ot Z51.81 ENCOUNTER FOR THERAPEUTIC DRUG LEVEL MON 02/06/2017 KAREEM BERRY FACC, ALI FACP CCDS Ot Z79.01 FDC (CURRENT) USE OF ANTICOAGULANT 02/06/2017 KAREEM BERRY [facility], ALI FACP CCDS Ot Z51.81 ENCOUNTER FOR THERAPEUTIC DRUG LEVEL MON 02/06/2017 KAREEM BERRY [facility], ALI FACP CCDS Ot Z79.01 CONTACT PERSON (CURRENT) USE OF ANTICOAGULANT 02/06/2017 ANGÉLICA FARIA [employer] Ot N28.1 CYST OF KIDNEY, ACQUIRED 02/06/2017 ANGÉLICA FARIA [employer] Ot R10.11 RIGHT UPPER QUADRANT PAIN 02/06/2017 ANGÉLICA FARIA [employer] Ot R10.12 LEFT UPPER QUADRANT PAIN 02/06/2017 ANGÉLICA FARIA [employer] Ot R11.0 NAUSEA 02/06/2017 ANGÉLICA FARIA [employer] Ot Z90.49 ACQUIRED ABSENCE OF OTHER SPECIFIED PART 02/22/2017 ANGÉLICA FARIA [employer] Ot N28.1 CYST OF KIDNEY, ACQUIRED 02/22/2017 ANGÉLICA FARIA [employer] Ot R10.11 RIGHT UPPER QUADRANT PAIN 02/22/2017 ANGÉLICA FARIA [employer] Ot R10.12 LEFT UPPER QUADRANT PAIN 02/22/2017 ANGÉLICA FARIA [employer] Ot R11.0 NAUSEA 02/22/2017 ANGÉLICA FARIA [employer] Ot Z90.49 ACQUIRED ABSENCE OF OTHER SPECIFIED PART 03/01/2017 ANGÉLICA FARIA [employer] Ot N28.1 CYST OF KIDNEY, ACQUIRED 03/01/2017 ANGÉLICA FARIA [employer] Ot R10.11 RIGHT UPPER QUADRANT PAIN 03/01/2017 ANGÉLICA FARIA [employer]ER Ot R10.12 LEFT UPPER QUADRANT PAIN 03/01/2017 ANGÉLICA FARIA [employer] POL[employer]ER Ot R11.0 NAUSEA 03/01/2017 ANGÉLICA FARIA [employer] Ot Z90.49 ACQUIRED ABSENCE OF OTHER SPECIFIED PART 03/01/2017 ESTEPHANIE MAY MD R Ot I51.7 CARDIOMEGALY 03/01/2017 ESTEPHANIE MAY MD Ot K57.30 DVRTCLOS OF LG INT W/O PERFORATION OR AB 03/01/2017 ESTEPHANIE MAY MD Ot N20.0 CALCULUS OF KIDNEY 03/01/2017 ESTEPHANIE MAY MD Ot N28.1 CYST OF KIDNEY, ACQUIRED 03/01/2017 ESTEPHANIE MAY MD R Ot R63.4 ABNORMAL WEIGHT LOSS 03/06/2017 ESTEPHANIE MAY MD Ot I51.7 CARDIOMEGALY 03/06/2017 ESTEPHANIE MAY MD R Ot K57.30 DVRTCLOS OF LG INT W/O PERFORATION OR AB 03/06/2017 ESTEPHANIE MAY MD Ot N20.0 CALCULUS OF KIDNEY 03/06/2017 ESTEPHANIE MAY MD R Ot N28.1 CYST OF KIDNEY, ACQUIRED 03/06/2017 ESTEPHANIE MAY MD R Ot R63.4 ABNORMAL WEIGHT LOSS 06/12/2017 Ot 473.9 CHRONIC SINUSITIS NOS 06/12/2017 CARLOS YOUSIF MEASUREMENT COORDINATOR Ot 733.90 BONE CARTILAGE DIS NOS 06/12/2017 CARLOS YOUSIF MEASUREMENT COORDINATOR Ot V76.12 OTH SCREEN MAMMO-MALIGN NEOPLASM OF PETEY 06/12/2017 CARLOS YOUSIF MEASUREMENT COORDINATOR Ot 733.90 BONE CARTILAGE DIS NOS 06/12/2017 CARLOS YOUSIF MEASUREMENT COORDINATOR Ot V76.12 OTH SCREEN MAMMO-MALIGN NEOPLASM OF [place]EY 06/12/2017 KAREEM BERRY FACAdamaris, TINA BENITO CCDS Ot 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 06/12/2017 KAREEM BERRY FACC, TINA BENITO CCDS Ot 397.0 TRICUSPID VALVE DISEASE 06/12/2017 KAREEM BERRY FACC, ALI FACP CCDS Ot 427.31 ATRIAL FIBRILLATION 06/12/2017 KAREEM BERRY FACC, ALI FACP CCDS Ot 496 CHR AIRWAY OBSTRUCT NEC 06/12/2017 ESTEPHANIE MAY MD R Ot 427.31 ATRIAL FIBRILLATION 06/12/2017 YADIRA BERRY, ESTEPHANIE R Ot 785.0 TACHYCARDIA NOS 06/12/2017 ESTEPHANIE MAY MD R Ot 786.09 RESPIRATORY ABNORM NEC 06/12/2017 KAREEM PATIÑOC, ALI FACP CCDS Ot 250.00 DIAB WAQAR WO COMPL, TYPE II OR UNSPEC TY 06/12/2017 KAREEM BERRY FACC, ALI FACP CCDS Ot 401.9 HYPERTENSION NOS 06/12/2017 KAREEM BERRY FACC, ALI FACP CCDS Ot 427.31 ATRIAL FIBRILLATION 06/12/2017 KAREEM BERRY FACC, ALI FACP CCDS Ot 496 CHR AIRWAY OBSTRUCT NEC 06/12/2017 KAREEM BERRY FACC, ALI FACP CCDS Ot V58.61 ANTICOAGULANTS,LT,CURRENT USE 06/12/2017 KAREEM BERRY FACC, ALI FACP CCDS Ot 276.8 HYPOPOTASSEMIA 06/12/2017 KAREEM PATIÑOC, ALI FACP CCDS Ot 401.9 HYPERTENSION NOS 06/12/2017 KAREEM BERRY FACC, ALI FACP CCDS Ot 427.31 ATRIAL FIBRILLATION 06/12/2017 KAREEM BERRY FACAdamaris, ALI FACP CCDS Ot V58.61 ANTICOAGULANTS,LT,CURRENT USE 06/12/2017 KAREEM BERRY FACC, ALI FACP CCDS Ot V58.83 ENCOUNTER FOR THERAPEUTIC DRUG MONITORIN 06/12/2017 Ot 244.9 HYPOTHYROIDISM NOS 06/12/2017 Ot 250.00 DIAB WAQAR WO COMPL, TYPE II OR UNSPEC TY 06/12/2017 Ot 272.4 HYPERLIPIDEMIA NEC/NOS 06/12/2017 Ot 424.1 AORTIC VALVE DISORDER 06/12/2017 Ot 427.31 ATRIAL FIBRILLATION 06/12/2017 Ot 427.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 06/12/2017 Ot 447.9 ARTERIAL DISEASE NOS 06/12/2017 Ot 496 CHR AIRWAY OBSTRUCT NEC 06/12/2017 Ot V12.59 HX- CIRCULATORY SYST DIS,NEC 06/12/2017 Ot V58.61 ANTICOAGULANTS,LT,CURRENT USE 06/12/2017 Ot 786.2 COUGH 06/12/2017 KATE GUERRERO DO Ot 296.90 UNSPECIFIED EPISODIC MOOD DISORDER 06/12/2017 KATE GUERRERO DO Ot 427.31 ATRIAL FIBRILLATION 06/12/2017 KATE GUERRERO DO Ot 786.09 RESPIRATORY ABNORM NEC 06/12/2017 ESTEPHANIE MAY MD Ot 496 CHR AIRWAY OBSTRUCT NEC 06/12/2017 KAREEM BERRY FACC, ALI FACP CCDS Ot 244.9 HYPOTHYROIDISM NOS 06/12/2017 KAREEM BERRY FACC, ALI FACP CCDS Ot 250.00 DIAB WAQAR WO COMPL, TYPE II OR UNSPEC TY 06/12/2017 KAREEM BERRY FACC, ALI FACP CCDS Ot 272.4 HYPERLIPIDEMIA NEC/NOS 06/12/2017 KAREEM BERRY FACC, ALI FACP CCDS Ot 424.1 AORTIC VALVE DISORDER 06/12/2017 KAREEM BERRY FACC, ALI FACP CCDS Ot 427.31 ATRIAL FIBRILLATION 06/12/2017 KAREEM BERRY FACC, ALI FACP CCDS Ot 427.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 06/12/2017 KAREEM BERRY FACC, ALI FACP CCDS Ot 447.9 ARTERIAL DISEASE NOS 06/12/2017 KAREEM BERRY FACC, ALI FACP CCDS Ot 496 CHR AIRWAY OBSTRUCT NEC 06/12/2017 KAREEM BERRY FACAdamaris, ALI FACP CCDS Ot 729.81 SWELLING OF LIMB 06/12/2017 KAREEM PATIÑOC, ALI FACP CCDS Ot 787.02 NAUSEA ALONE 06/12/2017 KAREEM PATIÑOC, ALI FACP CCDS Ot V12.59 HX-CIRCULATORY SYST DIS,NEC 06/12/2017 KAREEM BERRY FACC, ALI FACP CCDS Ot V58.61 ANTICOAGULANTS,LT,CURRENT USE 06/12/2017 SIMRAN JEFFRIES DUCO POLISHER Ot 496 CHR AIRWAY OBSTRUCT NEC 06/12/2017 SIMRAN JEFFRIES APRN Ot 799.02 HYPOXEMIA 06/12/2017 SIMRAN JEFFRIES APRN Ot V12.59 HX-CIRCULATORY SYST DIS,NEC 06/12/2017 KATE GUERRERO DO Ot 473.9 06/12/2017 KATE GUERRERO DO Ot 496 06/12/2017 CARLOS YOUSIF Ot Z12.31 ENCNTR SCREEN MAMMOGRAM FOR MALIGNANT NE 06/12/2017 NICA CARLOS W MEASUREMENT COORDINATOR Ot Z95.0 PRESENCE OF CARDIAC PACEMAKER 06/12/2017 SIMRAN JEFFRIES APRN Ot J18.9 PNEUMONIA, UNSPECIFIED ORGANISM 06/12/2017 SIMRAN JEFFRIES [employer] POLISHER Ot J44.9 CHRONIC OBSTRUCTIVE PULMONARY DISEASE, U 06/12/2017 YADIRA BERRY, ESTEPHANIE R Ot M54.2 CERVICALGIA 06/12/2017 YADIRA BERRY ESTEPHANIE R Ot E03.9 HYPOTHYROIDISM, UNSPECIFIED 06/12/2017 YADIRA BERRY ESTEPHANIE R Ot J45.909 UNSPECIFIED ASTHMA, UNCOMPLICATED 06/12/2017 YADIRA BERRY ESTEPHANIE R Ot M54.5 LOW BACK PAIN 06/12/2017 YADIRA BERRY ESTEPHANIE R Ot N39.0 URINARY TRACT INFECTION, SITE NOT SPECIF 06/12/2017 YADIRA BERRY ESTEPHANIE R Ot R06.02 SHORTNESS OF BREATH 06/12/2017 KAREEM BERRY FACC, ALI FACP CCDS Ot I48.91 UNSPECIFIED ATRIAL FIBRILLATION 06/12/2017 KATE GUERRERO DO Ot J30.9 ALLERGIC RHINITIS, UNSPECIFIED 06/12/2017 KAREEM BERRY FACC, TINA FACP CCDS Ot Z51.81 ENCOUNTER FOR THERAPEUTIC DRUG LEVEL MON 06/12/2017 KAREEM BERRY FACC, ALI FACP CCDS Ot Z79.01 CONTACT PERSON (CURRENT) USE OF ANTICOAGULANT 06/12/2017 KAREEM BERRY FACC, ALI FACP CCDS Ot Z51.81 ENCOUNTER FOR THERAPEUTIC DRUG LEVEL MON 06/12/2017 KAREEM BERRY FACC, ALI FACP CCDS Ot Z79.01 CONTACT PERSON (CURRENT) USE OF ANTICOAGULANT 06/12/2017 KAREEM BERRY FACC, ALI FACP CCDS Ot Z51.81 ENCOUNTER FOR THERAPEUTIC DRUG LEVEL MON 06/12/2017 KAREEM BERRY FACC, ALI FACP CCDS Ot Z79.01 FDC (CURRENT) USE OF ANTICOAGULANT 06/12/2017 ANGÉLICA FARIA [employer] POLISHER Ot N28.1 CYST OF KIDNEY, ACQUIRED 06/12/2017 ANGÉLICA FARIA [employer] POLISHER Ot R10.11 RIGHT UPPER QUADRANT PAIN 06/12/2017 ANGÉLICA FARIA [employer] POLISHER Ot R10.12 LEFT UPPER QUADRANT PAIN 06/12/2017 ANGÉLICA FARIA [employer] POLISHER Ot R11.0 NAUSEA 06/12/2017 ANGÉLICA FARIA [employer] POLISHER Ot Z90.49 ACQUIRED ABSENCE OF OTHER SPECIFIED PART 06/12/2017 YADIRA BERRY, ESTEPHANIE R Ot I51.7 CARDIOMEGALY 06/12/2017 YADIRA BERRY, ESTEPHANIE R Ot K57.30 DVRTCLOS OF LG INT W/O PERFORATION OR AB 06/12/2017 ESTEPHANIE MAY MD R Ot N20.0 CALCULUS OF KIDNEY 06/12/2017 YADIRA BERRY ESTEPHANIE R Ot N28.1 CYST OF KIDNEY, ACQUIRED 06/12/2017 YADIRA BERRY, ESTEPHANIE R Ot R63.4 ABNORMAL WEIGHT LOSS 06/28/2017 ESTEPHANIE MAY MD R Ot K57.30 DVRTCLOS OF LG INT W/O PERFORATION OR AB 06/28/2017 YADIRA BERRY ESTEPHANIE R Ot N20.0 CALCULUS OF KIDNEY 07/03/2017 YADIRA BERRY ESTEPHANIE R Ot K57.30 DVRTCLOS OF LG INT W/O PERFORATION OR AB 07/03/2017 YADIRA BERRY, ESTEPHANIE R Ot N20.0 CALCULUS OF KIDNEY 07/09/2017 CHARLOTTE ENG L MEASUREMENT COORDINATOR Ot 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 07/09/2017 CHRALOTTE ENG L MEASUREMENT COORDINATOR Ot I48.1 PERSISTENT ATRIAL FIBRILLATION 07/09/2017 ANDERSONMALAURYCHARLOTTE L MEASUREMENT COORDINATOR Ot 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 07/09/2017 ANDERSONMACHARLOTTE L MEASUREMENT COORDINATOR Ot 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 07/09/2017 CHARLOTTE ENG L MEASUREMENT COORDINATOR Ot Z79.01 FDC (CURRENT) USE OF ANTICOAGULANT 07/17/2017 BAIMALAURYCHARLOTTE L MEASUREMENT COORDINATOR Ot 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 07/17/2017 BAIMALAURYCHARLOTTE L MEASUREMENT COORDINATOR Ot I48.1 PERSISTENT ATRIAL FIBRILLATION 07/17/2017 BAIMA CHARLOTTE L MEASUREMENT COORDINATOR Ot 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 07/17/2017 BAIMA, CHARLOTTE L MEASUREMENT COORDINATOR Ot 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 07/17/2017 ANDERSONMALAURYCHARLOTTE L MEASUREMENT COORDINATOR Ot Z79.01 CONTACT PERSON (CURRENT) USE OF ANTICOAGULANT 07/19/2017 ESTEPHANIE MAY MD Ot K57.30 DVRTCLOS OF LG INT W/O PERFORATION OR AB 07/19/2017 ESTEPHANIE MAY MD R Ot N20.0 CALCULUS OF KIDNEY 07/25/2017 ESTEPHANIE MAY MD Ot K57.30 DVRTCLOS OF LG INT W/O PERFORATION OR AB 07/25/2017 ESTEPHANIE MAY MD Ot N20.0 CALCULUS OF KIDNEY Procedures There is no data. Results Test Result Range Complete blood count (CBC) with automated white blood cell (WBC) differential - 07/20/16 03:47 Blood leukocytes automated count (number/volume) 9.0 10*3/uL 4.3-11.0 Blood erythrocytes automated count (number/volume) 4.78 10*6/uL 4.35-5.85 Venous blood hemoglobin measurement (mass/volume) 13.8 g/dL 11.5-16.0 Blood hematocrit (volume fraction) 44 % 35-52 Automated erythrocyte mean corpuscular volume 92 [foz_us] 80-99 Automated erythrocyte mean corpuscular hemoglobin (mass per erythrocyte) 29 pg 25-34 Automated erythrocyte mean corpuscular hemoglobin concentration measurement ( mass/volume) 32 g/dL 32-36 Automated erythrocyte distribution width ratio 15.7 % 10.0-14.5 Automated blood platelet count (count/volume) 237 10*3/uL 130-400 Automated blood platelet mean volume measurement 10.5 [foz_us] 7.4-10.4 Automated blood neutrophils/100 leukocytes 96 % 42-75 Automated blood lymphocytes/100 leukocytes 1 % 12-44 Blood monocytes/100 leukocytes 1 % 0-12 Automated blood eosinophils/100 leukocytes 2 % 0-10 Automated blood basophils/100 leukocytes 0 % 0-10 Blood neutrophils automated count (number/volume) 8.6 10*3 1.8-7.8 Blood lymphocytes automated count (number/volume) 0.1 10*3 1.0-4.0 Blood monocytes automated count (number/volume) 0.1 10*3 0.0-1.0 Automated eosinophil count 0.1 10*3/uL 0.0-0.3 Automated blood basophil count (count/volume) 0.0 10*3/uL 0.0-0.1 PT panel in platelet poor plasma by coagulation assay - 07/20/16 03:47 Prothrombin time (PT) in platelet poor plasma by coagulation assay 25.4 s 12.2-14.7 INR in platelet poor plasma or blood by coagulation assay 2.3 0.8-1.4 Activated partial thromboplastin time (aPTT) in platelet poor plasma bycoagulation assay - 07/20/16 03:47 Activated partial thromboplastin time (aPTT) in platelet poor plasma bycoagulation assay 40 s 24-35 Comprehensive metabolic panel - 07/20/16 03:47 Serum or plasma sodium measurement (moles/volume) 141 mmol/L 135-145 Serum or plasma potassium measurement (moles/volume) 3.8 mmol/L 3.6-5.0 Serum or plasma chloride measurement (moles/volume) 105 mmol/L 98-107 Carbon dioxide 24 mmol/L 21-32 Serum or plasma anion gap determination (moles/volume) 12 mmol/L 5-14 Serum or plasma urea nitrogen measurement (mass/volume) 24 mg/dL 7-18 Serum or plasma creatinine measurement (mass/volume) 1.46 mg/dL 0.60-1.30 Serum or plasma urea nitrogen/creatinine mass ratio 16 NRG Serum or plasma creatinine measurement with calculation of estimated glomerular filtration rate 34 NRG Serum or plasma glucose measurement (mass/volume) 151 mg/dL 70-105 Serum or plasma calcium measurement (mass/volume) 9.4 mg/dL 8.5-10.1 Serum or plasma total bilirubin measurement (mass/volume) 1.9 mg/dL 0.1-1.0 Serum or plasma alkaline phosphatase measurement (enzymatic activity/volume) 55 U/L 40-136 Serum or plasma aspartate aminotransferase measurement (enzymatic activity/ volume) 33 U/L 5-34 Serum or plasma alanine aminotransferase measurement (enzymatic activity/volume ) 18 U/L 0-55 Serum or plasma protein measurement (mass/volume) 6.2 g/dL 6.4-8.2 Serum or plasma albumin measurement (mass/volume) 3.6 g/dL 3.2-4.5 Blood lactic acid measurement (moles/volume) - 07/20/16 03:47 Blood lactic acid measurement (moles/volume) 2.2 mmol/L 0.5-2.0 Blood manual differential performed detection - 07/20/16 03:47 Blood monocytes/100 leukocytes 1 % NRG Manual blood segmented neutrophils/100 leukocytes 70 % NRG Blood band neutrophils/100 leukocytes 26 % NRG Manual blood lymphocytes/100 leukocytes 1 % NRG Manual eosinophils/100 leukocytes in nose 1 % NRG Manual blood basophils/100 leukocytes 0 % NRG Blood lymphocytes variant/100 leukocytes 1 % NRG Blood anisocytosis detection by light microscopy SLIGHT NRG Blood toxic granules detection by light microscopy 1+ NRG Bacterial blood culture - 07/20/16 03:47 Bacterial blood culture NG NRG Complete urinalysis with reflex to culture - 07/20/16 04:50 Urine color determination ORANGE NRG Urine clarity determination CLEAR NRG Urine pH measurement by test strip 5 5-9 Specific gravity of urine by test strip 1.015 1.016- 1.022 Urine protein assay by test strip, semi-quantitative 2+ NEGATIVE Urine glucose detection by automated test strip NEGATIVE NEGATIVE Erythrocytes detection in urine sediment by light microscopy NEGATIVE NEGATIVE Urine ketones detection by automated test strip NEGATIVE NEGATIVE Urine nitrite detection by test strip POSITIVE NEGATIVE Urine total bilirubin detection by test strip 2+ NEGATIVE Urine urobilinogen measurement by automated test strip (mass/volume) 4 mg/dL NORMAL Urine leukocyte esterase detection by dipstick NEGATIVE NEGATIVE Automated urine sediment erythrocyte count by microscopy (number/high power field) NONE NRG Automated urine sediment leukocyte count by microscopy (number/high power field ) RARE NRG Bacteria detection in urine sediment by light microscopy TRACE NRG Squamous epithelial cells detection in urine sediment by light microscopy RARE NRG Crystals detection in urine sediment by light microscopy NONE NRG Casts detection in urine sediment by light microscopy PRESENT NRG Mucus detection in urine sediment by light microscopy SMALL NRG Complete urinalysis with reflex to culture YES NRG Hyaline casts detection in urine sediment by light microscopy 5-10 NRG Bacterial urine culture - 07/20/16 04:50 Bacterial urine culture NG NRG Bacterial blood culture - 07/20/16 05:07 Bacterial blood culture NG NRG Serum or plasma lactate measurement (moles/volume) - 07/20/16 07:00 Serum or plasma lactate measurement (moles/volume) 3.4 mmol/L 0.5-2.0 Complete blood count (CBC) with automated white blood cell (WBC) differential - 07/21/16 05:05 Blood leukocytes automated count (number/volume) 10.6 10*3/uL 4.3-11.0 Blood erythrocytes automated count (number/volume) 4.13 10*6/uL 4.35-5.85 Venous blood hemoglobin measurement (mass/volume) 12.3 g/dL 11.5-16.0 Blood hematocrit (volume fraction) 38 % 35-52 Automated erythrocyte mean corpuscular volume 92 [foz_us] 80-99 Automated erythrocyte mean corpuscular hemoglobin (mass per erythrocyte) 30 pg 25-34 Automated erythrocyte mean corpuscular hemoglobin concentration measurement ( mass/volume) 32 g/dL 32-36 Automated erythrocyte distribution width ratio 16.1 % 10.0-14.5 Automated blood platelet count (count/volume) 188 10*3/uL 130-400 Automated blood platelet mean volume measurement 10.7 [foz_us] 7.4-10.4 Automated blood neutrophils/100 leukocytes 79 % 42-75 Automated blood lymphocytes/100 leukocytes 10 % 12-44 Blood monocytes/100 leukocytes 6 % 0-12 Automated blood eosinophils/100 leukocytes 4 % 0-10 Automated blood basophils/100 leukocytes 0 % 0-10 Blood neutrophils automated count (number/volume) 8.4 10*3 1.8-7.8 Blood lymphocytes automated count (number/volume) 1.1 10*3 1.0-4.0 Blood monocytes automated count (number/volume) 0.7 10*3 0.0-1.0 Automated eosinophil count 0.4 10*3/uL 0.0-0.3 Automated blood basophil count (count/volume) 0.0 10*3/uL 0.0-0.1 PT panel in platelet poor plasma by coagulation assay - 07/21/16 05:05 Prothrombin time (PT) in platelet poor plasma by coagulation assay 28.3 s 12.2-14.7 INR in platelet poor plasma or blood by coagulation assay 2.7 0.8-1.4 Comprehensive metabolic panel - 07/21/16 05:05 Serum or plasma sodium measurement (moles/volume) 140 mmol/L 135-145 Serum or plasma potassium measurement (moles/volume) 3.9 mmol/L 3.6-5.0 Serum or plasma chloride measurement (moles/volume) 111 mmol/L 98-107 Carbon dioxide 18 mmol/L 21-32 Serum or plasma anion gap determination (moles/volume) 11 mmol/L 5-14 Serum or plasma urea nitrogen measurement (mass/volume) 25 mg/dL 7-18 Serum or plasma creatinine measurement (mass/volume) 1.28 mg/dL 0.60-1.30 Serum or plasma urea nitrogen/creatinine mass ratio 20 NRG Serum or plasma creatinine measurement with calculation of estimated glomerular filtration rate 40 NRG Serum or plasma glucose measurement (mass/volume) 78 mg/dL 70-105 Serum or plasma calcium measurement (mass/volume) 8.2 mg/dL 8.5-10.1 Serum or plasma total bilirubin measurement (mass/volume) 1.3 mg/dL 0.1-1.0 Serum or plasma alkaline phosphatase measurement (enzymatic activity/volume) 52 U/L 40-136 Serum or plasma aspartate aminotransferase measurement (enzymatic activity/ volume) 33 U/L 5-34 Serum or plasma alanine aminotransferase measurement (enzymatic activity/volume ) 17 U/L 0-55 Serum or plasma protein measurement (mass/volume) 5.4 g/dL 6.4-8.2 Serum or plasma albumin measurement (mass/volume) 3.2 g/dL 3.2-4.5 Serum or plasma lithium measurement (moles/volume) - 07/21/16 05:05 BNP level 178.2 pg/mL <100.0 Complete blood count (CBC) with automated white blood cell (WBC) differential - 07/22/16 05:25 Blood leukocytes automated count (number/volume) 8.0 10*3/uL 4.3-11.0 Blood erythrocytes automated count (number/volume) 4.15 10*6/uL 4.35-5.85 Venous blood hemoglobin measurement (mass/volume) 12.2 g/dL 11.5-16.0 Blood hematocrit (volume fraction) 38 % 35-52 Automated erythrocyte mean corpuscular volume 92 [foz_us] 80-99 Automated erythrocyte mean corpuscular hemoglobin (mass per erythrocyte) 29 pg 25-34 Automated erythrocyte mean corpuscular hemoglobin concentration measurement ( mass/volume) 32 g/dL 32-36 Automated erythrocyte distribution width ratio 16.0 % 10.0-14.5 Automated blood platelet count (count/volume) 214 10*3/uL 130-400 Automated blood platelet mean volume measurement 10.9 [foz_us] 7.4-10.4 Automated blood neutrophils/100 leukocytes 69 % 42-75 Automated blood lymphocytes/100 leukocytes 17 % 12-44 Blood monocytes/100 leukocytes 7 % 0-12 Automated blood eosinophils/100 leukocytes 7 % 0-10 Automated blood basophils/100 leukocytes 0 % 0-10 Blood neutrophils automated count (number/volume) 5.5 10*3 1.8-7.8 Blood lymphocytes automated count (number/volume) 1.4 10*3 1.0-4.0 Blood monocytes automated count (number/volume) 0.5 10*3 0.0-1.0 Automated eosinophil count 0.6 10*3/uL 0.0-0.3 Automated blood basophil count (count/volume) 0.0 10*3/uL 0.0-0.1 PT panel in platelet poor plasma by coagulation assay - 07/22/16 05:25 Prothrombin time (PT) in platelet poor plasma by coagulation assay 25.2 s 12.2-14.7 INR in platelet poor plasma or blood by coagulation assay 2.3 0.8-1.4 Comprehensive metabolic panel - 07/22/16 05:25 Serum or plasma sodium measurement (moles/volume) 142 mmol/L 135-145 Serum or plasma potassium measurement (moles/volume) 3.9 mmol/L 3.6-5.0 Serum or plasma chloride measurement (moles/volume) 115 mmol/L 98-107 Carbon dioxide 19 mmol/L 21-32 Serum or plasma anion gap determination (moles/volume) 8 mmol/L 5-14 Serum or plasma urea nitrogen measurement (mass/volume) 17 mg/dL 7-18 Serum or plasma creatinine measurement (mass/volume) 1.03 mg/dL 0.60-1.30 Serum or plasma urea nitrogen/creatinine mass ratio 17 NRG Serum or plasma creatinine measurement with calculation of estimated glomerular filtration rate 51 NRG Serum or plasma glucose measurement (mass/volume) 89 mg/dL 70-105 Serum or plasma calcium measurement (mass/volume) 8.1 mg/dL 8.5-10.1 Serum or plasma total bilirubin measurement (mass/volume) 0.7 mg/dL 0.1-1.0 Serum or plasma alkaline phosphatase measurement (enzymatic activity/volume) 53 U/L 40-136 Serum or plasma aspartate aminotransferase measurement (enzymatic activity/ volume) 26 U/L 5-34 Serum or plasma alanine aminotransferase measurement (enzymatic activity/volume ) 15 U/L 0-55 Serum or plasma protein measurement (mass/volume) 5.3 g/dL 6.4-8.2 Serum or plasma albumin measurement (mass/volume) 3.0 g/dL 3.2-4.5 Serum or plasma lithium measurement (moles/volume) - 07/22/16 05:25 BNP level 212.6 pg/mL <100.0 PT panel in platelet poor plasma by coagulation assay - 07/23/16 05:38 Prothrombin time (PT) in platelet poor plasma by coagulation assay 26.0 s 12.2-14.7 INR in platelet poor plasma or blood by coagulation assay 2.4 0.8-1.4 Complete blood count (CBC) with automated white blood cell (WBC) differential - 08/28/16 09:49 Blood leukocytes automated count (number/volume) 18.8 10*3/uL 4.3-11.0 Blood erythrocytes automated count (number/volume) 4.69 10*6/uL 4.35-5.85 Venous blood hemoglobin measurement (mass/volume) 13.6 g/dL 11.5-16.0 Blood hematocrit (volume fraction) 43 % 35-52 Automated erythrocyte mean corpuscular volume 91 [foz_us] 80-99 Automated erythrocyte mean corpuscular hemoglobin (mass per erythrocyte) 29 pg 25-34 Automated erythrocyte mean corpuscular hemoglobin concentration measurement ( mass/volume) 32 g/dL 32-36 Automated erythrocyte distribution width ratio 15.1 % 10.0-14.5 Automated blood platelet count (count/volume) 219 10*3/uL 130-400 Automated blood platelet mean volume measurement 11.0 [foz_us] 7.4-10.4 Automated blood neutrophils/100 leukocytes 93 % 42-75 Automated blood lymphocytes/100 leukocytes 2 % 12-44 Blood monocytes/100 leukocytes 5 % 0-12 Automated blood eosinophils/100 leukocytes 1 % 0-10 Automated blood basophils/100 leukocytes 0 % 0-10 Blood neutrophils automated count (number/volume) 17.4 10*3 1.8-7.8 Blood lymphocytes automated count (number/volume) 0.3 10*3 1.0-4.0 Blood monocytes automated count (number/volume) 0.9 10*3 0.0-1.0 Automated eosinophil count 0.1 10*3/uL 0.0-0.3 Automated blood basophil count (count/volume) 0.0 10*3/uL 0.0-0.1 PT panel in platelet poor plasma by coagulation assay - 08/28/16 09:49 Prothrombin time (PT) in platelet poor plasma by coagulation assay 29.8 s 12.2-14.7 INR in platelet poor plasma or blood by coagulation assay 2.9 0.8-1.4 Activated partial thromboplastin time (aPTT) in platelet poor plasma bycoagulation assay - 08/28/16 09:49 Activated partial thromboplastin time (aPTT) in platelet poor plasma bycoagulation assay 38 s 24-35 Comprehensive metabolic panel - 08/28/16 09:49 Serum or plasma sodium measurement (moles/volume) 146 mmol/L 135-145 Serum or plasma potassium measurement (moles/volume) 3.8 mmol/L 3.6-5.0 Serum or plasma chloride measurement (moles/volume) 112 mmol/L 98-107 Carbon dioxide 24 mmol/L 21-32 Serum or plasma anion gap determination (moles/volume) 10 mmol/L 5-14 Serum or plasma urea nitrogen measurement (mass/volume) 25 mg/dL 7-18 Serum or plasma creatinine measurement (mass/volume) 1.58 mg/dL 0.60-1.30 Serum or plasma urea nitrogen/creatinine mass ratio 16 NRG Serum or plasma creatinine measurement with calculation of estimated glomerular filtration rate 31 NRG Serum or plasma glucose measurement (mass/volume) 122 mg/dL 70-105 Serum or plasma calcium measurement (mass/volume) 8.4 mg/dL 8.5-10.1 Serum or plasma total bilirubin measurement (mass/volume) 1.9 mg/dL 0.1-1.0 Serum or plasma alkaline phosphatase measurement (enzymatic activity/volume) 47 U/L 40-136 Serum or plasma aspartate aminotransferase measurement (enzymatic activity/ volume) 26 U/L 5-34 Serum or plasma alanine aminotransferase measurement (enzymatic activity/volume ) 11 U/L 0-55 Serum or plasma protein measurement (mass/volume) 5.6 g/dL 6.4-8.2 Serum or plasma albumin measurement (mass/volume) 3.3 g/dL 3.2-4.5 Blood manual differential performed detection - 08/28/16 09:49 Blood monocytes/100 leukocytes 2 % NRG Manual blood segmented neutrophils/100 leukocytes 67 % NRG Blood band neutrophils/100 leukocytes 26 % NRG Manual blood lymphocytes/100 leukocytes 5 % NRG Manual eosinophils/100 leukocytes in nose 0 % NRG Manual blood basophils/100 leukocytes 0 % NRG Blood toxic granules detection by light microscopy 1+ NRG Blood dohle body detection by light microscopy SLIGHT NRG Blood poikilocytosis detection by light microscopy SLIGHT NRG Bacterial blood culture - 08/28/16 09:49 QUANTITY OF GROWTH Isolated NRG Bacterial blood culture [id number] NRG Complete urinalysis with reflex to culture - 08/28/16 10:00 Urine color determination YELLOW NRG Urine clarity determination CLEAR NRG Urine pH measurement by test strip 5 5-9 Specific gravity of urine by test strip 1.020 1.016- 1.022 Urine protein assay by test strip, semi-quantitative 2+ NEGATIVE Urine glucose detection by automated test strip NEGATIVE NEGATIVE Erythrocytes detection in urine sediment by light microscopy NEGATIVE NEGATIVE Urine ketones detection by automated test strip 1+ NEGATIVE Urine nitrite detection by test strip NEGATIVE NEGATIVE Urine total bilirubin detection by test strip 2+ NEGATIVE Urine urobilinogen measurement by automated test strip (mass/volume) NORMAL NORMAL Urine leukocyte esterase detection by dipstick 1+ NEGATIVE Automated urine sediment erythrocyte count by microscopy (number/high power field) [HPF] NRG Automated urine sediment leukocyte count by microscopy (number/high power field ) [HPF] NRG Bacteria detection in urine sediment by light microscopy FEW NRG Crystals detection in urine sediment by light microscopy PRESENT NRG Casts detection in urine sediment by light microscopy PRESENT NRG Mucus detection in urine sediment by light microscopy LARGE NRG Complete urinalysis with reflex to culture YES NRG Amorphous sediment detection in urine sediment by light microscopy FEW CHARLES URATES NRG Hyaline casts detection in urine sediment by light microscopy >50 NRG Bacterial urine culture - 08/28/16 10:00 Bacterial urine culture NG NRG Blood lactic acid measurement (moles/volume) - 08/28/16 10:25 Blood lactic acid measurement (moles/volume) 2.7 mmol/L 0.5-2.0 Bacterial blood culture - 08/28/16 10:25 Bacterial blood culture NG NRG Serum or plasma lactate measurement (moles/volume) - 08/28/16 12:37 Serum or plasma lactate measurement (moles/volume) 2.6 mmol/L 0.5-2.0 Complete blood count (CBC) with automated white blood cell (WBC) differential - 08/29/16 06:04 Blood leukocytes automated count (number/volume) 13.6 10*3/uL 4.3-11.0 Blood erythrocytes automated count (number/volume) 4.24 10*6/uL 4.35-5.85 Venous blood hemoglobin measurement (mass/volume) 12.5 g/dL 11.5-16.0 Blood hematocrit (volume fraction) 39 % 35-52 Automated erythrocyte mean corpuscular volume 92 [foz_us] 80-99 Automated erythrocyte mean corpuscular hemoglobin (mass per erythrocyte) 30 pg 25-34 Automated erythrocyte mean corpuscular hemoglobin concentration measurement ( mass/volume) 32 g/dL 32-36 Automated erythrocyte distribution width ratio 15.2 % 10.0-14.5 Automated blood platelet count (count/volume) 181 10*3/uL 130-400 Automated blood platelet mean volume measurement 11.3 [foz_us] 7.4-10.4 Automated blood neutrophils/100 leukocytes 83 % 42-75 Automated blood lymphocytes/100 leukocytes 8 % 12-44 Blood monocytes/100 leukocytes 5 % 0-12 Automated blood eosinophils/100 leukocytes 4 % 0-10 Automated blood basophils/100 leukocytes 0 % 0-10 Blood neutrophils automated count (number/volume) 11.4 10*3 1.8-7.8 Blood lymphocytes automated count (number/volume) 1.1 10*3 1.0-4.0 Blood monocytes automated count (number/volume) 0.6 10*3 0.0-1.0 Automated eosinophil count 0.5 10*3/uL 0.0-0.3 Automated blood basophil count (count/volume) 0.0 10*3/uL 0.0-0.1 Comprehensive metabolic panel - 08/29/16 06:04 Serum or plasma sodium measurement (moles/volume) 144 mmol/L 135-145 Serum or plasma potassium measurement (moles/volume) 3.9 mmol/L 3.6-5.0 Serum or plasma chloride measurement (moles/volume) 116 mmol/L 98-107 Carbon dioxide 20 mmol/L 21-32 Serum or plasma anion gap determination (moles/volume) 8 mmol/L 5-14 Serum or plasma urea nitrogen measurement (mass/volume) 26 mg/dL 7-18 Serum or plasma creatinine measurement (mass/volume) 1.28 mg/dL 0.60-1.30 Serum or plasma urea nitrogen/creatinine mass ratio 20 NRG Serum or plasma creatinine measurement with calculation of estimated glomerular filtration rate 40 NRG Serum or plasma glucose measurement (mass/volume) 89 mg/dL 70-105 Serum or plasma calcium measurement (mass/volume) 7.6 mg/dL 8.5-10.1 Serum or plasma total bilirubin measurement (mass/volume) 1.8 mg/dL 0.1-1.0 Serum or plasma alkaline phosphatase measurement (enzymatic activity/volume) 50 U/L 40-136 Serum or plasma aspartate aminotransferase measurement (enzymatic activity/ volume) 25 U/L 5-34 Serum or plasma alanine aminotransferase measurement (enzymatic activity/volume ) 11 U/L 0-55 Serum or plasma protein measurement (mass/volume) 4.9 g/dL 6.4-8.2 Serum or plasma albumin measurement (mass/volume) 3.0 g/dL 3.2-4.5 PT panel in platelet poor plasma by coagulation assay - 08/29/16 06:04 Prothrombin time (PT) in platelet poor plasma by coagulation assay 33.7 s 12.2-14.7 INR in platelet poor plasma or blood by coagulation assay 3.3 0.8-1.4 Serum or plasma lithium measurement (moles/volume) - 08/29/16 06:04 BNP level 140.1 pg/mL <100.0 Complete blood count (CBC) with automated white blood cell (WBC) differential - 08/30/16 05:27 Blood leukocytes automated count (number/volume) 10.8 10*3/uL 4.3-11.0 Blood erythrocytes automated count (number/volume) 4.38 10*6/uL 4.35-5.85 Venous blood hemoglobin measurement (mass/volume) 12.7 g/dL 11.5-16.0 Blood hematocrit (volume fraction) 40 % 35-52 Automated erythrocyte mean corpuscular volume 91 [foz_us] 80-99 Automated erythrocyte mean corpuscular hemoglobin (mass per erythrocyte) 29 pg 25-34 Automated erythrocyte mean corpuscular hemoglobin concentration measurement ( mass/volume) 32 g/dL 32-36 Automated erythrocyte distribution width ratio 15.0 % 10.0-14.5 Automated blood platelet count (count/volume) 188 10*3/uL 130-400 Automated blood platelet mean volume measurement 11.4 [foz_us] 7.4-10.4 Automated blood neutrophils/100 leukocytes 73 % 42-75 Automated blood lymphocytes/100 leukocytes 15 % 12-44 Blood monocytes/100 leukocytes 6 % 0-12 Automated blood eosinophils/100 leukocytes 7 % 0-10 Automated blood basophils/100 leukocytes 0 % 0-10 Blood neutrophils automated count (number/volume) 7.9 10*3 1.8-7.8 Blood lymphocytes automated count (number/volume) 1.6 10*3 1.0-4.0 Blood monocytes automated count (number/volume) 0.6 10*3 0.0-1.0 Automated eosinophil count 0.7 10*3/uL 0.0-0.3 Automated blood basophil count (count/volume) 0.0 10*3/uL 0.0-0.1 PT panel in platelet poor plasma by coagulation assay - 08/30/16 05:27 Prothrombin time (PT) in platelet poor plasma by coagulation assay 32.2 s 12.2-14.7 INR in platelet poor plasma or blood by coagulation assay 3.1 0.8-1.4 Comprehensive metabolic panel - 08/30/16 05:27 Serum or plasma sodium measurement (moles/volume) 144 mmol/L 135-145 Serum or plasma potassium measurement (moles/volume) 3.7 mmol/L 3.6-5.0 Serum or plasma chloride measurement (moles/volume) 116 mmol/L 98-107 Carbon dioxide 19 mmol/L 21-32 Serum or plasma anion gap determination (moles/volume) 9 mmol/L 5-14 Serum or plasma urea nitrogen measurement (mass/volume) 16 mg/dL 7-18 Serum or plasma creatinine measurement (mass/volume) 0.95 mg/dL 0.60-1.30 Serum or plasma urea nitrogen/creatinine mass ratio 17 NRG Serum or plasma creatinine measurement with calculation of estimated glomerular filtration rate 56 NRG Serum or plasma glucose measurement (mass/volume) 96 mg/dL 70-105 Serum or plasma calcium measurement (mass/volume) 7.9 mg/dL 8.5-10.1 Serum or plasma total bilirubin measurement (mass/volume) 1.6 mg/dL 0.1-1.0 Serum or plasma alkaline phosphatase measurement (enzymatic activity/volume) 50 U/L 40-136 Serum or plasma aspartate aminotransferase measurement (enzymatic activity/ volume) 22 U/L 5-34 Serum or plasma alanine aminotransferase measurement (enzymatic activity/volume ) 10 U/L 0-55 Serum or plasma protein measurement (mass/volume) 5.5 g/dL 6.4-8.2 Serum or plasma albumin measurement (mass/volume) 3.2 g/dL 3.2-4.5 Complete blood count (CBC) with automated white blood cell (WBC) differential - 08/31/16 05:10 Blood leukocytes automated count (number/volume) 8.6 10*3/uL 4.3-11.0 Blood erythrocytes automated count (number/volume) 4.11 10*6/uL 4.35-5.85 Venous blood hemoglobin measurement (mass/volume) 12.0 g/dL 11.5-16.0 Blood hematocrit (volume fraction) 37 % 35-52 Automated erythrocyte mean corpuscular volume 90 [foz_us] 80-99 Automated erythrocyte mean corpuscular hemoglobin (mass per erythrocyte) 29 pg 25-34 Automated erythrocyte mean corpuscular hemoglobin concentration measurement ( mass/volume) 33 g/dL 32-36 Automated erythrocyte distribution width ratio 14.9 % 10.0-14.5 Automated blood platelet count (count/volume) 190 10*3/uL 130-400 Automated blood platelet mean volume measurement 11.3 [foz_us] 7.4-10.4 Automated blood neutrophils/100 leukocytes 65 % 42-75 Automated blood lymphocytes/100 leukocytes 20 % 12-44 Blood monocytes/100 leukocytes 7 % 0-12 Automated blood eosinophils/100 leukocytes 8 % 0-10 Automated blood basophils/100 leukocytes 0 % 0-10 Blood neutrophils automated count (number/volume) 5.6 10*3 1.8-7.8 Blood lymphocytes automated count (number/volume) 1.7 10*3 1.0-4.0 Blood monocytes automated count (number/volume) 0.6 10*3 0.0-1.0 Automated eosinophil count 0.7 10*3/uL 0.0-0.3 Automated blood basophil count (count/volume) 0.0 10*3/uL 0.0-0.1 Comprehensive metabolic panel - 08/31/16 05:10 Serum or plasma sodium measurement (moles/volume) 144 mmol/L 135-145 Serum or plasma potassium measurement (moles/volume) 3.8 mmol/L 3.6-5.0 Serum or plasma chloride measurement (moles/volume) 119 mmol/L 98-107 Carbon dioxide 18 mmol/L 21-32 Serum or plasma anion gap determination (moles/volume) 7 mmol/L 5-14 Serum or plasma urea nitrogen measurement (mass/volume) 9 mg/dL 7-18 Serum or plasma creatinine measurement (mass/volume) 0.83 mg/dL 0.60-1.30 Serum or plasma urea nitrogen/creatinine mass ratio 11 NRG Serum or plasma creatinine measurement with calculation of estimated glomerular filtration rate > NRG Serum or plasma glucose measurement (mass/volume) 102 mg/dL 70-105 Serum or plasma calcium measurement (mass/volume) 8.1 mg/dL 8.5-10.1 Serum or plasma total bilirubin measurement (mass/volume) 1.0 mg/dL 0.1-1.0 Serum or plasma alkaline phosphatase measurement (enzymatic activity/volume) 55 U/L 40-136 Serum or plasma aspartate aminotransferase measurement (enzymatic activity/ volume) 18 U/L 5-34 Serum or plasma alanine aminotransferase measurement (enzymatic activity/volume ) 12 U/L 0-55 Serum or plasma protein measurement (mass/volume) 5.4 g/dL 6.4-8.2 Serum or plasma albumin measurement (mass/volume) 3.2 g/dL 3.2-4.5 PT panel in platelet poor plasma by coagulation assay - 08/31/16 05:10 Prothrombin time (PT) in platelet poor plasma by coagulation assay 32.2 s 12.2-14.7 INR in platelet poor plasma or blood by coagulation assay 3.1 0.8-1.4 Complete blood count (CBC) with automated white blood cell (WBC) differential - 09/02/16 05:30 Blood leukocytes automated count (number/volume) 6.4 10*3/uL 4.3-11.0 Blood erythrocytes automated count (number/volume) 4.35 10*6/uL 4.35-5.85 Venous blood hemoglobin measurement (mass/volume) 12.7 g/dL 11.5-16.0 Blood hematocrit (volume fraction) 39 % 35-52 Automated erythrocyte mean corpuscular volume 90 [foz_us] 80-99 Automated erythrocyte mean corpuscular hemoglobin (mass per erythrocyte) 29 pg 25-34 Automated erythrocyte mean corpuscular hemoglobin concentration measurement ( mass/volume) 33 g/dL 32-36 Automated erythrocyte distribution width ratio 14.8 % 10.0-14.5 Automated blood platelet count (count/volume) 212 10*3/uL 130-400 Automated blood platelet mean volume measurement 11.3 [foz_us] 7.4-10.4 Automated blood neutrophils/100 leukocytes 40 % 42-75 Automated blood lymphocytes/100 leukocytes 35 % 12-44 Blood monocytes/100 leukocytes 13 % 0-12 Automated blood eosinophils/100 leukocytes 11 % 0-10 Automated blood basophils/100 leukocytes 1 % 0-10 Blood neutrophils automated count (number/volume) 2.6 10*3 1.8-7.8 Blood lymphocytes automated count (number/volume) 2.2 10*3 1.0-4.0 Blood monocytes automated count (number/volume) 0.8 10*3 0.0-1.0 Automated eosinophil count 0.7 10*3/uL 0.0-0.3 Automated blood basophil count (count/volume) 0.1 10*3/uL 0.0-0.1 PT panel in platelet poor plasma by coagulation assay - 09/02/16 05:30 Prothrombin time (PT) in platelet poor plasma by coagulation assay 25.0 s 12.2-14.7 INR in platelet poor plasma or blood by coagulation assay 2.3 0.8-1.4 Whole blood basic metabolic panel - 09/02/16 05:30 Serum or plasma sodium measurement (moles/volume) 144 mmol/L 135-145 Serum or plasma potassium measurement (moles/volume) 4.2 mmol/L 3.6-5.0 Serum or plasma chloride measurement (moles/volume) 112 mmol/L 98-107 Carbon dioxide 24 mmol/L 21-32 Serum or plasma anion gap determination (moles/volume) 8 mmol/L 5-14 Serum or plasma urea nitrogen measurement (mass/volume) 10 mg/dL 7-18 Serum or plasma creatinine measurement (mass/volume) 0.99 mg/dL 0.60-1.30 Serum or plasma urea nitrogen/creatinine mass ratio 10 NRG Serum or plasma creatinine measurement with calculation of estimated glomerular filtration rate 53 NRG Serum or plasma glucose measurement (mass/volume) 92 mg/dL 70-105 Serum or plasma calcium measurement (mass/volume) 8.8 mg/dL 8.5-10.1 Magnesium - 09/02/16 05:30 Magnesium 2.0 mg/dL 1.8-2.4 PT panel in platelet poor plasma by coagulation assay - 09/03/16 05:45 Prothrombin time (PT) in platelet poor plasma by coagulation assay 26.2 s 12.2-14.7 INR in platelet poor plasma or blood by coagulation assay 2.4 0.8-1.4 PT panel in platelet poor plasma by coagulation assay - 09/05/16 14:15 Prothrombin time (PT) in platelet poor plasma by coagulation assay 26.0 s 12.2-14.7 INR in platelet poor plasma or blood by coagulation assay 2.4 0.8-1.4 PT panel in platelet poor plasma by coagulation assay - 09/12/16 11:20 Prothrombin time (PT) in platelet poor plasma by coagulation assay 20.9 s 12.2-14.7 INR in platelet poor plasma or blood by coagulation assay 1.8 0.8-1.4 Complete blood count (CBC) with automated white blood cell (WBC) differential - 11/20/16 16:00 Blood leukocytes automated count (number/volume) 7.2 10*3/uL 4.3-11.0 Blood erythrocytes automated count (number/volume) 4.68 10*6/uL 4.35-5.85 Venous blood hemoglobin measurement (mass/volume) 13.4 g/dL 11.5-16.0 Blood hematocrit (volume fraction) 42 % 35-52 Automated erythrocyte mean corpuscular volume 90 [foz_us] 80-99 Automated erythrocyte mean corpuscular hemoglobin (mass per erythrocyte) 29 pg 25-34 Automated erythrocyte mean corpuscular hemoglobin concentration measurement ( mass/volume) 32 g/dL 32-36 Automated erythrocyte distribution width ratio 16.8 % 10.0-14.5 Automated blood platelet count (count/volume) 201 10*3/uL 130-400 Automated blood platelet mean volume measurement 10.7 [foz_us] 7.4-10.4 Automated blood neutrophils/100 leukocytes 81 % 42-75 Automated blood lymphocytes/100 leukocytes 11 % 12-44 Blood monocytes/100 leukocytes 6 % 0-12 Automated blood eosinophils/100 leukocytes 3 % 0-10 Automated blood basophils/100 leukocytes 0 % 0-10 Blood neutrophils automated count (number/volume) 5.8 10*3 1.8-7.8 Blood lymphocytes automated count (number/volume) 0.8 10*3 1.0-4.0 Blood monocytes automated count (number/volume) 0.4 10*3 0.0-1.0 Automated eosinophil count 0.2 10*3/uL 0.0-0.3 Automated blood basophil count (count/volume) 0.0 10*3/uL 0.0-0.1 Comprehensive metabolic panel - 11/20/16 16:00 Serum or plasma sodium measurement (moles/volume) 141 mmol/L 135-145 Serum or plasma potassium measurement (moles/volume) 4.2 mmol/L 3.6-5.0 Serum or plasma chloride measurement (moles/volume) 108 mmol/L 98-107 Carbon dioxide 23 mmol/L 21-32 Serum or plasma anion gap determination (moles/volume) 10 mmol/L 5-14 Serum or plasma urea nitrogen measurement (mass/volume) 18 mg/dL 7-18 Serum or plasma creatinine measurement (mass/volume) 0.88 mg/dL 0.60-1.30 Serum or plasma urea nitrogen/creatinine mass ratio 20 NRG Serum or plasma creatinine measurement with calculation of estimated glomerular filtration rate > NRG Serum or plasma glucose measurement (mass/volume) 136 mg/dL 70-105 Serum or plasma calcium measurement (mass/volume) 8.4 mg/dL 8.5-10.1 Serum or plasma total bilirubin measurement (mass/volume) 2.6 mg/dL 0.1-1.0 Serum or plasma alkaline phosphatase measurement (enzymatic activity/volume) 64 U/L 40-136 Serum or plasma aspartate aminotransferase measurement (enzymatic activity/ volume) 26 U/L 5-34 Serum or plasma alanine aminotransferase measurement (enzymatic activity/volume ) 19 U/L 0-55 Serum or plasma protein measurement (mass/volume) 6.4 g/dL 6.4-8.2 Serum or plasma albumin measurement (mass/volume) 3.7 g/dL 3.2-4.5 Lipase - 11/20/16 16:00 Lipase 8 U/L 8-78 PT panel in platelet poor plasma by coagulation assay - 11/20/16 16:00 Prothrombin time (PT) in platelet poor plasma by coagulation assay 29.0 s 12.2-14.7 INR in platelet poor plasma or blood by coagulation assay 2.8 0.8-1.4 Complete urinalysis with reflex to culture - 11/20/16 18:15 Urine color determination YELLOW NRG Urine clarity determination CLEAR NRG Urine pH measurement by test strip 6 5-9 Specific gravity of urine by test strip 1.020 1.016- 1.022 Urine protein assay by test strip, semi-quantitative 2+ NEGATIVE Urine glucose detection by automated test strip NEGATIVE NEGATIVE Erythrocytes detection in urine sediment by light microscopy 1+ NEGATIVE Urine ketones detection by automated test strip NEGATIVE NEGATIVE Urine nitrite detection by test strip NEGATIVE NEGATIVE Urine total bilirubin detection by test strip NEGATIVE NEGATIVE Urine urobilinogen measurement by automated test strip (mass/volume) NORMAL NORMAL Urine leukocyte esterase detection by dipstick 1+ NEGATIVE Automated urine sediment erythrocyte count by microscopy (number/high power field) [HPF] NRG Automated urine sediment leukocyte count by microscopy (number/high power field ) [HPF] NRG Bacteria detection in urine sediment by light microscopy NONE NRG Crystals detection in urine sediment by light microscopy NONE NRG Casts detection in urine sediment by light microscopy NONE NRG Mucus detection in urine sediment by light microscopy NEGATIVE NRG Complete urinalysis with reflex to culture NO NRG Complete blood count (CBC) with automated white blood cell (WBC) differential - 11/21/16 10:20 Blood leukocytes automated count (number/volume) 6.0 10*3/uL 4.3-11.0 Blood erythrocytes automated count (number/volume) 4.55 10*6/uL 4.35-5.85 Venous blood hemoglobin measurement (mass/volume) 13.0 g/dL 11.5-16.0 Blood hematocrit (volume fraction) 41 % 35-52 Automated erythrocyte mean corpuscular volume 89 [foz_us] 80-99 Automated erythrocyte mean corpuscular hemoglobin (mass per erythrocyte) 29 pg 25-34 Automated erythrocyte mean corpuscular hemoglobin concentration measurement ( mass/volume) 32 g/dL 32-36 Automated erythrocyte distribution width ratio 16.5 % 10.0-14.5 Automated blood platelet count (count/volume) 190 10*3/uL 130-400 Automated blood platelet mean volume measurement 11.2 [foz_us] 7.4-10.4 Automated blood neutrophils/100 leukocytes 89 % 42-75 Automated blood lymphocytes/100 leukocytes 7 % 12-44 Blood monocytes/100 leukocytes 4 % 0-12 Automated blood eosinophils/100 leukocytes 0 % 0-10 Automated blood basophils/100 leukocytes 0 % 0-10 Blood neutrophils automated count (number/volume) 5.3 10*3 1.8-7.8 Blood lymphocytes automated count (number/volume) 0.4 10*3 1.0-4.0 Blood monocytes automated count (number/volume) 0.2 10*3 0.0-1.0 Automated eosinophil count 0.0 10*3/uL 0.0-0.3 Automated blood basophil count (count/volume) 0.0 10*3/uL 0.0-0.1 Blood manual differential performed detection - 11/21/16 10:20 Blood monocytes/100 leukocytes 0 % NRG Manual blood segmented neutrophils/100 leukocytes 89 % NRG Blood band neutrophils/100 leukocytes 0 % NRG Manual blood lymphocytes/100 leukocytes 11 % NRG Manual eosinophils/100 leukocytes in nose 0 % NRG Manual blood basophils/100 leukocytes 0 % NRG Blood anisocytosis detection by light microscopy [facility] Comprehensive metabolic panel - 11/21/16 10:20 Serum or plasma sodium measurement (moles/volume) 139 mmol/L 135-145 Serum or plasma potassium measurement (moles/volume) 3.5 mmol/L 3.6-5.0 Serum or plasma chloride measurement (moles/volume) 107 mmol/L 98-107 Carbon dioxide 21 mmol/L 21-32 Serum or plasma anion gap determination (moles/volume) 11 mmol/L 5-14 Serum or plasma urea nitrogen measurement (mass/volume) 17 mg/dL 7-18 Serum or plasma creatinine measurement (mass/volume) 0.92 mg/dL 0.60-1.30 Serum or plasma urea nitrogen/creatinine mass ratio 18 NRG Serum or plasma creatinine measurement with calculation of estimated glomerular filtration rate 58 NRG Serum or plasma glucose measurement (mass/volume) 187 mg/dL 70-105 Serum or plasma calcium measurement (mass/volume) 8.5 mg/dL 8.5-10.1 Serum or plasma total bilirubin measurement (mass/volume) 1.8 mg/dL 0.1-1.0 Serum or plasma alkaline phosphatase measurement (enzymatic activity/volume) 65 U/L 40-136 Serum or plasma aspartate aminotransferase measurement (enzymatic activity/ volume) 26 U/L 5-34 Serum or plasma alanine aminotransferase measurement (enzymatic activity/volume ) 19 U/L 0-55 Serum or plasma protein measurement (mass/volume) 6.3 g/dL 6.4-8.2 Serum or plasma albumin measurement (mass/volume) 3.6 g/dL 3.2-4.5 PT panel in platelet poor plasma by coagulation assay - 11/22/16 05:40 Prothrombin time (PT) in platelet poor plasma by coagulation assay 33.9 s 12.2-14.7 INR in platelet poor plasma or blood by coagulation assay 3.4 0.8-1.4 Complete blood count (CBC) with automated white blood cell (WBC) differential - 11/22/16 05:40 Blood leukocytes automated count (number/volume) 11.5 10*3/uL 4.3-11.0 Blood erythrocytes automated count (number/volume) 4.35 10*6/uL 4.35-5.85 Venous blood hemoglobin measurement (mass/volume) 12.5 g/dL 11.5-16.0 Blood hematocrit (volume fraction) 39 % 35-52 Automated erythrocyte mean corpuscular volume 89 [foz_us] 80-99 Automated erythrocyte mean corpuscular hemoglobin (mass per erythrocyte) 29 pg 25-34 Automated erythrocyte mean corpuscular hemoglobin concentration measurement ( mass/volume) 32 g/dL 32-36 Automated erythrocyte distribution width ratio 16.7 % 10.0-14.5 Automated blood platelet count (count/volume) 214 10*3/uL 130-400 Automated blood platelet mean volume measurement 11.2 [foz_us] 7.4-10.4 Automated blood neutrophils/100 leukocytes 80 % 42-75 Automated blood lymphocytes/100 leukocytes 10 % 12-44 Blood monocytes/100 leukocytes 10 % 0-12 Automated blood eosinophils/100 leukocytes 0 % 0-10 Automated blood basophils/100 leukocytes 0 % 0-10 Blood neutrophils automated count (number/volume) 9.2 10*3 1.8-7.8 Blood lymphocytes automated count (number/volume) 1.1 10*3 1.0-4.0 Blood monocytes automated count (number/volume) 1.2 10*3 0.0-1.0 Automated eosinophil count 0.0 10*3/uL 0.0-0.3 Automated blood basophil count (count/volume) 0.0 10*3/uL 0.0-0.1 Whole blood basic metabolic panel - 11/22/16 05:40 Serum or plasma sodium measurement (moles/volume) 143 mmol/L 135-145 Serum or plasma potassium measurement (moles/volume) 4.1 mmol/L 3.6-5.0 Serum or plasma chloride measurement (moles/volume) 112 mmol/L 98-107 Carbon dioxide 22 mmol/L 21-32 Serum or plasma anion gap determination (moles/volume) 9 mmol/L 5-14 Serum or plasma urea nitrogen measurement (mass/volume) 19 mg/dL 7-18 Serum or plasma creatinine measurement (mass/volume) 1.00 mg/dL 0.60-1.30 Serum or plasma urea nitrogen/creatinine mass ratio 19 NRG Serum or plasma creatinine measurement with calculation of estimated glomerular filtration rate 53 NRG Serum or plasma glucose measurement (mass/volume) 124 mg/dL 70-105 Serum or plasma calcium measurement (mass/volume) 8.5 mg/dL 8.5-10.1 Magnesium - 11/22/16 05:40 Magnesium 2.2 mg/dL 1.8-2.4 THYROID STIMULATING HORMONE - 11/22/16 05:40 THYROID STIMULATING HORMONE 2.72 u[iU]/mL 0.35-4.94 PT panel in platelet poor plasma by coagulation assay - 11/23/16 10:30 Prothrombin time (PT) in platelet poor plasma by coagulation assay 27.4 s 12.2-14.7 INR in platelet poor plasma or blood by coagulation assay 2.6 0.8-1.4 Encounters ACCT No. Visit Date/Time Discharge Status Pt. Type Provider Facility Loc./Unit Complaint [id number] 06/27/2017 08:17:00 06/27/2017 23:59:59 CLS Outpatient ESTEPHANIE MAY MD [facility] RAD R10.32 [id number] 06/17/2017 09:37:00 06/17/2017 23:59:59 CLS Outpatient CHARLOTTE ENG [facility] CARD AORTIC VALVE STENOSIS [id number] 02/08/2017 13:02:00 02/08/2017 23:59:59 CLS Outpatient ESTEPHANIE MAY MD [facility] RAD R10.13 [id number] 02/01/2017 06:42:00 02/01/2017 23:59:59 CLS Outpatient ANGÉLICA FARIA JOHNY [facility] RAD LUQ/RUQ PAIN [id number] 11/20/2016 17:56:00 11/23/2016 11:35:00 DIS Inpatient PERLA MACEDO MD [facility] [address] ACUTE DIVERTICULITIS, INTRACTABLE NAUSEA/VOMITING [id number] 09/21/2016 14:44:00 09/21/2016 23:59:59 CLS Outpatient KAREEM BERRY FACAdamaris, TINA FACNel CCDS [facility] ANTICOAG THERPAY [id number] 09/12/2016 12:04:00 09/12/2016 23:59:59 CLS Outpatient KAREEM BERRY FACC, TINA FACNel CCDS [facility] ANTICOAG THERAPY [id number] 09/05/2016 14:54:00 09/05/2016 23:59:59 CLS Outpatient KAREEM BERRY FACC, ALI FACNel CCDS [facility] ENCOUNTER FOR THERAPUEUTIC DRUG LEVEL MONITORING [id number] 08/31/2016 10:57:00 09/03/2016 11:33:00 DIS Inpatient JAGRUTI AGGARWAL DO [facility] [address] SWB-WEAKNESS [id number] 08/28/2016 12:15:00 08/31/2016 10:56:00 DIS Inpatient PERLA MACEDO MD [facility] [address] SEPSIS [id number] 07/20/2016 05:45:00 07/23/2016 10:32:00 DIS Inpatient JAGRUTI AGGARWAL DO [facility] [address] UTI,SEPSIS [id number] 03/21/2016 12:53:00 03/21/2016 15:03:00 DIS Outpatient CHANDU CORTEZ DO [facility] REHAB CERVICAL STENOSIS; RADICULOPATHY; KYPHOSIS [id number] 12/29/2015 16:45:00 12/29/2015 23:59:59 CLS Outpatient KATE GUERRERO DO [facility] RAD ALLERGIC RHINITIS [id number] 12/29/2015 11:09:00 12/29/2015 23:59:59 CLS Outpatient ESTEPHANIE MAY MD [facility] RAD NECK PAIN [id number] 12/28/2015 09:54:00 12/28/2015 23:59:59 CLS Outpatient TINA SERNA MD, FACC, FACP CCDS [facility] LAB ATRIAL FIBRILLATION [id number] 12/28/2015 09:25:00 12/28/2015 23:59:59 CLS Outpatient ESTEPHANIE MAY MD [facility] LAB SOB,NECK PAIN,UTI [id number] 12/08/2015 09:33:00 12/08/2015 23:59:59 CLS Outpatient SIMRAN JEFFRIES APRN [facility] RAD PNEUMONIA,COPD [id number] 11/21/2015 02:47:00 11/22/2015 07:55:00 DIS Inpatient ESTEPHANIE MAY MD [facility] 4TH FEVER; UTI [id number] 08/24/2015 09:06:00 08/24/2015 23:59:59 CLS Outpatient CARLOS YOUSIF [facility] RAD SCREENING [id number] 06/24/2015 11:23:00 06/29/2015 11:05:00 DIS Inpatient ESTEPHANIE MAY MD [facility] [address] SWB,PNEUMONIA [id number] 06/19/2015 20:20:00 06/24/2015 11:21:00 DIS Inpatient ESTEPHANIE MAY MD [facility] [address] GASTROENTERITIS [id number] 05/03/2015 06:45:00 05/03/2015 23:59:59 CLS Outpatient KAREEM BERRY FACC, TINA BENITO CCDS [facility] HLP, AA STENSOS [id number] 04/28/2015 14:00:00 04/28/2015 23:59:59 CLS Preadmit KATE GUERRERO DO [facility] RAD COPD,SINUSITIS CHRONIC, CRONCHITIS,ASTHMA [id number] 03/30/2015 10:55:00 04/27/2015 00:01:00 DIS Outpatient KATE GUERRERO DO [facility] RAD COPD,SINUSITIS CHRONIC, CRONCHITIS,ASTHMA [id number] 03/09/2015 12:03:00 03/09/2015 13:17:00 DIS Outpatient ESTEPHANIE MAY MD [facility] CR STABLE ANGINA [id number] 02/16/2015 11:56:00 02/16/2015 23:59:59 CLS Outpatient SIMRAN JEFFRIES APRN [facility] RAD COPD,HX OF PULMONARY HTN,NOCTURNAL HYPOXEMIA [id number] 01/07/2015 20:53:00 01/08/2015 06:30:00 DIS Outpatient KATE GUERRERO DO [facility] SLEEP SNORING,GASPING DURING SLEEP [id number] 12/29/2014 11:00:00 01/01/2015 17:45:00 DIS Inpatient ESTEPHANIE MAY MD [facility] 4TH INTRACTABLE NAUSEA/ VOMITING;UTI [id number] 11/29/2014 12:01:00 11/30/2014 00:01:00 DIS Outpatient ESTEPHANIE MAY MD [facility] CR STABLE ANGINA [id number] 11/18/2014 00:11:00 11/18/2014 23:59:59 CLS Preadmit TINA SERNA MD, FACC, FACP CCDS [facility] LAB AFIB,CAD, DIABETES,HTN, [id number] 08/19/2014 14:59:00 11/17/2014 00:01:00 DIS Outpatient TINA SERNA MD, FACC, FACP CCDS [facility] LAB AFIB,CAD, DIABETES,HTN, [id number] 11/15/2014 13:04:00 11/15/2014 23:59:59 CLS Outpatient KATE GUERRERO DO [facility] RT COPD,SNORING,MOOD DISORDER ,ATRIAL FIBRILLATION [id number] 11/08/2014 10:01:00 11/08/2014 23:59:59 CLS Outpatient ESTEPHANIE MAY MD [facility] RAD COPD [id number] 10/15/2014 10:30:00 10/19/2014 10:13:00 DIS Inpatient ESTEPHANIE MAY MD [facility] 4TH PNUEMONIA [id number] 08/03/2014 10:32:00 08/03/2014 23:59:59 CLS Outpatient KAREEM BERRY FACC, TINA BENITO CCDS [facility] A FIB,ANTICOAG [place], HYPOPOTASSIUM, HTN [id number] 07/27/2014 12:50:00 07/27/2014 23:59:59 CLS Outpatient KAREEM BERRY FACC, TINA BENITO CCDS [facility] DM,COPD,HTN, AFIB,ANTICOAG THERAPY [id number] 07/21/2014 08:49:00 07/24/2014 10:52:00 DIS Inpatient ESTEPHANIE MAY MD [facility] 4TH DEHYDRATION,POSSIBLE SEPTISEMIA,BRONHEAL ASTHMA [id number] 07/10/2014 17:05:00 07/19/2014 14:30:00 DIS Inpatient ESTEPHANIE MAY MD [facility] ICU ASTHMA EXACERBATION,A- FIB [id number] 07/07/2014 12:19:00 07/07/2014 23:59:59 CLS Outpatient ESTEPHANIE MAY MD [facility] RAD TACHYCARDIA DYSPNEA AFIB [id number] 05/25/2014 13:46:00 05/25/2014 23:59:59 CLS Outpatient KAREEM BERRY FACC, TINA BENITO CCDS [facility] HLP,AFIB, COPD [id number] 04/15/2014 09:00:00 04/15/2014 23:59:59 CLS Outpatient CARLOS YOUSIF [facility] RAD SCREENING OSTEOPENIA [id number] 01/09/2013 10:57:00 01/09/2013 23:59:59 CLS Outpatient CARLOS YOUSIF [facility] RAD SCREENING, OSTEOPENIA [id number] 12/24/2012 08:39:00 12/26/2012 09:55:00 DIS Inpatient ESTEPHANIE MAY MD [facility] 4TH NAUSEA VOMITING DIARRHEA ABDOMINAL PAIN UTI [id number] 10/11/2014 12:25:00 Document Registration [id number] 09/30/2014 06:41:00 Document Registration [id number] 09/21/2014 13:31:00 Document Registration [id number] 07/09/2012 10:25:00 Document Registration [id number] 06/26/2012 19:10:00 Document Registration [id number] 06/14/2012 08:04:00 Document Registration [id number] 11/28/2011 12:33:00 Document Registration [id number] 11/10/2011 20:21:00 Document Registration [id number] 08/23/2011 13:10:00 Document Registration [id number] 06/26/2011 14:44:00 Document Registration [id number] 01/15/2011 11:50:00 Document Registration [id number] 01/11/2011 13:45:00 Document Registration [id number] 12/07/2010 12:32:00 Document Registration [id number] 11/13/2010 21:46:00 Document Registration [id number] 10/10/2010 11:03:00 Document Registration [id number] 09/27/2010 08:43:00 Document Registration [id number] 09/12/2010 09:52:00 Document Registration [id number] 08/23/2010 10:46:00 Document Registration [id number] 08/08/2010 15:24:00 Document Registration [id number] 08/01/2010 05:33:00 Document Registration [id number] 05/31/2010 09:52:00 Document Registration [id number] 05/29/2010 08:55:00 Document Registration [id number] 05/03/2010 13:51:00 Document Registration [id number] 11:02:00 Document Registration
[2017-08-10] MEDS ORDERED: LACTATED RINGERS 1,000 ML IV ONE (07:22)
[2017-08-10] MEDS ORDERED: RT-ALBUTEROL/IPRATROPIUM 3 ML (DUONEB) VIAL INH ONE (07:30)
[2017-08-10] MEDS ORDERED: ONDANSETRON 4 MG/2 ML (SDV) Z0FRAN IVP PRN (07:30)
[2017-08-10] MEDS ORDERED: LEVOFLOXACIN IV 750 MG/150 ML (LEVAQUIN) BAG IV ONE (07:30)
[2017-08-10 07:44] LABS: BASOPHILS % (AUTO) 0 % (0-10); EOSINOPHILS % (AUTO) 0 % (0-10); HEMATOCRIT 38 % (35-52); HEMOGLOBIN 12.6 G/DL (11.5-16.0); LYMPHOCYTES # (AUTO) 1.8 X 10^3 (1.0-4.0); LYMPHOCYTES % (AUTO) 14 % (12-44); MEAN CORPUSCULAR HEMOGLOBIN 31 PG (25-34); MEAN CORPUSCULAR HGB CONC 33 G/DL (32-36); MEAN CORPUSCULAR VOLUME 93 FL (80-99); MEAN PLATELET VOLUME 10.6 FL (7.4-10.4); MONOCYTES # (AUTO) 1.1 X 10^3 (0.0-1.0); MONOCYTES % (AUTO) 8 % (0-12); NEUTROPHILS % (AUTO) 77 % (42-75); PLATELET COUNT 252 10^3/uL (130-400)
--- NOTE | 2017-08-10 07:44 | ED Respiratory ---
General Chief Complaint: Fever-Adult/Adol Stated Complaint: COUGH,FEVER 99.4 Nursing Triage Note: ARRIVED VIA WC TO ROOM 05. DAUGHTER STATES ON SATURDAY SHE HAD DENTAL WORK DONE AND HAD A LITTLE BLEEDING AFTER. DAUGHTER THINKS SHE ASPIRATED ON THE BLOOD. PT HAS A COUGH AND FEVER. WAS SEEN AT URGENT CARE AND GIVEN A SHOT OF AMPICILLIN AND PUT ON DOXY. Source: patient, family Exam Limitations: no limitations History of Present Illness Time seen by provider: 07:09 Initial Comments Patient presents to ER by private conveyance with a chief complaint that she has a history of asthma and for the past 2 days she's been having uncontrollable cough, shortness of breath, fatigue, body aches and fever. Last dose of Motrin or Tylenol was last night about 8:00. She's not been keeping fluids down very well and she feels nauseated but she has not vomited yet today. Vomited times one yesterday with no blood in it. She is having constipation as well and feels generally distended in her abdomen. Her cough yesterday was clear and then went to urgent care and were told it was viral. Not sure if she had a flu test. She did get a flu vaccine this year. Today she is producing a loose green phlegm. She is on Coumadin and had stopped this recently for a tooth extraction 6 days ago. She plan to restart it today. She is also on Breo, albuterol every 4 hours for last couple days and typically she is on prednisone 2.5 mg daily for her chronic neck osteoarthritis but she has recently started up to 10 mg because she was not feeling well. Family also notes that the patient is having quite a bit of bleeding from her tooth socket after the tooth extraction despite being off the Coumadin and was afraid maybe she's aspirated some of that blood and her lungs. Since that precipitated her getting sick and coughing. Her episode of nausea and was apparently precipitated by a strong coughing fit. Patient is on Coumadin for history of atrial fibrillation. She is status post an ablation. She has some aortic stenosis and a history of CHF. She has a pacemaker. Patient has not had valvular replacement surgery because she's had some troubles with anesthesia in the past. She's had multiple surgeries on her nose through ENT. Family reports the patient is also had some declining mental and cognitive function possible Alzheimer's dementia since her heart problem started up. She is known to Dr. Cook, cardiology. Allergies and Home Medications Allergies Coded Allergies: amoxicillin (Verified Allergy, Unknown, 06/21/15) cefadroxil (Verified Allergy, Unknown, 06/21/15) clavulanic acid (Verified Allergy, Unknown, 06/21/15) codeine (Verified Allergy, Unknown, 06/21/15) haloperidol (Verified Allergy, Unknown, 06/21/15) iodine (Verified Allergy, Unknown, 06/21/15) triazolam (Verified Allergy, Unknown, PT TAKES ALPRAZOLAM AT HOME, 08/31/16) zolpidem (Verified Allergy, Unknown, 06/21/15) donepezil (Verified Adverse Reaction, Severe, 11/20/15) NAUSEA/VOMITING promethazine HCl (Unverified Adverse Reaction, Mild, 06/21/15) Home Medications Acetaminophen 325 Mg Tablet, 650 MG PO Q4H PRN for PAIN-MILD, (Reported) TAKES 2 (325MG) TABLET Albuterol Sulfate 2.5 Mg/3 Ml Vial.neb, 2.5 MG NEB Q4H PRN for SHORTNESS OF BREATH, (Reported) Albuterol Sulfate 18 Gm Hfa.aer.ad, 2 PUFF IH Q4H PRN for SHORTNESS OF BREATH, ( Reported) Alprazolam 0.5 Mg Tablet, 0.25 MG PO TID PRN for ANXIETY, (Reported) TAKES 1/2 (0.5MG) TABLETS Fluticasone/Vilanterol 1 Each Blst.w.dev, 1 PUFF IH HS, (Reported) Furosemide 40 Mg Tablet, 40 MG PO DAILY PRN for 4LB WEIGHT GAIN, (Reported) Levothyroxine Sodium 50 Mcg Tablet, 50 MCG PO DAILY, (Reported) Loratadine 10 Mg Tablet, 10 MG PO HS, (Reported) Magnesium Oxide 250 Mg Tablet, 250 MG PO DAILY, (Reported) Melatonin/Pyridoxine HCl (B6) 1 Each Tablet, 1.5 MG PO HS, (Reported) TAKES 1/2 OF A (3 MG) TABLET Montelukast Sodium 10 Mg Tablet, 10 MG PO HS, (Reported) Ondansetron 4 Mg Tab.rapdis, 4 MG PO Q8H PRN for N/V, (Reported) Polyethylene Glycol 3350 17 Gm Powd.pack, 8.5 GM PO DAILY@1800, (Reported) TAKES 1/2 CAPFUL Potassium Chloride 20 Meq Tab.er.prt, 20 MEQ PO BID, (Reported) Pravastatin Sodium 40 Mg Tablet, 40 MG PO HS, (Reported) Prednisone 5 Mg Tablet, 2.5 MG PO DAILY, (Reported) TAKES 1/2 (5MG) TABLET Rivastigmine Tartrate 1.5 Mg Capsule, 1.5 MG PO BID, (Reported) Vitamin B Complex & Vit C No.4 150 Mg Tablet, 150 MG PO DAILY, (Reported) Constitutional: chills, No diaphoresis, fever, malaise, weakness EENTM: No hearing loss, No ear pain Respiratory: cough, phlegm, short of breath, wheezing Cardiovascular: No chest pain, No edema Gastrointestinal: No abdominal pain, constipation, No diarrhea, No nausea, No vomiting Genitourinary: No discharge, No dysuria Musculoskeletal: see HPI, neck pain Skin: No change in color, No pruritus, No rash Psychiatric/Neurological: Denies Headache, Denies Numbness, Denies Paresthesia Hematologic/Lymphatic: Easy Bleeding, Easy Bruising Past Kelgchn-Ffkgof-Ktcshg Hx Patient Social History Alcohol Use: Denies Use Number of Drinks Today: Alcohol Beverage of Choice: Wine Recreational Drug Use: No Smoking Status: Never a Smoker Recent Foreign Travel: No Contact w/Someone Who Travel: No Recent Infectious Disease Expo: No Recent Hopitalizations: Yes Immunizations Up To Date Tetanus Booster (TDap): Unknown PED Vaccines UTD: No Date of Pneumonia Vaccine: Jun 09, 2014 Date of Influenza Vaccine: May 31, 2017 Seasonal Allergies Seasonal Allergies: No Surgeries History of Surgeries: Yes (SINUS, HEMORRHOIDECTOMY, hiatal hernia, av node ablation) Surgeries: Abdominal, Appendectomy, Bladder Surgery, Breast, Cardiac, Eye Surgery, Gallbladder, Hysterectomy, Oophorectomy, Pacemaker Respiratory History of Respiratory Disorde: Yes (RESPIRATORY ARREST MULTIPLE TIMES--ON VENT IN PAST) Respiratory Disorders: Asthma, Pneumonia Currently Using CPAP: No Currently Using BIPAP: No Cardiovascular History of Cardiac Disorders: Yes (PACEMAKER, AORTIC STENOSIS, av NODE ABLATION ) Cardiac Disorders: Atrial Fibrillation, Chronic Edema/Swelling, Heart Murmur, High Cholesterol, Irregular Heartbeat, Valvular Heart Disease Neurological History of Neurological Disord: Yes Neurological Disorders: Dementia Reproductive System Hx Reproductive Disorders: No Sexually Transmitted Disease: No HIV/AIDS: No Female Reproductive Disorders: Denies Genitourinary History of Genitourinary Disor: No Genitourinary Disorders: Bladder Infection, Renal Failure, UTI-Chronic Gastrointestinal History of Gastrointestinal Di: Yes Gastrointestinal Disorders: Chronic Constipation, Irritable Bowel Musculoskeletal History of Musculoskeletal Dis: Yes (MULTIPLE FX R LOWER LEG) Musculoskeletal Disorders: Osteoporosis, Arthritis Endocrine History of Endocrine Disorders: Yes Endocrine Disorders: Hypothyroidsim HEENT History of HEENT Disorders: Yes HEENT Disorders: Cataract Loss of Vision: Denies Hearing Impairment: Denies Cancer History of Cancer: No Psychosocial History of Psychiatric Problem: No Integumentary History of Skin or Integumenta: No Blood Transfusions History of Blood Disorders: No Adverse Reaction to a Blood Tr: No Family Medical History Family Medial History: Alzheimer's disease 19 MOTHER FHx: throat cancer 19 FATHER Physical Exam Vital Signs Vital Sign - Last 12Hours 08/10/17 07:00 Temp 98.8 Pulse 70 Resp 18 B/P (MAP) 167/100 (122) Pulse Ox 96 Capillary Refill : Less Than 3 Seconds General Appearance: WD/WN, mild distress Eyes: Bilateral Eye Normal Inspection, Bilateral Eye PERRL, Bilateral Eye EOMI HEENT: PERRL/EOMI, normal ENT inspection, TMs normal, pharynx normal Neck: supple, normal inspection Respiratory: chest non-tender, no respiratory distress, no accessory muscle use , decreased breath sounds, wheezing (faint bilateral) Cardiovascular: normal peripheral pulses, regular rate, rhythm, no JVD Gastrointestinal: normal bowel sounds, soft, no organomegaly, no pulsatile mass , tenderness (mild tender to palpation bilateral lower quadrants), No mass Extremities: normal range of motion, non-tender, normal capillary refill Neurologic/Psychiatric: alert, normal mood/affect, oriented x 3 Skin: normal color, warm/dry Focused Exam Evaluation Lactate Level Laboratory Tests 08/10/17 07:25: Lactic Acid Level 2.11*H Lactic Acid Level Laboratory Tests Test 08/10/17 07:25 Lactic Acid Level 2.11 MMOL/L (0.50-2.00) *H Progress/Results/Core Measures Suspected Sepsis Recent Fever Within 48 Hours: Yes Infection Criteria Present: Documented Infection New/Unexplained Altered Menta: No Sepsis Screen: No Definite Risk Sepsis Diagnosis: SIRS Temperature:98.8 Pulse: 70 Respiratory Rate: 18 Laboratory Tests 08/10/17 07:25: White Blood Count 13.0H Blood Pressure 167 /100 Mean: 122 Laboratory Tests 08/10/17 07:25: Lactic Acid Level 2.11*H Laboratory Tests 08/10/17 07:25: Creatinine 0.83, INR Comment 1.3, Platelet Count 252, Total Bilirubin 1.7H Results/Orders Lab Results Laboratory Tests Test 08/10/17 07:25 08/10/17 07:55 Range/Units White Blood Count 13.0 H 4.3-11.0 10^3/uL Red Blood Count 4.10 L 4.35-5.85 10^6/uL Hemoglobin 12.6 11.5-16.0 G/DL Hematocrit 38 35-52 % Mean Corpuscular Volume 93 80-99 FL Mean Corpuscular Hemoglobin 31 25-34 PG Mean Corpuscular Hemoglobin Concent 33 32-36 G/DL Red Cell Distribution Width 15.0 H 10.0-14.5 % Platelet Count 252 130-400 10^3/uL Mean Platelet Volume 10.6 H 7.4-10.4 FL Neutrophils (%) (Auto) 77 H 42-75 % Lymphocytes (%) (Auto) 14 12-44 % Monocytes (%) (Auto) 8 0-12 % Eosinophils (%) (Auto) 0 0-10 % Basophils (%) (Auto) 0 0-10 % Neutrophils # (Auto) 10.0 H 1.8-7.8 X 10^3 Lymphocytes # (Auto) 1.8 1.0-4.0 X 10^3 Monocytes # (Auto) 1.1 H 0.0-1.0 X 10^3 Eosinophils # (Auto) 0.0 0.0-0.3 10^3/uL Basophils # (Auto) 0.0 0.0-0.1 10^3/uL Prothrombin Time 16.0 H 12.2-14.7 SEC INR Comment 1.3 0.8-1.4 Activated Partial Thromboplast Time 32 24-35 SEC Sodium Level 141 135-145 MMOL/L Potassium Level 4.0 3.6-5.0 MMOL/L Chloride Level 106 98-107 MMOL/L Carbon Dioxide Level 23 21-32 MMOL/L Anion Gap 12 5-14 MMOL/L Blood Urea Nitrogen 17 7-18 MG/DL Creatinine 0.83 0.60-1.30 MG/DL Estimat Glomerular Filtration Rate > 60 BUN/Creatinine Ratio 20 Glucose Level 114 H 70-105 MG/DL Lactic Acid Level 2.11 *H 0.50-2.00 MMOL/L Calcium Level 8.9 8.5-10.1 MG/DL Magnesium Level 1.8 1.8-2.4 MG/DL Total Bilirubin 1.7 H 0.1-1.0 MG/DL Aspartate Amino Transf (AST/SGOT) 22 5-34 U/L Alanine Aminotransferase (ALT/SGPT) 16 0-55 U/L Alkaline Phosphatase 58 40-136 U/L Total Protein 6.8 6.4-8.2 GM/DL Albumin 3.7 3.2-4.5 GM/DL My Orders Orders - ALEKSANDER ALLEN Cbc With Automated Diff (08/10/17:22) Comprehensive Metabolic Panel (08/10/17:22) Lactic Acid Analyzer (08/10/17:22) Blood Culture (08/10/17:22) Sputum Culture (08/10/17:22) Ua Culture If Indicated (08/10/17:22) Protime With Inr (08/10/17:) Partial Thromboplastin Time (08/10/17:22) Chest 1 View, Ap/Pa Only (08/10/17:) O2 (08/10/17:22) Ondansetron Injection (Zofran Injectio (08/10/17 07:30) Saline Lock/Iv-Start (08/10/17:22) Saline Lock/Iv-Start (08/10/17 07:22) Levofloxacin 750 Mg/150 Ml Iv (Levaquin (08/10/17 07:30) Vital Signs Adult Sepsis Patie Q1H (08/10/17:22) Remove Rings In Anticipation O (08/10/17:22) Influenza A And B Antigens (08/10/17:) Magnesium (08/10/17:22) Albuterol/Ipra Inhalation Soln (Duoneb I (08/10/17 07:30) Saline Lock/Iv-Start (08/10/17 07:22) Lactated Ringers (Lr 1000 Ml Iv Solution (08/10/17 07:22) Svn Sm Volume Nebulizer Rt-Rfs (08/10/17 07:22) Ns Iv 500 Ml (Sodium Chloride 0.9%) (08/10/17 08:03) Methylprednisolone Sod Succ (Solu-Medrol (08/10/17 08:15) Vital Signs/I&O Vital Sign - Last 12Hours 08/10/17 07:00 Temp 98.8 Pulse 70 Resp 18 B/P (MAP) 167/100 (122) Pulse Ox 96 Capillary Refill : Less Than 3 Seconds Blood Pressure Mean: 122 Progress Note : Time: 07:49 Progress Note Influenza versus pneumonia versus bronchitis. We'll get a sepsis workup start her on some antibiotics. Since she is allergic to amoxicillin and cefadroxil we will select Levaquin. We'll get her some fluids to start organic cautious about overloading her with fluids given her history of heart failure. Her echo shows likely diastolic heart failure. May 2017 echocardiogram: Left ventricle mild wall hypertrophy with an EF of 55-60%. Aortic valve is thickened consistent with sclerosis and mild to moderate stenosis. Tricuspid valve with moderate to severe regurgitation. Pulmonary artery systolic pressure 40-45 mmHg. Aortic root is not dilated. Diagnostic Imaging Diagonstic Imaging: Xray Plain Films/CT/US/NM/MRI: chest (1v) Comments RUL Infiltrate Reviewed: Reviewed by Me Departure Communication (Admissions) Time/Spoke to Admitting Phy: 08:[address] Soto and she would like Solu-Medrol for the asthma and consult cardiology. She is familiar with the patient and will see the patient. Time/Spoke to Consulting Phy: 08:20 Communication/Consulting Brit: Discussed case lab imaging echo and findings and he has requested we get a BMP for baseline. Impression Impression: Primary Impression: Pneumonia Qualified Codes: J18.1 - Lobar pneumonia, unspecified organism Additional Impressions: Asthma exacerbation Qualified Codes: J45.901 - Unspecified asthma with (acute) exacerbation Sepsis Qualified Codes: A41.9 - Sepsis, unspecified organism Disposition: ADMITTED INPATIENT Condition: Stable Admissions Decision to Admit Reason: Admit from ER (General) Decision to Admit/Date: Aug 10, 2017 Time/Decision to Admit Time: 07:55 Departure-Patient Inst. Referrals: ESTEPHANIE MAY MD (PCP/Family) Primary Care Physician Copy Copies To 1: ESTEPHANIE MAY MD, TITUS J Aug 10, 2017 07:44
[2017-08-10 07:49] LABS: INR 1.3 (0.8-1.4)
[2017-08-10 08:00] LABS: ALANINE AMINOTRANSFERASE 16 U/L (0-55); ALBUMIN 3.7 GM/DL (3.2-4.5); ALKALINE PHOSPHATASE 58 U/L (40-136); BILIRUBIN,TOTAL 1.7 MG/DL (0.1-1.0); BUN/CREATININE RATIO 20; CALCIUM 8.9 MG/DL (8.5-10.1); CARBON DIOXIDE 23 MMOL/L (21-32); CHLORIDE 106 MMOL/L (98-107); CREATININE SERUM 0.83 MG/DL (0.60-1.30); GFR ESTIMATED > 60; GLUCOSE 114 MG/DL (70-105); MAGNESIUM 1.8 MG/DL (1.8-2.4); SODIUM 141 MMOL/L (135-145); TOTAL PROTEIN 6.8 GM/DL (6.4-8.2)
[2017-08-10] MEDS ORDERED: NS IV 500 ML 500 ML IV ONE (08:03)
[2017-08-10 08:13] LABS: BILIRUBIN,URINE NEGATIVE (NEGATIVE); CLARITY,URINE CLEAR; COLOR,URINE YELLOW; GLUCOSE, URINE (UA) NEGATIVE (NEGATIVE); KETONES,URINE NEGATIVE (NEGATIVE); LEUKOCYTE ESTERASE ,URINE NEGATIVE (NEGATIVE); NITRITE,URINE NEGATIVE (NEGATIVE); PH,URINE 8 (5-9); PROTEIN,URINE NEGATIVE (NEGATIVE); UROBILINOGEN,URINE NORMAL (NORMAL)
[2017-08-10] MEDS ORDERED: methylPREDNISolone 125 MG (Solu-MEDROL) VIAL IVP ONE (08:15)
[2017-08-10 08:25] LABS: BACTERIA,URINE TRACE /HPF; WBC,URINE RARE /HPF
--- OUTSIDE RECORDS SUMMARY | 2017-08-10 08:33 | XMS REPORT | Clinical Summary ---
Author Author [facility] Organization [facility] Address Unknown Phone Unavailable Care Team Providers Care Gas Regulator Repairer Helper Name Role Phone PCP Unavailable Source Comments Some departments are not documenting in the electronic medical record. If you do not see the information that you expected, contact Release of Information in the Health Information Management department at [phone] for further assistance in locating additional records.[facility] Allergies Active Allergy Reactions Severity Noted [...]
--- OUTSIDE RECORDS SUMMARY | 2017-08-10 08:45 | XMS REPORT | Continuity of Care Document ---
Author Author [facility] Organization [facility] Address Unknown Phone Unavailable Allergies Active Description Code Type Severity Reaction Onset Reported/Identified Relationship to Patient Clinical Status Yes MARK MARK Moderate COUGHING 08/23/2011 Yes lemon [id number] Drug Allergy Severe ANAPHYLAXIS 06/21/2015 Yes promethazine HCl [id number] Drug Allergy Mild N/A 06/21/2015 Yes amoxicillin [id number] Drug Allergy Unknown N/A 06/21/2015 Yes cefadroxil [id number] Drug Allergy Unknown N/A 06/21/2015 Yes clavulanic acid [id number] Drug Allergy Unknown N/A 06/21/2015 Yes codeine [id number] Drug Allergy Unknown N/A 06/21/2015 Yes haloperidol [id number] Drug Allergy Unknown N/A 06/21/2015 Yes iodine [id number] Drug Allergy Unknown N/A 06/21/2015 Yes triazolam [id number] Drug Allergy Unknown N/A 06/21/2015 Yes zolpidem [id number] Drug Allergy Unknown N/A 06/21/2015 Yes donepezil [id number] Drug Allergy Severe N/A 11/20/2015 Yes triazolam [id number] Drug Allergy Unknown PT TAKES ALPRAZ 08/31/2016 [...] 493.90 ASTHMA, UNSPECIFIED 12/26/2012 ESTEPHANIE MAY MD Ot 276.50 VOLUME DEPLETION, UNSPECIFIED 12/26/2012 ESTEPHANIE MAY MD R Ot 401.9 HYPERTENSION NOS 12/26/2012 ESTEPHANIE MAY MD Ot 414.01 CORONARY ATHEROSCLEROSIS OF [place] CORON 12/26/2012 YADIRA BERRY, ESTEPHANIE R Ot 493.22 CHRONIC OBSTRUCTIVE ASTHMA, W (ACUTE) EX 12/26/2012 YADIRA BERRY, ESTEPHANIE R Ot 530.81 ESOPHAGEAL REFLUX 12/26/2012 YADIRA BERRY, ESTEPHANIE R Ot 558.9 NONINF GASTROENTERIT NEC 12/26/2012 YADIRA BERRY, ESTEPHANIE R Ot 562.10 DIVERTICULOSIS COLON (W/O MENT OF HEMORR 12/26/2012 YADIRA BERRY, ESTEPHANIE R Ot 599.0 URIN TRACT INFECTION NOS 12/26/2012 YADIRA BERRY, ESTEPHANIE R Ot 787.60 FULL INCONTINENCE OF FECES 06/18/2014 KAREEM BERRY FACC, ALI FACP CCDS Ot 396.8 06/18/2014 KAREME BERRY FACC, ALI FACP CCDS Ot 397.0 [...] ESTEPHANIE R Ot 276.8 07/15/2014 YADIRA BERRY, SETEPHANIE R Ot 396.2 07/15/2014 YADIRA BERRY, ESTEPHANIE [...] ESTEPHANIE R Ot 401.9 07/16/2014 YADIRA BERRY, ESTPEHANIE R Ot 427.31 07/16/2014 YADIRA BERRY, ESTEPHANIE [...] ESTEPHANIE R Ot 716.90 07/17/2014 YADIRA BERRY, ESTEPHNAIE R Ot 733.00 07/17/2014 YADIRA BERRY, ESTEPHANIE [...] YADIRA BERRY, ESTEPHANIE R Ot 493.22 07/19/2014 FIGUEROA MAY MDYD R Ot 716.90 07/19/2014 ESTEPHANIE MAY MD R Ot 733.00 07/19/2014 FIGUEROA MAY MDYD R Ot 786.50 07/19/2014 YADIRA BERRY, ESTEPHANIE R Ot E932.0 07/19/2014 ESTEPHANIE MAY MD R Ot V58.61 07/19/2014 YADIRA BERRY, ESTEPHANIE R Ot 112.0 THRUSH 07/19/2014 ESTEPHANIE MAY MD R Ot 244.9 HYPOTHYROIDISM NOS 07/19/2014 YADIRA BERRY, ESTEPHANIE R Ot 250.00 DIAB WAQAR WO COMPL, TYPE II OR UNSPEC TY 07/19/2014 ESTEPHANIE MAY MD R Ot 272.4 HYPERLIPIDEMIA NEC/NOS 07/19/2014 ESTEPHANIE MAY MD R Ot 276.8 HYPOPOTASSEMIA 07/19/2014 ESTEPHANIE MAY MD R Ot 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 07/19/2014 ESTEPHANIE MAY MD R Ot 397.0 TRICUSPID VALVE DISEASE 07/19/2014 YADIRA BERRY, ESTEPHANIE R Ot 401.9 HYPERTENSION NOS 07/19/2014 ESTEPHANIE MAY MD R Ot 427.31 ATRIAL FIBRILLATION 07/19/2014 ESTEPHANIE MAY MD R Ot 427.89 CARDIAC DYSRHYTHMIAS NEC 07/19/2014 ESTEPHANIE MAY MD R Ot 433.10 CAROTID ARTERY OCCLUSION W O CEREBRAL IN 07/19/2014 ESTEPHANIE MAY MD R Ot 459.81 VENOUS INSUFFICIENCY NOS 07/19/2014 ESTEPHANIE MAY MD R Ot 486 PNEUMONIA, ORGANISM NOS 07/19/2014 ESTEPHANIE MAY MD R Ot 493.22 CHRONIC OBSTRUCTIVE ASTHMA, W [...] FACC, ALI FACP CCDS Ot 496 08/28/2014 KRAEEM BERRY FACC, ALI FACP CCDS Ot V58.61 [...] FACP CCDS Ot 729.81 09/22/2014 KAREEM BERRY [facility], ALI FACP CCDS Ot 787.02 09/22/2014 KAREEM BERRY [facility], ALI FACP CCDS Ot V12.59 09/22/2014 KAREEM BERRY [facility] FACP CCDS Ot V58.61 09/24/2014 Ot 244.9 09/24/2014 [...] 244.9 HYPOTHYROIDISM NOS 11/17/2014 KAREEM BERRY FACC, ALI FACP CCDS Ot 250.00 DIAB WAQAR WO COMPL, TYPE II OR UNSPEC TY 11/17/2014 KAREEM BERRY FACC, ALI FACP CCDS Ot 272.4 HYPERLIPIDEMIA NEC/NOS 11/17/2014 [...] 787.02 NAUSEA ALONE 11/17/2014 KAREEM BERRY FAC, ALI HAROONP CCDS Ot V12.59 HX-CIRCULATORY SYST DIS,NEC 11/17/2014 KAREEM BERRY FACAdamaris, TINA [facility] CCDS Ot V58.61 ANTICOAGULANTS,LT,CURRENT USE 11/30/2014 YADIRA BERRY, ESTEPHANIE R Ot 413.9 ANGINA PECTORIS NEC/NOS 11/30/2014 YADIRA BERRY, ESTEPHANIE R Ot V57.89 REHABILITATION PROC NEC 12/15/2014 YADIRA BERRY, ESTEPHANIE R Ot 413.9 12/15/2014 YADIRA BERRY, ESTEPHANIE R Ot V57.89 12/15/2014 YADIRA BERRY, ESTEPHANIE R Ot 413.9 12/15/2014 YADIRA BERRY, ESTEPHANIE R Ot V57.89 12/15/2014 YADIAR BERRY, ESTEPHANIE R Ot 413.9 12/15/2014 YADIRA [...] R Ot 733.00 OSTEOPOROSIS NOS 01/01/2015 YADIRA BERYR, ESTEPHANIE R Ot 780.79 OTH MALAISE FATIGUE [...] V57.89 REHABILITATION PROC NEC 03/11/2015 SIMRAN JEFFRIES TOLL LINE REPAIRER Ot 496 03/11/2015 SIMRAN JEFFRIES TOLL LINE REPAIRER Ot 799.02 03/11/2015 SIMRAN JEFFRIES TOLL LINE REPAIRER Ot V12.59 03/17/2015 SIMRAN JEFFRIES TOLL LINE REPAIRER Ot 496 03/17/2015 SIMRAN JEFFRIES TOLL LINE REPAIRER Ot 799.02 03/17/2015 SIMRAN JEFFRIES TOLL LINE REPAIRER Ot V12.59 03/30/2015 KATE GUERRERO DO Ot 473.9 03/30/2015 KATE GUERRERO DO Ot 496 04/27/2015 KATE GUERRERO DO Ot 473.9 CHRONIC SINUSITIS NOS 04/27/2015 KATE GUERRERO DO Ot 496 CHR AIRWAY OBSTRUCT NEC 05/03/2015 KAREEM BERRY FACC, TINA PATIÑOP CCDS Ot E11.9 TYPE 2 DIABETES MELLITUS WITHOUT COMPLIC 05/03/2015 KAREEM BERRY FACC, TINA PATIÑOP CCDS Ot I08.0 RHEUMATIC DISORDERS OF BOTH MITRAL AND A 05/03/2015 KAREEM BERRY FACC, TINA FACP CCDS Ot I25.10 ATHSCL HEART DISEASE OF [place] CORONARY 05/03/2015 KAREEM BERRY FACC, TINA FACP CCDS Ot 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 [place] 05/03/2015 TINA SERNA MD, FACCP CCDS Ot I27.2 OTHER SECONDARY PULMONARY HYPERTENSION 05/03/2015 KAREEM BERRY FACC, TINA PATIÑOP CCDS Ot R06.02 SHORTNESS OF BREATH 05/03/2015 KAREEM BERRY FACC, TINA PATIÑOP CCDS Ot R53.83 OTHER FATIGUE 05/03/2015 KAREEM MD FACC, ALI FACP CCDS Ot Z79.01 FPC (CURRENT) USE OF ANTICOAGULANT 05/03/2015 KAREEM BERRY FACC, TINA FACP CCDS Ot Z79.899 OTHER PROP CUTTER (CURRENT) DRUG THERAPY 05/03/2015 KAREEM BERRY FACC, ALI FACP CCDS Ot Z95.0 PRESENCE OF [...] V76.12 06/19/2015 Ot 473.9 06/19/2015 CARLOS YOUSIF FRAME RUNNER Ot 733.90 06/19/2015 CARLOS YOUSIF FRAME RUNNER Ot V76.12 06/19/2015 CARLOS YOUSIF FRAME RUNNER Ot 733.90 06/19/2015 CARLOS YOUSIF FRAME RUNNER Ot V76.12 06/19/2015 KAREEM BERRY FACC, TINA FACP CCDS Ot 396.8 06/19/2015 KAREEM BERRY FACC, TINA FACP CCDS Ot 397.0 06/19/2015 KAREEM BERRY FACC, ALI FACP CCDS Ot 427.31 06/19/2015 KAREEM BERRY FACC, ALI FACP CCDS Ot 496 06/19/2015 YADIRA [...] DO Ot 786.09 06/19/2015 YADIRA BERRY, ESTEPHANIE R Ot 496 06/19/2015 KAREEM BERRY FACC, ALI [...] FACP CCDS Ot V58.61 06/19/2015 SIMRAN JEFFRIES TOLL LINE REPAIRER Ot 496 06/19/2015 SIMRAN JEFFRIES E TOLL LINE REPAIRER Ot 799.02 06/19/2015 SIMRAN JEFFRIES TOLL LINE REPAIRER Ot V12.59 06/19/2015 KATE GUERRERO DO Ot 473.9 06/19/2015 KATE GUERRERO DO Ot 496 06/20/2015 KAREEM BERRY FACC, ALI FACP CCDS Ot 244.9 06/20/2015 KAREEM BERRY FACC, ALI FACP CCDS Ot 250.00 06/20/2015 KAREEM PATIÑOC, ALI FACP CCDS Ot 272.4 06/20/2015 KAREEM BERRY FACC, ALI FACP CCDS Ot 424.1 06/20/2015 KAREEM BERRY FACC, ALI FACP CCDS Ot 427.31 06/20/2015 KAREEM BERRY FACC, ALI FACP CCDS Ot 427.81 06/20/2015 KAREEM BERRY FACC, ALI FACP CCDS Ot 447.9 06/20/2015 KRAEEM BERRY FACC, ALI FACP CCDS Ot 496 [...] ALI FACP CCDS Ot 244.9 06/21/2015 KAREEM PATIÑOC, ALI FACP CCDS Ot 250.00 06/21/2015 KAREEM MD FACC, ALI FACP CCDS Ot 272.4 06/21/2015 KAREEM BERRY FACC, ALI FACP CCDS Ot 424.1 06/21/2015 KAREEM BERRY FAC, ALI FACP CCDS Ot 427.31 06/21/2015 KAREEM BERRY FACC, ALI FACP CCDS Ot 427.81 06/21/2015 KAREEM BERRY FACC, ALI FACP CCDS Ot 447.9 06/21/2015 KAREEM BERRY FAC, ALI FACP CCDS Ot 496 06/21/2015 KAREEM BERRY FAC, ALI FACP CCDS Ot 729.81 06/21/2015 KAREEM BERRY FACC, ALI FACP CCDS Ot 787.02 06/21/2015 KAREEM BERRY FAC, ALI FACP CCDS Ot V12.59 06/21/2015 KAREEM [...] BERRY, ESTEPHANIE R Ot I48.91 06/22/2015 YADIRA BRERY, ESTEPHANIE R Ot J44.9 06/22/2015 YADIRA BERRY, [...] YADIRA BERRY, ESTEPHANIE R Ot M81.0 06/23/2015 YADRIA BERRY, ESTEPHANIE R Ot R01.1 06/23/2015 YADIRA [...] ESTEPHANIE R Ot J45.909 06/24/2015 YADIRA BERRY, ESTEPHANIE R Ot K21.9 06/24/2015 YADIRA BERRY, ESTEPHANIE [...] REFLUX DISEASE WITHOUT 06/24/2015 ESTEPHANIE MAY MD Ot K52.9 NONINFECTIVE GASTROENTERITIS AND COLITIS 06/24/2015 [...] MD R Ot E03.9 HYPOTHYROIDISM, UNSPECIFIED 06/29/2015 FIGUEROA MAY MDYD R Ot E78.0 PURE HYPERCHOLESTEROLEMIA 06/29/2015 YADIRA BERRY ESTEPHANIE R Ot F03.90 UNSPECIFIED DEMENTIA WITHOUT BEHAVIORAL 06/29/2015 ESTEPHANIE MAY MD R Ot I48.91 UNSPECIFIED ATRIAL FIBRILLATION 06/29/2015 FIGUEROA MAY MDYD R Ot J18.9 PNEUMONIA, UNSPECIFIED ORGANISM 06/29/2015 ESTEPHANIE MAY MD R Ot J44.1 CHRONIC OBSTRUCTIVE PULMONARY DISEASE W 06/29/2015 ESTEPHANIE MAY MD R Ot J45.909 UNSPECIFIED ASTHMA, UNCOMPLICATED 06/29/2015 ESTEPHANIE MAY MD R Ot K21.9 GASTRO-ESOPHAGEAL REFLUX DISEASE WITHOUT 06/29/2015 ESTEPHANIE MAY MD R Ot M81.0 AGE-RELATED OSTEOPOROSIS W/O CURRENT PAT 06/29/2015 FIGUEROA MAY MDYD R Ot R01.1 CARDIAC MURMUR, UNSPECIFIED 06/29/2015 ESTEPHANIE MAY MD R Ot R60.9 EDEMA, UNSPECIFIED 06/29/2015 ESTEPHANIE MAY MD R Ot Z95.0 PRESENCE OF CARDIAC PACEMAKER 08/29/2015 NICACARLOS Tamy FRAME RUNNER Ot Z12.31 08/29/2015 NICAJEAN CLAUDEY Tamy FRAME RUNNER Ot Z95.0 09/14/2015 NICACARLOS FRAME RUNNER Ot Z12.31 09/14/2015 NICACARLOS FRAME RUNNER Ot Z95.0 11/20/2015 TINA SERNA MD, FACC FACP CCDS Ot 244.9 HYPOTHYROIDISM NOS 11/20/2015 KAREEM BERRY FACC, TINA FACP CCDS Ot 250.00 DIAB WAQAR WO COMPL, TYPE II OR UNSPEC TY 11/20/2015 KAREEM BERRY FACC, TINA FACP CCDS Ot 272.4 HYPERLIPIDEMIA NEC/NOS 11/20/2015 TINA SERNA MD, FACC FACP CCDS Ot 424.1 AORTIC VALVE DISORDER 11/20/2015 TINA SERNA MD, FACC FACP CCDS Ot 427.31 ATRIAL FIBRILLATION 11/20/2015 KAREEM BERRY FACC, TINA FACP CCDS Ot 427.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 11/20/2015 TINA SERNA MD, FACC FACP CCDS Ot 447.9 ARTERIAL DISEASE NOS 11/20/2015 KAREEM BERRY [facility] FACP CCDS Ot 496 CHR AIRWAY OBSTRUCT NEC 11/20/2015 KAREEM PATIÑO, TINA FACP CCDS Ot 729.81 SWELLING OF LIMB 11/20/2015 KAREEM PATIÑO, ALI FACP CCDS Ot 787.02 NAUSEA ALONE 11/20/2015 KAREEM PATIÑO, [facility] FACP CCDS Ot V12.59 HX-CIRCULATORY SYST DIS,NEC [...] PULMONARY DISEASE, U 11/22/2015 ESTEPHANIE MAY MD Ot J45.909 UNSPECIFIED ASTHMA, UNCOMPLICATED 11/22/2015 ESTEPHANIE MAY MD Ot K21.9 GASTRO-ESOPHAGEAL REFLUX DISEASE WITHOUT 11/22/2015 ESTEPHANIE MAY MD Ot M81.0 AGE-RELATED OSTEOPOROSIS W/O CURRENT PAT 11/22/2015 ESTEPHANIE MAY MD Ot N39.0 URINARY TRACT INFECTION, SITE NOT SPECIF 11/22/2015 ESTEPHANIE MAY MD Ot Z79.01 FPC (CURRENT) USE OF ANTICOAGULANT 11/22/2015 ESTEPHANIE MAY MD Ot Z95.0 PRESENCE OF CARDIAC PACEMAKER 12/08/2015 CARLOS YOUSIF FRAME RUNNER Ot Z12.31 ENCNTR SCREEN MAMMOGRAM FOR MALIGNANT NE 12/08/2015 QUICKCARLOS FRAME RUNNER Ot Z95.0 PRESENCE OF CARDIAC PACEMAKER 12/09/2015 SIMRAN JEFFRIES APRN Ot J18.9 PNEUMONIA, UNSPECIFIED ORGANISM 12/09/2015 SIMRAN JEFFRIES APRN Ot J44.9 CHRONIC OBSTRUCTIVE PULMONARY DISEASE, U 12/29/2015 ESTEPHANIE MAY MD R Ot E03.9 HYPOTHYROIDISM, UNSPECIFIED 12/29/2015 ESTEPHANIE MAY MD R Ot J45.909 UNSPECIFIED ASTHMA, UNCOMPLICATED 12/29/2015 YADIRA BERRY ESTEPHANIE R Ot M54.5 LOW BACK PAIN 12/29/2015 [...] R Ot J45.909 UNSPECIFIED ASTHMA, UNCOMPLICATED 01/20/2016 YADIRA BERRY ESTEPHANIE R Ot M54.5 LOW BACK PAIN 01/20/2016 ESTEPHANIE MAY MD R Ot N39.0 URINARY TRACT INFECTION, SITE NOT SPECIF 01/20/2016 ESTEPHANIE MAY MD R Ot R06.02 SHORTNESS OF BREATH 01/20/2016 KAREEM BERRY FAC, TINA FACP CCDS Ot I48.91 UNSPECIFIED ATRIAL FIBRILLATION 02/02/2016 ESTEPHANIE MAY MD R Ot M54.2 CERVICALGIA 02/02/2016 KATE GUERRERO DO Ot J30.9 ALLERGIC RHINITIS, UNSPECIFIED 03/21/2016 DIEGO LUZ CHANDU Zhang Ot M48.02 SPINAL STENOSIS, CERVICAL REGION 03/23/2016 [...] SITE NOT SPECIF 07/20/2016 ESTEPHANIE MAY MD Ot R06.02 SHORTNESS OF BREATH 07/20/2016 KAREEM BERRY FAC, TINA FACP CCDS Ot I48.91 UNSPECIFIED ATRIAL FIBRILLATION 07/20/2016 KATE GUERRERO DO Ot J30.9 ALLERGIC RHINITIS, UNSPECIFIED 07/20/2016 Ot V15.89 HX-HEALTH HAZARDS NEC 07/20/2016 Ot V67.09 SURGERY FOLLOW-UP, OTHER SURGERY 07/20/2016 Ot V76.12 OTH SCREEN MAMMO-MALIGN NEOPLASM OF [place] 07/20/2016 Ot 473.9 CHRONIC SINUSITIS NOS 07/20/2016 QUICK, CARLSO W FRAME RUNNER Ot 733.90 BONE CARTILAGE DIS NOS 07/20/2016 CARLOS YOUSIF FRAME RUNNER Ot V76.12 OTH SCREEN MAMMO-MALIGN NEOPLASM OF [place] 07/20/2016 CARLOS YOUSIF FRAME RUNNER Ot 733.90 BONE CARTILAGE DIS NOS 07/20/2016 CARLOS YOUSIF FRAME RUNNER Ot V76.12 OTH SCREEN MAMMO-MALIGN NEOPLASM OF [...] R Ot 427.31 ATRIAL FIBRILLATION 07/20/2016 YADIRA BERRY, ESTEPHANIE R Ot 785.0 TACHYCARDIA NOS 07/20/2016 YADIRA BERRY, ESTEPHANIE R Ot 786.09 RESPIRATORY ABNORM NEC 07/20/2016 KAREEM BERRY FACC, ALI FACP CCDS Ot 250.00 DIAB WAQAR WO COMPL, TYPE II OR UNSPEC TY 07/20/2016 KAREEM BERRY FACC, ALI FACP CCDS Ot 401.9 HYPERTENSION NOS 07/20/2016 KAREEM BERRY FACC, ALI FACP CCDS Ot 427.31 ATRIAL FIBRILLATION 07/20/2016 KAREEM BERRY FACC, TINA FACP CCDS Ot 496 CHR AIRWAY OBSTRUCT NEC 07/20/2016 KAREEM BERRY FACC, TINA FACP CCDS Ot V58.61 ANTICOAGULANTS,LT,CURRENT USE 07/20/2016 KAREEM BERRY FACC, ALI FACP CCDS Ot 276.8 HYPOPOTASSEMIA 07/20/2016 KAREEM BERRY FACC, ALI FACP CCDS Ot 401.9 HYPERTENSION NOS 07/20/2016 KAREEM BERRY FACC, ALI FACP CCDS Ot 427.31 ATRIAL FIBRILLATION 07/20/2016 KAREEM BERRY FACC, ALI FACP CCDS Ot V58.61 ANTICOAGULANTS,LT,CURRENT USE 07/20/2016 TINA SERNA MD, FACC FACP CCDS Ot V58.83 ENCOUNTER FOR THERAPEUTIC [...] GUERRERO DO Ot 496 07/20/2016 CARLOS YOUSIF FRAME RUNNER Ot Z12.31 ENCNTR SCREEN MAMMOGRAM FOR MALIGNANT NE 07/20/2016 CARLOS YOUSIF FRAME RUNNER Ot Z95.0 PRESENCE OF CARDIAC PACEMAKER 07/20/2016 [...] JAGRUTI Ot E03.9 HYPOTHYROIDISM, UNSPECIFIED 07/21/2016 JASEN DO JAGRUTI Ot E78.00 PURE HYPERCHOLESTEROLEMIA, UNSPECIFIED 07/21/2016 JASEN LUZ JAGRUTI Ot E86.0 DEHYDRATION 07/21/2016 JASEN LUZ JAGRUTI Ot F03.90 UNSPECIFIED DEMENTIA WITHOUT BEHAVIORAL 07/21/2016 AGGARWAL DO, JAGRUTI Ot J44.9 CHRONIC OBSTRUCTIVE PULMONARY DISEASE, U 07/21/2016 AGGARWAL DO JAGRUTI Ot J45.909 UNSPECIFIED ASTHMA, UNCOMPLICATED 07/21/2016 JASEN DO JAGRUTI Ot K21.9 GASTRO-ESOPHAGEAL REFLUX DISEASE WITHOUT 07/21/2016 AGGARWAL DO, JAGRUTI Ot K76.89 OTHER SPECIFIED DISEASES OF LIVER 07/21/2016 AGGARWAL DO JAGRUTI Ot M81.0 AGE-RELATED OSTEOPOROSIS W/O CURRENT PAT 07/21/2016 JASEN DO JAGRUTI Ot N28.9 DISORDER OF KIDNEY AND URETER, UNSPECIFI 07/21/2016 AGGARWAL DO JAGRUTI Ot N30.00 ACUTE CYSTITIS WITHOUT HEMATURIA 07/21/2016 JASEN DO JAGRUTI Ot R11.2 NAUSEA WITH VOMITING, UNSPECIFIED 07/21/2016 JASEN LUZ JAGRUTI Ot Z66 DO NOT RESUSCITATE 07/21/2016 JASEN LUZ JAGRUTI Ot Z79.01 FPC (CURRENT) USE OF ANTICOAGULANT 07/21/2016 JASEN LUZ JAGRUTI Ot Z95.0 PRESENCE OF CARDIAC PACEMAKER 07/22/2016 JASEN LUZ JAGRUTI Ot A41.9 SEPSIS, UNSPECIFIED ORGANISM 07/22/2016 JASEN LUZ JAGRUTI Ot E03.9 HYPOTHYROIDISM, UNSPECIFIED 07/22/2016 JASEN DO JAGRUTI Ot E78.00 PURE HYPERCHOLESTEROLEMIA, UNSPECIFIED 07/22/2016 JASEN DO JAGRUTI Ot E86.0 DEHYDRATION 07/22/2016 JASEN LUZ JAGRUTI Ot F03.90 UNSPECIFIED DEMENTIA WITHOUT BEHAVIORAL 07/22/2016 JASEN LUZ JAGRUTI Ot J44.9 CHRONIC OBSTRUCTIVE PULMONARY DISEASE, U 07/22/2016 JASEN LUZ JAGRUTI Ot J45.909 UNSPECIFIED ASTHMA, UNCOMPLICATED 07/22/2016 JASEN LUZ JAGRUTI Ot K21.9 GASTRO-ESOPHAGEAL REFLUX DISEASE WITHOUT 07/22/2016 JASEN DO, JAGRUTI Ot K76.89 OTHER SPECIFIED DISEASES OF LIVER 07/22/2016 JASEN DO JAGRUTI Ot M81.0 AGE-RELATED OSTEOPOROSIS W/O CURRENT PAT 07/22/2016 JASEN DO JAGRUTI Ot N28.9 DISORDER OF KIDNEY AND URETER, UNSPECIFI 07/22/2016 JASEN DO JAGRUTI Ot N30.00 ACUTE CYSTITIS WITHOUT HEMATURIA 07/22/2016 AGGARWAL DO, JAGRUTI Ot R11.2 NAUSEA WITH VOMITING, UNSPECIFIED 07/22/2016 AGGARWAL DO, JAGRUTI Ot Z66 DO NOT RESUSCITATE 07/22/2016 AGGARWAL DO, JAGRUTI Ot Z79.01 FPC (CURRENT) USE OF ANTICOAGULANT 07/22/2016 AGGARWAL DO, JAGRUTI Ot Z95.0 PRESENCE OF CARDIAC PACEMAKER 07/23/2016 AGGARWAL DO, JAGRUTI Ot A41.9 SEPSIS, UNSPECIFIED ORGANISM 07/23/2016 AGGARWAL DO, JAGRUTI Ot E03.9 HYPOTHYROIDISM, UNSPECIFIED 07/23/2016 AGGARWAL DO, JAGRUTI Ot E78.00 PURE HYPERCHOLESTEROLEMIA, UNSPECIFIED 07/23/2016 AGGARWAL DO, JAGRUTI Ot E86.0 DEHYDRATION 07/23/2016 JASEN DO JAGRUTI Ot F03.90 UNSPECIFIED DEMENTIA WITHOUT BEHAVIORAL 07/23/2016 JASEN LUZ JAGRUTI Ot J44.9 CHRONIC OBSTRUCTIVE PULMONARY DISEASE, U 07/23/2016 JASEN LUZ JAGRUTI Ot J45.909 UNSPECIFIED ASTHMA, UNCOMPLICATED 07/23/2016 JASEN DO JAGRUTI Ot K21.9 GASTRO-ESOPHAGEAL REFLUX DISEASE WITHOUT 07/23/2016 AGGARWAL DO, JAGRUTI Ot K76.89 OTHER SPECIFIED DISEASES OF LIVER 07/23/2016 JASEN DO, JAGRUTI Ot M81.0 AGE-RELATED OSTEOPOROSIS W/O CURRENT PAT 07/23/2016 JASEN DO JAGRUTI Ot N28.9 DISORDER OF KIDNEY AND URETER, UNSPECIFI 07/23/2016 JASEN DO JAGRUTI Ot N30.00 ACUTE CYSTITIS WITHOUT HEMATURIA 07/23/2016 JASEN LUZ JAGRUTI Ot R11.2 NAUSEA WITH VOMITING, UNSPECIFIED 07/23/2016 JASEN DO JAGRUTI Ot Z66 DO NOT RESUSCITATE 07/23/2016 JASEN LUZ JAGRUTI Ot Z79.01 FPC (CURRENT) USE OF ANTICOAGULANT 07/23/2016 AGGARWAL DO, JAGRUTI Ot Z95.0 PRESENCE OF CARDIAC PACEMAKER 07/23/2016 AGGARWAL DO, JAGRUTI Ot A41.9 SEPSIS, UNSPECIFIED ORGANISM 07/23/2016 AGGARWAL DO, JAGRUTI Ot E03.9 HYPOTHYROIDISM, UNSPECIFIED 07/23/2016 AGGARWAL DO, JAGRUTI Ot E78.00 PURE HYPERCHOLESTEROLEMIA, UNSPECIFIED 07/23/2016 AGGARWAL DO, JAGRUTI Ot E86.0 DEHYDRATION 07/23/2016 JAGRUTI AGGARWAL DO Ot F03.90 UNSPECIFIED DEMENTIA WITHOUT BEHAVIORAL 07/23/2016 AGGARWALJAGRUTI MACHADO DO Ot G47.00 INSOMNIA, UNSPECIFIED 07/23/2016 JAGRUTI AGGARWAL DO Ot J44.9 CHRONIC OBSTRUCTIVE PULMONARY DISEASE, U 07/23/2016 JAGRUTI AGGARWAL DO Ot J45.909 UNSPECIFIED ASTHMA, UNCOMPLICATED 07/23/2016 AGGARWALTRAE MACHADO DOI Ot K21.9 GASTRO-ESOPHAGEAL REFLUX DISEASE WITHOUT 07/23/2016 JAGRUTI AGGARWAL DO Ot K59.00 CONSTIPATION, UNSPECIFIED 07/23/2016 AGGARWALTRAE MACHADO DOI Ot K76.89 OTHER SPECIFIED DISEASES OF LIVER 07/23/2016 AGGARWALTRAE MACHADO DOI Ot M81.0 AGE-RELATED OSTEOPOROSIS W/O CURRENT PAT 07/23/2016 JAGRUTI AGGARWAL DO Ot N28.9 DISORDER OF KIDNEY AND URETER, UNSPECIFI 07/23/2016 TRAE AGGARWAL DOI Ot N30.00 ACUTE CYSTITIS WITHOUT HEMATURIA 07/23/2016 JAGRUTI AGGARWAL DO Ot R11.2 NAUSEA WITH VOMITING, UNSPECIFIED 07/23/2016 JAGRUTI AGGRAWAL DO Ot Z66 DO NOT RESUSCITATE 07/23/2016 JAGRUTI AGGARWAL DO Ot Z79.01 PROP CUTTER (CURRENT) USE OF ANTICOAGULANT 07/23/2016 JAGRUTI AGGARWAL DO Ot Z95.0 PRESENCE OF CARDIAC PACEMAKER 08/28/2016 Ot V15.89 HX-HEALTH HAZARDS NEC 08/28/2016 Ot V67.09 SURGERY FOLLOW-UP, OTHER SURGERY 08/28/2016 Ot V76.12 OTH SCREEN MAMMO-MALIGN NEOPLASM OF [place] 08/28/2016 Ot 473.9 CHRONIC SINUSITIS NOS 08/28/2016 CARLOS YOUSIF FRAME RUNNER Ot 733.90 BONE CARTILAGE DIS NOS 08/28/2016 CARLOS YOUSIF FRAME RUNNER Ot V76.12 OTH SCREEN MAMMO-MALIGN NEOPLASM OF [place] 08/28/2016 CARLOS YOUSIF FRAME RUNNER Ot 733.90 BONE CARTILAGE DIS NOS 08/28/2016 CARLOS YOUSIF FRAME RUNNER Ot V76.12 OTH SCREEN MAMMO-MALIGN NEOPLASM OF [...] Ot 401.9 HYPERTENSION NOS 08/28/2016 KAREEM BERRY FACC, ALI FACP CCDS Ot 427.31 ATRIAL FIBRILLATION 08/28/2016 KAREEM BERRY FACC, ALI FACP CCDS Ot 496 CHR AIRWAY OBSTRUCT NEC 08/28/2016 KAREEM BERRY FACC, ALI FACP CCDS Ot V58.61 ANTICOAGULANTS,LT,CURRENT USE 08/28/2016 KAREEM BERRY FACC, ALI FACP CCDS Ot 276.8 HYPOPOTASSEMIA 08/28/2016 KAREEM BERRY FACC, ALI FACP CCDS Ot 401.9 HYPERTENSION NOS 08/28/2016 KAREEM BERRY FACC, ALI FACP CCDS Ot 427.31 ATRIAL FIBRILLATION 08/28/2016 KAREEM BERRY FACC, ALI FACP CCDS Ot V58.61 ANTICOAGULANTS,LT,CURRENT USE 08/28/2016 KAREEM BERRY FACC, ALI FACP CCDS [...] DO Ot 786.09 RESPIRATORY ABNORM NEC 08/28/2016 ESTEPHANIE MAY MD Ot 496 CHR AIRWAY OBSTRUCT NEC 08/28/2016 [...] 447.9 ARTERIAL DISEASE NOS 08/28/2016 KAREEM BERRY FACC, ALI FACP CCDS Ot 496 CHR AIRWAY OBSTRUCT NEC 08/28/2016 KAREEM BERRY FACC, ALI FACP CCDS Ot 729.81 SWELLING OF LIMB 08/28/2016 KAREEM PATIÑOC, ALI FACP CCDS Ot 787.02 NAUSEA ALONE 08/28/2016 KAREEM BERRY FACC, ALI FACP CCDS Ot V12.59 HX-CIRCULATORY SYST DIS,NEC 08/28/2016 KAREEM BERRY FACC, ALI FACP CCDS Ot V58.61 ANTICOAGULANTS,LT,CURRENT USE 08/28/2016 SIMRAN JEFFRIES TOLL LINE REPAIRER Ot 496 CHR AIRWAY OBSTRUCT NEC 08/28/2016 SIMRAN JEFFRIES APRN Ot 799.02 HYPOXEMIA 08/28/2016 SIMRAN JEFFRIES TOLL LINE REPAIRER Ot V12.59 HX-CIRCULATORY SYST DIS,NEC 08/28/2016 KATE GUERRERO DO Ot 473.9 08/28/2016 KATE GUERRERO DO Ot 496 08/28/2016 QUICK, CARLOS W FRAME RUNNER Ot Z12.31 ENCNTR SCREEN MAMMOGRAM FOR MALIGNANT NE 08/28/2016 CARLOS YOUSIF FRAME RUNNER Ot Z95.0 PRESENCE OF CARDIAC PACEMAKER 08/28/2016 [...] R06.02 SHORTNESS OF BREATH 08/28/2016 KAREEM BERRY FACC, TINA FACP CCDS Ot I48.91 UNSPECIFIED ATRIAL FIBRILLATION 08/28/2016 [...] Ot E78.00 PURE HYPERCHOLESTEROLEMIA, UNSPECIFIED 08/30/2016 PERLA MACEDO MD Ot F03.90 UNSPECIFIED DEMENTIA [...] MD Ot E78.5 HYPERLIPIDEMIA, UNSPECIFIED 08/31/2016 PERLA MACEDO MD Ot F03.90 UNSPECIFIED DEMENTIA [...] OR UNSPEC TY 08/31/2016 KAREEM BERRY FACC, ALI FACP CCDS Ot 272.4 HYPERLIPIDEMIA NEC/NOS 08/31/2016 [...] CCDS Ot 729.81 SWELLING OF LIMB 08/31/2016 AKREEM BERRY FACC, ALI FACP CCDS Ot 787.02 NAUSEA ALONE 08/31/2016 KAREEM BERRY FACC, ALI FACP CCDS Ot V12.59 HX-CIRCULATORY SYST DIS,NEC 08/31/2016 KAREEM BERRY FACC, ALI FACP CCDS Ot V58.61 ANTICOAGULANTS,LT,CURRENT USE 08/31/2016 [...] Ot 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 09/03/2016 TRAE AGGARWAL DOI Ot I48.91 UNSPECIFIED ATRIAL FIBRILLATION 09/03/2016 TRAE [...] TINA SERNA MD, FACCP CCDS Ot Z79.01 PROP CUTTER (CURRENT) USE OF ANTICOAGULANT 09/13/2016 TINA SERNA MD, FACCP CCDS Ot Z51.81 ENCOUNTER FOR THERAPEUTIC DRUG LEVEL MON 09/13/2016 TINA SERNA MD, FACCP CCDS Ot Z79.01 PROP CUTTER (CURRENT) USE OF ANTICOAGULANT 09/18/2016 TINA SERNA MD, FACCP CCDS Ot Z51.81 ENCOUNTER FOR THERAPEUTIC DRUG LEVEL MON 09/18/2016 TINA SERNA MD, FACCP CCDS Ot Z79.01 FPC (CURRENT) USE OF ANTICOAGULANT 09/21/2016 TINA SERNA MD, FACCP CCDS Ot Z79.01 PROP CUTTER (CURRENT) USE OF ANTICOAGULANT 09/24/2016 TINA SERNA MD, FACC FACP CCDS Ot Z51.81 ENCOUNTER FOR THERAPEUTIC DRUG LEVEL MON 09/24/2016 KAREEM BERRY FAC, ALI FACP CCDS Ot Z79.01 PROP CUTTER (CURRENT) USE OF ANTICOAGULANT 09/26/2016 KAREEM BERRY FACC, ALI FACP CCDS Ot Z51.81 ENCOUNTER FOR THERAPEUTIC DRUG LEVEL MON 09/26/2016 KAREEM BERRY FACC, ALI FACP CCDS Ot Z79.01 FPC (CURRENT) USE OF ANTICOAGULANT 09/28/2016 KAREEM BERRY FACAdamaris, ALI FACP CCDS Ot Z51.81 ENCOUNTER FOR THERAPEUTIC DRUG LEVEL MON 09/28/2016 KAREEM BERRY FACAdamaris, ALI FACP CCDS Ot Z79.01 FPC (CURRENT) USE OF ANTICOAGULANT 10/12/2016 KAREEM BERRY FACAdamaris, ALI FACP CCDS Ot Z51.81 ENCOUNTER FOR THERAPEUTIC DRUG LEVEL MON 10/12/2016 KAREEM BERRY FACC, ALI FACP CCDS Ot Z79.01 FPC (CURRENT) USE OF ANTICOAGULANT 11/23/2016 PERLA MACEDO [...] OF CARDIAC PACEMAKER 02/04/2017 ANNMARIE FARIAI L TOLL LINE REPAIRER Ot N28.1 CYST OF KIDNEY, ACQUIRED 02/04/2017 FARIAANNMARIEI L TOLL LINE REPAIRER Ot R10.11 RIGHT UPPER QUADRANT PAIN 02/04/2017 FARIA, ANGÉLICA L TOLL LINE REPAIRER Ot R10.12 LEFT UPPER QUADRANT PAIN 02/04/2017 FARIA, ANGÉLICA L TOLL LINE REPAIRER Ot R11.0 NAUSEA 02/04/2017 FARIA, ANGÉLICA L TOLL LINE REPAIRER Ot Z90.49 ACQUIRED ABSENCE OF OTHER SPECIFIED PART 02/04/2017 FARIA, ANGÉLICA L TOLL LINE REPAIRER Ot N28.1 CYST OF KIDNEY, ACQUIRED 02/04/2017 FARIA, ANGÉLICA L TOLL LINE REPAIRER Ot R10.11 RIGHT UPPER QUADRANT PAIN 02/04/2017 FARIA, ANGÉLICA L TOLL LINE REPAIRER Ot R10.12 LEFT UPPER QUADRANT PAIN 02/04/2017 FARIA, ANGÉLICA L TOLL LINE REPAIRER Ot R11.0 NAUSEA 02/04/2017 FARIA, ANGÉLICA L TOLL LINE REPAIRER Ot Z90.49 ACQUIRED ABSENCE OF OTHER SPECIFIED PART 02/06/2017 CARLOS YOUSIF FRAME RUNNER Ot Z12.31 ENCNTR SCREEN MAMMOGRAM FOR MALIGNANT NE 02/06/2017 CARLOS YOUSIF FRAME RUNNER Ot Z95.0 PRESENCE OF CARDIAC PACEMAKER 02/06/2017 SIMRAN JEFFRIES APRN Ot J18.9 PNEUMONIA, UNSPECIFIED ORGANISM 02/06/2017 SIMRAN JEFFRIES APRN Ot J44.9 CHRONIC OBSTRUCTIVE PULMONARY DISEASE, U 02/06/2017 ESTEPHANIE MAY MD R Ot M54.2 CERVICALGIA 02/06/2017 ESTEPHANIE MAY MD Ot E03.9 HYPOTHYROIDISM, UNSPECIFIED 02/06/2017 ESTEPHANIE MAY MD Ot J45.909 UNSPECIFIED ASTHMA, UNCOMPLICATED 02/06/2017 SEGLIE MD, ESTEPHANIE R Ot M54.5 LOW BACK PAIN 02/06/2017 YADIRA BERRY, ESTEPHANIE R Ot N39.0 URINARY TRACT INFECTION, SITE NOT SPECIF 02/06/2017 YADIRA BERRY, ESTEPHANIE R Ot R06.02 SHORTNESS OF BREATH 02/06/2017 KAREEM BERRY [facility], ALI FACP CCDS Ot I48.91 UNSPECIFIED ATRIAL FIBRILLATION 02/06/2017 KATE GUERRERO DO Ot J30.9 ALLERGIC RHINITIS, UNSPECIFIED 02/06/2017 KAREEM BERRY [facility], ALI FACP CCDS Ot Z51.81 ENCOUNTER FOR THERAPEUTIC DRUG LEVEL MON 02/06/2017 KAREEM BERRY [facility], ALI FACP CCDS Ot Z79.01 PROP CUTTER (CURRENT) USE OF ANTICOAGULANT 02/06/2017 KAREEM BERRY FACC, ALI FACP CCDS Ot Z51.81 ENCOUNTER FOR THERAPEUTIC DRUG LEVEL MON 02/06/2017 KAREEM BERRY FACC, ALI FACP CCDS Ot Z79.01 PROP CUTTER (CURRENT) USE OF ANTICOAGULANT 02/06/2017 KAREEM PATIÑO, ALI FACP CCDS Ot Z51.81 ENCOUNTER FOR THERAPEUTIC DRUG LEVEL MON 02/06/2017 KAREEM BERRY [facility], ALI FACP CCDS Ot Z79.01 PROP CUTTER (CURRENT) USE OF ANTICOAGULANT 02/06/2017 ANGÉLICA FARIA TOLL LINE REPAIRER Ot N28.1 CYST OF KIDNEY, ACQUIRED 02/06/2017 ANGÉLICA FARIA TOLL LINE REPAIRER Ot R10.11 RIGHT UPPER QUADRANT PAIN 02/06/2017 ANGÉLICA FARIA TOLL LINE REPAIRER Ot R10.12 LEFT UPPER QUADRANT PAIN 02/06/2017 ANGÉLICA FARIA TOLL LINE REPAIRER Ot R11.0 NAUSEA 02/06/2017 ANGÉLICA FARIA TOLL LINE REPAIRER Ot Z90.49 ACQUIRED ABSENCE OF OTHER SPECIFIED PART 02/22/2017 ANGÉLICA FARIA TOLL LINE REPAIRER Ot N28.1 CYST OF KIDNEY, ACQUIRED 02/22/2017 ANGÉLICA FARIA TOLL LINE REPAIRER Ot R10.11 RIGHT UPPER QUADRANT PAIN 02/22/2017 ANGÉLICA FARIA TOLL LINE REPAIRER Ot R10.12 LEFT UPPER QUADRANT PAIN 02/22/2017 ANGÉLICA FARIA TOLL LINE REPAIRER Ot R11.0 NAUSEA 02/22/2017 ANGÉLICA FARIA TOLL LINE REPAIRER Ot Z90.49 ACQUIRED ABSENCE OF OTHER SPECIFIED PART 03/01/2017 ANGÉLICA FARIA TOLL LINE REPAIRER Ot N28.1 CYST OF KIDNEY, ACQUIRED 03/01/2017 ANGÉLICA FARIA TOLL LINE REPAIRER Ot R10.11 RIGHT UPPER QUADRANT PAIN 03/01/2017 ANGÉLICA FARIA TOLL LINE REPAIRER Ot R10.12 LEFT UPPER QUADRANT PAIN 03/01/2017 ANGÉLICA FARIA TOLL LINE REPAIRER Ot R11.0 NAUSEA 03/01/2017 ANGÉLICA FARIA TOLL LINE REPAIRER Ot Z90.49 ACQUIRED ABSENCE OF OTHER SPECIFIED PART 03/01/2017 ESTEPHANIE MAY MD R Ot I51.7 CARDIOMEGALY 03/01/2017 ESTEPHANIE MAY MD Ot K57.30 DVRTCLOS OF LG INT W/O PERFORATION OR AB 03/01/2017 ESTEPHANIE MAY MD Ot N20.0 CALCULUS OF KIDNEY 03/01/2017 ESTEPHANIE MAY MD R Ot N28.1 CYST OF KIDNEY, ACQUIRED 03/01/2017 ESTEPHANIE MAY MD R Ot R63.4 ABNORMAL WEIGHT LOSS 03/06/2017 ESTEPHANIE MAY MD R Ot I51.7 CARDIOMEGALY 03/06/2017 ESTEPHANIE MAY MD R Ot K57.30 DVRTCLOS OF LG INT W/O PERFORATION OR AB 03/06/2017 ESTEPHANIE MAY MD Ot N20.0 CALCULUS OF KIDNEY 03/06/2017 ESTEPHANIE MAY MD R Ot N28.1 CYST OF KIDNEY, ACQUIRED 03/06/2017 ESTEPHANIE MAY MD R Ot R63.4 ABNORMAL WEIGHT LOSS 06/12/2017 Ot 473.9 CHRONIC SINUSITIS NOS 06/12/2017 CARLOS YOUSIF FRAME RUNNER Ot 733.90 BONE CARTILAGE DIS NOS 06/12/2017 CARLOS YOUSIF FRAME RUNNER Ot V76.12 OTH SCREEN MAMMO-MALIGN NEOPLASM OF PETEY 06/12/2017 CARLOS YOUSIF FRAME RUNNER Ot 733.90 BONE CARTILAGE DIS NOS 06/12/2017 CARLOS YOUSIF FRAME RUNNER Ot V76.12 OTH SCREEN MAMMO-MALIGN NEOPLASM OF [...] MD R Ot 427.31 ATRIAL FIBRILLATION 06/12/2017 ESTEPHANIE MAY MD R Ot 785.0 TACHYCARDIA NOS 06/12/2017 ESTEPHANIE MAY MD R Ot 786.09 RESPIRATORY ABNORM NEC 06/12/2017 KAREEM BERRY FACC, ALI FACP [...] Ot V58.61 ANTICOAGULANTS,LT,CURRENT USE 06/12/2017 SIMRAN JEFFRIES TOLL LINE REPAIRER Ot 496 CHR AIRWAY OBSTRUCT NEC 06/12/2017 SIMRAN JEFFRIES APRN Ot 799.02 HYPOXEMIA 06/12/2017 SIMRAN JEFFRIES TOLL LINE REPAIRER Ot V12.59 HX-CIRCULATORY SYST DIS,NEC 06/12/2017 KATE GUERRERO DO Ot 473.9 06/12/2017 KATE GUERRERO DO Ot 496 06/12/2017 CARLOS YOUSIF Ot Z12.31 ENCNTR SCREEN MAMMOGRAM FOR MALIGNANT NE 06/12/2017 NICA CARLOS W FRAME RUNNER Ot Z95.0 PRESENCE OF CARDIAC PACEMAKER 06/12/2017 SIMRAN JEFFRIES APRN Ot J18.9 PNEUMONIA, UNSPECIFIED ORGANISM 06/12/2017 SIMRAN JEFFRIES TOLL LINE REPAIRER Ot J44.9 CHRONIC OBSTRUCTIVE PULMONARY DISEASE, U 06/12/2017 YADIRA BERRY, ESTEPHANIE R Ot M54.2 CERVICALGIA 06/12/2017 YADIRA BERRY, ESTEPHANIE R Ot E03.9 HYPOTHYROIDISM, UNSPECIFIED 06/12/2017 YADIRA BERRY ESTEPHANIE R Ot J45.909 UNSPECIFIED ASTHMA, UNCOMPLICATED 06/12/2017 YADIRA BERRY ESTEPHANIE R Ot M54.5 LOW BACK PAIN 06/12/2017 YADIRA BERRY ESTEPHANIE R Ot N39.0 URINARY TRACT INFECTION, SITE NOT SPECIF 06/12/2017 YADIRA BERRY ESTEPHANIE R Ot R06.02 SHORTNESS OF BREATH 06/12/2017 KAREEM BERRY FACC, TINA FACP CCDS Ot I48.91 UNSPECIFIED ATRIAL FIBRILLATION 06/12/2017 KATE GUERRERO DO Ot J30.9 ALLERGIC RHINITIS, UNSPECIFIED 06/12/2017 KAREEM BERRY FACC, TINA FACP CCDS Ot Z51.81 ENCOUNTER FOR THERAPEUTIC DRUG LEVEL MON 06/12/2017 KAREEM BERRY FACC, ALI FACP CCDS Ot Z79.01 PROP CUTTER (CURRENT) USE OF ANTICOAGULANT 06/12/2017 KAREEM BERRY FACC, ALI FACP CCDS Ot Z51.81 ENCOUNTER FOR THERAPEUTIC DRUG LEVEL MON 06/12/2017 KAREEM BERRY FACC, ALI FACP CCDS Ot Z79.01 PROP CUTTER (CURRENT) USE OF ANTICOAGULANT 06/12/2017 KAREEM BERRY FACC, ALI FACP CCDS Ot Z51.81 ENCOUNTER FOR THERAPEUTIC DRUG LEVEL MON 06/12/2017 KAREEM BERRY FACC, ALI FACP CCDS Ot Z79.01 PROP CUTTER (CURRENT) USE OF ANTICOAGULANT 06/12/2017 ANGÉLICA FARIA TOLL LINE REPAIRER Ot N28.1 CYST OF KIDNEY, ACQUIRED 06/12/2017 ANGÉLICA FARIA TOLL LINE REPAIRER Ot R10.11 RIGHT UPPER QUADRANT PAIN 06/12/2017 ANGÉLICA FARIA TOLL LINE REPAIRER Ot R10.12 LEFT UPPER QUADRANT PAIN 06/12/2017 ANGÉLICA FARIA TOLL LINE REPAIRER Ot R11.0 NAUSEA 06/12/2017 ANGÉLICA FARIA TOLL LINE REPAIRER Ot Z90.49 ACQUIRED ABSENCE OF OTHER SPECIFIED [...] W/O PERFORATION OR AB 07/03/2017 YADIRA BERRY, ESTEHPANIE R Ot N20.0 CALCULUS OF KIDNEY 07/09/2017 CHARLOTTE ENG L FRAME RUNNER Ot 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 07/09/2017 CHARLOTTE ENG L FRAME RUNNER Ot I48.1 PERSISTENT ATRIAL FIBRILLATION 07/09/2017 ANDERSONMACHARLOTTE L FRAME RUNNER Ot 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 07/09/2017 ANDERSONMACHARLOTTE L FRAME RUNNER Ot 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 07/09/2017 CHARLOTTE ENG L FRAME RUNNER Ot Z79.01 FPC (CURRENT) USE OF ANTICOAGULANT 07/17/2017 BAIMACHARLOTTE L FRAME RUNNER Ot 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 07/17/2017 BAIMALAURYCHARLOTTE L FRAME RUNNER Ot I48.1 PERSISTENT ATRIAL FIBRILLATION 07/17/2017 BAIMALAURYCHARLOTTE L FRAME RUNNER Ot 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 07/17/2017 BAIMALAURYCHARLOTTE L FRAME RUNNER Ot 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 07/17/2017 BAIMALAURYCHARLOTTE L FRAME RUNNER Ot Z79.01 FPC (CURRENT) USE OF ANTICOAGULANT 07/19/2017 ESTEPHANIE MAY MD Ot K57.30 DVRTCLOS OF LG INT W/O PERFORATION OR AB 07/19/2017 ESTEPHANIE MAY MD R Ot N20.0 CALCULUS OF KIDNEY 07/25/2017 ESTEPHANIE MAY MD Ot K57.30 DVRTCLOS OF LG INT W/O PERFORATION OR AB 07/25/2017 ESTEPHANIE MAY MD Ot N20.0 CALCULUS OF KIDNEY 08/10/2017 Ot 473.9 CHRONIC SINUSITIS NOS 08/10/2017 CARLOS YOUSIF FRAME RUNNER Ot 733.90 BONE CARTILAGE DIS NOS 08/10/2017 QUICK CARLOS W FRAME RUNNER Ot V76.12 OTH SCREEN MAMMO-MALIGN NEOPLASM OF PET[place] 08/10/2017 NICA CARLOS W FRAME RUNNER Ot 733.90 BONE CARTILAGE DIS NOS 08/10/2017 CARLOS YOUSIF FRAME RUNNER Ot V76.12 OTH SCREEN MAMMO-MALIGN NEOPLASM OF [place] 08/10/2017 KAREEM BERRY FACC, ALI FACP CCDS Ot 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 08/10/2017 KAREEM BERRY FACC, ALI FACP CCDS Ot 397.0 TRICUSPID VALVE DISEASE 08/10/2017 KAREEM BERRY FACC, ALI FACP CCDS Ot 427.31 ATRIAL FIBRILLATION 08/10/2017 KAREEM BERRY FACC, ALI FACP CCDS Ot 496 CHR AIRWAY OBSTRUCT NEC 08/10/2017 ESTEPHANIE MAY MD R Ot 427.31 ATRIAL FIBRILLATION 08/10/2017 ESTEPHANIE MAY MD Ot 785.0 TACHYCARDIA NOS 08/10/2017 ESTEPHANIE MAY MD R Ot 786.09 RESPIRATORY ABNORM NEC 08/10/2017 KAREEM BERRY FACC, ALI FACP CCDS Ot 250.00 DIAB WAQAR WO COMPL, TYPE II OR UNSPEC TY 08/10/2017 KAREEM BERRY FACC, ALI FACP CCDS Ot 401.9 HYPERTENSION NOS 08/10/2017 KAREEM BERRY FACC, ALI FACP CCDS Ot 427.31 ATRIAL FIBRILLATION 08/10/2017 KAREEM BERRY FACC, ALI FACP CCDS Ot 496 CHR AIRWAY OBSTRUCT NEC 08/10/2017 KAREEM BERRY FACC, ALI FACP CCDS Ot V58.61 ANTICOAGULANTS,LT,CURRENT USE 08/10/2017 KAREEM BERRY FACC, ALI FACP CCDS Ot 276.8 HYPOPOTASSEMIA 08/10/2017 KAREEM BERRY FACC, ALI FACP CCDS Ot 401.9 HYPERTENSION NOS 08/10/2017 KAREEM BERRY FACC, ALI FACP CCDS Ot 427.31 ATRIAL FIBRILLATION 08/10/2017 KAREEM BERRY FACC, ALI FACP CCDS Ot V58.61 ANTICOAGULANTS,LT,CURRENT USE 08/10/2017 KAREEM BERRY FACC, ALI FACP CCDS Ot V58.83 ENCOUNTER FOR THERAPEUTIC DRUG MONITORIN 08/10/2017 Ot 244.9 HYPOTHYROIDISM NOS 08/10/2017 Ot 250.00 DIAB WAQAR WO COMPL, TYPE II OR UNSPEC TY 08/10/2017 Ot 272.4 HYPERLIPIDEMIA NEC/NOS 08/10/2017 Ot 424.1 AORTIC VALVE DISORDER 08/10/2017 Ot 427.31 ATRIAL FIBRILLATION 08/10/2017 Ot 427.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 08/10/2017 Ot 447.9 ARTERIAL DISEASE NOS 08/10/2017 Ot 496 CHR AIRWAY OBSTRUCT NEC 08/10/2017 Ot V12.59 HX- CIRCULATORY SYST DIS,NEC 08/10/2017 Ot V58.61 ANTICOAGULANTS,LT,CURRENT USE 08/10/2017 Ot 786.2 COUGH 08/10/2017 KATE GUERRERO DO Ot 296.90 UNSPECIFIED EPISODIC MOOD DISORDER 08/10/2017 KATE GUERRERO DO Ot 427.31 ATRIAL FIBRILLATION 08/10/2017 KATE GUERRERO DO Ot 786.09 RESPIRATORY ABNORM NEC 08/10/2017 YADIRA BERRY, ESTEPHANIE R Ot 496 CHR AIRWAY OBSTRUCT NEC 08/10/2017 KAREEM BERRY FACC, ALI FACP CCDS Ot 244.9 HYPOTHYROIDISM NOS 08/10/2017 KAREEM BERRY FACC, ALI FACP CCDS Ot 250.00 DIAB WAQAR WO COMPL, TYPE II OR UNSPEC TY 08/10/2017 KAREEM BERRY FACC, ALI FACP CCDS Ot 272.4 HYPERLIPIDEMIA NEC/NOS 08/10/2017 KAREEM BERRY FACC, ALI FACP CCDS Ot 424.1 AORTIC VALVE DISORDER 08/10/2017 KAREEM BERRY FACC, ALI FACP CCDS Ot 427.31 ATRIAL FIBRILLATION 08/10/2017 KAREEM BERRY FACC, ALI FACP CCDS Ot 427.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 08/10/2017 KAREEM BERRY FACC, TINA FACP CCDS Ot 447.9 ARTERIAL DISEASE NOS 08/10/2017 KAREEM BERRY FACC, ALI FACP CCDS Ot 496 CHR AIRWAY OBSTRUCT NEC 08/10/2017 KAREEM BERRY FACC, ALI FACP CCDS Ot 729.81 SWELLING OF LIMB 08/10/2017 KAREEM BERRY FACC, ALI FACP CCDS Ot 787.02 NAUSEA ALONE 08/10/2017 KAREEM BERRY FACC, TINA FACP CCDS Ot V12.59 HX-CIRCULATORY SYST DIS,NEC 08/10/2017 KAREEM BERRY FACC, TINA FACP CCDS Ot V58.61 ANTICOAGULANTS,LT,CURRENT USE 08/10/2017 SIMRAN JEFFRIES APRN Ot 496 CHR AIRWAY OBSTRUCT NEC 08/10/2017 SIMRAN JEFFRIES APRN Ot 799.02 HYPOXEMIA 08/10/2017 SIMRAN JEFFRIES APRN Ot V12.59 HX-CIRCULATORY SYST DIS,NEC 08/10/2017 KATE GUERRERO DO Ot 473.9 08/10/2017 KATE GUERRERO DO Ot 496 08/10/2017 CARLOS YOUSIF Ot Z12.31 ENCNTR SCREEN MAMMOGRAM FOR MALIGNANT NE 08/10/2017 CARLOS YOUSIF Ot Z95.0 PRESENCE OF CARDIAC PACEMAKER 08/10/2017 SIMRAN JEFFRIES APRN Ot J18.9 PNEUMONIA, UNSPECIFIED ORGANISM 08/10/2017 SIMRAN JEFFRIES APRN Ot J44.9 CHRONIC OBSTRUCTIVE PULMONARY DISEASE, U 08/10/2017 YADIRA BERRY, ESTEPHANIE R Ot M54.2 CERVICALGIA 08/10/2017 YADIRA BERRY, ESTEPHANIE R Ot E03.9 HYPOTHYROIDISM, UNSPECIFIED 08/10/2017 YADIRA BERRY, ESTEPHANIE R Ot J45.909 UNSPECIFIED ASTHMA, UNCOMPLICATED 08/10/2017 ESTEPHANIE MAY MD R Ot M54.5 LOW BACK PAIN 08/10/2017 YADIRA BERRY, ESTEPHANIE R Ot N39.0 URINARY TRACT INFECTION, SITE NOT SPECIF 08/10/2017 YADIRA BERRY, ESTEPHANIE R Ot R06.02 SHORTNESS OF BREATH 08/10/2017 KAREEM BERRY FACC, TINA FACP CCDS Ot I48.91 UNSPECIFIED ATRIAL FIBRILLATION 08/10/2017 KATE GUERRERO DO Ot J30.9 ALLERGIC RHINITIS, UNSPECIFIED 08/10/2017 KAREEM BERRY FACC, TINA FACP CCDS Ot Z51.81 ENCOUNTER FOR THERAPEUTIC DRUG LEVEL MON 08/10/2017 KAREEM BERRY FACC, ALI FACP CCDS Ot Z79.01 FPC (CURRENT) USE OF ANTICOAGULANT 08/10/2017 KAREEM BERRY FACC, ALI FACP CCDS Ot Z51.81 ENCOUNTER FOR THERAPEUTIC DRUG LEVEL MON 08/10/2017 KAREEM BERRY FACC, ALI FACP CCDS Ot Z79.01 FPC (CURRENT) USE OF ANTICOAGULANT 08/10/2017 KAREEM BERRY FACC, ALI FACP CCDS Ot Z51.81 ENCOUNTER FOR THERAPEUTIC DRUG LEVEL MON 08/10/2017 KAREEM BERRY FACC, TINA FACP CCDS Ot Z79.01 PROP CUTTER (CURRENT) USE OF ANTICOAGULANT 08/10/2017 ANGÉLICA FARIA TOLL LINE REPAIRER Ot N28.1 CYST OF KIDNEY, ACQUIRED 08/10/2017 ANGÉLICA FARIA TOLL LINE REPAIRER Ot R10.11 RIGHT UPPER QUADRANT PAIN 08/10/2017 ANGÉLICA FARIA TOLL LINE REPAIRER Ot R10.12 LEFT UPPER QUADRANT PAIN 08/10/2017 ANGÉLICA FARIA TOLL LINE REPAIRER Ot R11.0 NAUSEA 08/10/2017 ANGÉLICA FARIA TOLL LINE REPAIRER Ot Z90.49 ACQUIRED ABSENCE OF OTHER SPECIFIED PART 08/10/2017 ESTEPHANIE MAY MD R Ot I51.7 CARDIOMEGALY 08/10/2017 ESTEPHANIE MAY MD Ot K57.30 DVRTCLOS OF LG INT W/O PERFORATION OR AB 08/10/2017 ESTEPHANIE MAY MD Ot N20.0 CALCULUS OF KIDNEY 08/10/2017 ESTEPHANIE MAY MD Ot N28.1 CYST OF KIDNEY, ACQUIRED 08/10/2017 ESTEPHANIE MAY MD Ot R63.4 ABNORMAL WEIGHT LOSS 08/10/2017 CHARLOTTE ENGP Ot 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 08/10/2017 CHARLOTTE ENG FRAME RUNNER Ot I48.1 PERSISTENT ATRIAL FIBRILLATION 08/10/2017 CHARLOTTE ENG FRAME RUNNER Ot 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 08/10/2017 CHARLOTTE ENG Ot 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 08/10/2017 CHARLOTTE ENG Ot Z79.01 FPC (CURRENT) USE OF ANTICOAGULANT 08/10/2017 ESTEPHANIE MAY MD, Ot K57.30 DVRTCLOS OF LG INT W/O PERFORATION OR AB 08/10/2017 ESTEPHANIE MAY MD, Ot N20.0 CALCULUS OF KIDNEY Procedures There [...] OF GROWTH Isolated NRG Bacterial blood culture [id number] NRG Complete urinalysis with reflex to culture [...] Blood anisocytosis detection by light microscopy [facility] Comprehensive metabolic panel - 11/21/16 10:20 Serum [...] or blood by coagulation assay 2.6 0.8-1.4 Complete blood count (CBC) with automated white blood cell (WBC) differential - 08/10/17 07:25 Blood leukocytes automated count (number/volume) 13.0 10*3/uL 4.3-11.0 Blood erythrocytes automated count (number/volume) 4.10 10*6/uL 4.35-5.85 Venous blood hemoglobin measurement (mass/volume) 12.6 g/dL 11.5-16.0 Blood hematocrit (volume fraction) 38 % 35-52 Automated erythrocyte mean corpuscular volume 93 [foz_us] 80-99 Automated erythrocyte mean corpuscular hemoglobin (mass per erythrocyte) 31 pg 25-34 Automated erythrocyte mean corpuscular hemoglobin concentration measurement ( mass/volume) 33 g/dL 32-36 Automated erythrocyte distribution width ratio 15.0 % 10.0-14.5 Automated blood platelet count (count/volume) 252 10*3/uL 130-400 Automated blood platelet mean volume measurement 10.6 [foz_us] 7.4-10.4 Automated blood neutrophils/100 leukocytes 77 % 42-75 Automated blood lymphocytes/100 leukocytes 14 % 12-44 Blood monocytes/100 leukocytes 8 % 0-12 Automated blood eosinophils/100 leukocytes 0 % 0-10 Automated blood basophils/100 leukocytes 0 % 0-10 Blood neutrophils automated count (number/volume) 10.0 10*3 1.8-7.8 Blood lymphocytes automated count (number/volume) 1.8 10*3 1.0-4.0 Blood monocytes automated count (number/volume) 1.1 10*3 0.0-1.0 Automated eosinophil count 0.0 10*3/uL 0.0-0.3 Automated blood basophil count (count/volume) 0.0 10*3/uL 0.0-0.1 PT panel in platelet poor plasma by coagulation assay - 08/10/17 07:25 Prothrombin time (PT) in platelet poor plasma by coagulation assay 16.0 s 12.2-14.7 INR in platelet poor plasma or blood by coagulation assay 1.3 0.8-1.4 Activated partial thromboplastin time (aPTT) in platelet poor plasma bycoagulation assay - 08/10/17 07:25 Activated partial thromboplastin time (aPTT) in platelet poor plasma bycoagulation assay 32 s 24-35 Blood lactic acid measurement (moles/volume) - 08/10/17 07:25 Blood lactic acid measurement (moles/volume) 2.11 mmol/L 0.50-2.00 Comprehensive metabolic panel - 08/10/17 07:25 Serum or plasma sodium measurement (moles/volume) 141 mmol/L 135-145 Serum or plasma potassium measurement (moles/volume) 4.0 mmol/L 3.6-5.0 Serum or plasma chloride measurement (moles/volume) 106 mmol/L 98-107 Carbon dioxide 23 mmol/L 21-32 [...] NRG Serum or plasma glucose measurement (mass/volume) 114 mg/dL 70-105 Serum or plasma calcium measurement (mass/volume) 8.9 mg/dL 8.5-10.1 Serum or plasma total bilirubin measurement (mass/volume) 1.7 mg/dL 0.1-1.0 Serum or plasma alkaline phosphatase measurement (enzymatic activity/volume) 58 U/L 40-136 Serum or plasma aspartate aminotransferase measurement (enzymatic activity/ volume) 22 U/L 5-34 Serum or plasma alanine aminotransferase measurement (enzymatic activity/volume ) 16 U/L 0-55 Serum or plasma protein measurement (mass/volume) 6.8 g/dL 6.4-8.2 Serum or plasma albumin measurement (mass/volume) 3.7 g/dL 3.2-4.5 Magnesium - 08/10/17 07:25 Magnesium 1.8 mg/dL 1.8-2.4 Influenza virus A and B antigen detection - 08/10/17 07:30 FLU RESULT NEGATIVE FOR INFLUENZA A AND B ANTIGENS BY IA NRG Complete urinalysis with reflex to culture - 08/10/17 07:55 Urine color determination YELLOW NRG Urine clarity determination CLEAR NRG Urine pH measurement by test strip 8 5-9 Specific gravity of urine by test strip 1.010 1.016- 1.022 Urine protein assay by test strip, semi-quantitative NEGATIVE NEGATIVE Urine glucose detection by automated test [...] urine sediment by light microscopy TRACE NRG Crystals detection in urine sediment by light microscopy NONE NRG Casts detection in urine sediment by light microscopy NONE NRG Mucus detection in urine sediment by light microscopy NEGATIVE NRG Complete urinalysis with reflex to culture NO NRG Encounters ACCT No. Visit Date/Time Discharge Status Pt. Type Provider Facility Loc./Unit Complaint [id number] 06/27/2017 08:17:00 06/27/2017 23:59:59 CLS Outpatient ESTEPHANIE MAY MD [facility] RAD R10.32 [id number] 06/17/2017 09:37:00 06/17/2017 23:59:59 CLS Outpatient CHARLOTTE ENG [facility] AORTIC VALVE STENOSIS [id number] 02/08/2017 13:02:00 02/08/2017 23:59:59 CLS Outpatient ESTEPHANIE MAY MD [facility] RAD R10.13 [id number] 02/01/2017 06:42:00 02/01/2017 23:59:59 CLS Outpatient ANGÉLICA FARIA Mareclino BROOKSN [facility] LUQ/RUQ PAIN [id number] 11/20/2016 17:56:00 11/23/2016 11:35:00 DIS Inpatient PERLA MACEDO MD [address] ACUTE DIVERTICULITIS, INTRACTABLE NAUSEA/VOMITING [id number] 09/21/2016 14:44:00 09/21/2016 23:59:59 CLS Outpatient TINA SERNA MD, FACC, FACP CCDS [facility] ANTICOAG THERPAY [id number] 09/12/2016 12:04:00 09/12/2016 23:59:59 CLS Outpatient TINA SERNA MD, FACC, FACP CCDS [facility] ANTICOAG THERAPY [id number] 09/05/2016 14:54:00 09/05/2016 23:59:59 CLS Outpatient TINA SERNA MD, FACC, FACP CCDS [facility] ENCOUNTER FOR THERAPUEUTIC DRUG LEVEL MONITORING [id number] 08/31/2016 10:57:00 09/03/2016 11:33:00 DIS Inpatient JAGRUTI AGGARWAL DO Via [address] SWB-WEAKNESS [id number] 08/28/2016 12:15:00 08/31/2016 10:56:00 DIS Inpatient PERLA MACEDO MD Via [address] SEPSIS [id number] 07/20/2016 05:45:00 07/23/2016 10:32:00 DIS Inpatient JAGRUTI AGGARWAL DO Via [address] UTI,SEPSIS [id number] 03/21/2016 12:53:00 03/21/2016 15:03:00 DIS Outpatient DIEGO LUZ CHANDU Vicente [facility] REHAB CERVICAL STENOSIS; RADICULOPATHY; KYPHOSIS [id number] 12/29/2015 16:45:00 12/29/2015 23:59:59 CLS Outpatient KATE GUERRERO DO [facility] RAD ALLERGIC RHINITIS [id number] 12/29/2015 11:09:00 12/29/2015 23:59:59 CLS Outpatient ESTEPHANIE MAY MD [facility] RAD NECK PAIN [id number] 12/28/2015 09:54:00 12/28/2015 23:59:59 CLS Outpatient KAREEM BERRY FACCTINA FACP CCDS [facility] LAB ATRIAL FIBRILLATION [id number] 12/28/2015 09:25:00 12/28/2015 23:59:59 CLS Outpatient ESTEPHANIE MAY MD [facility] LAB SOB,NECK PAIN,UTI [id number] 12/08/2015 09:33:00 12/08/2015 23:59:59 CLS Outpatient SIMRAN JEFFRIES APRN [facility] RAD PNEUMONIA,COPD [id number] 11/21/2015 02:47:00 11/22/2015 07:55:00 DIS Inpatient ESTEPHANIE MAY MD [facility] 4TH FEVER; UTI [id number] 08/24/2015 09:06:00 08/24/2015 23:59:59 CLS Outpatient CARLOS YOUSIF [facility] RAD SCREENING [id number] 06/24/2015 11:23:00 06/29/2015 11:05:00 DIS Inpatient ESTEPHANIE MAY MD [facility] 4TH SWB,PNEUMONIA [id number] 06/19/2015 20:20:00 06/24/2015 11:21:00 DIS Inpatient ESTEPHANIE MAY MD [facility] 4TH GASTROENTERITIS [id number] 05/03/2015 06:45:00 05/03/2015 23:59:59 CLS Outpatient TINA SERNA MD, FACC, FACP CCDS [facility] CATH HLP, AA STENSOS [id number] 04/28/2015 14:00:00 04/28/2015 23:59:59 CLS Preadmit KATE GUERRERO DO [facility] RAD COPD,SINUSITIS CHRONIC, CRONCHITIS,ASTHMA [id number] 03/30/2015 10:55:00 04/27/2015 00:01:00 DIS Outpatient KATE GUERRERO DO [facility] RAD COPD,SINUSITIS CHRONIC, CRONCHITIS,ASTHMA [id number] 03/09/2015 12:03:00 03/09/2015 13:17:00 DIS Outpatient ESTEPHANIE MAY MD [facility] CR STABLE ANGINA [id number] 02/16/2015 11:56:00 02/16/2015 23:59:59 CLS Outpatient SIMRAN JEFFRIES APRN [facility] RAD COPD,HX OF PULMONARY HTN,NOCTURNAL HYPOXEMIA [id number] 01/07/2015 20:53:00 01/08/2015 06:30:00 DIS Outpatient KATE GUERRERO DO [facility] SLEEP SNORING,GASPING DURING SLEEP [id number] 12/29/2014 11:00:00 01/01/2015 17:45:00 DIS Inpatient ESTEPHANIE MAY MD [facility] 4TH INTRACTABLE NAUSEA/ VOMITING;UTI [id number] 11/29/2014 12:01:00 11/30/2014 00:01:00 DIS Outpatient ESTEPHANIE MAY MD [facility] CR STABLE ANGINA [id number] 11/18/2014 00:11:00 11/18/2014 23:59:59 CLS Preadmit TINA SERNA MD, FACC, FACP CCDS [facility] LAB AFIB,CAD, DIABETES,HTN, [id number] 08/19/2014 14:59:00 11/17/2014 00:01:00 DIS Outpatient TINA SERNA MD, FACC, FACP CCDS [facility] LAB AFIB,CAD, DIABETES,HTN, [id number] 11/15/2014 13:04:00 11/15/2014 23:59:59 CLS Outpatient KATE GUERRERO DO [facility] RT COPD,SNORING,MOOD DISORDER ,ATRIAL FIBRILLATION [id number] 11/08/2014 10:01:00 11/08/2014 23:59:59 CLS Outpatient ESTEPHANIE MAY MD [facility] RAD COPD [id number] 10/15/2014 10:30:00 10/19/2014 10:13:00 DIS Inpatient ESTEPHANIE MAY MD [facility] 4TH PNUEMONIA [id number] 08/03/2014 10:32:00 08/03/2014 23:59:59 CLS Outpatient TINA SERNA MD, FACC, FACP CCDS [facility] A FIB,ANTICOAG [place], HYPOPOTASSIUM, HTN [id number] 07/27/2014 12:50:00 07/27/2014 23:59:59 CLS Outpatient TINA SERNA MD, FACC, FACP CCDS [facility] DM,COPD,HTN, AFIB,ANTICOAG THERAPY [id number] 07/21/2014 08:49:00 07/24/2014 10:52:00 DIS Inpatient ESTEPHANIE MAY MD [facility] 4TH DEHYDRATION,POSSIBLE SEPTISEMIA,BRONHEAL ASTHMA [id number] 07/10/2014 17:05:00 07/19/2014 14:30:00 DIS Inpatient ESTEPHANIE MAY MD [facility] ICU ASTHMA EXACERBATION,A- FIB [id number] 07/07/2014 12:19:00 07/07/2014 23:59:59 CLS Outpatient ESTEPHANIE MAY MD [facility] RAD TACHYCARDIA DYSPNEA AFIB [id number] 05/25/2014 13:46:00 05/25/2014 23:59:59 CLS Outpatient TINA SERNA MD, FACC, FACP CCDS [facility] CARD HLP,AFIB, COPD [id number] 04/15/2014 09:00:00 04/15/2014 23:59:59 CLS Outpatient CARLOS YOUSIF [facility] RAD SCREENING OSTEOPENIA [id number] 01/09/2013 10:57:00 01/09/2013 23:59:59 CLS Outpatient NICACARLOS Tamy BRANCH [facility] RAD SCREENING, OSTEOPENIA [id number] 12/24/2012 08:39:00 12/26/2012 09:55:00 DIS Inpatient ESTEPHANIE MAY MD [facility] 4TH NAUSEA VOMITING DIARRHEA ABDOMINAL PAIN UTI [id number] 08/10/2017 08:29:00 ACT Inpatient ESTEPHANIE MAY MD [facility] 4TH PNA, SEPSIS, ASTHMA EXACERBATION [id number] 10/11/2014 12:25:00 Document Registration [id number] 09/30/2014 06:41:00 Document Registration [id number] 09/21/2014 13:31:00 Document Registration [id number] 07/09/2012 10:25:00 Document Registration [id number] 06/26/2012 19:10:00 Document Registration [id number] 06/14/2012 08:04:00 Document Registration [id number] 11/28/2011 12:33:00 Document Registration [id number] 11/10/2011 20:21:00 Document Registration [id number] 08/23/2011 13:10:00 Document Registration [id number] 06/26/2011 14:44:00 Document Registration [id number] 01/15/2011 11:50:00 Document Registration [id number] 01/11/2011 13:45:00 Document Registration [id number] 12/07/2010 12:32:00 Document Registration [id number] 11/13/2010 21:46:00 Document Registration [id number] 10/10/2010 11:03:00 Document Registration [id number] 09/27/2010 08:43:00 Document Registration [id number] 09/12/2010 09:52:00 Document Registration [id number] 08/23/2010 10:46:00 Document Registration [id number] 08/08/2010 15:24:00 Document Registration [id number] 08/01/2010 05:33:00 Document Registration [id number] 05/31/2010 09:52:00 Document Registration [id number] 05/29/2010 08:55:00 Document Registration [id number] 05/03/2010 13:51:00 Document Registration [id number] 2010 11:02:00 Document Registration
--- NOTE | 2017-08-10 09:09 | Diagnostic Imaging Report ---
EXAM: CHEST 1 VIEW, AP/PA ONLY COMPARISON: Chest radiograph 08/28/2016. FINDINGS: Cardiomegaly. Mild pulmonary venous congestion is similar to the prior exam. Cardiac pacer. No consolidation, pleural effusion or pneumothorax. No acute osseous findings. IMPRESSION: Stable cardiomegaly and increased pulmonary venous congestion. No acute cardiopulmonary findings. Dictated by: Dictated on workstation # [id number]
[2017-08-10 09:30] VITALS: BP 135/95
[2017-08-10] MEDS ORDERED: ONDANSETRON 4 MG/2 ML (SDV) Z0FRAN IV PRN (09:45)
[2017-08-10] MEDS ORDERED: CATHETER FLUSH 10 ML SYR IV PRN (09:45)
[2017-08-10] MEDS ORDERED: ACETAMINOPHEN 500 MG TAB (TYLENOL) PO PRN (09:45)
[2017-08-10] MEDS ORDERED: RT-ALBUTEROL/IPRATROPIUM 3 ML (DUONEB) VIAL INH PRN (10:15)
[2017-08-10 11:15] VITALS: BP 135/95
[2017-08-10] MEDS ORDERED: LACT1CAP64 PO (11:40)
[2017-08-10] MEDS: 1/2 NS W/KCL 20 MEQ/L 1,000 ML IV SCH (11:46)
[2017-08-10] MEDS ORDERED: WARF5TAB PO (11:51)
[2017-08-10] MEDS ORDERED: WARF2.5T PO (11:51)
[2017-08-10 12:30] VITALS: BP 169/77
--- NOTE | 2017-08-10 12:35 | History & Physical-Hospitalist ---
HPI History of Present Illness: HPI/Chief Complaint CC: Pneumonia failed out patient abx and hypoxia HPI: This is an 87-year-old white female clinic patient of Dr. Barrera who lives at [facility] with past medical history of extensive cardiac issues along with asthma that went to urgent care yesterday was placed on doxycycline and prednisone worsen to the point she presented to the emergency room O2 sat was 70 percent and was evaluated placed on gentle IV fluids for elevated lactic acid and oxygen supplementation along with nebulizer treatments. It was thought that her chest x-ray showed an infiltrate but the formal read appears to be chronic changes. At this time she feels better and her daughter is at the bedside. Source: patient, RN/MD, caregiver Exam Limitations: no limitations Date Seen 08/10/17 Time Seen by Provider: 11:15 Attending Physician Yo Braswell MD PCP Yo Braswell MD Referring Physician Date of Admission Aug 10, 2017 at 08:29 Home Medications & Allergies Home Medications Reviewed patient Home Medication Reconciliation Form Allergies Allergies Coded Allergies amoxicillin (Verified Allergy, Unknown, 06/21/15) cefadroxil (Verified Allergy, Unknown, 06/21/15) clavulanic acid (Verified Allergy, Unknown, 06/21/15) codeine (Verified Allergy, Unknown, 06/21/15) haloperidol (Verified Allergy, Unknown, 06/21/15) iodine (Verified Allergy, Unknown, 06/21/15) triazolam (Verified Allergy, Unknown, PT TAKES ALPRAZOLAM AT HOME, 08/31/16) zolpidem (Verified Allergy, Unknown, 06/21/15) donepezil (Verified Adverse Reaction, Severe, 11/20/15) NAUSEA/VOMITING promethazine HCl (Unverified Adverse Reaction, Mild, 06/21/15) Past Qpwosut-Nifohf-Xlldat Hx Patient Social History Marrital Status: Employed/Student: retired Alcohol Use: Denies Use Number of Drinks Today: HH Alcohol Beverage of Choice: Wine Recreational Drug Use: No Smoking Status: Never a Smoker Recent Foreign Travel: No Contact w/other who traveled: No Recent Hopitalizations: Yes Recent Infectious Disease Expo: No Immunizations Up To Date Tetanus Booster (TDap): Unknown Pediatric: No Date of Pneumonia Vaccine: Jun 09, 2014 Date of Influenza Vaccine: May 31, 2017 Seasonal Allergies Seasonal Allergies: No Surgeries Yes (SINUS, HEMORRHOIDECTOMY, hiatal hernia, av node ablation) Abdominal, Appendectomy, Bladder Surgery, Breast, Cardiac, Eye Surgery, Gallbladder, Hysterectomy, Oophorectomy, Pacemaker Respiratory Yes (RESPIRATORY ARREST MULTIPLE TIMES--ON VENT IN PAST) Pneumonia Currently Using CPAP: No Currently Using BIPAP: No Cardiovascular Yes (PACEMAKER, AORTIC STENOSIS, av NODE ABLATION) Atrial Fibrillation, Chronic Edema/Swelling, Heart Murmur, High Cholesterol, Irregular Heartbeat, Valvular Heart Disease Neurological Yes Dementia Reproductive System Hx Reproductive Disorders: No Sexually Transmitted Disease: No HIV/AIDS: No Female Reproductive Disorders: Denies Genitourinary No Bladder Infection, Renal Failure, UTI-Chronic Gastrointestinal Yes Chronic Constipation, Irritable Bowel Musculoskeletal Yes (MULTIPLE FX R LOWER LEG) Osteoporosis, Arthritis Endocrine History of Endocrine Disorders: Yes Endocrine Disorders: Hypothyroidsim HEENT History of HEENT Disorders: Yes HEENT Disorders: Cataract Loss of Vision: Denies Hearing Impairment: Denies Cancer No Psychosocial History of Psychiatric Problem: No Integumentary History of Skin or Integumenta: No Blood Transfusions History of Blood Disorders: No Adverse Reaction to a Blood Tr: No Family Medical History Family Hx: Alzheimer's disease 19 MOTHER FHx: throat cancer 19 FATHER Review of Systems Constitutional: see HPI, weakness EENTM: no symptoms reported Respiratory: cough, short of breath, wheezing Cardiovascular: no symptoms reported Gastrointestinal: no symptoms reported Genitourinary: no symptoms reported Musculoskeletal: no symptoms reported Skin: no symptoms reported Psychiatric/Neurological: No Symptoms Reported All Other Systems Reviewed Negative Unless Noted: Yes Physical Exam Physical Exam Vital Signs Vital Sign - Last 12Hours 08/10/17 08/10/17 07:00 08:33 Temp 98.8 Pulse 70 Resp 18 B/P (MAP) 167/100 (122) Pulse Ox 96 O2 Delivery Room Air FiO2 94 Capillary Refill : Less Than 3 Seconds General Appearance: No Apparent Distress, WD/WN, Chronically ill Eyes: Bilateral Eye Normal Inspection, Bilateral Eye PERRL HEENT: PERRL/EOMI, Normal ENT Inspection, Pharynx Normal Neck: Full Range of Motion, Normal Inspection, Non Tender, Supple, Carotid Bruit Respiratory: Chest Non Tender, No Accessory Muscle Use, No Respiratory Distress , Decreased Breath Sounds, Wheezing Cardiovascular: No Edema, No Gallop, No JVD, No Murmur, Normal Peripheral Pulses, Irregularly Irregular Gastrointestinal: Normal Bowel Sounds, No Organomegaly, No Pulsatile Mass, Non Tender, Soft Back: Normal Inspection, No CVA Tenderness, No Vertebral Tenderness Extremity: Normal Capillary Refill, Normal Inspection, Normal Range of Motion, Non Tender, No Calf Tenderness, No Pedal Edema Neurologic/Psychiatric: Alert, Oriented x3, No Motor/Sensory Deficits, Normal Mood/Affect Skin: Normal Color, Warm/Dry Lymphatic: No Adenopathy Results Results/Procedures Lab Laboratory Tests 08/10/17 07:25 Assessment/Plan Admission Diagnosis Assessment: Acute onset of hypoxia with worsened asthma and bronchitis issues failed outpatient antibiotic and prednisone Long history of cardiac issues managed by cardiology Dementia Hypothyroidism Hyperlipidemia Assessment and Plan Plan: Abx IVF gently Monitor labs Reconcile home meds O2 JAGRUTI Pavon DO Aug 10, 2017 12:35
[2017-08-10] MEDS ORDERED: LORATADINE (CLARITIN) 10 MG TAB PO PRN (12:45)
[2017-08-10] MEDS ORDERED: RT-ALBUTEROL SULF 2.5 MG/3 ML PRE-MIX VIAL IH PRN (12:45)
[2017-08-10] MEDS ORDERED: ONDANSETRON 4 MG (ZOFRAN) ORAL DISSOLVE TAB PO PRN (12:45)
[2017-08-10] MEDS ORDERED: ACETAMINOPHEN 325 MG TABLET/CAPLET (TYLENOL) PO PRN (12:45)
[2017-08-10] MEDS ORDERED: FUROSEMIDE 40 MG (LASIX) TAB PO PRN (12:45)
[2017-08-10] MEDS ORDERED: ALPRAZolam 0.5 MG (XANAX) TAB PO PRN (12:45)
[2017-08-10] MEDS: RT-ALBUTEROL/IPRATROPIUM 3 ML (DUONEB) VIAL INH SCH ×2 (14:54→19:56)
[2017-08-10 16:00] VITALS: BP 158/77
[2017-08-10] MEDS: KCL 20 MEQ TAB (K-DUR) PO SCH (16:41)
[2017-08-10] MEDS: POLYETHYLENE GLYCOL 17 GM (MIRALAX) PACK PO SCH (16:41)
[2017-08-10 20:00] VITALS: BP 179/84
[2017-08-10] MEDS: MELATONIN 3 MG TABLET PO SCH (20:11)
[2017-08-10] MEDS: MONTELUKAST 10 MG (SINGULAIR) TAB PO SCH (20:11)
[2017-08-10] MEDS: SIMvastatin 20 MG (ZOCOR) TAB PO SCH (20:11)
[2017-08-10] MEDS: RIVASTIGMINE 1.5 MG (EXELON) CAP PO SCH (20:11)
[2017-08-10 20:45] VITALS: BP 158/78
--- NOTE | 2017-08-10 20:51 | Consultation-Cardiology ---
HPI-Cardiology Cardiology Consultation: Date of Consultation 08/10/17 Date of Admission Attending Physician Yo Braswell MD Admitting Physician Yo Braswell MD Consulting Physician Vicente PEREA MD HPI: Time Seen by Provider: 12:00 Chief Complaint: Shortness of breath This is a 87-year-old female who is a patient of Dr. Barrera and sees Dr. Cook for outpatient cardiology. She lives in an assisted living. Her past cardiac history includes atrial fibrillation, moderate aortic stenosis, congestive heart failure, moderate to severe tricuspid regurgitation, history of AV node ablation, permanent pacemaker. She presented to the urgent care and was placed on doxycycline and prednisone. However the patient rapidly worsened and when she came to the ER she was significantly hypoxic. She had lactic acidosis. She continues to have shortness of breath however it has improved from yesterday. Review of Systems-Cardiology Review of Systems Constitutional: As described under HPI Eyes: No As described under HPI, No no symptoms reported, No blindness, No blurred vision, No contact lenses, No drainage, No decreased acuity, No foreign body sensation, No glasses, No inflammation, No pain, No photophobia, No previous injury, No shadows, No tunnel vision, No other, No vision change Ears/Nose/Throat: No As described under HPI, No no symptoms reported, No chronic hearing loss, No epistaxis, No ear discharge, No ear pain, No loose teeth, No mouth pain, No mouth swelling, No nasal drainage, No nose pain, No recent hearing loss, No throat pain, No throat swelling, No ulcerations, No other Respiratory: shortness of breath Cardiovascular: No no symptoms reported, No As described under HPI, No chest pain, No edema, No irregular heart rate, No lightheadedness, No palpitations, No syncope, No other Gastrointestinal: No no symptoms reported, No As described under HPI, No abdomen distended, No abdominal pain, No blood streaked bowels, No constipation , No diarrhea, No difficulty swallowing, No nausea, No poor appetite, No poor fluid intake, No rectal bleeding, No vomiting, No other, No nausea/vomiting/ diarrhea, No stool coloration changes Genitourinary: No no symptoms reported, No As described under HPI, No burning, No dysuria, No discharge, No frequency, No flank pain, No hematuria, No incontinence, No pain, No urgency, No other, No urine frequency changes, No urine coloration changes Musculoskeletal: No no symptoms reported, No As describe under HPI, No back pain, No gout, No joint pain, No joint swelling, No muscle pain, No muscle stiffness, No neck pain, No other Skin: No no symptoms reported, No As described under HPI, No change in color, No change in hair/nails, No dryness, No lesions, No lumps, No rash, No other, No skin related problems, No ulcerations, No rash on exposed areas, No ulcerations on exposed areas Psychiatric/Neurological: No no symptoms reported, No As described under HPI, No anxiety, No depression, No emotional problems, No headache, No numbness, No pre-existing deficit, No seizure, No tingling, No tremors, No weakness, No other , No focal weakness, No syncope Hematologic: No no symptoms reported, No As described under HPI, No anemia, No blood clots, No easy bleeding, No easy bruising, No swollen glands, No other, No bleeding abnormalities All Other Systems Reviewed Negative Unless Noted: Yes QOJ-Pfxtaz-Yigrdy Hx Patient Social History Marrital Status: Employed/Student: retired Alcohol Use: Denies Use Recreational Drug Use: No Smoking Status: Never a Smoker Recent Foreign Travel: No Recent Infectious Disease Expo: No Physical Abuse Screen: No Sexual Abuse: No Immunizations Up To Date Tetanus Booster (TDap): Unknown Date of Pneumonia Vaccine: Jun 09, 2014 Date of Influenza Vaccine: May 31, 2017 Past Medical History PMH As described under Assessment. Family Medical History Family Medical History: No reported h/o premature CAD or SCD Family History: Alzheimer's disease 19 MOTHER FHx: throat cancer 19 FATHER Allergies and Home Medications Allergies Coded Allergies: amoxicillin (Verified Allergy, Unknown, 06/21/15) cefadroxil (Verified Allergy, Unknown, 06/21/15) clavulanic acid (Verified Allergy, Unknown, 06/21/15) codeine (Verified Allergy, Unknown, 06/21/15) haloperidol (Verified Allergy, Unknown, 06/21/15) iodine (Verified Allergy, Unknown, 06/21/15) triazolam (Verified Allergy, Unknown, PT TAKES ALPRAZOLAM AT HOME, 08/31/16) zolpidem (Verified Allergy, Unknown, 06/21/15) donepezil (Verified Adverse Reaction, Severe, 11/20/15) NAUSEA/VOMITING promethazine HCl (Unverified Adverse Reaction, Mild, 06/21/15) Home Medications Acetaminophen 325 Mg Tablet, 650 MG PO Q4H PRN for PAIN-MILD, (Reported) TAKES 2 (325MG) TABLET Albuterol Sulfate 2.5 Mg/3 Ml Vial.neb, 2.5 MG NEB Q4H PRN for SHORTNESS OF BREATH, (Reported) Alprazolam 0.5 Mg Tablet, 0.25 MG PO TID PRN for ANXIETY, (Reported) TAKES 1/2 (0.5MG) TABLETS Fluticasone/Vilanterol 1 Each Blst.w.dev, 1 PUFF IH HS, (Reported) Furosemide 40 Mg Tablet, 40 MG PO DAILY PRN for 4LB WEIGHT GAIN, (Reported) Lactobacillus Combo No.11 1 Each Cap.sprink, 1 EACH PO DAILY, (Reported) Levothyroxine Sodium 50 Mcg Tablet, 50 MCG PO DAILY, (Reported) Loratadine 10 Mg Tablet, 10 MG PO NEEDED, (Reported) Magnesium Oxide 250 Mg Tablet, 250 MG PO DAILY, (Reported) Melatonin/Pyridoxine HCl (B6) 1 Each Tablet, 1.5 MG PO HS, (Reported) TAKES 1/2 OF A (3 MG) TABLET Montelukast Sodium 10 Mg Tablet, 10 MG PO HS, (Reported) Ondansetron 4 Mg Tab.rapdis, 4 MG PO Q8H PRN for N/V, (Reported) Polyethylene Glycol 3350 17 Gm Powd.pack, 8.5 GM PO DAILY@1800, (Reported) TAKES 1/2 CAPFUL Potassium Chloride 20 Meq Tab.er.prt, 20 MEQ PO BID, (Reported) Pravastatin Sodium 40 Mg Tablet, 40 MG PO HS, (Reported) Prednisone 5 Mg Tablet, 2.5 MG PO DAILY, (Reported) TAKES 1/2 (5MG) TABLET Rivastigmine Tartrate 1.5 Mg Capsule, 1.5 MG PO BID, (Reported) Vitamin B Complex & Vit C No.4 150 Mg Tablet, 150 MG PO DAILY, (Reported) Warfarin Sodium 2.5 Mg Tablet, 2.5 MG PO DAILY, (Reported) TAKE SATURDAY, SATURDAY,SATURDAY,SATURDAY,SATURDAY Warfarin Sodium 5 Mg Tablet, 5 MG PO DAILY, (Reported) TAKE SATURDAY AND SATURDAY Physical Exam-Cardiology Physical Exam Vital Signs/I&O Vital Sign - Last 12Hours 08/10/17 08/10/17 08/10/17 08/10/17 10:05 11:15 12:30 14:54 Temp 98.2 98.7 Pulse 71 71 Resp 16 16 B/P (MAP) 135/95 169/77 (107) Pulse Ox 94 94 97 O2 Delivery Room Air Room Air Room Air FiO2 21 93 08/10/17 08/10/17 08/10/17 08/10/17 16:00 17:57 19:56 20:00 Temp 97.1 98.2 Pulse 69 72 Resp 18 18 B/P (MAP) 158/77 (104) 179/84 (115) Pulse Ox 94 95 O2 Delivery Room Air Room Air Room Air Room Air FiO2 94 Capillary Refill : Less Than 3 Seconds Constitutional: No appears stated age, No AAO x 3, No apparent distress, No PERRL, No well-developed, No well-nourished, No other HEENT: No PERRL, No normal ENT inspection, No TMs normal, No pharynx normal, No scleral icterus (R), No scleral icterus (L), No pale conjunctivae (R), No pale conjunctivae (L), No photophobia, No TM abnormal (R), No TM abnormal (L), No pharyngeal erythema, No tonsillar exudate, No other, No discharge, No EOMI, No hearing is well preserved, No hard of hearing, No oral hygience is good, No ulceration, No xanthelasmas are seen Neck: No non-tender, No full range of motion, No supple, No normal inspection, No carotid bruit, No limited range of motion, No lymphadenopathy (R), No lymphadenopathy (L), No tender lateral, No tender midline, No thyromegaly, No other, No carotid pulses are 2 + bilaterally, No with good upstrokes Respiratory: No accessory muscle use, No respiratory distress, No chest tender , No chest expansion is symmetric, No chest is bilaterally symmetric, No lungs clear to percussion, No lungs clear to auscultation, crackles, No rhonchi, No rales, No stridor, No wheezing, No pleural rub, No other Cardiovascular: No regular rate-rhythm, No irregularly irregular, No extra beats, No parasternal heave is noted, No JVD, No edema, No bradycardia, No tachycardia, No point of maximal impulse, No cardiac thrills are palpable, No S1 and S2, No gallop/S3, No gallop/S4, No diastolic murmur, systolic murmur, No friction rub, No click, No other Gastrointestinal: No tender, No soft, No round, No distended, No pulsatile mass , No organomegaly, No guarding, No rebound, No tenderness, No hernia, No mass, No audible bowel sounds, No abnormal bowel sounds, No abdominal bruits, No spleenomegaly, No other Rectal: deferred Extremities: No normal range of motion, No non-tender, No normal inspection, No pedal edema, No calf tenderness, No normal capillary refill, No pelvis stable , No calf tenderness, No inflammation, No pedal edema, No slow capillary refill , No swelling, No other, No abrasion, No clubbing, No cyanosis, No ecchymosis, No laceration, No no lower extremity edema bilateral, No significant edema, No tenderness, No wound Neurologic/Psychiatric: No 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 fabricating supervisor II-XII nml as tested, No no motor/sensory deficits, No alert, No normal mood/affect, No oriented x 3, No abnormal cerebellar tests, No abnormal 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 fabricating supervisor II-XII, No abnormal gait, No aphasia, No EOM palsy, No facial droop, No motor weakness, No sensory deficit, No depressed affect, No disoriented x 3, No other, No grossly intact, No power is 5/5 both on sides Skin: No normal color, No warm/dry, No cyanosis, No cool, No diaphoresis, No damp, No ecchymosis, No jaundice, No mottled, No pallor, No rash, No tattoos/ piercings, No ulcerations, No rash on exposed areas, No ulcerations on exposed areas, No other Data Review Labs Laboratory Tests 08/10/17 07:25: White Blood Count 13.0H, Red Blood Count 4.10L, Hemoglobin 12.6, Hematocrit 38, Mean Corpuscular Volume 93, Mean Corpuscular Hemoglobin 31, Mean Corpuscular Hemoglobin Concent 33, Red Cell Distribution Width 15.0H, Platelet Count 252, Mean Platelet Volume 10.6H, Neutrophils (%) (Auto) 77H, Lymphocytes (%) (Auto) 14, Monocytes (%) (Auto) 8, Eosinophils (%) (Auto) 0, Basophils (%) (Auto) 0, Neutrophils # (Auto) 10.0H, Lymphocytes # (Auto) 1.8, Monocytes # (Auto) 1.1H, Eosinophils # (Auto) 0.0, Basophils # (Auto) 0.0, Prothrombin Time 16.0H, INR Comment 1.3, Activated Partial Thromboplast Time 32, Sodium Level 141, Potassium Level 4.0, Chloride Level 106, Carbon Dioxide Level 23, Anion Gap 12, Blood Urea Nitrogen 17, Creatinine 0.83, Estimat Glomerular Filtration Rate > 60 , BUN/Creatinine Ratio 20, Glucose Level 114H, Lactic Acid Level 2.11*H, Calcium Level 8.9, Magnesium Level 1.8, Total Bilirubin 1.7H, Aspartate Amino Transf (AST/SGOT) 22, Alanine Aminotransferase (ALT/SGPT) 16, Alkaline Phosphatase 58, B-Type Natriuretic Peptide 308.2H, Total Protein 6.8, Albumin 3.7 08/10/17 07:55: Urine Color YELLOW, Urine Clarity CLEAR, Urine pH 8, Urine Specific [place] 1.010L, Urine Protein NEGATIVE, Urine Glucose (UA) NEGATIVE, Urine Ketones NEGATIVE, Urine Nitrite NEGATIVE, Urine Bilirubin NEGATIVE, Urine Urobilinogen NORMAL, Urine Leukocyte Esterase NEGATIVE, Urine RBC (Auto) NEGATIVE, Urine RBC NONE, Urine WBC RARE, Urine Crystals NONE, Urine Bacteria TRACE, Urine Casts NONE, Urine Mucus NEGATIVE, Urine Culture Indicated NO 08/10/17 10:05: Lactic Acid Level 1.34 Microbiology 08/10/17 Influenza Types A,B Antigen (DANIAL) - Final, Complete A/P-Cardiology Assessment/Admission Diagnosis Pneumonia, hypoxia, shortness of breath, Atrial fibrillation, Moderate aortic stenosis, Congestive heart failure, Moderate to severe tricuspid regurgitation, History of AV node ablation and permanent pacemaker. Plan Pneumonia, hypoxia, shortness of breath: Defer to primary team. In treated with IV fluids and antibiotics. Atrial fibrillation: On oral anticoagulation. Moderate aortic stenosis: Recent echocardiogram. Continue to follow clinically. Congestive heart failure: Mild elevation of BNP. Etiology of shortness of breath is likely pulmonary infectious etiology. Moderate to severe tricuspid regurgitation: Follow clinically. History of AV node ablation and permanent pacemaker: No change in management. Device interrogation can be done as an outpatient. This patient follows Dr. Cook as an outpatient. Thank you for your consultation. Please call me if you have any questions. Dillon Perea MD, FACP, FACC, FSCAI, FHRS, CCDS Interventional Cardiology Cardiac Electrophysiology Vascular Medicine and Endovascular Interventions Clinical Quality Measures DVT/VTE Risk/Contraindication: Risk Factor Score Per Nursin RFS Level Per Nursing on Admit: 4+=Very High Vicente PEREA MD Aug 10, 2017 8:51 pm
[2017-08-10] MEDS ORDERED: RT-ADVAIR HFA 115/21 MCG PER PUFF IH SCH (21:00)
[2017-08-11] VITALS: BP 160/77
[2017-08-11] MEDS: RT-ALBUTEROL/IPRATROPIUM 3 ML (DUONEB) VIAL INH SCH ×4 (01:46→20:20)
[2017-08-11] MEDS: 1/2 NS W/KCL 20 MEQ/L 1,000 ML IV SCH ×2 (02:25→06:37)
[2017-08-11 04:12] VITALS: BP 155/85
[2017-08-11] MEDS: KCL 20 MEQ TAB (K-DUR) PO SCH ×2 (06:38→16:04)
[2017-08-11] MEDS: MULTIVIT W/MINERALS TAB (THERAGRAN M) PO SCH (06:38)
[2017-08-11] MEDS: LEVOTHYROXINE 50 MCG (LEVOTHROID) TAB PO SCH (06:38)
[2017-08-11] MEDS: predniSONE 5 MG TAB PO SCH (06:39)
[2017-08-11 06:44] LABS: BASOPHILS % (AUTO) 0 % (0-10); EOSINOPHILS % (AUTO) 0 % (0-10); HEMATOCRIT 38 % (35-52); HEMOGLOBIN 12.7 G/DL (11.5-16.0); LYMPHOCYTES # (AUTO) 1.1 X 10^3 (1.0-4.0); LYMPHOCYTES % (AUTO) 8 % (12-44); MEAN CORPUSCULAR HEMOGLOBIN 31 PG (25-34); MEAN CORPUSCULAR HGB CONC 33 G/DL (32-36); MEAN CORPUSCULAR VOLUME 92 FL (80-99); MEAN PLATELET VOLUME 10.9 FL (7.4-10.4); MONOCYTES % (AUTO) 7 % (0-12); NEUTROPHILS # (AUTO) 12.4 X 10^3 (1.8-7.8); NEUTROPHILS % (AUTO) 85 % (42-75); PLATELET COUNT 237 10^3/uL (130-400); RED BLOOD COUNT 4.14 10^6/uL (4.35-5.85); RED CELL DISTRIBUTION WIDTH 14.9 % (10.0-14.5); WHITE BLOOD COUNT 14.5 10^3/uL (4.3-11.0)
[2017-08-11 07:08] LABS: ALANINE AMINOTRANSFERASE 14 U/L (0-55); ALBUMIN 3.6 GM/DL (3.2-4.5); ALKALINE PHOSPHATASE 57 U/L (40-136); BILIRUBIN,TOTAL 1.4 MG/DL (0.1-1.0); BUN/CREATININE RATIO 15; CALCIUM 9.4 MG/DL (8.5-10.1); CARBON DIOXIDE 22 MMOL/L (21-32); CHLORIDE 111 MMOL/L (98-107); CREATININE SERUM 0.81 MG/DL (0.60-1.30); GFR ESTIMATED > 60; GLUCOSE 143 MG/DL (70-105); POTASSIUM 3.9 MMOL/L (3.6-5.0); SODIUM 144 MMOL/L (135-145); TOTAL PROTEIN 6.5 GM/DL (6.4-8.2)
[2017-08-11 07:09] LABS: INR 1.4 (0.8-1.4); PROTHROMBIN TIME PATIENT 17.3 SEC (12.2-14.7)
[2017-08-11] MEDS ORDERED: BISACODYL 10 MG SUPP (DULCOLAX) ONE (07:29)
[2017-08-11] MEDS: RIVASTIGMINE 1.5 MG (EXELON) CAP PO SCH ×2 (08:28→20:35)
[2017-08-11] MEDS: MAGNESIUM OXIDE (MAG-OX)400 MG TAB PO SCH (08:28)
[2017-08-11] MEDS: LACTOBACILLUS Acidoph/Bulgar (LACTINEX/FLORANEX) TAB PO SCH (08:28)
[2017-08-11 08:30] VITALS: BP 170/77
--- NOTE | 2017-08-11 10:38 | Diagnostic Imaging Report ---
EXAM: CHEST PA/LAT (2 VIEW) INDICATION: Pneumonia. Sepsis. Asthma. COMPARISON: Chest radiograph 08/10/2017. FINDINGS: Cardiomegaly. Normal central pulmonary vascularity. Calcified aorta. No dense consolidation, pleural effusion or pneumothorax. No acute osseous findings. Cardiac pacer. IMPRESSION: No acute cardiopulmonary findings. Stable cardiomegaly. Dictated by: Dictated on workstation # [id number]
[2017-08-11] MEDS ORDERED: LEVO750T39 PO (12:23)
[2017-08-11] MEDS ORDERED: WARF2.5T PO (12:23)
--- NOTE | 2017-08-11 12:27 | Discharge Summary-Hospitalist ---
Diagnosis/Chief Complaint Date of Admission Aug 10, 2017 at 08:29 Date of Discharge Discharge Date: Aug 11, 2017 Admission Diagnosis Assessment: Acute onset of hypoxia with worsened asthma and bronchitis issues failed outpatient antibiotic and prednisone Long history of cardiac issues managed by cardiology Dementia Hypothyroidism Hyperlipidemia Discharge Diagnosis Assessment: Acute onset of hypoxia with worsened asthma and bronchitis issues failed outpatient antibiotic and prednisone Long history of cardiac issues managed by cardiology Dementia Hypothyroidism Hyperlipidemia Constipation s/p SSE before DC Plan: Abx IVF gently Monitor labs Reconcile home meds O2 Nebs Discharge Summary Discharge Physical Examination Allergies: Coded Allergies: amoxicillin (Verified Allergy, Unknown, 06/21/15) cefadroxil (Verified Allergy, Unknown, 06/21/15) clavulanic acid (Verified Allergy, Unknown, 06/21/15) codeine (Verified Allergy, Unknown, 06/21/15) haloperidol (Verified Allergy, Unknown, 06/21/15) iodine (Verified Allergy, Unknown, 06/21/15) triazolam (Verified Allergy, Unknown, PT TAKES ALPRAZOLAM AT HOME, 08/31/16) zolpidem (Verified Allergy, Unknown, 06/21/15) donepezil (Verified Adverse Reaction, Severe, 11/20/15) NAUSEA/VOMITING promethazine HCl (Unverified Adverse Reaction, Mild, 06/21/15) Vitals & I&Os Vital Signs Date Time Temp Pulse Resp B/P (MAP) Pulse Ox O2 Delivery O2 Flow Rate FiO2 08/11/17 09:00 Room Air 08/11/17 08:26 94 08/11/17 04:12 97.0 75 18 155/85 (108) 96 Hospital Course Hospital course: Patient had a brief hospital course she was admitted for hypoxia of 70 percent with worsening asthma and bronchitis failed outpatient antibiotic therapy the day before. She stabilized received gentle IV fluids and overall felt much improved. She is placed on Levaquin INR was closely monitored due to the supratherapeutic level that could occur with Levaquin and Coumadin combination and on Saturday the INR was 1.4. She had not had a bowel movement since Saturday so that was treated with soapsuds enema prior to discharge. She will maintain Coumadin 2.5 mg daily instead of alternating with 5 mg to avoid supratherapeutic level will have INR checked on Saturday and she will be on Levaquin every 48 hours. Labs (last 24 hrs) Laboratory Tests 08/11/17 05:53: White Blood Count 14.5H, Red Blood Count 4.14L, Hemoglobin 12.7, Hematocrit 38, Mean Corpuscular Volume 92, Mean Corpuscular Hemoglobin 31, Mean Corpuscular Hemoglobin Concent 33, Red Cell Distribution Width 14.9H, Platelet Count 237, Mean Platelet Volume 10.9H, Neutrophils (%) (Auto) 85H, Lymphocytes (%) (Auto) 8L, Monocytes (%) (Auto) 7, Eosinophils (%) (Auto) 0, Basophils (%) (Auto) 0, Neutrophils # (Auto) 12.4H, Lymphocytes # (Auto) 1.1, Monocytes # (Auto) 1.0, Eosinophils # (Auto) 0.0, Basophils # (Auto) 0.0, Prothrombin Time 17.3H, INR Comment 1.4, Sodium Level 144, Potassium Level 3.9, Chloride Level 111H, Carbon Dioxide Level 22, Anion Gap 11, Blood Urea Nitrogen 12, Creatinine 0.81, Estimat Glomerular Filtration Rate > 60, BUN/Creatinine Ratio 15, Glucose Level 143H, Calcium Level 9.4, Total Bilirubin 1.4H, Aspartate Amino Transf (AST/SGOT ) 20, Alanine Aminotransferase (ALT/SGPT) 14, Alkaline Phosphatase 57, Total Protein 6.5, Albumin 3.6 Microbiology 08/10/17 Influenza Types A,B Antigen (DANIAL) - Final, Complete Pending Labs Laboratory Tests 08/11/17 05:53: White Blood Count 14.5, Red Blood Count 4.14, Hemoglobin 12.7, Hematocrit 38, Mean Corpuscular Volume 92, Mean Corpuscular Hemoglobin 31, Mean Corpuscular Hemoglobin Concent 33, Red Cell Distribution Width 14.9, Platelet Count 237, Mean Platelet Volume 10.9, Neutrophils (%) (Auto) 85, Lymphocytes (%) (Auto) 8, Monocytes (%) (Auto) 7, Eosinophils (%) (Auto) 0, Basophils (%) (Auto) 0, Neutrophils # (Auto) 12.4, Lymphocytes # (Auto) 1.1, Monocytes # (Auto) 1.0, Eosinophils # (Auto) 0.0, Basophils # (Auto) 0.0, Prothrombin Time 17.3, INR Comment 1.4, Sodium Level 144, Potassium Level 3.9, Chloride Level 111, Carbon Dioxide Level 22, Anion Gap 11, Blood Urea Nitrogen 12, Creatinine 0.81, Estimat Glomerular Filtration Rate > 60, BUN/Creatinine Ratio 15, Glucose Level 143, Calcium Level 9.4, Total Bilirubin 1.4, Aspartate Amino Transf (AST/SGOT) 20, Alanine Aminotransferase (ALT/SGPT) 14, Alkaline Phosphatase 57, Total Protein 6.5, Albumin 3.6 Discharge Home Medications: Active Scripts Active Levofloxacin 750 Mg Tablet 750 Mg PO Q48H@1100 Coumadin (Warfarin Sodium) 2.5 Mg Tablet 2.5 Mg PO DAILY 7 Days TAKE DAILY WHILE ON LEVAQUIN BUT CALL DR MAY FOR INR ORDER ON SATURDAY Reported Coumadin (Warfarin Sodium) 5 Mg Tablet 5 Mg PO DAILY TAKE SATURDAY AND SATURDAY Probiotic (Lactobacillus Combo No.11) 1 Each Cap.sprink 1 Each PO DAILY Ondansetron Odt (Ondansetron) 4 Mg Tab.rapdis 4 Mg PO Q8H PRN Miralax (Polyethylene Glycol 3350) 17 Gm Powd.pack 8.5 Gm PO DAILY@1800 TAKES 1/2 CAPFUL Loratadine 10 Mg Tablet 10 Mg PO NEEDED Super B Complex (Vitamin B Complex & Vit C No.4) 150 Mg Tablet 150 Mg PO DAILY Rivastigmine (Rivastigmine Tartrate) 1.5 Mg Capsule 1.5 Mg PO BID Melatonin 3 mg Tablet (Melatonin/Pyridoxine HCl (B6)) 1 Each Tablet 1.5 Mg PO HS TAKES 1/2 OF A (3 MG) TABLET Prednisone 5 Mg Tablet 2.5 Mg PO DAILY TAKES 1/2 (5MG) TABLET Alprazolam 0.5 Mg Tablet 0.25 Mg PO TID PRN TAKES 1/2 (0.5MG) TABLETS Breo Ellipta 100-25 Mcg INH (Fluticasone/Vilanterol) 1 Each Blst.w.dev 1 Puff IH HS Albuterol Sulfate 2.5 Mg/3 Ml Vial.neb 2.5 Mg NEB Q4H PRN Furosemide 40 Mg Tablet 40 Mg PO DAILY PRN Montelukast Sodium 10 Mg Tablet 10 Mg PO HS Pravastatin Sodium 40 Mg Tablet 40 Mg PO HS Levothyroxine Sodium 50 Mcg Tablet 50 Mcg PO DAILY Klor-Con M20 (Potassium Chloride) 20 Meq Tab.er.prt 20 Meq PO BID Magnesium (Magnesium Oxide) 250 Mg Tablet 250 Mg PO DAILY Tylenol (Acetaminophen) 325 Mg Tablet 650 Mg PO Q4H PRN TAKES 2 (325MG) TABLET Instructions to patient/family Please see electronic discharge instructions given to patient. Clinical Quality Measures DVT/VTE Risk/Contraindication: Risk Factor Score Per Nursin RFS Level Per Nursing on Admit: 4+=Very High JAGRUTI AGGARWAL DO Aug 11, 2017 12:27
[2017-08-11 12:30] VITALS: BP 165/80
--- NOTE | 2017-08-11 13:09 | Cardiology Progress Note ---
Cardiology SOAP Progress Note Subjective: Shortness of breath improving significantly. Objective: I&O/Vital Signs Vital Sign - Last 12Hours 08/11/17 08/11/17 08/11/17 08/11/17 01:46 04:12 08:26 09:00 Temp 97.0 Pulse 75 Resp 18 B/P (MAP) 155/85 (108) Pulse Ox 96 O2 Delivery Room Air Room Air Room Air Room Air FiO2 95 94 Intake and Output 08/11/17 00:00 Intake Total 850 ml Output Total 850 ml Balance 0 ml Weight (Pounds): 150 Weight (Ounces): 0.0 Weight (Calculated Kilograms): 68.298164 Constitutional: No appears stated age, No AAO x 3, No apparent distress, No PERRL, No well-developed, No well-nourished, No other Respiratory: No accessory muscle use, No respiratory distress, No chest tender , No chest expansion is symmetric, No chest is bilaterally symmetric, No lungs clear to percussion, No lungs clear to auscultation, crackles, No rhonchi, No rales, No stridor, No wheezing, No pleural rub, No other Cardiovascular: No regular rate-rhythm, No irregularly irregular, No extra beats, No parasternal heave is noted, No JVD, No edema, No bradycardia, No tachycardia, No point of maximal impulse, No cardiac thrills are palpable, No S1 and S2, No gallop/S3, No gallop/S4, No diastolic murmur, systolic murmur, No friction rub, No click, No other Gastrointestional: No tender, No soft, No round, No distended, No pulsatile mass, No organomegaly, No guarding, No rebound, No tenderness, No hernia, No mass, No audible bowel sounds, No abnormal bowel sounds, No abdominal bruits, No spleenomegaly, No other Extremities: No normal range of motion, No non-tender, No normal inspection, No pedal edema, No calf tenderness, No normal capillary refill, No pelvis stable , No calf tenderness, No inflammation, No pedal edema, No slow capillary refill , No swelling, No other, No abrasion, No clubbing, No cyanosis, No ecchymosis, No laceration, No no lower extremity edema bilateral, No significant edema, No tenderness, No wound Neurologic/Psychiatric: No carrot grader inspector II-XII nml as tested, No no motor/sensory deficits, No alert, No normal mood/affect, No oriented x 3, No abnormal cerebellar tests, No abnormal carrot grader inspector II-XII, No abnormal gait, No aphasia, No EOM palsy, No facial droop, No motor weakness, No sensory deficit, No depressed affect, No disoriented x 3, No other, No grossly intact, No power is 5/5 both on sides Skin: No normal color, No warm/dry, No cyanosis, No cool, No diaphoresis, No damp, No ecchymosis, No jaundice, No mottled, No pallor, No rash, No tattoos/ piercings, No ulcerations, No rash on exposed areas, No ulcerations on exposed areas, No other Results/Procedures: Labs Laboratory Tests 08/11/17 05:53: White Blood Count 14.5H, Red Blood Count 4.14L, Hemoglobin 12.7, Hematocrit 38, Mean Corpuscular Volume 92, Mean Corpuscular Hemoglobin 31, Mean Corpuscular Hemoglobin Concent 33, Red Cell Distribution Width 14.9H, Platelet Count 237, Mean Platelet Volume 10.9H, Neutrophils (%) (Auto) 85H, Lymphocytes (%) (Auto) 8L, Monocytes (%) (Auto) 7, Eosinophils (%) (Auto) 0, Basophils (%) (Auto) 0, Neutrophils # (Auto) 12.4H, Lymphocytes # (Auto) 1.1, Monocytes # (Auto) 1.0, Eosinophils # (Auto) 0.0, Basophils # (Auto) 0.0, Prothrombin Time 17.3H, INR Comment 1.4, Sodium Level 144, Potassium Level 3.9, Chloride Level 111H, Carbon Dioxide Level 22, Anion Gap 11, Blood Urea Nitrogen 12, Creatinine 0.81, Estimat Glomerular Filtration Rate > 60, BUN/Creatinine Ratio 15, Glucose Level 143H, Calcium Level 9.4, Total Bilirubin 1.4H, Aspartate Amino Transf (AST/SGOT ) 20, Alanine Aminotransferase (ALT/SGPT) 14, Alkaline Phosphatase 57, Total Protein 6.5, Albumin 3.6 Microbiology 08/10/17 Influenza Types A,B Antigen (DANIAL) - Final, Complete A/P: Assessment/Dx: Pneumonia, hypoxia, shortness of breath, Atrial fibrillation, Moderate aortic stenosis, Congestive heart failure, Moderate to severe tricuspid regurgitation, History of AV node ablation and permanent pacemaker. Plan: Pneumonia, hypoxia, shortness of breath: Defer to primary team. In treated with IV fluids and antibiotics. Shortness of breath improving significantly. Atrial fibrillation: On oral anticoagulation. Moderate aortic stenosis: Recent echocardiogram. Continue to follow clinically. Congestive heart failure: Mild elevation of BNP. Etiology of shortness of breath is likely pulmonary infectious etiology. Moderate to severe tricuspid regurgitation: Follow clinically. History of AV node ablation and permanent pacemaker: No change in management. Device interrogation can be done as an outpatient. This patient follows Dr. Cook as an outpatient. Thank you for your consultation. Please call me if you have any questions. Dillon Perea MD, FACP, FACC, FSCAI, FHRS, CCDS Interventional Cardiology Cardiac Electrophysiology Vascular Medicine and Endovascular Interventions Vicente PEREA MD Aug 11, 2017 1:08 pm
[2017-08-11] MEDS ORDERED: FLEET ENEMA ADULT 1 EA BTL ONE (14:35)
[2017-08-11 16:00] VITALS: BP 168/78
[2017-08-11] MEDS: POLYETHYLENE GLYCOL 17 GM (MIRALAX) PACK PO SCH (16:05)
[2017-08-11] MEDS ORDERED: MAGNESIUM CITRATE 300 ML BTL PO ONE (18:45)
[2017-08-11] MEDS ORDERED: MINERAL OIL ENEMA 133 ML BTL PR ONE (18:45)
--- NOTE | 2017-08-11 18:57 | Diagnostic Imaging Report ---
INDICATION: Constipation Supine and upright abdominal films are obtained. Upright view shows no free air. Bowel gas pattern is nonspecific with moderate stool throughout the colon. There is no overt obstruction or ileus. IMPRESSION: No evidence of free air or overt bowel obstruction. Moderate stool throughout the colon. Bowel gas pattern is nonspecific. Dictated by: Dictated on workstation # [id number]
--- NOTE | 2017-08-11 19:14 | Consultation ---
History of Present Illness History of Present Illness Patient Consulted On(parisa/time) 08/11/17 19:12 Date Seen by Provider: Aug 11, 2017 Time Seen by Provider: 19:12 Reason for Visit: Exacerbation of chronic asthma and bronchitis. History of Present Illness patient about to be discharged earlier today, having recovered from an exacerbation of chronic bronchitis and asthma. Due to severe constipation, discharge has been held. I've been asked to see her to evaluate the etiology of constipation and possibly address. Allergies and Home Medications Allergies Coded Allergies: amoxicillin (Verified Allergy, Unknown, 06/21/15) cefadroxil (Verified Allergy, Unknown, 06/21/15) clavulanic acid (Verified Allergy, Unknown, 06/21/15) codeine (Verified Allergy, Unknown, 06/21/15) haloperidol (Verified Allergy, Unknown, 06/21/15) iodine (Verified Allergy, Unknown, 06/21/15) triazolam (Verified Allergy, Unknown, PT TAKES ALPRAZOLAM AT HOME, 08/31/16) zolpidem (Verified Allergy, Unknown, 06/21/15) donepezil (Verified Adverse Reaction, Severe, 11/20/15) NAUSEA/VOMITING promethazine HCl (Unverified Adverse Reaction, Mild, 06/21/15) Home Medications Acetaminophen 325 Mg Tablet, 650 MG PO Q4H PRN for PAIN-MILD, (Reported) TAKES 2 (325MG) TABLET Albuterol Sulfate 2.5 Mg/3 Ml Vial.neb, 2.5 MG NEB Q4H PRN for SHORTNESS OF BREATH, (Reported) Alprazolam 0.5 Mg Tablet, 0.25 MG PO TID PRN for ANXIETY, (Reported) TAKES 1/2 (0.5MG) TABLETS Fluticasone/Vilanterol 1 Each Blst.w.dev, 1 PUFF IH HS, (Reported) Furosemide 40 Mg Tablet, 40 MG PO DAILY PRN for 4LB WEIGHT GAIN, (Reported) Lactobacillus Combo No.11 1 Each Cap.sprink, 1 EACH PO DAILY, (Reported) Levofloxacin 750 Mg Tablet, 750 MG PO Q48H@1100, #3 Prescribed by: JAGRUTI AGGARWAL on 08/11/17 1223 Levothyroxine Sodium 50 Mcg Tablet, 50 MCG PO DAILY, (Reported) Loratadine 10 Mg Tablet, 10 MG PO NEEDED, (Reported) Magnesium Oxide 250 Mg Tablet, 250 MG PO DAILY, (Reported) Melatonin/Pyridoxine HCl (B6) 1 Each Tablet, 1.5 MG PO HS, (Reported) TAKES 1/2 OF A (3 MG) TABLET Montelukast Sodium 10 Mg Tablet, 10 MG PO HS, (Reported) Ondansetron 4 Mg Tab.rapdis, 4 MG PO Q8H PRN for N/V, (Reported) Polyethylene Glycol 3350 17 Gm Powd.pack, 8.5 GM PO DAILY@1800, (Reported) TAKES 1/2 CAPFUL Potassium Chloride 20 Meq Tab.er.prt, 20 MEQ PO BID, (Reported) Pravastatin Sodium 40 Mg Tablet, 40 MG PO HS, (Reported) Prednisone 5 Mg Tablet, 2.5 MG PO DAILY, (Reported) TAKES 1/2 (5MG) TABLET Rivastigmine Tartrate 1.5 Mg Capsule, 1.5 MG PO BID, (Reported) Vitamin B Complex & Vit C No.4 150 Mg Tablet, 150 MG PO DAILY, (Reported) Warfarin Sodium 5 Mg Tablet, 5 MG PO DAILY, (Reported) TAKE SATURDAY AND SATURDAY Warfarin Sodium 2.5 Mg Tablet, 2.5 MG PO DAILY for 7 Days TAKE DAILY WHILE ON LEVAQUIN BUT CALL DR MAY FOR INR ORDER ON SATURDAY Prescribed by: JAGRUTI AGGARWAL on 08/11/17 1223 Past Iydotyt-Frwzex-Ocujab Hx Patient Social History Alcohol Use: Denies Use Number of Drinks Today: HH Alcohol Beverage of Choice: Wine Recreational Drug Use: No Smoking Status: Never a Smoker Recent Foreign Travel: No Contact w/Someone Who Travel: No Recent Infectious Disease Expo: No Recent Hopitalizations: Yes Immunizations Up To Date Tetanus Booster (TDap): Unknown PED Vaccines UTD: No Date of Pneumonia Vaccine: Jun 09, 2014 Date of Influenza Vaccine: May 31, 2017 Seasonal Allergies Seasonal Allergies: No Surgeries History of Surgeries: Yes (SINUS, HEMORRHOIDECTOMY, hiatal hernia, av node ablation) Surgeries: Abdominal, Appendectomy, Bladder Surgery, Breast, Cardiac, Eye Surgery, Gallbladder, Hysterectomy, Oophorectomy, Pacemaker Respiratory History of Respiratory Disorde: Yes (RESPIRATORY ARREST MULTIPLE TIMES--ON VENT IN PAST) Respiratory Disorders: Asthma, Pneumonia Currently Using CPAP: No Currently Using BIPAP: No Cardiovascular History of Cardiac Disorders: Yes (PACEMAKER, AORTIC STENOSIS, av NODE ABLATION ) Cardiac Disorders: Atrial Fibrillation, Chronic Edema/Swelling, Heart Murmur, High Cholesterol, Irregular Heartbeat, Valvular Heart Disease Neurological History of Neurological Disord: Yes Neurological Disorders: Dementia Reproductive System Hx Reproductive Disorders: No Sexually Transmitted Disease: No HIV/AIDS: No Female Reproductive Disorders: Denies Genitourinary History of Genitourinary Disor: No Genitourinary Disorders: Bladder Infection, Renal Failure, UTI-Chronic Gastrointestinal History of Gastrointestinal Di: Yes Gastrointestinal Disorders: Chronic Constipation, Irritable Bowel Musculoskeletal History of Musculoskeletal Dis: Yes (MULTIPLE FX R LOWER LEG) Musculoskeletal Disorders: Osteoporosis, Arthritis Endocrine History of Endocrine Disorders: Yes Endocrine Disorders: Hypothyroidsim HEENT History of HEENT Disorders: Yes HEENT Disorders: Cataract Loss of Vision: Denies Hearing Impairment: Denies Cancer History of Cancer: No Psychosocial History of Psychiatric Problem: No Integumentary History of Skin or Integumenta: No Blood Transfusions History of Blood Disorders: No Adverse Reaction to a Blood Tr: No Family Medical History Family Medial History: Alzheimer's disease 19 MOTHER FHx: throat cancer 19 FATHER Review of Systems-General EENTM: no symptoms reported Respiratory: cough Cardiovascular: no symptoms reported Gastrointestinal: constipation Genitourinary: no symptoms reported Musculoskeletal: no symptoms reported Skin: no symptoms reported Psychiatric/Neurological: No Symptoms Reported Physical Exam-General Problems Physical Exam Vital Signs Vital Sign - Last 12Hours 08/10/17 08/10/17 07:00 08:33 Temp 98.8 Pulse 70 Resp 18 B/P (MAP) 167/100 (122) Pulse Ox 96 O2 Delivery Room Air FiO2 94 Capillary Refill : Less Than 3 Seconds General Appearance: no apparent distress Neck: normal inspection Gastrointestinal: non tender, soft Rectal: deferred Extremities: normal inspection Skin: warm/dry Comments pleasantly confused. Multiple surgical scars resulting from open cholecystectomy, hiatal hernia repair and appendectomy. No obvious incisional hernia. Assessment/Plan Assessment/Plan Admission Diagnosis/Plan lady with chronic constipation and previous diverticulitis. We will try minimal lower limb edema and magnesium citrate. Does not appear to have mechanical colonic obstruction. Clinical Quality Measures DVT/VTE Risk/Contraindication: Risk Factor Score Per Nursin RFS Level Per Nursing on Admit: 4+=Very High JULIO C PALOMO MD Aug 11, 2017 7:14 pm
[2017-08-11] MEDS: ADVAIR HFA 115/21 MCG INHALER 8 GM IH SCH (20:22)
[2017-08-11] MEDS: MONTELUKAST 10 MG (SINGULAIR) TAB PO SCH (20:35)
[2017-08-11] MEDS: SIMvastatin 20 MG (ZOCOR) TAB PO SCH (20:36)
[2017-08-11] MEDS: MELATONIN 3 MG TABLET PO SCH (20:36)
[2017-08-11] MEDS ORDERED: FLEET ENEMA ADULT 1 EA BTL PR ONE (22:30)
[2017-08-12] MEDS: RT-ALBUTEROL/IPRATROPIUM 3 ML (DUONEB) VIAL INH SCH ×5 (01:48→20:59)
[2017-08-12] MEDS: 1/2 NS W/KCL 20 MEQ/L 1,000 ML IV SCH (03:56)
[2017-08-12 08:00] VITALS: BP 148/70
[2017-08-12] MEDS: MAGNESIUM OXIDE (MAG-OX)400 MG TAB PO SCH (09:13)
[2017-08-12] MEDS: LACTOBACILLUS Acidoph/Bulgar (LACTINEX/FLORANEX) TAB PO SCH (09:13)
[2017-08-12] MEDS: MULTIVIT W/MINERALS TAB (THERAGRAN M) PO SCH (09:13)
[2017-08-12] MEDS: KCL 20 MEQ TAB (K-DUR) PO SCH ×2 (09:14→17:24)
[2017-08-12] MEDS: RIVASTIGMINE 1.5 MG (EXELON) CAP PO SCH ×2 (09:14→20:34)
[2017-08-12] MEDS: predniSONE 5 MG TAB PO SCH (09:14)
[2017-08-12] MEDS: LEVOTHYROXINE 50 MCG (LEVOTHROID) TAB PO SCH (09:14)
[2017-08-12] MEDS ORDERED: LEVOFLOXACIN 750 MG TAB (LEVAQUIN) PO SCH (11:00)
--- NOTE | 2017-08-12 11:30 | Progress Note-Cardiology ---
Cardiology SOAP Progress Note Subjective: She does not report cp or palp or syncope or shortness of breath, but does suffer from poor memory History was mostly obtained from her two daughters who were by her bedside. He is thought to have had some aspiration post dental procedure, which led to this hosp. Her cough and shortness of breath have since improve Objective: I&O/Vital Signs Vital Sign - Last 12Hours 08/12/17 08/12/17 08/12/17 08/12/17 01:51 07:55 08:00 08:00 Temp 97.8 Pulse 70 Resp 20 B/P (MAP) 148/70 (96) Pulse Ox 96 96 O2 Delivery Room Air Room Air Room Air Room Air FiO2 95 Intake and Output 08/12/17 00:00 Intake Total 1130 ml Output Total 450 ml Balance 680 ml Weight (Pounds): 150 Weight (Ounces): 0.0 Weight (Calculated Kilograms): 68.028951 Constitutional: well-developed, well-nourished, other (mildly confused) Respiratory: No accessory muscle use, crackles (bibasilar coarse crackles), other (good bilat air entry; diminished at the bases) Cardiovascular: regular rate-rhythm, S1 and S2, systolic murmur (3/6 MSM) Gastrointestional: No tender, soft, No guarding, No rebound, audible bowel sounds Extremities: No clubbing, No cyanosis, No significant edema Neurologic/Psychiatric: other (mildly confused; moves all limbs equall) Skin: No rash on exposed areas, No ulcerations on exposed areas Results/Procedures: Labs Microbiology 08/10/17 Blood Culture - Preliminary, Resulted No growth 08/10/17 Influenza Types A,B Antigen (DANIAL) - Final, Complete A/P: Assessment: Pneumonia, suspected to be aspiration pneumonia, [facility] Several previous hospitalizations with recurrent UTI and pyelonephritis Aortic stenosis, mod on echo of 09/21/14 (valve area 1.2 sq cm), but severe on cardiac cath of 05/03/15 (valve area 0.58 sq cm). She has been evaluated at [facility] in Aug 2015 for AVR/TAVR and has been told that conservative therapy appears best at this time Mod pulmonary hypertension (mean PA pressure 25 mmHg), elevated LVEDP (20 mmHg) , mild MR and mild CAD on cardiac cath of 05/03/15 Last echo on 06/17/17: LVEF 55-60%, mild LA dilation, mod RA dilation, mild MAC , mod MR, mod (valve area 1, mean grad 33), mod to sev TR, PASP 40-45 mmHg Chronic atrial fibrillation with RVR that was very difficult to control on meds. She is now post AV junction ablation per Dr. Paz November 2014. It appears ablation resulted in CHB and therefore PPM was implanted S/p single chamber St Ti pacemaker implantation, post AV kerri ablation, by Dr Paz at [facility] in November 2014 - functioning normally per interrogation of April 2017 Chronic warfarin anticoagulation for stroke prophylaxis Maturity onset diabetes mellitus. Chronic intermittent leg swelling, likely related to venous insufficiency, currently under fair control Hypothyroidism, being treated with thyroid replacement therapy and being managed by pcp Hyperlipidemia, being treated with statin therapy. H/o COPD, being managed by her lift builder whole, Dr White Mild carotid arterial disease on u/s of Jun 2013 Obstructive sleep apnea was not documented on studies in 2014, according to the patient Chronic generalized weakness and malaise of undetermined etiology Mild dementia, managed by pcp Diverticulitis and chronic constipation, managed by pcp Plan: * I reviewed the records of this hospitalization * I discussed her CV issues in detail with her and her daughters * We recommend resumption of stroke prophylaxis with warfarin * We recommend close f/u on INR while on antibiotics * We recommend close outpatient f/u post discharge TINA SERNA MD FACP FAC CCDS Aug 12, 2017 11:30
--- NOTE | 2017-08-12 13:21 | Progress Note-Hospitalist ---
Standard Progress Note Progress Notes/Assess & Plan Date Seen 08/12/17 Time Seen by Provider: 13:16 Diagnosis Assessment: Acute onset of hypoxia with worsened asthma and bronchitis issues failed outpatient antibiotic and prednisone Long history of cardiac issues managed by cardiology Dementia Hypothyroidism Hyperlipidemia Assess & Plan/Chief Complaint The patient is an 87-year-old white female who lives in an apartment at [facility]. Prior to admission she had apparently been ill for about 2 days and had taken food and liquids very poorly. Her daughters brought her to the emergency room. The findings were relatively marginal with a white blood count of 13,000 a lactic acid of 2.11 and the remainder of the Sirs criteria in the normal range. The chest x-ray showed no evidence of pneumonia. The symptom complex appeared to be consistent with flu. One of the daughters states that she had had a dental extraction in the days prior to this and she wondered about the possibility of some aspiration of blood. Physical exam: The patient is sitting up at bedside. She is confused but pleasant. Lungs are clear to auscultation. CV is irregular. Abdomen is soft. There is no pedal edema. Impression: 1.flulike illness. 2.progressive dementia. 3.atrial fibrillation by history. Labs Laboratory Tests 08/11/17 05:53 PERLA MACEDO MD Aug 12, 2017 13:21
[2017-08-12 16:00] VITALS: BP 134/60
[2017-08-12] MEDS: POLYETHYLENE GLYCOL 17 GM (MIRALAX) PACK PO SCH (17:24)
[2017-08-12] MEDS: SIMvastatin 20 MG (ZOCOR) TAB PO SCH (20:34)
[2017-08-12] MEDS: MELATONIN 3 MG TABLET PO SCH (20:34)
[2017-08-12] MEDS: MONTELUKAST 10 MG (SINGULAIR) TAB PO SCH (20:34)
[2017-08-12 21:00] VITALS: BP 133/60
[2017-08-12] MEDS: ADVAIR HFA 115/21 MCG INHALER 8 GM IH SCH (21:00)
[2017-08-13] MEDS: RT-ALBUTEROL/IPRATROPIUM 3 ML (DUONEB) VIAL INH SCH ×2 (04:32→09:25)
[2017-08-13] MEDS: MULTIVIT W/MINERALS TAB (THERAGRAN M) PO SCH (06:59)
[2017-08-13] MEDS: KCL 20 MEQ TAB (K-DUR) PO SCH (07:00)
[2017-08-13] MEDS: predniSONE 5 MG TAB PO SCH (07:00)
[2017-08-13] MEDS: LEVOTHYROXINE 50 MCG (LEVOTHROID) TAB PO SCH (07:06)
[2017-08-13 08:00] VITALS: BP 125/58
[2017-08-13] MEDS: LACTOBACILLUS Acidoph/Bulgar (LACTINEX/FLORANEX) TAB PO SCH (09:06)
[2017-08-13] MEDS: RIVASTIGMINE 1.5 MG (EXELON) CAP PO SCH (09:06)
[2017-08-13] MEDS: MAGNESIUM OXIDE (MAG-OX)400 MG TAB PO SCH (09:06)
--- NOTE | 2017-08-13 09:10 | Progress Note-Cardiology ---
Cardiology SOAP Progress Note Subjective: Up ambulating in the hallway with her daughter. States she feels better today. No c/o CP or dyspnea. Daughter feels she is ready to go home. Pt and her spouse live in an assisted living facility. Objective: I&O/Vital Signs Vital Sign - Last 12Hours 08/13/17 08/13/17 00:00 08:00 Temp 97.8 Pulse 71 Resp 20 16 B/P (MAP) 125/58 (80) Pulse Ox 96 O2 Delivery Room Air Intake and Output 08/13/17 00:00 Intake Total 1788 ml Output Total 1700 ml Balance 88 ml Weight (Pounds): 150 Weight (Ounces): 0.0 Weight (Calculated Kilograms): 68.280774 Constitutional: well-developed, well-nourished, other (mildly confused) Respiratory: No accessory muscle use, crackles (bibasilar coarse crackles), other (good bilat air entry; diminished at the bases) Cardiovascular: regular rate-rhythm, S1 and S2, systolic murmur (3/6 MSM) Gastrointestional: No tender, soft, No guarding, No rebound, audible bowel sounds Extremities: No clubbing, No cyanosis, No significant edema Neurologic/Psychiatric: other (mildly confused; moves all limbs equall) Skin: No rash on exposed areas, No ulcerations on exposed areas Results/Procedures: Labs Microbiology 08/10/17 Blood Culture - Preliminary, Resulted No growth 08/10/17 Influenza Types A,B Antigen (DANIAL) - Final, Complete A/P: Assessment: Pneumonia, suspected to be aspiration pneumonia, [facility] Several previous hospitalizations with recurrent UTI and pyelonephritis Aortic stenosis, mod on echo of 09/21/14 (valve area 1.2 sq cm), but severe on cardiac cath of 05/03/15 (valve area 0.58 sq cm). She has been evaluated at [facility] in Aug 2015 for AVR/TAVR and has been told that conservative therapy appears best at this time Mod pulmonary hypertension (mean PA pressure 25 mmHg), elevated LVEDP (20 mmHg) , mild MR and mild CAD on cardiac cath of 05/03/15 Last echo on 06/17/17: LVEF 55-60%, mild LA dilation, mod RA dilation, mild MAC , mod MR, mod (valve area 1, mean grad 33), mod to sev TR, PASP 40-45 mmHg Chronic atrial fibrillation with RVR that was very difficult to control on meds. She is now post AV junction ablation per Dr. Paz November 2014. 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 Chronic intermittent leg swelling, likely related to venous insufficiency, currently under fair control Hypothyroidism, being treated with thyroid replacement therapy and being managed by pcp Hyperlipidemia, being treated with statin therapy. H/o COPD, being managed by her special education coordinator, Dr White Mild carotid arterial disease on u/s of Jun 2013 Obstructive sleep apnea was not documented on studies in 2014, according to the patient Chronic generalized weakness and malaise of undetermined etiology Mild dementia, managed by pcp Diverticulitis and chronic constipation, managed by pcp Plan: * Continue current medication regimen * We recommend continuation of stroke prophylaxis with warfarin * We recommend close f/u on INR while on antibiotics * Will order an INR today * We recommend close outpatient f/u post discharge CHARLOTTE ENG Aug 13, 2017 09:09
[2017-08-13 11:07] LABS: INR 1.2 (0.8-1.4); PROTHROMBIN TIME PATIENT 15.7 SEC (12.2-14.7)
[2017-08-13] MEDS ORDERED: warFARin 7.5 MG (COUMADIN) TAB PO NR (11:45)
--- NOTE | 2017-08-13 12:18 | Progress Note-Hospitalist ---
Standard Progress Note Progress Notes/Assess & Plan Date Seen 08/13/17 Time Seen by Provider: 12:13 Diagnosis Assessment: Acute onset of hypoxia with worsened asthma and bronchitis issues failed outpatient antibiotic and prednisone Long history of cardiac issues managed by cardiology Dementia Hypothyroidism Hyperlipidemia Assess & Plan/Chief Complaint The patient is sitting in the chair at bedside. She reports she is feeling quite well and basically at her baseline. She is afebrile and vital signs are stable. Physical exam: Color is good. Lungs are clear to auscultation. CV is regular without murmur. Ankles show no edema. Impression: Flulike illness. 2.exacerbation of asthma. 3.mild to moderate senile dementia. Plan: Discharge to home. Copy Copies To 1: ESTEPHANIE MAY MD, RODNEY K MD Aug 13, 2017 12:18
--- NOTE | 2017-08-13 12:20 | Discharge Instructions ---
Discharge Instructions Patient Instructions Patient Instructions: Medications as listed on the discharge sequence. Resume previous activities. Return to The Hospital For: Decline in function. Activity & Diet Discharge Diet: No Restrictions Activity as Tolerated: Yes PERLA MACEDO MD Aug 13, 2017 12:20
== END 2017-08-13 13:20 | disposition home or self-care (01) | DRG 202 ==
LOC: EDUNIT# 06:44 → ER 06:49 → 4TH 08:29
PROVIDERS: ADMIT Internal Medicine; ATTEND Family Medicine
DX: J45.901 Unspecified asthma with (acute) exacerbation (principal); I48.91 Unspecified atrial fibrillation; I50.20 Unspecified systolic (congestive) heart failure; E87.2 Acidosis; E03.9 Hypothyroidism, unspecified; I08.3 Combined rheumatic disorders of mitral, aortic and tricuspid valves; Z66 Do not resuscitate; E78.00 Pure hypercholesterolemia, unspecified; F03.90 Unspecified dementia, unspecified severity, without behavioral disturbance, psychotic disturbance, mood disturbance, and anxiety; K58.9 Irritable bowel syndrome, unspecified; M81.0 Age-related osteoporosis without current pathological fracture; M19.91 Primary osteoarthritis, unspecified site; K59.09 Other constipation; Z79.01 Long term (current) use of anticoagulants; Z95.0 Presence of cardiac pacemaker
CPT/HCPCS: 36415; 71045; 71046; 74019; 80053; 81000; 83605; 83735; 83880; 85025; 85610; 85730; 87040; 87804; 94640; 94664; 94760; 96361; 96365; 96375

== ENCOUNTER 2017-08-17 02:10 | Emergency (ER) | payer MEDICARE ==
[~2017-08-17] VITALS: Ht 160 cm; Wt 63.5 kg
[~2017-08-17 02:10] MED LIST changes: +LACT1CAP64 PO; +LEVO750T39 PO; +WARF2.5T PO; +WARF5TAB PO
[2017-08-17 02:41] LABS: BASOPHILS % (AUTO) 0 % (0-10); EOSINOPHILS # (AUTO) 0.4 10^3/uL (0.0-0.3); EOSINOPHILS % (AUTO) 4 % (0-10); HEMATOCRIT 40 % (35-52); HEMOGLOBIN 13.6 G/DL (11.5-16.0); LYMPHOCYTES # (AUTO) 2.5 X 10^3 (1.0-4.0); LYMPHOCYTES % (AUTO) 26 % (12-44); MEAN CORPUSCULAR HEMOGLOBIN 31 PG (25-34); MEAN CORPUSCULAR HGB CONC 34 G/DL (32-36); MEAN CORPUSCULAR VOLUME 91 FL (80-99); MEAN PLATELET VOLUME 9.8 FL (7.4-10.4); MONOCYTES # (AUTO) 0.9 X 10^3 (0.0-1.0); MONOCYTES % (AUTO) 10 % (0-12); NEUTROPHILS # (AUTO) 5.6 X 10^3 (1.8-7.8); NEUTROPHILS % (AUTO) 59 % (42-75); PLATELET COUNT 266 10^3/uL (130-400); RED BLOOD COUNT 4.42 10^6/uL (4.35-5.85); RED CELL DISTRIBUTION WIDTH 14.6 % (10.0-14.5); WHITE BLOOD COUNT 9.5 10^3/uL (4.3-11.0)
[2017-08-17] MEDS ORDERED: RT-ALBUTEROL/IPRATROPIUM 3 ML (DUONEB) VIAL INH ONE (02:45)
[2017-08-17 02:50] LABS: PROTHROMBIN TIME PATIENT 22.7 SEC (12.2-14.7)
[2017-08-17 02:58] LABS: ALBUMIN 3.8 GM/DL (3.2-4.5); BILIRUBIN,TOTAL 0.9 MG/DL (0.1-1.0); CALCIUM 9.1 MG/DL (8.5-10.1); CREATININE SERUM 0.97 MG/DL (0.60-1.30); POTASSIUM 3.5 MMOL/L (3.6-5.0); TOTAL PROTEIN 7.2 GM/DL (6.4-8.2)
[2017-08-17 04:13] LABS: BILIRUBIN,URINE NEGATIVE (NEGATIVE); CLARITY,URINE CLEAR; COLOR,URINE YELLOW; GLUCOSE, URINE (UA) NEGATIVE (NEGATIVE); KETONES,URINE NEGATIVE (NEGATIVE); LEUKOCYTE ESTERASE ,URINE 1+ (NEGATIVE); NITRITE,URINE NEGATIVE (NEGATIVE); PH,URINE 8 (5-9); PROTEIN,URINE NEGATIVE (NEGATIVE); UROBILINOGEN,URINE NORMAL (NORMAL)
[2017-08-17 04:23] LABS: BACTERIA,URINE TRACE /HPF; WBC,URINE RARE /HPF
[2017-08-17] MEDS ORDERED: RX-IPRATROPIUM BROMIDE 0.5 MG/2.5 ML #3 (ATROVENT) IH STA (04:58)
--- NOTE | 2017-08-17 05:07 | ED Respiratory ---
General Chief Complaint: Respiratory Problems Stated Complaint: SOB Nursing Triage Note: PT TO ED 6 W/ FOR C/O COUGH, CONGESTION ET INCREASED SOB. PER , PT WAS DISCHARGED FROM THIS FACILITY X4 DAYS AGO FOR SAME C/O BUT DENIES IMPROVEMENT. STATES SHE IS STILL RECEIVING BREATHING TX ET TAKING ABX. NO OTHER C/O VOICED Source: patient, family Exam Limitations: no limitations History of Present Illness Date Seen by Provider: Aug 17, 2017 Time Seen by Provider: 03:30 Initial Comments Here with report of increased coughing and congestion. Was admitted to the hospital and discharged a few days ago. Came in with coarse respirations. Duo neb treatment given pretty soon after arrival. This actually greatly improved her symptoms. Patient states that she gets into coughing fits and she has nothing at home that helps her out. They have tried Tessalon Perles and Mucinex DM and that did help the previous night. Denies fevers, vomiting, chest pain or other concerns currently. Timing/Duration: this morning Severity: moderate Prior Episodes/Possible Cause: frequent episodes Modifying Factors: Improves With Albuterol Nebulizer, Worse With Coughing, Improves With Rest Associated Symptoms: No chest pain/soreness, cough, No fever/chills, No nasal congestion, No nasal drainage, shortness of breath Allergies and Home Medications Allergies Coded Allergies: amoxicillin (Verified Allergy, Unknown, 06/21/15) cefadroxil (Verified Allergy, Unknown, 06/21/15) clavulanic acid (Verified Allergy, Unknown, 06/21/15) codeine (Verified Allergy, Unknown, 06/21/15) haloperidol (Verified Allergy, Unknown, 06/21/15) iodine (Verified Allergy, Unknown, 06/21/15) triazolam (Verified Allergy, Unknown, PT TAKES ALPRAZOLAM AT HOME, 08/31/16) zolpidem (Verified Allergy, Unknown, 06/21/15) donepezil (Verified Adverse Reaction, Severe, 11/20/15) NAUSEA/VOMITING promethazine HCl (Unverified Adverse Reaction, Mild, 06/21/15) Home Medications Acetaminophen 325 Mg Tablet, 650 MG PO Q4H PRN for PAIN-MILD, (Reported) TAKES 2 (325MG) TABLET Albuterol Sulfate 2.5 Mg/3 Ml Vial.neb, 2.5 MG NEB Q4H PRN for SHORTNESS OF BREATH, (Reported) Alprazolam 0.5 Mg Tablet, 0.25 MG PO TID PRN for ANXIETY, (Reported) TAKES 1/2 (0.5MG) TABLETS Fluticasone/Vilanterol 1 Each Blst.w.dev, 1 PUFF IH HS, (Reported) Furosemide 40 Mg Tablet, 40 MG PO DAILY PRN for 4LB WEIGHT GAIN, (Reported) Lactobacillus Combo No.11 1 Each Cap.sprink, 1 EACH PO DAILY, (Reported) Levofloxacin 750 Mg Tablet, 750 MG PO Q48H@1100, #3 Prescribed by: JAGRUTI AGGARWAL on 08/11/17 1223 Levothyroxine Sodium 50 Mcg Tablet, 50 MCG PO DAILY, (Reported) Loratadine 10 Mg Tablet, 10 MG PO NEEDED, (Reported) Magnesium Oxide 250 Mg Tablet, 250 MG PO DAILY, (Reported) Melatonin/Pyridoxine HCl (B6) 1 Each Tablet, 1.5 MG PO HS, (Reported) TAKES 1/2 OF A (3 MG) TABLET Montelukast Sodium 10 Mg Tablet, 10 MG PO HS, (Reported) Ondansetron 4 Mg Tab.rapdis, 4 MG PO Q8H PRN for N/V, (Reported) Polyethylene Glycol 3350 17 Gm Powd.pack, 8.5 GM PO DAILY@1800, (Reported) TAKES 1/2 CAPFUL Potassium Chloride 20 Meq Tab.er.prt, 20 MEQ PO BID, (Reported) Pravastatin Sodium 40 Mg Tablet, 40 MG PO HS, (Reported) Prednisone 5 Mg Tablet, 2.5 MG PO DAILY, (Reported) TAKES 1/2 (5MG) TABLET Rivastigmine Tartrate 1.5 Mg Capsule, 1.5 MG PO BID, (Reported) Vitamin B Complex & Vit C No.4 150 Mg Tablet, 150 MG PO DAILY, (Reported) Warfarin Sodium 2.5 Mg Tablet, 2.5 MG PO DAILY for 7 Days TAKE DAILY WHILE ON LEVAQUIN BUT CALL DR MAY FOR INR ORDER ON SATURDAY Prescribed by: JAGRUTI AGGARWAL on 08/11/17 1223 Constitutional: see HPI, No chills, No fever EENTM: no symptoms reported Respiratory: see HPI, cough, short of breath Cardiovascular: No chest pain, No palpitations Gastrointestinal: No abdominal pain, No nausea, No vomiting Genitourinary: no symptoms reported Psychiatric/Neurological: Anxiety, Denies Weakness Past Czbkmqo-Mislmo-Welhoa Hx Patient Social History Alcohol Use: Denies Use Number of Drinks Today: Alcohol Beverage of Choice: Wine Recreational Drug Use: No Smoking Status: Never a Smoker Recent Foreign Travel: No Contact w/Someone Who Travel: No Recent Infectious Disease Expo: No Recent Hopitalizations: Yes Physical Abuse: No Sexual Abuse: No Mistreated: No Fear: No Immunizations Up To Date Tetanus Booster (TDap): Unknown PED Vaccines UTD: No Date of Pneumonia Vaccine: Jun 09, 2014 Date of Influenza Vaccine: May 31, 2017 Seasonal Allergies Seasonal Allergies: No Surgeries History of Surgeries: Yes (SINUS, HEMORRHOIDECTOMY, hiatal hernia, av node ablation) Surgeries: Abdominal, Appendectomy, Bladder Surgery, Breast, Cardiac, Eye Surgery, Gallbladder, Hysterectomy, Oophorectomy, Pacemaker Respiratory History of Respiratory Disorde: Yes (RESPIRATORY ARREST MULTIPLE TIMES--ON VENT IN PAST) Respiratory Disorders: Asthma, Pneumonia Currently Using CPAP: No Currently Using BIPAP: No Cardiovascular History of Cardiac Disorders: Yes (PACEMAKER, AORTIC STENOSIS, av NODE ABLATION ) Cardiac Disorders: Atrial Fibrillation, Chronic Edema/Swelling, Heart Murmur, High Cholesterol, Irregular Heartbeat, Valvular Heart Disease Neurological History of Neurological Disord: Yes Neurological Disorders: Dementia Reproductive System Hx Reproductive Disorders: No Sexually Transmitted Disease: No HIV/AIDS: No Female Reproductive Disorders: Denies Genitourinary History of Genitourinary Disor: No Genitourinary Disorders: Bladder Infection, Renal Failure, UTI-Chronic Gastrointestinal History of Gastrointestinal Di: Yes Gastrointestinal Disorders: Chronic Constipation, Irritable Bowel Musculoskeletal History of Musculoskeletal Dis: Yes (MULTIPLE FX R LOWER LEG) Musculoskeletal Disorders: Osteoporosis, Arthritis Endocrine History of Endocrine Disorders: Yes Endocrine Disorders: Hypothyroidsim HEENT History of HEENT Disorders: Yes HEENT Disorders: Cataract Loss of Vision: Denies Hearing Impairment: Denies Cancer History of Cancer: No Psychosocial History of Psychiatric Problem: No Suicide Risk Score: 0 Integumentary History of Skin or Integumenta: No Blood Transfusions History of Blood Disorders: No Adverse Reaction to a Blood Tr: No Reviewed Nursing Assessment Reviewed/Agree w Nursing PMH: Yes Family Medical History Family Medial History: Alzheimer's disease 19 MOTHER FHx: throat cancer 19 FATHER Physical Exam Vital Signs Vital Sign - Last 12Hours 08/17/17 02:17 Temp 98.2 Pulse 70 Resp 20 B/P (MAP) 171/84 (113) Pulse Ox 96 O2 Delivery Room Air Capillary Refill : Less Than 3 Seconds General Appearance: WD/WN, no apparent distress HEENT: PERRL/EOMI, pharynx normal Neck: full range of motion, supple Respiratory: lungs clear, accessory muscle use, other (on initial exam when patient arrived lung sounds are quite coarse breath cleared completely after DuoNeb treatment.) Cardiovascular: regular rate, rhythm, no murmur Gastrointestinal: non tender, soft Extremities: non-tender, normal inspection Neurologic/Psychiatric: alert, oriented x 3 Skin: normal color, warm/dry Focused Exam Evaluation Lactate Level Laboratory Tests 08/17/17 02:27: Lactic Acid Level 1.33 Lactic Acid Level Laboratory Tests Test 08/17/17 02:27 Lactic Acid Level 1.33 MMOL/L (0.50-2.00) Progress/Results/Core Measures Suspected Sepsis Recent Fever Within 48 Hours: No Infection Criteria Present: None New/Unexplained Altered Menta: No Sepsis Screen: No Definite Risk Sepsis Diagnosis: SIRS Temperature:98.2 Pulse: 70 Respiratory Rate: 20 Laboratory Tests 08/17/17 02:27: White Blood Count 9.5 Blood Pressure 171 /84 Mean: 113 Laboratory Tests 08/17/17 02:27: Lactic Acid Level 1.33 Laboratory Tests 08/17/17 02:27: Creatinine 0.97, INR Comment 2.0H, Platelet Count 266, Total Bilirubin 0.9 Results/Orders Lab Results Laboratory Tests Test 08/17/17 02:27 08/17/17 04:04 Range/Units White Blood Count 9.5 4.3-11.0 10^3/uL Red Blood Count 4.42 4.35-5.85 10^6/uL Hemoglobin 13.6 11.5-16.0 G/DL Hematocrit 40 35-52 % Mean Corpuscular Volume 91 80-99 FL Mean Corpuscular Hemoglobin 31 25-34 PG Mean Corpuscular Hemoglobin Concent 34 32-36 G/DL Red Cell Distribution Width 14.6 H 10.0-14.5 % Platelet Count 266 130-400 10^3/uL Mean Platelet Volume 9.8 7.4-10.4 FL Neutrophils (%) (Auto) 59 42-75 % Lymphocytes (%) (Auto) 26 12-44 % Monocytes (%) (Auto) 10 0-12 % Eosinophils (%) (Auto) 4 0-10 % Basophils (%) (Auto) 0 0-10 % Neutrophils # (Auto) 5.6 1.8-7.8 X 10^3 Lymphocytes # (Auto) 2.5 1.0-4.0 X 10^3 Monocytes # (Auto) 0.9 0.0-1.0 X 10^3 Eosinophils # (Auto) 0.4 H 0.0-0.3 10^3/uL Basophils # (Auto) 0.0 0.0-0.1 10^3/uL Prothrombin Time 22.7 H 12.2-14.7 SEC INR Comment 2.0 H 0.8-1.4 Activated Partial Thromboplast Time 39 H 24-35 SEC Sodium Level 143 135-145 MMOL/L Potassium Level 3.5 L 3.6-5.0 MMOL/L Chloride Level 108 H 98-107 MMOL/L Carbon Dioxide Level 22 21-32 MMOL/L Anion Gap 13 5-14 MMOL/L Blood Urea Nitrogen 18 7-18 MG/DL Creatinine 0.97 0.60-1.30 MG/DL Estimat Glomerular Filtration Rate 54 BUN/Creatinine Ratio 19 Glucose Level 103 70-105 MG/DL Lactic Acid Level 1.33 0.50-2.00 MMOL/L Calcium Level 9.1 8.5-10.1 MG/DL Total Bilirubin 0.9 0.1-1.0 MG/DL Aspartate Amino Transf (AST/SGOT) 22 5-34 U/L Alanine Aminotransferase (ALT/SGPT) 15 0-55 U/L Alkaline Phosphatase 61 40-136 U/L B-Type Natriuretic Peptide 343.7 H <100.0 PG/ML Total Protein 7.2 6.4-8.2 GM/DL Albumin 3.8 3.2-4.5 GM/DL Urine Color YELLOW Urine Clarity CLEAR Urine pH 8 5-9 Urine Specific [place] 1.015 L 1.016-1.022 Urine Protein NEGATIVE NEGATIVE Urine Glucose (UA) NEGATIVE NEGATIVE Urine Ketones NEGATIVE NEGATIVE Urine Nitrite NEGATIVE NEGATIVE Urine Bilirubin NEGATIVE NEGATIVE Urine Urobilinogen NORMAL NORMAL MG/DL Urine Leukocyte Esterase 1+ H NEGATIVE Urine RBC (Auto) NEGATIVE NEGATIVE Urine RBC NONE /HPF Urine WBC RARE /HPF Urine Squamous Epithelial Cells 2-5 /HPF Urine Crystals NONE /LPF Urine Bacteria TRACE /HPF Urine Casts NONE /LPF Urine Mucus NEGATIVE /LPF Urine Culture Indicated NO Micro Results Microbiology 08/17/17 Influenza Types A,B Antigen (DANIAL) - Final, Complete My Orders Orders - MELODY YOUNGER MD Cbc With Automated Diff (08/17/17 02:31) Comprehensive Metabolic Panel (08/17/17 02:31) Lactic Acid Analyzer (08/17/17 02:31) Blood Culture (08/17/17 02:31) Sputum Culture (08/17/17 02:31) Ua Culture If Indicated (08/17/17 02:31) Protime With Inr (08/17/17 02:31) Partial Thromboplastin Time (08/17/17 02:31) Chest 1 View, Ap/Pa Only (08/17/17 02:31) O2 (08/17/17 02:31) Saline Lock/Iv-Start (08/17/17 02:31) Saline Lock/Iv-Start (08/17/17 02:31) Vital Signs Adult Sepsis Patie Q1H (08/17/17 02:31) Remove Rings In Anticipation O (08/17/17 02:31) Influenza A And B Antigens (08/17/17 02:31) Albuterol/Ipra Inhalation Soln (Duoneb I (08/17/17 02:45) Svn Sm Volume Nebulizer Rt-Rfs (08/17/17 02:31) BNP (08/17/17 02:58) Rx-Ipratropium [place] (Rx-Atrovent 0.5 (08/17/17 04:58) Medications Given in ED Current Medications Medications Dose Ordered Sig/Marcelino Route Start Time Stop Time Status Last Admin Dose Admin Albuterol/ Ipratropium 3 ml ONCE ONCE INH 08/17/17 02:45 08/17/17 02:46 DC 08/17/17 03:05 3 ML Vital Signs/I&O Vital Sign - Last 12Hours 08/17/17 08/17/17 02:17 03:06 Temp 98.2 Pulse 70 Resp 20 B/P (MAP) 171/84 (113) Pulse Ox 96 95 O2 Delivery Room Air Room Air Capillary Refill : Less Than 3 Seconds Blood Pressure Mean: 113 Progress Note : Progress Note Seen and evaluated. IV, labs, blood cultures and lactic acid ordered given patient's recent hospitalization and concerns for pneumonia. Patient given DuoNeb which rapidly and essentially completely resolved her symptoms. Overall labs, chest x-ray and UA are all negative for concerning findings and patient is no longer in distress. Discharged home with ipratropium nebulizer treatments and prescription for the same. Patient and family verbalize understanding instructions and agreement with plan. Diagnostic Imaging Diagonstic Imaging: Xray Plain Films/CT/US/NM/MRI: chest Comments No acute findings Departure Impression Impression: Primary Impression: Bronchitis Disposition: HOME, SELF-CARE Condition: Improved Departure-Patient Inst. Decision time for Depature: 05:06 Referrals: ESTEPHANIE MAY MD (PCP/Family) Primary Care Physician Patient Instructions: Chronic Bronchitis (DC) Add. Discharge Instructions: All discharge instructions reviewed with patient and/or family. Voiced understanding. You may use the albuterol nebulizer treatments every 4 hours as needed for cough or wheezing. You may use the ipratropium treatments every 6-8 hours as needed for cough or wheezing and you may take that at the same time as an albuterol treatment. Follow-up with your doctor this week for recheck. Return for worse pain, fever, vomiting, weakness, breathing problems or other concerns as needed. Scripts Ipratropium/Albuterol Sulfate (Iprat-Albut 0.5-3(2.5) mg/3 ml) 3 Ml Ampul.neb 3 ML IH Q6H Y for SHORTNESS OF BREATH, #30 EACH 0 Refills Prov: MELODY YOUNGER MD 08/17/17 MELODY YOUNGER MD Aug 17, 2017 05:07
[2017-08-17] MEDS ORDERED: IPRA3AMP IH (05:08)
[2017-08-17 05:14] VITALS: BP 157/97
--- NOTE | 2017-08-17 06:47 | Diagnostic Imaging Report ---
INDICATION: Cough and congestion. Comparison made with prior examination from 08/11/2017. FINDINGS: There is cardiomegaly. Mediastinum is unremarkable. There is no pleural effusion, pneumothorax, or pneumonia. Pacemaker overlies the left hemithorax. There is a patchy right basilar infiltrate. IMPRESSION: Cardiomegaly and a patchy infiltrate in the medial aspect of the right lung base. Dictated by: Dictated on workstation # [id number]
== END 2017-08-17 05:14 | disposition home or self-care (01) ==
LOC: EDUNIT# 02:10 → ER 02:12
DX: J40 Bronchitis, not specified as acute or chronic (principal); E03.9 Hypothyroidism, unspecified; M81.0 Age-related osteoporosis without current pathological fracture; F03.90 Unspecified dementia, unspecified severity, without behavioral disturbance, psychotic disturbance, mood disturbance, and anxiety; I48.91 Unspecified atrial fibrillation; E78.00 Pure hypercholesterolemia, unspecified; Z95.0 Presence of cardiac pacemaker; Z87.19 Personal history of other diseases of the digestive system; Z87.01 Personal history of pneumonia (recurrent); Z90.49 Acquired absence of other specified parts of digestive tract; Z90.710 Acquired absence of both cervix and uterus; Z79.01 Long term (current) use of anticoagulants
CPT/HCPCS: 36415; 71045; 80053; 81000; 83605; 83880; 85025; 85610; 85730; 87040; 87804; 94640

== ENCOUNTER → 2017-09-23 | Outpatient (CLI) | payer MEDICARE ==
[~2017-09-23] MED LIST changes: +IPRA3AMP IH
--- NOTE | 2017-09-23 10:29 | Diagnostic Imaging Report ---
INDICATION: COPD, asthma and chronic allergic rhinitis with cough. PA and lateral views of the chest are obtained. Comparison is made study of 08/17/2017. FINDINGS: There is mild cardiomegaly. There is no pneumothorax or consolidation. No significant pleural fluid is identified. IMPRESSION: Mild cardiomegaly without evidence of acute abnormality or adverse change. Dictated by: Dictated on workstation # [id number]
== END ==
LOC: RAD 09:57
PROVIDERS: ATTEND Internal Medicine Critical Care Medicine
DX: J44.9 Chronic obstructive pulmonary disease, unspecified (principal); I51.7 Cardiomegaly
CPT/HCPCS: 71046

== ENCOUNTER → 2017-10-24 | Outpatient (CLI) | payer MEDICARE ==
--- NOTE | 2017-10-24 11:05 | Diagnostic Imaging Report ---
INDICATION: Left hip pain COMPARISON: None. FINDINGS: 2 views of the left hip show no fractures, dislocations, or other acute bony abnormalities identified. Joint spaces are well maintained throughout. The soft tissues appear unremarkable. No radiopaque foreign bodies are identified. IMPRESSION: No acute fractures or dislocations of the left hip. Dictated by: Dictated on workstation # [id number]
== END ==
LOC: RAD 10:42
PROVIDERS: ATTEND Nurse Practitioner Family
DX: M25.552 Pain in left hip (principal); M54.9 Dorsalgia, unspecified
CPT/HCPCS: 73502

== ENCOUNTER → 2018-06-04 | Outpatient (CLI) | payer MEDICARE ==
[~2018-06-04] MED LIST changes: -IPRA3AMP IH; +IPRA3AMP31 IH
--- NOTE | 2018-06-04 15:49 | Diagnostic Imaging Report ---
PROCEDURE: CT lumbar spine without contrast. TECHNIQUE: Multiple contiguous axial images were obtained through the lumbar spine without the use of intravenous contrast. Sagittal and coronal reformations were then performed. INDICATION: Low back pain for 2-3 weeks. FINDINGS: Curvature of the lumbar spine is normal. Minimal retrolisthesis of L5 on S1 is noted. There is degenerative disc disease at L5-S1 with disc space narrowing and marginal spurring as well as vacuum disc phenomena. Bony spinal canal appears to be widely patent. No fractures are seen. Vertebral body heights are well-maintained. There are atherosclerotic changes throughout the abdominal aorta which appears nonaneurysmal. IMPRESSION: Lumbar spondylosis. No acute bony abnormality is detected. Dictated by: Dictated on workstation # [id number]
== END ==
LOC: RAD 12:53
PROVIDERS: ATTEND Family Medicine
DX: M47.816 Spondylosis without myelopathy or radiculopathy, lumbar region (principal); M54.41 Lumbago with sciatica, right side; G89.29 Other chronic pain
CPT/HCPCS: 72131

== ENCOUNTER 2018-10-03 01:24 | Inpatient (IN) | payer MEDICARE ==
[~2018-10-03] VITALS: Ht 157.5 cm; Wt 68.0 kg
--- OUTSIDE RECORDS SUMMARY | 2018-10-03 01:29 | XMS REPORT | Clinical Summary ---
Author Author [facility] Organization [facility] Address Unknown Phone Unavailable Care Team Providers Care House Nurse Name Role Phone Leticia Disla Unavailable Yo Braswell MD PCP Source Comments Some departments are not documenting in the electronic medical record. If you do not see the information that you expected, contact Release of Information in the Health Information Management department at [phone] for further assistance in locating additional records.[facility] Allergies Comments Active Allergy Reactions Severity Noted Date Zolpidem DELUSIONS High 12/01/2014 Amoxicillin-Pot NAUSEA AND Low 12/01/2014 Clavulanate VOMITING Codeine NAUSEA AND Low 12/01/2014 VOMITING Cefadroxil RASH Medium 12/01/2014 Triazolam DELUSIONS High 12/01/2014 Has tolerated with Solu medrol and Diphenhydramine. Iodine RASH, SEE Medium 12/02/2014 COMMENTS Lemon ANAPHYLAXIS High 12/02/2014 Medications End Date Status Medication Sig Dispensed Refills Start Date Active potassium chloride SR Take 40 mEq 0 (K-DUR) 20 mEq tablet by mouth twice daily. Active magnesium oxide (MAG-OX) Take 400 mg 0 400 mg tablet by mouth daily. Active polyethylene glycol 3350 Take 17 g by 0 (GLYCOLAX; MIRALAX) 17 mouth daily. gram/dose powder Active montelukast (SINGULAIR) Take 10 mg by 0 10 mg tablet mouth at bedtime daily. Active ascorbic acid (VITAMIN-C) Take 500 mg 0 500 mg tablet by mouth daily. Active ondansetron (ZOFRAN) 4 mg Take 4 mg by 0 tablet mouth every 12 hours as needed for Nausea. Active albuterol 0.083% Inhale 2.5 mg 0 (PROVENTIL; VENTOLIN) 2.5 solution as mg /3 mL (0.083 %) directed nebulizer solution every 6 hours as needed for Wheezing. Active furosemide (LASIX) 40 mg Take 40 mg by 0 tablet mouth daily. Active levothyroxine (SYNTHROID) Take 50 mcg 0 50 mcg tablet by mouth daily. Active pantoprazole DR Take 40 mg by 0 (PROTONIX) 40 mg tablet mouth daily. Active pravastatin (PRAVACHOL) Take 40 mg by 0 40 mg tablet mouth at bedtime daily. Active warfarin (COUMADIN) 5 mg Take by 0 tablet mouth as directed. Takes 2.5mg once nightly on Saturday and Saturday, Take 5mg all other nights. Managed by Dr. Cook's office Active acetylcysteine (MUCOMYST) Take a total 30 mL 0 200 mg/mL (20 %) solution of 3 doses of 5 Mucomyst, each dose is 1200mg of a 20% solution. 2 dose today, and 1 in am 5/ Active fluticasone-salmeterol Inhale 1 Puff 0 (ADVAIR DISKUS) 250-50 by mouth mcg inhalation disk every 12 hours. Active Problems Problem Noted Date S/P AV kerri ablation 12/01/2014 Pacemaker 12/01/2014 Atrial fibrillation 10/21/2014 Overview: 09/21/14: ECHO: Normal LV. EF 60. Pulm HTN w estimated PA pressure 55. 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 Mild mitral regurg. Moderate aortic stenosis. Moderate biatrial enlargement. Aortic stenosis 10/21/2014 Family History Medical History Relation Name Comments Cancer Brother Cancer Father Heart Disease Father Kidney Disease Mother Stroke Mother Cancer Sister Relation Name Status Comments Brother Father Mother Sister Social History Date Tobacco Use Types Packs/Day Years Used Never Smoker Sex Assigned at Date Recorded Not on file Industry Job Start Date Occupation Not on file Not on file Not on file Travel End Travel History Travel Start No recent travel history available. Last Filed Vital Signs Time Taken Vital Sign Reading 02/21/2015 1:06 PM CDT Blood Pressure 116/68 02/21/2015 1:06 PM CDT Pulse 70 12/02/2014 7:35 AM CDT Temperature 36.4 C (97.5 F) - Respiratory Rate - 12/02/2014 7:35 AM CDT Oxygen Saturation 96% - Inhaled Oxygen - Concentration 02/21/2015 1:06 PM CDT Weight 65.8 kg (145 lb) 02/21/2015 1:06 PM CDT Height 160 cm (5' 2.99") 02/21/2015 1:06 PM CDT Body Mass Index 25.69 Plan of Treatment Health Maintenance Due Date Last Done Comments PHYSICAL (COMPREHENSIVE) 1938 EXAM DTAP/TDAP VACCINES (1 - 1949 Tdap) SHINGLES RECOMBINANT 1981 VACCINE (1 of 2) OSTEOPOROSIS 1996 SCREENING/MONITORING PNEUMONIA (PCV13/PPSV23) 1996 VACCINES (1 of 2 - PCV13) INFLUENZA VACCINE 02/26/2019 Implants Device Identifier Shelf Expiration Date Model / Serial / Lot Implanted Type Area Manufactur er Pacemaker Pacemaker Results Not on filefrom Last 3 Months Insurance Payer Benefit Subscriber ID Type Phone Address Plan / Group MEDICARE MEDICARE xxxxxxxxxx Medicare PART A AND B BCBS [employer] BCBS xxxxxxxxxxxx Medicare SUPPLEMENT Advance Directives Patient has advance care planning documents, and code status on file. For more information, please contact: [facility] [address] [place] [address] Date Inactivated Comments Code Status Date Activated 12/02/2014 1:41 PM Full Code 12/01/2014 1:21 PM Provider has discussed Code Status No, more discussion w/Patient or Family? needed
--- OUTSIDE RECORDS SUMMARY | 2018-10-03 01:41 | XMS REPORT | Continuity of Care Document ---
Author Author [facility] Organization [facility] Address Unknown Phone Unavailable Allergies Active Description Code Type Severity Reaction Onset Reported/Identified Relationship to Patient Clinical Status Yes MARK MARK Moderate COUGHING 08/23/2011 Yes lemon [id number] Drug Allergy Severe ANAPHYLAXIS 06/21/2015 Yes promethazine HCl [id number] Drug Allergy Mild N/A 06/21/2015 Yes amoxicillin [id number] Drug Allergy Unknown N/A 06/21/2015 Yes cefadroxil [id number] Drug Allergy Unknown N/A 06/21/2015 Yes clavulanic acid [id number] Drug Allergy Unknown N/A 06/21/2015 Yes codeine [id number] Drug Allergy Unknown N/A 06/21/2015 Yes haloperidol [id number] Drug Allergy Unknown N/A 06/21/2015 Yes iodine [id number] Drug Allergy Unknown N/A 06/21/2015 Yes triazolam [id number] Drug Allergy Unknown N/A 06/21/2015 Yes zolpidem [id number] Drug Allergy Unknown N/A 06/21/2015 Yes donepezil [id number] Drug Allergy Severe N/A 11/20/2015 Yes triazolam [id number] Drug Allergy Unknown PT TAKES ALPRAZ 08/31/2016 [...] MD R Ot 401.9 HYPERTENSION NOS 12/26/2012 SETEPHANIE MAY MD Ot 414.01 CORONARY ATHEROSCLEROSIS OF [place] CORON 12/26/2012 YADIRA BERRY, ESTEPHANIE R Ot [...] ESTEPHANIE R Ot 276.8 07/15/2014 YADIRA BERRY, ESTPEHANIE R Ot 396.2 07/15/2014 YADIRA BERRY, ESTEPHANIE [...] ESTEPHANIE R Ot E932.0 07/15/2014 YADIRA BERRY, ESTEPAHNIE R Ot V58.61 07/16/2014 YADIRA BERRY, ESTEPHANIE [...] FACP CCDS Ot 729.81 09/22/2014 KAREEM BERRY [facility], ALI FACP CCDS Ot 787.02 09/22/2014 KAREEM BERRY [facility], ALI FACP CCDS Ot V12.59 09/22/2014 KAREEM BERRY [facility], [facility] FACP CCDS Ot V58.61 09/24/2014 Ot [...] SYST DIS,NEC 11/17/2014 KAREEM BERRY FACAdamaris, TINA [facility] CCDS Ot V58.61 ANTICOAGULANTS,LT,CURRENT USE 11/30/2014 [...] YADIRA BERRY, ESTEPHANIE R Ot 413.9 01/26/2015 YDAIRA BERRY, ESTEPHANIE R Ot V57.89 02/03/2015 YADIRA BERRY, ESTEPHANIE R Ot 413.9 02/03/2015 YADIRA BERRY, ESTEPHANIE R Ot V57.89 03/09/2015 YADIRA BERRY, ESTEPHANIE R Ot 413.9 ANGINA PECTORIS NEC/NOS 03/09/2015 YADIRA BERRY, ESTEPHANIE R Ot V57.89 REHABILITATION PROC NEC 03/11/2015 SIMRAN JEFFRIES ENGINEERING PRODUCTION WORKER Ot 496 03/11/2015 SIMRAN JEFFRIES ENGINEERING PRODUCTION WORKER Ot 799.02 03/11/2015 SIMRAN JEFFRIES ENGINEERING PRODUCTION WORKER Ot V12.59 03/17/2015 SIMRAN JEFFRIES ENGINEERING PRODUCTION WORKER Ot 496 03/17/2015 SIMRAN JEFFRIES ENGINEERING PRODUCTION WORKER Ot 799.02 03/17/2015 SIMRAN JEFFRIES ENGINEERING PRODUCTION WORKER Ot V12.59 03/30/2015 KATE GUERRERO DO Ot [...] CCDS Ot I25.10 ATHSCL HEART DISEASE OF [place] CORONARY 05/03/2015 KAREEM BERRY FACC, TINA FACP CCDS Ot 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 [place] 05/03/2015 TINA SERNA MD, FACCP CCDS Ot I27.2 OTHER SECONDARY PULMONARY HYPERTENSION 05/03/2015 KAREEM BERRY FACC, TINA PATIÑOP CCDS Ot R06.02 SHORTNESS OF BREATH 05/03/2015 KAREEM BERRY FACC, TINA PATIÑOP CCDS Ot R53.83 OTHER FATIGUE 05/03/2015 KAREEM MD FACC, ALI FACP CCDS Ot Z79.01 ASSISTED (CURRENT) USE OF ANTICOAGULANT 05/03/2015 KAREEM BERRY FACC, TINA FACP CCDS Ot Z79.899 OTHER DISC RULER OPERATOR (CURRENT) DRUG THERAPY 05/03/2015 KAREEM BERRY FACC, [...] Ot V76.12 06/19/2015 Ot 473.9 06/19/2015 CARLOS YOUSFI LINE DECORATOR Ot 733.90 06/19/2015 CARLOS YOUSIF LINE DECORATOR Ot V76.12 06/19/2015 CARLOS YOUSIF LINE DECORATOR Ot 733.90 06/19/2015 CARLOS YOUSIF LINE DECORATOR Ot V76.12 06/19/2015 KAREEM BERRY FACC, TINA [...] FACP CCDS Ot V58.61 06/19/2015 SIMRAN JEFFRIES ENGINEERING PRODUCTION WORKER Ot 496 06/19/2015 SIMRAN JEFFRIES E ENGINEERING PRODUCTION WORKER Ot 799.02 06/19/2015 SIMRAN JEFFRIES ENGINEERING PRODUCTION WORKER Ot V12.59 06/19/2015 KATE GUERRERO DO Ot [...] BERRY, ESTEPHANIE R Ot K21.9 06/23/2015 YADIRA EBRRY, ESTEPHANIE R Ot K52.9 06/23/2015 YADIRA BERRY, [...] PRESENCE OF CARDIAC PACEMAKER 08/29/2015 NICACARLOS Tamy LINE DECORATOR Ot Z12.31 08/29/2015 NICAJEAN CLAUDEY Tamy LINE DECORATOR Ot Z95.0 09/14/2015 NICACARLOS LINE DECORATOR Ot Z12.31 09/14/2015 NICACARLOS LINE DECORATOR Ot Z95.0 11/20/2015 TINA SERNA MD, FACC [...] 447.9 ARTERIAL DISEASE NOS 11/20/2015 KAREEM BERRY [facility], [facility] FACP CCDS Ot 496 CHR AIRWAY OBSTRUCT NEC 11/20/2015 KAREEM PATIÑO, TINA FACP CCDS Ot 729.81 SWELLING OF LIMB 11/20/2015 KAREEM PATIÑO, ALI FACP CCDS Ot 787.02 NAUSEA ALONE 11/20/2015 KAREEM PATIÑO, [facility] FACP CCDS Ot V12.59 HX-CIRCULATORY SYST [...] SPECIF 11/22/2015 ESTEPHANIE MAY MD Ot 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 11/22/2015 ESTEPHANIE MAY MD Ot Z95.0 PRESENCE OF CARDIAC PACEMAKER 12/08/2015 CARLOS YOUSIF LINE DECORATOR Ot Z12.31 ENCNTR SCREEN MAMMOGRAM FOR MALIGNANT NE 12/08/2015 QUICKCARLOS LINE DECORATOR Ot Z95.0 PRESENCE OF CARDIAC PACEMAKER 12/09/2015 [...] TRACT INFECTION, SITE NOT SPECIF 07/20/2016 ESTEPHANIE AMY MD Ot R06.02 SHORTNESS OF BREATH 07/20/2016 KAREEM BERRY FAC, TINA FACP CCDS Ot I48.91 UNSPECIFIED ATRIAL FIBRILLATION 07/20/2016 KATE GUERRERO DO Ot J30.9 ALLERGIC RHINITIS, UNSPECIFIED 07/20/2016 Ot V15.89 HX-HEALTH HAZARDS NEC 07/20/2016 Ot V67.09 SURGERY FOLLOW-UP, OTHER SURGERY 07/20/2016 Ot V76.12 OTH SCREEN MAMMO-MALIGN NEOPLASM OF [place] 07/20/2016 Ot 473.9 CHRONIC SINUSITIS NOS 07/20/2016 QUICK, CARLOS W LINE DECORATOR Ot 733.90 BONE CARTILAGE DIS NOS 07/20/2016 CARLOS YOUSIF LINE DECORATOR Ot V76.12 OTH SCREEN MAMMO-MALIGN NEOPLASM OF [place] 07/20/2016 CARLOS YOUSIF LINE DECORATOR Ot 733.90 BONE CARTILAGE DIS NOS 07/20/2016 CARLOS YOSUIF LINE DECORATOR Ot V76.12 OTH SCREEN MAMMO-MALIGN NEOPLASM OF [...] GUERRERO DO Ot 496 07/20/2016 CARLOS YOUSIF LINE DECORATOR Ot Z12.31 ENCNTR SCREEN MAMMOGRAM FOR MALIGNANT NE 07/20/2016 CARLOS YOUSIF LINE DECORATOR Ot Z95.0 PRESENCE OF CARDIAC PACEMAKER 07/20/2016 [...] ACUTE CYSTITIS WITHOUT HEMATURIA 07/21/2016 JASEN DO AJGRUTI Ot R11.2 NAUSEA WITH VOMITING, UNSPECIFIED 07/21/2016 JASEN LUZ JAGRUTI Ot Z66 DO NOT RESUSCITATE 07/21/2016 JASEN LUZ JAGRUTI Ot 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 07/21/2016 JASEN LUZ [...] RESUSCITATE 07/22/2016 AGGARWAL DO, JAGRUTI Ot Z79.01 ASSISTED (CURRENT) USE OF ANTICOAGULANT 07/22/2016 AGGARWAL DO, JAGRUTI Ot Z95.0 PRESENCE OF CARDIAC PACEMAKER 07/23/2016 AGGARWAL DO, JAGURTI Ot A41.9 SEPSIS, UNSPECIFIED ORGANISM 07/23/2016 AGGARWAL DO, JAGRUTI Ot E03.9 HYPOTHYROIDISM, UNSPECIFIED 07/23/2016 AGGARWAL DO, JAGRUTI Ot E78.00 PURE HYPERCHOLESTEROLEMIA, UNSPECIFIED 07/23/2016 AGGARWAL DO, JAGRUTI Ot E86.0 DEHYDRATION 07/23/2016 JASEN DO JAGRUTI Ot F03.90 UNSPECIFIED DEMENTIA WITHOUT BEHAVIORAL 07/23/2016 JASEN LUZ JAGRUTI Ot J44.9 CHRONIC OBSTRUCTIVE PULMONARY DISEASE, U 07/23/2016 JASEN ULZ JAGRUTI Ot J45.909 UNSPECIFIED ASTHMA, UNCOMPLICATED 07/23/2016 [...] RESUSCITATE 07/23/2016 JASEN LUZ JAGRUTI Ot 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 07/23/2016 AGGARWAL DO, [...] RESUSCITATE 07/23/2016 JAGRUTI AGGARWAL DO Ot Z79.01 ASSISTED (CURRENT) USE OF ANTICOAGULANT 07/23/2016 JAGRUTI AGGARWAL DO Ot Z95.0 PRESENCE OF CARDIAC PACEMAKER 08/28/2016 Ot V15.89 HX-HEALTH HAZARDS NEC 08/28/2016 Ot V67.09 SURGERY FOLLOW-UP, OTHER SURGERY 08/28/2016 Ot V76.12 OTH SCREEN MAMMO-MALIGN NEOPLASM OF [place] 08/28/2016 Ot 473.9 CHRONIC SINUSITIS NOS 08/28/2016 CARLOS YOUSIF LINE DECORATOR Ot 733.90 BONE CARTILAGE DIS NOS 08/28/2016 CARLOS YOUSIF LINE DECORATOR Ot V76.12 OTH SCREEN MAMMO-MALIGN NEOPLASM OF [place] 08/28/2016 CARLOS YOUSIF LINE DECORATOR Ot 733.90 BONE CARTILAGE DIS NOS 08/28/2016 CARLOS YOUSIF LINE DECORATOR Ot V76.12 OTH SCREEN MAMMO-MALIGN NEOPLASM OF [...] Ot V58.61 ANTICOAGULANTS,LT,CURRENT USE 08/28/2016 SIMRAN JEFFRIES ENGINEERING PRODUCTION WORKER Ot 496 CHR AIRWAY OBSTRUCT NEC 08/28/2016 SIMRAN JEFFRIES APRN Ot 799.02 HYPOXEMIA 08/28/2016 SIMRAN JEFFRIES ENGINEERING PRODUCTION WORKER Ot V12.59 HX-CIRCULATORY SYST DIS,NEC 08/28/2016 KATE GUERRERO DO Ot 473.9 08/28/2016 KATE GUERRERO DO Ot 496 08/28/2016 QUICK, CARLOS W LINE DECORATOR Ot Z12.31 ENCNTR SCREEN MAMMOGRAM FOR MALIGNANT NE 08/28/2016 CARLOS YOUSIF LINE DECORATOR Ot Z95.0 PRESENCE OF CARDIAC PACEMAKER 08/28/2016 [...] MD Ot A41.9 SEPSIS, UNSPECIFIED ORGANISM 08/31/2016 PRELA MACEDO MD Ot E03.9 HYPOTHYROIDISM, UNSPECIFIED 08/31/2016 PERLA MACEDO MD Ot E11.9 TYPE 2 DIABETES MELLITUS WITHOUT COMPLIC 08/31/2016 PERLA MACEDO MD Ot E78.00 PURE HYPERCHOLESTEROLEMIA, UNSPECIFIED 08/31/2016 PRELA MACEDO MD Ot E78.5 HYPERLIPIDEMIA, UNSPECIFIED 08/31/2016 [...] 08/31/2016 KATE GUERRERO DO Ot 473.9 08/31/2016 AKTE GUERRERO DO Ot 496 09/03/2016 JAGRUTI AGGARWAL [...] TINA SERNA MD, FACCP CCDS Ot Z79.01 ASSISTED (CURRENT) USE OF ANTICOAGULANT 09/13/2016 TINA SERNA MD, FACCP CCDS Ot Z51.81 ENCOUNTER FOR THERAPEUTIC DRUG LEVEL MON 09/13/2016 TINA SERNA MD, FACCP CCDS Ot 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 09/18/2016 TINA SERNA MD, FACCP CCDS Ot Z51.81 ENCOUNTER FOR THERAPEUTIC DRUG LEVEL MON 09/18/2016 TINA SERNA MD, FACCP CCDS Ot Z79.01 ASSISTED (CURRENT) USE OF ANTICOAGULANT 09/21/2016 TINA SERNA MD, FACCP CCDS Ot 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 09/24/2016 TINA SERNA MD, FACC FACP CCDS Ot Z51.81 ENCOUNTER FOR THERAPEUTIC DRUG LEVEL MON 09/24/2016 KAREEM BERRY FAC, ALI FACP CCDS Ot 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 09/26/2016 KAREEM BERRY FACC, ALI FACP CCDS Ot Z51.81 ENCOUNTER FOR THERAPEUTIC DRUG LEVEL MON 09/26/2016 KAREEM BERRY FACC, ALI FACP CCDS Ot Z79.01 ASSISTED (CURRENT) USE OF ANTICOAGULANT 09/28/2016 KAREEM BERRY FACAdamaris, ALI FACP CCDS Ot Z51.81 ENCOUNTER FOR THERAPEUTIC DRUG LEVEL MON 09/28/2016 KAREEM BERRY FACAdamaris, ALI FACP CCDS Ot Z79.01 ASSISTED (CURRENT) USE OF ANTICOAGULANT 10/12/2016 KAREEM BERRY FACAdamaris, ALI FACP CCDS Ot Z51.81 ENCOUNTER FOR THERAPEUTIC DRUG LEVEL MON 10/12/2016 KAREEM BERRY FACC, ALI FACP CCDS Ot Z79.01 ASSISTED (CURRENT) USE OF ANTICOAGULANT 11/23/2016 PERLA MACEDO [...] Ot I27.2 OTHER SECONDARY PULMONARY HYPERTENSION 11/23/2016 EPRLA MACEDO MD Ot I48.91 UNSPECIFIED ATRIAL FIBRILLATION [...] OF CARDIAC PACEMAKER 02/04/2017 ANNMARIE FARIAI L ENGINEERING PRODUCTION WORKER Ot N28.1 CYST OF KIDNEY, ACQUIRED 02/04/2017 FARIAANNMARIEI L ENGINEERING PRODUCTION WORKER Ot R10.11 RIGHT UPPER QUADRANT PAIN 02/04/2017 FARIA, ANGÉLICA L ENGINEERING PRODUCTION WORKER Ot R10.12 LEFT UPPER QUADRANT PAIN 02/04/2017 FARIA, ANGÉLICA L ENGINEERING PRODUCTION WORKER Ot R11.0 NAUSEA 02/04/2017 FARIA, ANGÉLICA L ENGINEERING PRODUCTION WORKER Ot Z90.49 ACQUIRED ABSENCE OF OTHER SPECIFIED PART 02/04/2017 FARIA, ANGÉLICA L ENGINEERING PRODUCTION WORKER Ot N28.1 CYST OF KIDNEY, ACQUIRED 02/04/2017 FARIA, ANGÉLICA L ENGINEERING PRODUCTION WORKER Ot R10.11 RIGHT UPPER QUADRANT PAIN 02/04/2017 FARIA, ANGÉLICA L ENGINEERING PRODUCTION WORKER Ot R10.12 LEFT UPPER QUADRANT PAIN 02/04/2017 FARIA, ANGÉLICA L ENGINEERING PRODUCTION WORKER Ot R11.0 NAUSEA 02/04/2017 FARIA, ANGÉLICA L ENGINEERING PRODUCTION WORKER Ot Z90.49 ACQUIRED ABSENCE OF OTHER SPECIFIED PART 02/06/2017 CARLOS YOUSIF LINE DECORATOR Ot Z12.31 ENCNTR SCREEN MAMMOGRAM FOR MALIGNANT NE 02/06/2017 CARLOS YOUSIF LINE DECORATOR Ot Z95.0 PRESENCE OF CARDIAC PACEMAKER 02/06/2017 [...] R06.02 SHORTNESS OF BREATH 02/06/2017 KAREEM BERRY [facility], ALI FACP CCDS Ot I48.91 UNSPECIFIED ATRIAL FIBRILLATION 02/06/2017 KATE GUERRERO DO Ot J30.9 ALLERGIC RHINITIS, UNSPECIFIED 02/06/2017 KAREEM BERRY [facility], ALI FACP CCDS Ot Z51.81 ENCOUNTER FOR THERAPEUTIC DRUG LEVEL MON 02/06/2017 KAREEM BERRY [facility], ALI FACP CCDS Ot Z79.01 ASSISTED (CURRENT) USE OF ANTICOAGULANT 02/06/2017 KAREEM BERRY FACC, ALI FACP CCDS Ot Z51.81 ENCOUNTER FOR THERAPEUTIC DRUG LEVEL MON 02/06/2017 KAREEM BERRY FACC, ALI FACP CCDS Ot Z79.01 ASSISTED (CURRENT) USE OF ANTICOAGULANT 02/06/2017 KAREEM PATIÑO, ALI FACP CCDS Ot Z51.81 ENCOUNTER FOR THERAPEUTIC DRUG LEVEL MON 02/06/2017 KAREEM BERRY [facility], ALI FACP CCDS Ot 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 02/06/2017 ANGÉLICA FARIA ENGINEERING PRODUCTION WORKER Ot N28.1 CYST OF KIDNEY, ACQUIRED 02/06/2017 ANGÉLICA FARIA ENGINEERING PRODUCTION WORKER Ot R10.11 RIGHT UPPER QUADRANT PAIN 02/06/2017 ANGÉLICA FARIA ENGINEERING PRODUCTION WORKER Ot R10.12 LEFT UPPER QUADRANT PAIN 02/06/2017 ANGÉLICA FARIA ENGINEERING PRODUCTION WORKER Ot R11.0 NAUSEA 02/06/2017 ANGÉLICA FARIA ENGINEERING PRODUCTION WORKER Ot Z90.49 ACQUIRED ABSENCE OF OTHER SPECIFIED PART 02/22/2017 ANGÉLICA FARIA ENGINEERING PRODUCTION WORKER Ot N28.1 CYST OF KIDNEY, ACQUIRED 02/22/2017 ANGÉLICA FARIA ENGINEERING PRODUCTION WORKER Ot R10.11 RIGHT UPPER QUADRANT PAIN 02/22/2017 ANGÉLICA FARIA ENGINEERING PRODUCTION WORKER Ot R10.12 LEFT UPPER QUADRANT PAIN 02/22/2017 ANGÉLICA FARIA ENGINEERING PRODUCTION WORKER Ot R11.0 NAUSEA 02/22/2017 ANGÉLICA FARIA ENGINEERING PRODUCTION WORKER Ot Z90.49 ACQUIRED ABSENCE OF OTHER SPECIFIED PART 03/01/2017 ANGÉLICA FARIA ENGINEERING PRODUCTION WORKER Ot N28.1 CYST OF KIDNEY, ACQUIRED 03/01/2017 ANGÉLICA FARIA ENGINEERING PRODUCTION WORKER Ot R10.11 RIGHT UPPER QUADRANT PAIN 03/01/2017 ANGÉLICA FARIA ENGINEERING PRODUCTION WORKER Ot R10.12 LEFT UPPER QUADRANT PAIN 03/01/2017 ANGÉLICA FARIA ENGINEERING PRODUCTION WORKER Ot R11.0 NAUSEA 03/01/2017 ANGÉLICA FARIA ENGINEERING PRODUCTION WORKER Ot Z90.49 ACQUIRED ABSENCE OF OTHER SPECIFIED [...] 473.9 CHRONIC SINUSITIS NOS 06/12/2017 CARLOS YOUSIF LINE DECORATOR Ot 733.90 BONE CARTILAGE DIS NOS 06/12/2017 CARLOS YOUSIF LINE DECORATOR Ot V76.12 OTH SCREEN MAMMO-MALIGN NEOPLASM OF [place] 06/12/2017 CARLOS YOUSIF LINE DECORATOR Ot 733.90 BONE CARTILAGE DIS NOS 06/12/2017 CARLOS YOUSIF LINE DECORATOR Ot V76.12 OTH SCREEN MAMMO-MALIGN NEOPLASM OF [...] Ot V58.61 ANTICOAGULANTS,LT,CURRENT USE 06/12/2017 SIMRAN JEFFRIES ENGINEERING PRODUCTION WORKER Ot 496 CHR AIRWAY OBSTRUCT NEC 06/12/2017 SIMRAN JEFFRIES APRN Ot 799.02 HYPOXEMIA 06/12/2017 SIMRAN JEFFRIES ENGINEERING PRODUCTION WORKER Ot V12.59 HX-CIRCULATORY SYST DIS,NEC 06/12/2017 KATE GUERRERO DO Ot 473.9 06/12/2017 KATE GUERRERO DO Ot 496 06/12/2017 CARLOS YOUSIF Ot Z12.31 ENCNTR SCREEN MAMMOGRAM FOR MALIGNANT NE 06/12/2017 NICA CARLOS W LINE DECORATOR Ot Z95.0 PRESENCE OF CARDIAC PACEMAKER 06/12/2017 SIMRAN JEFFRIES APRN Ot J18.9 PNEUMONIA, UNSPECIFIED ORGANISM 06/12/2017 SIMRAN JEFFRIES ENGINEERING PRODUCTION WORKER Ot J44.9 CHRONIC OBSTRUCTIVE PULMONARY DISEASE, U [...] BERRY FACC, ALI FACP CCDS Ot Z79.01 ASSISTED (CURRENT) USE OF ANTICOAGULANT 06/12/2017 KAREEM BERRY FACC, ALI FACP CCDS Ot Z51.81 ENCOUNTER FOR THERAPEUTIC DRUG LEVEL MON 06/12/2017 KAREEM BERRY FACC, ALI FACP CCDS Ot Z79.01 ASSISTED (CURRENT) USE OF ANTICOAGULANT 06/12/2017 KAREEM BERRY FACC, ALI FACP CCDS Ot Z51.81 ENCOUNTER FOR THERAPEUTIC DRUG LEVEL MON 06/12/2017 KAREEM BERRY FACC, ALI FACP CCDS Ot Z79.01 ASSISTED (CURRENT) USE OF ANTICOAGULANT 06/12/2017 ANGÉLICA FARIA ENGINEERING PRODUCTION WORKER Ot N28.1 CYST OF KIDNEY, ACQUIRED 06/12/2017 ANGÉLICA FARIA ENGINEERING PRODUCTION WORKER Ot R10.11 RIGHT UPPER QUADRANT PAIN 06/12/2017 ANGÉLICA FARIA ENGINEERING PRODUCTION WORKER Ot R10.12 LEFT UPPER QUADRANT PAIN 06/12/2017 ANGÉLICA FARIA ENGINEERING PRODUCTION WORKER Ot R11.0 NAUSEA 06/12/2017 ANGÉLICA FARIA ENGINEERING PRODUCTION WORKER Ot Z90.49 ACQUIRED ABSENCE OF OTHER SPECIFIED [...] CALCULUS OF KIDNEY 07/09/2017 CHARLOTTE ENG L LINE DECORATOR Ot 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 07/09/2017 CHARLOTTE ENG L LINE DECORATOR Ot I48.1 PERSISTENT ATRIAL FIBRILLATION 07/09/2017 ANDERSONMACHARLOTTE L LINE DECORATOR Ot 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 07/09/2017 ANDERSONMACHARLOTTE L LINE DECORATOR Ot 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 07/09/2017 CHARLOTTE ENG L LINE DECORATOR Ot 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 07/17/2017 BAIMACHARLOTTE L LINE DECORATOR Ot 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 07/17/2017 BAIMALAURYCHARLOTTE L LINE DECORATOR Ot I48.1 PERSISTENT ATRIAL FIBRILLATION 07/17/2017 BAIMALAURYCHARLOTTE L LINE DECORATOR Ot 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 07/17/2017 BAIMALAURYCHARLOTTE L LINE DECORATOR Ot 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 07/17/2017 BAIMALAURYCHARLOTTE L LINE DECORATOR Ot Z79.01 ASSISTED (CURRENT) USE OF ANTICOAGULANT 07/19/2017 ESTEPHANIE MAY MD Ot K57.30 DVRTCLOS OF LG INT W/O PERFORATION OR AB 07/19/2017 ESTEPHANIE MAY MD R Ot N20.0 CALCULUS OF KIDNEY 07/25/2017 ESTEPHANIE MAY MD Ot K57.30 DVRTCLOS OF LG INT W/O PERFORATION OR AB 07/25/2017 ESTEPHANIE MAY MD Ot N20.0 CALCULUS OF KIDNEY 08/10/2017 Ot 473.9 CHRONIC SINUSITIS NOS 08/10/2017 CARLOS YOUSIF LINE DECORATOR Ot 733.90 BONE CARTILAGE DIS NOS 08/10/2017 QUICK CARLOS W LINE DECORATOR Ot V76.12 OTH SCREEN MAMMO-MALIGN NEOPLASM OF [place] 08/10/2017 NICA CARLOS W LINE DECORATOR Ot 733.90 BONE CARTILAGE DIS NOS 08/10/2017 CARLOS YOUSIF LINE DECORATOR Ot V76.12 OTH SCREEN MAMMO-MALIGN NEOPLASM OF [...] 08/10/2017 KATE GUERRERO DO Ot 496 08/10/2017 CARLSO YOUSIF Ot Z12.31 ENCNTR SCREEN MAMMOGRAM FOR [...] BERRY FACC, ALI FACP CCDS Ot Z79.01 ASSISTED (CURRENT) USE OF ANTICOAGULANT 08/10/2017 KAREEM BERRY FACC, ALI FACP CCDS Ot Z51.81 ENCOUNTER FOR THERAPEUTIC DRUG LEVEL MON 08/10/2017 KAREEM BERRY FACC, ALI FACP CCDS Ot 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 08/10/2017 KAREEM BERRY FACC, ALI FACP CCDS Ot Z51.81 ENCOUNTER FOR THERAPEUTIC DRUG LEVEL MON 08/10/2017 KAREEM BERRY FACC, TINA FACP CCDS Ot Z79.01 ASSISTED (CURRENT) USE OF ANTICOAGULANT 08/10/2017 ANGÉLICA FARIA ENGINEERING PRODUCTION WORKER Ot N28.1 CYST OF KIDNEY, ACQUIRED 08/10/2017 ANGÉLICA FARIA ENGINEERING PRODUCTION WORKER Ot R10.11 RIGHT UPPER QUADRANT PAIN 08/10/2017 ANGÉLICA FARIA ENGINEERING PRODUCTION WORKER Ot R10.12 LEFT UPPER QUADRANT PAIN 08/10/2017 ANGÉLICA FARIA ENGINEERING PRODUCTION WORKER Ot R11.0 NAUSEA 08/10/2017 ANGÉLICA FARIA ENGINEERING PRODUCTION WORKER Ot Z90.49 ACQUIRED ABSENCE OF OTHER SPECIFIED [...] NONRHEUMATIC AORTIC (VALVE) STENOSIS 08/10/2017 CHARLOTTE ENG LINE DECORATOR Ot I48.1 PERSISTENT ATRIAL FIBRILLATION 08/10/2017 CHARLOTTE ENG LINE DECORATOR Ot 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 08/10/2017 CHARLOTTE ENG LINE DECORATOR Ot 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 08/10/2017 CHARLOTTE ENG LINE DECORATOR Ot Z79.01 ASSISTED (CURRENT) USE OF ANTICOAGULANT 08/10/2017 ESTEPHANIE MAY MD R Ot K57.30 DVRTCLOS OF LG INT W/O PERFORATION OR AB 08/10/2017 ESTEPHANIE MAY MD Ot N20.0 CALCULUS OF KIDNEY 08/13/2017 ESTEPHANIE MAY MD Ot E03.9 HYPOTHYROIDISM, UNSPECIFIED 08/13/2017 ESTEPHANIE MAY MD Ot E78.00 PURE HYPERCHOLESTEROLEMIA, UNSPECIFIED 08/13/2017 ESTEPHANIE MAY MD Ot E87.2 ACIDOSIS 08/13/2017 ESTEPHANIE MAY MD Ot F03.90 UNSPECIFIED DEMENTIA WITHOUT BEHAVIORAL 08/13/2017 ESTEPHANIE MAY MD Ot I08.3 COMB RHEUMATIC DISORD OF MITRAL, AORTIC 08/13/2017 ESTEPHANIE MAY MD Ot I48.91 UNSPECIFIED ATRIAL FIBRILLATION 08/13/2017 ESTEPHANIE MAY MD Ot I50.20 UNSPECIFIED SYSTOLIC (CONGESTIVE) HEART 08/13/2017 ESTEPHANIE MAY MD R Ot J45.901 UNSPECIFIED ASTHMA WITH (ACUTE) EXACERBA 08/13/2017 ESTEPHANIE MAY MD Ot K58.9 IRRITABLE BOWEL SYNDROME WITHOUT DIARRHE 08/13/2017 ESTEPHANIE MAY MD Ot K59.09 OTHER CONSTIPATION 08/13/2017 ESTEPHANIE MAY MD Ot M19.91 PRIMARY OSTEOARTHRITIS, UNSPECIFIED SITE 08/13/2017 ESTEPHANIE MAY MD Ot M81.0 AGE-RELATED OSTEOPOROSIS W/O CURRENT PAT 08/13/2017 ESTEPHANIE MAY MD Ot Z66 DO NOT RESUSCITATE 08/13/2017 ESTEPHANIE MAY MD Ot Z79.01 ASSISTED (CURRENT) USE OF ANTICOAGULANT 08/13/2017 ESTEPHANIE MAY MD R Ot Z95.0 PRESENCE OF CARDIAC PACEMAKER 08/17/2017 MELODY YOUNGER MD Ot E03.9 HYPOTHYROIDISM, UNSPECIFIED 08/17/2017 MELODY YOUNGER MD Ot E78.00 PURE HYPERCHOLESTEROLEMIA, UNSPECIFIED 08/17/2017 MELODY YOUNGER MD Ot F03.90 UNSPECIFIED DEMENTIA WITHOUT BEHAVIORAL 08/17/2017 MELODY YOUNGER MD Ot I48.91 UNSPECIFIED ATRIAL FIBRILLATION 08/17/2017 MELODY YOUNGER MD Ot J40 BRONCHITIS, NOT SPECIFIED ACUTE OR CH 08/17/2017 MELODY YOUNGER MD Ot M81.0 AGE-RELATED OSTEOPOROSIS W/O CURRENT PAT 08/17/2017 MELODY YOUNGER MD Ot R09.81 NASAL CONGESTION 08/17/2017 MELODY YOUNGER MD Ot 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 08/17/2017 MELODY YOUNGER MD Ot Z87.01 PERSONAL HISTORY OF PNEUMONIA (RECURRENT 08/17/2017 MELODY YOUNGER MD Ot Z87.19 PERSONAL HISTORY OF OTHER DISEASES OF 08/17/2017 MELODY YOUNGER MD Ot Z90.49 ACQUIRED ABSENCE OF OTHER SPECIFIED PART 08/17/2017 MELODY YOUNGER MD Ot Z90.710 ACQUIRED ABSENCE OF BOTH CERVIX AND UTER 08/17/2017 MELODY YOUNGER MD Ot Z95.0 PRESENCE OF CARDIAC PACEMAKER 08/20/2017 MELODY YOUNGER MD Ot E03.9 HYPOTHYROIDISM, UNSPECIFIED 08/20/2017 MELODY YOUNGER MD Ot E78.00 PURE HYPERCHOLESTEROLEMIA, UNSPECIFIED 08/20/2017 MELODY YOUNGER MD Ot F03.90 UNSPECIFIED DEMENTIA WITHOUT BEHAVIORAL 08/20/2017 MELODY YOUNGER MD Ot I48.91 UNSPECIFIED ATRIAL FIBRILLATION 08/20/2017 MELODY YOUNGER MD Ot J40 BRONCHITIS, NOT SPECIFIED ACUTE OR CH 08/20/2017 MELODY YOUNGER MD Ot M81.0 AGE-RELATED OSTEOPOROSIS W/O CURRENT PAT 08/20/2017 MELODY YOUNGER MD Ot R09.81 NASAL CONGESTION 08/20/2017 MELODY YOUNGER MD Ot 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 08/20/2017 MELODY YOUNGER MD Ot Z87.01 PERSONAL HISTORY OF PNEUMONIA (RECURRENT 08/20/2017 MELODY YOUNGER MD Ot Z87.19 PERSONAL HISTORY OF OTHER DISEASES OF 08/20/2017 MELODY YOUNGER MD Ot Z90.49 ACQUIRED ABSENCE OF OTHER SPECIFIED PART 08/20/2017 MELODY YOUNGER MD Ot Z90.710 ACQUIRED ABSENCE OF BOTH CERVIX AND UTER 08/20/2017 MELODY YOUNGER MD Ot Z95.0 PRESENCE OF CARDIAC PACEMAKER 09/23/2017 Ot 473.9 CHRONIC SINUSITIS NOS 09/23/2017 NICACARLOS LINE DECORATOR Ot 733.90 BONE CARTILAGE DIS NOS 09/23/2017 CARLOS YOUSIF LINE DECORATOR Ot V76.12 OTH SCREEN MAMMO-MALIGN NEOPLASM OF [place] 09/23/2017 CARLOS YOUSIF LINE DECORATOR Ot 733.90 BONE CARTILAGE DIS NOS 09/23/2017 CARLOS YOUSIF LINE DECORATOR Ot V76.12 OTH SCREEN MAMMO-MALIGN NEOPLASM OF [place] 09/23/2017 KAREEM BERRY FACC, ALI FACP CCDS Ot 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 09/23/2017 KAREEM BERRY FACC, ALI FACP CCDS Ot 397.0 TRICUSPID VALVE DISEASE 09/23/2017 KAREEM BERRY FACC, ALI FACP CCDS Ot 427.31 ATRIAL FIBRILLATION 09/23/2017 KAREEM BERRY FACC, ALI FACP CCDS Ot 496 CHR AIRWAY OBSTRUCT NEC 09/23/2017 YADIRA BERRY, ESTEPHANIE R Ot 427.31 ATRIAL FIBRILLATION 09/23/2017 YADIRA BERRY, ESTEPHANIE R Ot 785.0 TACHYCARDIA NOS 09/23/2017 YADIRA BERRY, ESTEPHANIE R Ot 786.09 RESPIRATORY ABNORM NEC 09/23/2017 KAREEM BERRY FACC, ALI FACP CCDS Ot 250.00 DIAB WAQAR WO COMPL, TYPE II OR UNSPEC TY 09/23/2017 KAREEM BERRY FACC, ALI FACP CCDS Ot 401.9 HYPERTENSION NOS 09/23/2017 KAREEM BERRY FACC, ALI FACP CCDS Ot 427.31 ATRIAL FIBRILLATION 09/23/2017 KAREEM BERRY FACC, ALI FACP CCDS Ot 496 CHR AIRWAY OBSTRUCT NEC 09/23/2017 KAREEM BERRY FACC, ALI FACP CCDS Ot V58.61 ANTICOAGULANTS,LT,CURRENT USE 09/23/2017 KAREEM BERRY FACC, ALI FACP CCDS Ot 276.8 HYPOPOTASSEMIA 09/23/2017 KAREEM BERRY FACC, ALI FACP CCDS Ot 401.9 HYPERTENSION NOS 09/23/2017 KAREEM BERRY FACC, ALI FACP CCDS Ot 427.31 ATRIAL FIBRILLATION 09/23/2017 KAREEM BERRY FACC, ALI FACP CCDS Ot V58.61 ANTICOAGULANTS,LT,CURRENT USE 09/23/2017 KAREEM BERRY FACC, ALI FACP CCDS Ot V58.83 ENCOUNTER FOR THERAPEUTIC DRUG MONITORIN 09/23/2017 Ot 244.9 HYPOTHYROIDISM NOS 09/23/2017 Ot 250.00 DIAB WAQAR WO COMPL, TYPE II OR UNSPEC TY 09/23/2017 Ot 272.4 HYPERLIPIDEMIA NEC/NOS 09/23/2017 Ot 424.1 AORTIC VALVE DISORDER 09/23/2017 Ot 427.31 ATRIAL FIBRILLATION 09/23/2017 Ot 427.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 09/23/2017 Ot 447.9 ARTERIAL DISEASE NOS 09/23/2017 Ot 496 CHR AIRWAY OBSTRUCT NEC 09/23/2017 Ot V12.59 HX- CIRCULATORY SYST DIS,NEC 09/23/2017 Ot V58.61 ANTICOAGULANTS,LT,CURRENT USE 09/23/2017 Ot 786.2 COUGH 09/23/2017 KATE GUERRERO DO Ot 296.90 UNSPECIFIED EPISODIC MOOD DISORDER 09/23/2017 KATE GUERRERO DO Ot 427.31 ATRIAL FIBRILLATION 09/23/2017 KATE GUERRERO DO Ot 786.09 RESPIRATORY ABNORM NEC 09/23/2017 YADIRA BERRY, ESTEPHANIE R Ot [address] [employer] OBSTRUCT NEC 09/23/2017 KAREEM BERRY FACC, ALI FACP CCDS Ot 244.9 HYPOTHYROIDISM NOS 09/23/2017 KAREEM BERRY FACC, ALI FACP CCDS Ot 250.00 DIAB WAQAR WO COMPL, TYPE II OR UNSPEC TY 09/23/2017 KAREEM BERRY FACC, ALI FACP CCDS Ot 272.4 HYPERLIPIDEMIA NEC/NOS 09/23/2017 KAREEM BERRY FACC, ALI FACP CCDS Ot 424.1 AORTIC VALVE DISORDER 09/23/2017 KAREEM BERRY FACC, ALI FACP CCDS Ot 427.31 ATRIAL FIBRILLATION 09/23/2017 KAREEM BERRY FACC, ALI FACP CCDS Ot 427.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 09/23/2017 KAREEM BERRY FACC, ALI FACP CCDS Ot 447.9 ARTERIAL DISEASE NOS 09/23/2017 KAREEM BERRY FACC, ALI FACP CCDS Ot [address] [employer] OBSTRUCT NEC 09/23/2017 KAREEM BERRY FACC, TINA FACP CCDS Ot 729.81 SWELLING OF LIMB 09/23/2017 KAREEM BERRY FACC, TINA FACP CCDS Ot 787.02 NAUSEA ALONE 09/23/2017 KAREEM BERRY FACC, TINA FACP CCDS Ot V12.59 HX-CIRCULATORY SYST DIS,NEC 09/23/2017 KAREEM BERRY FACC, TINA FACP CCDS Ot V58.61 ANTICOAGULANTS,LT,CURRENT USE 09/23/2017 SIMRAN JEFFRIES APRN Ot [address] OBSTRUCT NEC 09/23/2017 SIMRAN JEFFRIES APRN Ot 799.02 HYPOXEMIA 09/23/2017 SIMRAN JEFFRIES APRN Ot V12.59 HX-CIRCULATORY SYST DIS,NEC 09/23/2017 KATE GUERRERO DO Ot 473.9 09/23/2017 KATE GUERRERO DO Ot 496 09/23/2017 CARLOS YOUSIF Ot Z12.31 ENCNTR SCREEN MAMMOGRAM FOR MALIGNANT NE 09/23/2017 CARLOS YOUSIF Ot Z95.0 PRESENCE OF CARDIAC PACEMAKER 09/23/2017 SIMRAN JEFFRIES APRN Ot J18.9 PNEUMONIA, UNSPECIFIED ORGANISM 09/23/2017 SIMRAN JEFFRIES APRN Ot J44.9 CHRONIC OBSTRUCTIVE PULMONARY DISEASE, U 09/23/2017 YADIRA BERRY, ESTEPHANIE R Ot M54.2 CERVICALGIA 09/23/2017 ESTEPHANIE MAY MD R Ot E03.9 HYPOTHYROIDISM, UNSPECIFIED 09/23/2017 ESTEPHANIE MAY MD R Ot J45.909 UNSPECIFIED ASTHMA, UNCOMPLICATED 09/23/2017 YADIRA BERRY, ESTEPHANIE R Ot M54.5 LOW BACK PAIN 09/23/2017 YADIRA BERRY, ESTEPHANIE R Ot N39.0 URINARY TRACT INFECTION, SITE NOT SPECIF 09/23/2017 ESTEPHANIE MAY MD R Ot R06.02 SHORTNESS OF BREATH 09/23/2017 KAREEM BERRY FACC, TINA FACP CCDS Ot I48.91 UNSPECIFIED ATRIAL FIBRILLATION 09/23/2017 KATE GUERRERO DO Ot J30.9 ALLERGIC RHINITIS, UNSPECIFIED 09/23/2017 KAREEM BERRY FACC, TINA FACP CCDS Ot Z51.81 ENCOUNTER FOR THERAPEUTIC DRUG LEVEL MON 09/23/2017 KAREEM PATIÑO, TINA PATIÑOP CCDS Ot 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 09/23/2017 KAREEM BERRY FACC, TINA FACP CCDS Ot Z51.81 ENCOUNTER FOR THERAPEUTIC DRUG LEVEL MON 09/23/2017 KAREEM BERRY FACC, ALI FACP CCDS Ot 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 09/23/2017 KAREEM BERRY FACC, TINA PATIÑOP CCDS Ot Z51.81 ENCOUNTER FOR THERAPEUTIC DRUG LEVEL MON 09/23/2017 KAREEM PATIÑO, TINA FACP CCDS Ot 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 09/23/2017 ANGÉLICA FARIA ENGINEERING PRODUCTION WORKER Ot N28.1 CYST OF KIDNEY, ACQUIRED 09/23/2017 ANGÉLICA FARIA ENGINEERING PRODUCTION WORKER Ot R10.11 RIGHT UPPER QUADRANT PAIN 09/23/2017 ANGÉLICA FARIA ENGINEERING PRODUCTION WORKER Ot R10.12 LEFT UPPER QUADRANT PAIN 09/23/2017 ANGÉLICA FARIA ENGINEERING PRODUCTION WORKER Ot R11.0 NAUSEA 09/23/2017 ANGÉLICA FARIA ENGINEERING PRODUCTION WORKER Ot Z90.49 ACQUIRED ABSENCE OF OTHER SPECIFIED PART 09/23/2017 ESTEPHANIE MAY MD R Ot I51.7 CARDIOMEGALY 09/23/2017 ESTEPHANIE MAY MD Ot K57.30 DVRTCLOS OF LG INT W/O PERFORATION OR AB 09/23/2017 ESTEPHANIE MAY MD Ot N20.0 CALCULUS OF KIDNEY 09/23/2017 ESTEPHANIE MAY MD Ot N28.1 CYST OF KIDNEY, ACQUIRED 09/23/2017 ESTEPHANIE MAY MD R Ot R63.4 ABNORMAL WEIGHT LOSS 09/23/2017 [place] ENG LINE DECORATOR Ot 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 09/23/2017 [place] ENG LINE DECORATOR Ot I48.1 PERSISTENT ATRIAL FIBRILLATION 09/23/2017 [place] ENG LINE DECORATOR Ot 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 09/23/2017 [place] ENG LINE DECORATOR Ot 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 09/23/2017 [place] ENG LINE DECORATOR Ot 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 09/23/2017 ESTEPHANIE MAY MD R Ot K57.30 DVRTCLOS OF LG INT W/O PERFORATION OR AB 09/23/2017 ESTEPHANIE MAY MD R Ot N20.0 CALCULUS OF KIDNEY 09/24/2017 ORIN BERRY, VIVIENNE S Ot I51.7 CARDIOMEGALY 09/24/2017 ORIN BERRY, VIVIENNE S Ot J44.9 CHRONIC OBSTRUCTIVE PULMONARY DISEASE, U 10/15/2017 ORIN BERRY, VIVIENNE S Ot I51.7 CARDIOMEGALY 10/15/2017 ORIN BERRY, VIVIENNE S Ot J44.9 CHRONIC OBSTRUCTIVE PULMONARY DISEASE, U 10/23/2017 ORIN BERRY, VIVIENNE S Ot I51.7 CARDIOMEGALY 10/23/2017 ORIN BERRY, VIVIENNE S Ot J44.9 CHRONIC OBSTRUCTIVE PULMONARY DISEASE, U 10/25/2017 YOLANDA MORENO ENGINEERING PRODUCTION WORKER Ot M25.552 PAIN IN LEFT HIP 10/25/2017 YOLANDA MORENO ENGINEERING PRODUCTION WORKER Ot M54.9 DORSALGIA, UNSPECIFIED 11/18/2017 YOLANDA MORENO ENGINEERING PRODUCTION WORKER Ot M25.552 PAIN IN LEFT HIP 11/18/2017 YOLANDA MORENO ENGINEERING PRODUCTION WORKER Ot M54.9 DORSALGIA, UNSPECIFIED 11/20/2017 YOLANDA MORENO ENGINEERING PRODUCTION WORKER Ot M25.552 PAIN IN LEFT HIP 11/20/2017 YOLANDA MORENO ENGINEERING PRODUCTION WORKER Ot M54.9 DORSALGIA, UNSPECIFIED 06/02/2018 CARLOS YOUSIF LINE DECORATOR Ot Z12.31 ENCNTR SCREEN MAMMOGRAM FOR MALIGNANT NE 06/02/2018 CARLOS YOUSIF Ot Z95.0 PRESENCE OF CARDIAC PACEMAKER 06/02/2018 SIMRAN JEFFRIES APRN Ot J18.9 PNEUMONIA, UNSPECIFIED ORGANISM 06/02/2018 SIMRAN JEFFRIES APRN Ot J44.9 CHRONIC OBSTRUCTIVE PULMONARY DISEASE, U 06/02/2018 ESTEPHANIE MAY MD R Ot M54.2 CERVICALGIA 06/02/2018 ESTEPHANIE MAY MD R Ot E03.9 HYPOTHYROIDISM, UNSPECIFIED 06/02/2018 ESTEPHANIE MAY MD R Ot J45.909 UNSPECIFIED ASTHMA, UNCOMPLICATED 06/02/2018 ESTEPHANIE MAY MD R Ot M54.5 LOW BACK PAIN 06/02/2018 ESTEPHANIE MAY MD Ot N39.0 URINARY TRACT INFECTION, SITE NOT SPECIF 06/02/2018 ESTEPHANIE MAY MD Ot R06.02 SHORTNESS OF BREATH 06/02/2018 KAREEM BERRY FAC, ALI FACP CCDS Ot I48.91 UNSPECIFIED ATRIAL FIBRILLATION 06/02/2018 KATE GUERRERO DO Ot J30.9 ALLERGIC RHINITIS, UNSPECIFIED 06/02/2018 KAREEM BERRY FAC, ALI FACP CCDS Ot Z51.81 ENCOUNTER FOR THERAPEUTIC DRUG LEVEL MON 06/02/2018 KAREEM BERRY [facility], ALI FACP CCDS Ot Z79.01 ASSISTED (CURRENT) USE OF ANTICOAGULANT 06/02/2018 KAREEM BERRY [facility], ALI FACP CCDS Ot Z51.81 ENCOUNTER FOR THERAPEUTIC DRUG LEVEL MON 06/02/2018 KAREEM BERRY [facility], ALI FACP CCDS Ot 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 06/02/2018 KAREEM BERRY [facility], ALI FACP CCDS Ot Z51.81 ENCOUNTER FOR THERAPEUTIC DRUG LEVEL MON 06/02/2018 KAREEM BERRY [facility], ALI FACP CCDS Ot Z79.01 ASSISTED (CURRENT) USE OF ANTICOAGULANT 06/02/2018 ANGÉLICA FARIA ENGINEERING PRODUCTION WORKER Ot N28.1 CYST OF KIDNEY, ACQUIRED 06/02/2018 ANGÉLICA FARIA ENGINEERING PRODUCTION WORKER Ot R10.11 RIGHT UPPER QUADRANT PAIN 06/02/2018 ANGÉLICA FARIA ENGINEERING PRODUCTION WORKER Ot R10.12 LEFT UPPER QUADRANT PAIN 06/02/2018 ANGÉLICA FARIA ENGINEERING PRODUCTION WORKER Ot R11.0 NAUSEA 06/02/2018 ANGÉLICA FARIA ENGINEERING PRODUCTION WORKER Ot Z90.49 ACQUIRED ABSENCE OF OTHER SPECIFIED PART 06/02/2018 ESTEPHANIE MAY MD Ot I51.7 CARDIOMEGALY 06/02/2018 ESTEPHANIE MAY MD Ot K57.30 DVRTCLOS OF LG INT W/O PERFORATION OR AB 06/02/2018 ESTEPHANIE MAY MD Ot N20.0 CALCULUS OF KIDNEY 06/02/2018 ESTEPHANIE MAY MD Ot N28.1 CYST OF KIDNEY, ACQUIRED 06/02/2018 ESTEPHANIE MAY MD Ot R63.4 ABNORMAL WEIGHT LOSS 06/02/2018 [place] ENG LINE DECORATOR Ot 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 06/02/2018 ANDERSONKALA [place] Marcelino LINE DECORATOR Ot I48.1 PERSISTENT ATRIAL FIBRILLATION 06/02/2018 ANDERSONKALA [place] Marcelino LINE DECORATOR Ot 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 06/02/2018 VELASQUEZ [place] Marcelino LINE DECORATOR Ot 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 06/02/2018 ANDERSONKALA [place] Benson LINE DECORATOR Ot 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 06/02/2018 YADIRA BERRY, ESTEPHANIE R Ot K57.30 DVRTCLOS OF LG INT W/O PERFORATION OR AB 06/02/2018 ESTEPHANIE MAY MD R Ot N20.0 CALCULUS OF KIDNEY 06/02/2018 ORIN BERRY, VIVIENNE S Ot I51.7 CARDIOMEGALY 06/02/2018 ORIN BERRY, VIVIENNE S Ot J44.9 CHRONIC OBSTRUCTIVE PULMONARY DISEASE, U 06/02/2018 YOLANDA MORENO ENGINEERING PRODUCTION WORKER Ot M25.552 PAIN IN LEFT HIP 06/02/2018 YOLANDA MORENO ENGINEERING PRODUCTION WORKER Ot M54.9 DORSALGIA, UNSPECIFIED 06/02/2018 CARLOS YOUSIF LINE DECORATOR Ot 733.90 BONE CARTILAGE DIS NOS 06/02/2018 CARLOS YOUSIF LINE DECORATOR Ot V76.12 OTH SCREEN MAMMO-MALIGN NEOPLASM OF [place] 06/02/2018 CARLOS YOUSIF LINE DECORATOR Ot 733.90 BONE CARTILAGE DIS NOS 06/02/2018 CARLOS YOUSIF LINE DECORATOR Ot V76.12 OTH SCREEN MAMMO-MALIGN NEOPLASM OF [place] 06/02/2018 KAREEM BERRY FACC, TINA FACP CCDS Ot 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 06/02/2018 KAREEM BERRY FACC, ALI FACP CCDS Ot 397.0 TRICUSPID VALVE DISEASE 06/02/2018 KAREEM BERRY FACC, TINA FACP CCDS Ot 427.31 ATRIAL FIBRILLATION 06/02/2018 KAREEM BERRY FACC, ALI FACP CCDS Ot [address] OBSTRUCT NEC 06/02/2018 ESTEPHANIE MAY MD R Ot 427.31 ATRIAL FIBRILLATION 06/02/2018 ESTEPHANIE MAY MD R Ot 785.0 TACHYCARDIA NOS 06/02/2018 ESTEPHANIE MAY MD R Ot 786.09 RESPIRATORY ABNORM NEC 06/02/2018 KAREEM BERRY FACC, ALI FACP CCDS Ot 250.00 DIAB WAQAR WO COMPL, TYPE II OR UNSPEC TY 06/02/2018 KAREEM BERRY FACC, ALI FACP CCDS Ot 401.9 HYPERTENSION NOS 06/02/2018 KAREEM BERRY FACC, ALI FACP CCDS Ot 427.31 ATRIAL FIBRILLATION 06/02/2018 KAREEM BERRY FACC, ALI FACP CCDS Ot [address] OBSTRUCT NEC 06/02/2018 KAREEM BERRY FACC, ALI FACP CCDS Ot V58.61 ANTICOAGULANTS,LT,CURRENT USE 06/02/2018 KAREEM BERRY FACC, ALI FACP CCDS Ot 276.8 HYPOPOTASSEMIA 06/02/2018 KAREEM BERRY FACC, ALI FACP CCDS Ot 401.9 HYPERTENSION NOS 06/02/2018 KAREEM BERRY FACC, ALI FACP CCDS Ot 427.31 ATRIAL FIBRILLATION 06/02/2018 KAREEM BERRY FACC, ALI FACP CCDS Ot V58.61 ANTICOAGULANTS,LT,CURRENT USE 06/02/2018 KAREEM BERRY FACC, ALI FACP CCDS Ot V58.83 ENCOUNTER FOR THERAPEUTIC DRUG MONITORIN 06/02/2018 Ot 244.9 HYPOTHYROIDISM NOS 06/02/2018 Ot 250.00 DIAB WAQAR WO COMPL, TYPE II OR UNSPEC TY 06/02/2018 Ot 272.4 HYPERLIPIDEMIA NEC/NOS 06/02/2018 Ot 424.1 AORTIC VALVE DISORDER 06/02/2018 Ot 427.31 ATRIAL FIBRILLATION 06/02/2018 Ot 427.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 06/02/2018 Ot 447.9 ARTERIAL DISEASE NOS 06/02/2018 Ot [address] OBSTRUCT NEC 06/02/2018 Ot V12.59 HX- CIRCULATORY SYST DIS,NEC 06/02/2018 Ot V58.61 ANTICOAGULANTS,LT,CURRENT USE 06/02/2018 Ot 786.2 COUGH 06/02/2018 KATE GUERRERO DO Ot 296.90 UNSPECIFIED EPISODIC MOOD DISORDER 06/02/2018 KATE GUERRERO DO Ot 427.31 ATRIAL FIBRILLATION 06/02/2018 KATE GUERRERO DO Ot 786.09 RESPIRATORY ABNORM NEC 06/02/2018 ESTEPHANIE MAY MD R Ot [address] OBSTRUCT NEC 06/02/2018 KAREEM MD FACC, ALI FACP CCDS Ot 244.9 HYPOTHYROIDISM NOS 06/02/2018 KAREEM BERRY FACC, ALI FACP CCDS Ot 250.00 DIAB WAQAR WO COMPL, TYPE II OR UNSPEC TY 06/02/2018 KAREEM BERRY FACC, ALI FACP CCDS Ot 272.4 HYPERLIPIDEMIA NEC/NOS 06/02/2018 KAREEM BERRY FACC, ALI FACP CCDS Ot 424.1 AORTIC VALVE DISORDER 06/02/2018 KAREEM BERRY FACC, ALI FACP CCDS Ot 427.31 ATRIAL FIBRILLATION 06/02/2018 KAREEM BERRY FACC, ALI FACP CCDS Ot 427.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 06/02/2018 KAREEM MD FACC, ALI FACP CCDS Ot 447.9 ARTERIAL DISEASE NOS 06/02/2018 KAREEM BERRY FACC, ALI FACP CCDS Ot [address] OBSTRUCT NEC 06/02/2018 KAREEM BERRY FACC, ALI FACP CCDS Ot 729.81 SWELLING OF LIMB 06/02/2018 KAREEM BERRY FACC, ALI FACP CCDS Ot 787.02 NAUSEA ALONE 06/02/2018 KAREEM BERRY FACC, ALI FACP CCDS Ot V12.59 HX-CIRCULATORY SYST DIS,NEC 06/02/2018 KAREEM BERRY FACC, ALI FACP CCDS Ot V58.61 ANTICOAGULANTS,LT,CURRENT USE 06/02/2018 SIMRAN JEFFRIES APRN Ot [address] OBSTRUCT NEC 06/02/2018 SIMRAN JEFFRIES APRN Ot 799.02 HYPOXEMIA 06/02/2018 SIMRAN JEFFRIES APRN Ot V12.59 HX-CIRCULATORY SYST DIS,NEC 06/02/2018 KATE GUERRERO DO Ot 473.9 06/02/2018 KATE GUERRERO DO Ot 496 06/02/2018 CARLOS YOUSIF Ot Z12.31 ENCNTR SCREEN MAMMOGRAM FOR MALIGNANT NE 06/02/2018 CARLOS YOUSIF Ot Z95.0 PRESENCE OF CARDIAC PACEMAKER 06/02/2018 SIMRAN JEFFRIES APRN Ot J18.9 PNEUMONIA, UNSPECIFIED ORGANISM 06/02/2018 SIMRAN JEFFRIES APRN Ot J44.9 CHRONIC OBSTRUCTIVE PULMONARY DISEASE, U 06/02/2018 YADIRA BERRY, ESTEPHANIE Miller Ot M54.2 CERVICALGIA 06/02/2018 ESTEPHANIE MAY MD Ot E03.9 HYPOTHYROIDISM, UNSPECIFIED 06/02/2018 ESTEPHANIE MAY MD Ot J45.909 UNSPECIFIED ASTHMA, UNCOMPLICATED 06/02/2018 ESTEPHANIE MAY MD Ot M54.5 LOW BACK PAIN 06/02/2018 ESTEPHANIE MAY MD Ot N39.0 URINARY TRACT INFECTION, SITE NOT SPECIF 06/02/2018 ESTEPHANIE MAY MD Ot R06.02 SHORTNESS OF BREATH 06/02/2018 KAREEM PATIÑO, ALI FACP CCDS Ot I48.91 UNSPECIFIED ATRIAL FIBRILLATION 06/02/2018 KATE GUERRERO DO Ot J30.9 ALLERGIC RHINITIS, UNSPECIFIED 06/02/2018 KAREEM BERRY [facility], ALI FACP CCDS Ot Z51.81 ENCOUNTER FOR THERAPEUTIC DRUG LEVEL MON 06/02/2018 KAREEM BERRY FACC, ALI FACP CCDS Ot Z79.01 ASSISTED (CURRENT) USE OF ANTICOAGULANT 06/02/2018 KAREEM BERRY [facility], ALI FACP CCDS Ot Z51.81 ENCOUNTER FOR THERAPEUTIC DRUG LEVEL MON 06/02/2018 KAREEM BERRY FACC, ALI FACP CCDS Ot Z79.01 ASSISTED (CURRENT) USE OF ANTICOAGULANT 06/02/2018 KAREEM BERRY [facility], ALI FACP CCDS Ot Z51.81 ENCOUNTER FOR THERAPEUTIC DRUG LEVEL MON 06/02/2018 KAREEM BERRY [facility], ALI FACP CCDS Ot 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 06/02/2018 ANGÉLICA FARIA ENGINEERING PRODUCTION WORKER Ot N28.1 CYST OF KIDNEY, ACQUIRED 06/02/2018 ANGÉLICA FARIA ENGINEERING PRODUCTION WORKER Ot R10.11 RIGHT UPPER QUADRANT PAIN 06/02/2018 ANGÉLICA FARIA ENGINEERING PRODUCTION WORKER Ot R10.12 LEFT UPPER QUADRANT PAIN 06/02/2018 ANGÉLICA FARIA ENGINEERING PRODUCTION WORKER Ot R11.0 NAUSEA 06/02/2018 ANGÉLICA FARIA ENGINEERING PRODUCTION WORKER Ot Z90.49 ACQUIRED ABSENCE OF OTHER SPECIFIED PART 06/02/2018 ESTEPHANIE MAY MD Ot I51.7 CARDIOMEGALY 06/02/2018 ESTEPHANIE MAY MD Ot K57.30 DVRTCLOS OF LG INT W/O PERFORATION OR AB 06/02/2018 ESTEPHANIE MAY MD Ot N20.0 CALCULUS OF KIDNEY 06/02/2018 ESTEPHANIE MAY MD Ot N28.1 CYST OF KIDNEY, ACQUIRED 06/02/2018 ESTEPHANIE MAY MD Ot R63.4 ABNORMAL WEIGHT LOSS 06/02/2018 [place] ENG Ot 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 06/02/2018 [place] ENGP Ot I48.1 PERSISTENT ATRIAL FIBRILLATION 06/02/2018 [place] ENGP Ot 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 06/02/2018 [place] ENGP Ot 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 06/02/2018 [place] ENGP Ot 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 06/02/2018 ESTEPHANIE MAY MD Ot K57.30 DVRTCLOS OF LG INT W/O PERFORATION OR AB 06/02/2018 ESTEPHANIE MAY MD Ot N20.0 CALCULUS OF KIDNEY 06/02/2018 VIVIENNE SR MD S Ot I51.7 CARDIOMEGALY 06/02/2018 VIVIENNE SR MD S Ot J44.9 CHRONIC OBSTRUCTIVE PULMONARY DISEASE, U 06/02/2018 YOLANDA MORENO APRN Ot M25.552 PAIN IN LEFT HIP 06/02/2018 YOLANDA MORENO APRN Ot M54.9 DORSALGIA, UNSPECIFIED 06/04/2018 CARLOS YOUSIF Ot Z12.31 ENCNTR SCREEN MAMMOGRAM FOR MALIGNANT NE 06/04/2018 CARLOS YOUSIF Ot Z95.0 PRESENCE OF CARDIAC PACEMAKER 06/04/2018 SIMRAN JEFFRIES APRN Ot J18.9 PNEUMONIA, UNSPECIFIED ORGANISM 06/04/2018 SIMRAN JEFFRIES APRN Ot J44.9 CHRONIC OBSTRUCTIVE PULMONARY DISEASE, U 06/04/2018 ESTEPHANIE MAY MD R Ot M54.2 CERVICALGIA 06/04/2018 ESTEPHANIE MAY MD Ot E03.9 HYPOTHYROIDISM, UNSPECIFIED 06/04/2018 ESTEPHANIE MAY MD Ot J45.909 UNSPECIFIED ASTHMA, UNCOMPLICATED 06/04/2018 ESTEPHANIE MAY MD R Ot M54.5 LOW BACK PAIN 06/04/2018 ESTEPHANIE MAY MD Ot N39.0 URINARY TRACT INFECTION, SITE NOT SPECIF 06/04/2018 ESTEPHANIE MAY MD Ot R06.02 SHORTNESS OF BREATH 06/04/2018 KAREEM PATIÑO, ALI FACP CCDS Ot I48.91 UNSPECIFIED ATRIAL FIBRILLATION 06/04/2018 KATE GUERRERO DO Ot J30.9 ALLERGIC RHINITIS, UNSPECIFIED 06/04/2018 KAREEM BERRY FAC, ALI FACP CCDS Ot Z51.81 ENCOUNTER FOR THERAPEUTIC DRUG LEVEL MON 06/04/2018 KAREEM BERRY [facility], ALI FACP CCDS Ot Z79.01 ASSISTED (CURRENT) USE OF ANTICOAGULANT 06/04/2018 KAREEM BERRY FACC, ALI FACP CCDS Ot Z51.81 ENCOUNTER FOR THERAPEUTIC DRUG LEVEL MON 06/04/2018 KAREEM BERRY FACC, ALI FACP CCDS Ot Z79.01 ASSISTED (CURRENT) USE OF ANTICOAGULANT 06/04/2018 KAREEM PATIÑO, ALI FACP CCDS Ot Z51.81 ENCOUNTER FOR THERAPEUTIC DRUG LEVEL MON 06/04/2018 KAREEM BERRY [facility], ALI FACP CCDS Ot Z79.01 ASSISTED (CURRENT) USE OF ANTICOAGULANT 06/04/2018 ANGÉLICA FARIA ENGINEERING PRODUCTION WORKER Ot N28.1 CYST OF KIDNEY, ACQUIRED 06/04/2018 ANGÉLICA FARIA ENGINEERING PRODUCTION WORKER Ot R10.11 RIGHT UPPER QUADRANT PAIN 06/04/2018 ANGÉLICA FARIA ENGINEERING PRODUCTION WORKER Ot R10.12 LEFT UPPER QUADRANT PAIN 06/04/2018 ANGÉLICA FARIA ENGINEERING PRODUCTION WORKER Ot R11.0 NAUSEA 06/04/2018 ANGÉLICA FARIA ENGINEERING PRODUCTION WORKER Ot Z90.49 ACQUIRED ABSENCE OF OTHER SPECIFIED PART 06/04/2018 ESTEPHANIE MAY MD Ot I51.7 CARDIOMEGALY 06/04/2018 ESTEPHANIE MAY MD Ot K57.30 DVRTCLOS OF LG INT W/O PERFORATION OR AB 06/04/2018 ESTEPHANIE MAY MD Ot N20.0 CALCULUS OF KIDNEY 06/04/2018 ESTEPHANIE MAY MD R Ot N28.1 CYST OF KIDNEY, ACQUIRED 06/04/2018 ESTEPHANIE MAY MD Ot R63.4 ABNORMAL WEIGHT LOSS 06/04/2018 [place] ENG LINE DECORATOR Ot 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 06/04/2018 ANDERSONCHARLOTTE ARMENDARIZ LINE DECORATOR Ot I48.1 PERSISTENT ATRIAL FIBRILLATION 06/04/2018 ANDERSONCHARLOTTE ARMENDARIZ LINE DECORATOR Ot 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 06/04/2018 ANDERSONCHARLOTTE ARMENDARIZ LINE DECORATOR Ot 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 06/04/2018 [place] ENG LINE DECORATOR Ot Z79.01 ASSISTED (CURRENT) USE OF ANTICOAGULANT 06/04/2018 ESTEPHANIE MAY MD R Ot K57.30 DVRTCLOS OF LG INT W/O PERFORATION OR AB 06/04/2018 ESTEPHANIE MAY MD Ot N20.0 CALCULUS OF KIDNEY 06/04/2018 VIVIENNE SR MD S Ot I51.7 CARDIOMEGALY 06/04/2018 VIVIENNE SR MD S Ot J44.9 CHRONIC OBSTRUCTIVE PULMONARY DISEASE, U 06/04/2018 YOLANDA MORENO APRN Ot M25.552 PAIN IN LEFT HIP 06/04/2018 YOLANDA MORENO APRN Ot M54.9 DORSALGIA, UNSPECIFIED 06/09/2018 ESTEPHANIE MAY MD R Ot G89.29 OTHER CHRONIC PAIN 06/09/2018 ESTEPHANIE MAY MD R Ot M47.816 SPONDYLOSIS W/O MYELOPATHY OR RADICULOPA 06/09/2018 ESTEPHANIE MAY MD R Ot M54.41 LUMBAGO WITH SCIATICA, RIGHT SIDE Procedures There is no data. Results Test [...] - 08/28/16 09:49 QUANTITY OF GROWTH Isolated NR Bacterial blood culture [id number] [facility] Complete urinalysis with reflex to culture - [...] count by microscopy (number/high power field) [HPF] [facility] Automated urine sediment leukocyte count by microscopy [...] Blood anisocytosis detection by light microscopy SLIGHT [facility] Comprehensive metabolic panel - 11/21/16 [...] - 08/10/17 07:25 Magnesium 1.8 mg/dL 1.8-2.4 Serum or plasma lithium measurement (moles/volume) - 08/10/17 07:25 BNP level 308.2 pg/mL <100.0 Bacterial blood culture - 08/10/17 07:25 Bacterial blood culture NG NRG Influenza virus A and B antigen detection - 08/10/17 07:30 FLU RESULT NEGATIVE FOR INFLUENZA A AND B ANTIGENS BY IA NRG Bacterial blood culture - 08/10/17 07:52 Bacterial blood culture NG NRG Complete urinalysis [...] urinalysis with reflex to culture NO NRG Serum or plasma lactate measurement (moles/volume) - 08/10/17 10:05 Serum or plasma lactate measurement (moles/volume) 1.34 mmol/L 0.50-2.00 Complete blood count (CBC) with automated white blood cell (WBC) differential - 08/11/17 05:53 Blood leukocytes automated count (number/volume) 14.5 10*3/uL 4.3-11.0 Blood erythrocytes automated count (number/volume) 4.14 10*6/uL 4.35-5.85 Venous blood hemoglobin measurement (mass/volume) 12.7 g/dL 11.5-16.0 Blood hematocrit (volume fraction) 38 [...] 10.9 [foz_us] 7.4-10.4 Automated blood neutrophils/100 leukocytes 85 % 42-75 Automated blood lymphocytes/100 leukocytes 8 % 12-44 Blood monocytes/100 leukocytes 7 % 0-12 Automated blood eosinophils/100 leukocytes 0 % 0-10 Automated blood basophils/100 leukocytes 0 % 0-10 Blood neutrophils automated count (number/volume) 12.4 10*3 1.8-7.8 Blood lymphocytes automated count (number/volume) 1.1 10*3 1.0-4.0 Blood monocytes automated count (number/volume) 1.0 10*3 0.0-1.0 Automated eosinophil count 0.0 10*3/uL 0.0-0.3 Automated blood basophil count (count/volume) 0.0 10*3/uL 0.0-0.1 Comprehensive metabolic panel - 08/11/17 05:53 Serum or plasma sodium measurement (moles/volume) 144 mmol/L 135-145 Serum or plasma potassium measurement (moles/volume) 3.9 mmol/L 3.6-5.0 Serum or plasma chloride measurement (moles/volume) 111 mmol/L 98-107 Carbon dioxide 22 mmol/L 21-32 Serum or plasma anion gap determination (moles/volume) 11 mmol/L 5-14 Serum or plasma urea nitrogen measurement (mass/volume) 12 mg/dL 7-18 Serum or plasma creatinine measurement (mass/volume) 0.81 mg/dL 0.60-1.30 Serum or plasma urea nitrogen/creatinine mass ratio 15 NRG Serum or plasma creatinine measurement with calculation of estimated glomerular filtration rate > NRG Serum or plasma glucose measurement (mass/volume) 143 mg/dL 70-105 Serum or plasma calcium measurement (mass/volume) 9.4 mg/dL 8.5-10.1 Serum or plasma total bilirubin measurement (mass/volume) 1.4 mg/dL 0.1-1.0 Serum or plasma alkaline phosphatase measurement (enzymatic activity/volume) 57 U/L 40-136 Serum or plasma aspartate aminotransferase measurement (enzymatic activity/ volume) 20 U/L 5-34 Serum or plasma alanine aminotransferase measurement (enzymatic activity/volume ) 14 U/L 0-55 Serum or plasma protein measurement (mass/volume) 6.5 g/dL 6.4-8.2 Serum or plasma albumin measurement (mass/volume) 3.6 g/dL 3.2-4.5 PT panel in platelet poor plasma by coagulation assay - 08/11/17 05:53 Prothrombin time (PT) in platelet poor plasma by coagulation assay 17.3 s 12.2-14.7 INR in platelet poor plasma or blood by coagulation assay 1.4 0.8-1.4 PT panel in platelet poor plasma by coagulation assay - 08/13/17 10:39 Prothrombin time (PT) in platelet poor plasma by coagulation assay 15.7 s 12.2-14.7 INR in platelet poor plasma or blood by coagulation assay 1.2 0.8-1.4 Complete blood count (CBC) with automated white blood cell (WBC) differential - 08/17/17 02:27 Blood leukocytes automated count (number/volume) 9.5 10*3/uL 4.3-11.0 Blood erythrocytes automated count (number/volume) 4.42 10*6/uL 4.35-5.85 Venous blood hemoglobin measurement (mass/volume) 13.6 g/dL 11.5-16.0 Blood hematocrit (volume fraction) 40 % 35-52 Automated erythrocyte mean corpuscular volume 91 [foz_us] 80-99 Automated erythrocyte mean corpuscular hemoglobin (mass per erythrocyte) 31 pg 25-34 Automated erythrocyte mean corpuscular hemoglobin concentration measurement ( mass/volume) 34 g/dL 32-36 Automated erythrocyte distribution width ratio 14.6 % 10.0-14.5 Automated blood platelet count (count/volume) 266 10*3/uL 130-400 Automated blood platelet mean volume measurement 9.8 [foz_us] 7.4-10.4 Automated blood neutrophils/100 leukocytes 59 % 42-75 Automated blood lymphocytes/100 leukocytes 26 % 12-44 Blood monocytes/100 leukocytes 10 % 0-12 Automated blood eosinophils/100 leukocytes 4 % 0-10 Automated blood basophils/100 leukocytes 0 % 0-10 Blood neutrophils automated count (number/volume) 5.6 10*3 1.8-7.8 Blood lymphocytes automated count (number/volume) 2.5 10*3 1.0-4.0 Blood monocytes automated count (number/volume) 0.9 10*3 0.0-1.0 Automated eosinophil count 0.4 10*3/uL 0.0-0.3 Automated blood basophil count (count/volume) 0.0 10*3/uL 0.0-0.1 PT panel in platelet poor plasma by coagulation assay - 08/17/17 02:27 Prothrombin time (PT) in platelet poor plasma by coagulation assay 22.7 s 12.2-14.7 INR in platelet poor plasma or blood by coagulation assay 2.0 0.8-1.4 Activated partial thromboplastin time (aPTT) in platelet poor plasma bycoagulation assay - 08/17/17 02:27 Activated partial thromboplastin time (aPTT) in platelet poor plasma bycoagulation assay 39 s 24-35 Blood lactic acid measurement (moles/volume) - 08/17/17 02:27 Blood lactic acid measurement (moles/volume) 1.33 mmol/L 0.50-2.00 Influenza virus A and B antigen detection - 08/17/17 02:27 FLU RESULT NEGATIVE FOR INFLUENZA A AND B ANTIGENS BY IA [facility] Comprehensive metabolic panel - 08/17/17 02:27 Serum or plasma sodium measurement (moles/volume) 143 mmol/L 135-145 Serum or plasma potassium measurement (moles/volume) 3.5 mmol/L 3.6-5.0 Serum or plasma chloride measurement (moles/volume) 108 mmol/L 98-107 Carbon dioxide 22 mmol/L 21-32 Serum or plasma anion gap determination (moles/volume) 13 mmol/L 5-14 Serum or plasma urea nitrogen measurement (mass/volume) 18 mg/dL 7-18 Serum or plasma creatinine measurement (mass/volume) 0.97 mg/dL 0.60-1.30 Serum or plasma urea nitrogen/creatinine mass ratio 19 [facility] Serum or plasma creatinine measurement with calculation of estimated glomerular filtration rate 54 [facility] Serum or plasma glucose measurement (mass/volume) 103 mg/dL 70-105 Serum or plasma calcium measurement (mass/volume) 9.1 mg/dL 8.5-10.1 Serum or plasma total bilirubin measurement (mass/volume) 0.9 mg/dL 0.1-1.0 Serum or plasma alkaline phosphatase measurement (enzymatic activity/volume) 61 U/L 40-136 Serum or plasma aspartate aminotransferase measurement (enzymatic activity/ volume) 22 U/L 5-34 Serum or plasma alanine aminotransferase measurement (enzymatic activity/volume ) 15 U/L 0-55 Serum or plasma protein measurement (mass/volume) 7.2 g/dL 6.4-8.2 Serum or plasma albumin measurement (mass/volume) 3.8 g/dL 3.2-4.5 Serum or plasma lithium measurement (moles/volume) - 08/17/17 02:27 BNP level 343.7 pg/mL <100.0 Bacterial blood culture - 08/17/17 02:27 Bacterial blood culture NG NRG Bacterial blood culture - 08/17/17 02:49 Bacterial blood culture NG NRG Complete urinalysis with reflex to culture - 08/17/17 04:04 Urine color determination YELLOW NRG Urine clarity [...] detection in urine sediment by light microscopy 2-5 NRG Crystals detection in urine sediment by light microscopy NONE NRG Casts detection in urine sediment by light microscopy NONE NRG Mucus detection in urine sediment by light microscopy NEGATIVE NRG Complete urinalysis with reflex to culture NO NRG Encounters ACCT No. Visit Date/Time Discharge Status Pt. Type Provider Facility Loc./Unit Complaint [id number] 06/04/2018 12:53:00 06/04/2018 23:59:59 CLS Outpatient ESTEPHANIE MAY MD [facility] RAD CHRONIC RT SIDED LOW BACK PAIN [id number] 10/24/2017 10:42:00 10/24/2017 23:59:59 CLS Outpatient YOLANDA MORENO APRN [facility] RAD M54.9 [id number] 09/23/2017 09:57:00 09/23/2017 23:59:59 CLS Outpatient ORIN BERRY, VIVIENNE S [facility] RAD J44.9,J45.998,J30.9 [id number] 08/17/2017 02:12:00 08/17/2017 05:14:00 DIS Emergency CARISA BERRY, MELODY Cook [facility] ER SOB [id number] 08/10/2017 08:29:00 08/13/2017 13:20:00 DIS Inpatient ESTEPHANIE MAY MD [facility] 4TH PNA, SEPSIS, ASTHMA EXACERBATION [id number] 06/27/2017 08:17:00 06/27/2017 23:59:59 CLS Outpatient ESTEPHANIE MAY MD [facility] RAD R10.32 [id number] 06/17/2017 09:37:00 06/17/2017 23:59:59 CLS Outpatient CHARLOTTE ENG [facility] CARD AORTIC VALVE STENOSIS [id number] 02/08/2017 13:02:00 02/08/2017 23:59:59 CLS Outpatient ESTEPHANIE MAY MD [facility] RAD R10.13 [id number] 02/01/2017 06:42:00 02/01/2017 23:59:59 CLS Outpatient ANGÉLICA FARIA APRN [facility] RAD LUQ/RUQ PAIN [id number] 11/20/2016 17:56:00 11/23/2016 11:35:00 DIS Inpatient HELLEN BERRY, PERLA Bledsoe [facility] 4TH ACUTE DIVERTICULITIS, INTRACTABLE NAUSEA/VOMITING [id number] 09/21/2016 14:44:00 09/21/2016 23:59:59 CLS Outpatient TINA SERNA MD, FACC, FACP CCDS [facility] ANTICOAG THERPAY [id number] 09/12/2016 12:04:00 09/12/2016 23:59:59 CLS Outpatient TINA SERNA MD, FACC, FACP CCDS [facility] ANTICOAG THERAPY [id number] 09/05/2016 14:54:00 09/05/2016 23:59:59 CLS Outpatient TINA SERNA MD, FACC, FACP CCDS [facility] HH ENCOUNTER FOR THERAPUEUTIC DRUG LEVEL MONITORING [id number] 08/31/2016 10:57:00 09/03/2016 11:33:00 DIS Inpatient JASEN LUZ JAGRUTI [facility] 4TH SWB-WEAKNESS [id number] 08/28/2016 12:15:00 08/31/2016 10:56:00 DIS Inpatient PERLA MACEDO MD [facility] 4TH SEPSIS [id number] 07/20/2016 05:45:00 07/23/2016 10:32:00 DIS Inpatient JAGRUTI AGGARWAL DO [facility] 4TH UTI,SEPSIS [id number] 03/21/2016 12:53:00 03/21/2016 15:03:00 DIS Outpatient CHANDU CORTEZ DO [facility] REHAB CERVICAL STENOSIS; RADICULOPATHY; KYPHOSIS [id number] 12/29/2015 16:45:00 12/29/2015 23:59:59 CLS Outpatient KATE GUERRERO DO [facility] RAD ALLERGIC RHINITIS [id number] 12/29/2015 11:09:00 12/29/2015 23:59:59 CLS Outpatient ESTEPHANIE MAY MD [facility] RAD NECK PAIN [id number] 12/28/2015 09:54:00 12/28/2015 23:59:59 CLS Outpatient TINA SERNA MD, FACC, FACP CCDS [facility] LAB ATRIAL FIBRILLATION [id number] 12/28/2015 09:25:00 12/28/2015 23:59:59 CLS Outpatient ESTEPHANIE MAY MD [facility] LAB SOB,NECK PAIN,UTI [id number] 12/08/2015 09:33:00 12/08/2015 23:59:59 CLS Outpatient SIMRAN JEFFRIES APRN [facility] RAD PNEUMONIA,COPD [id number] 11/21/2015 02:47:00 11/22/2015 07:55:00 DIS Inpatient ESTEPHANIE MAY MD [facility] 4TH FEVER; UTI [id number] 08/24/2015 09:06:00 08/24/2015 23:59:59 CLS Outpatient CARLOS YOUSIF LINE DECORATOR [facility] RAD SCREENING [id number] 06/24/2015 11:23:00 06/29/2015 11:05:00 DIS Inpatient ESTEPHANIE MAY MD Via [address] SWB,PNEUMONIA [id number] 06/19/2015 20:20:00 06/24/2015 11:21:00 DIS Inpatient ESTEPHANIE MAY MD [facility] 4TH GASTROENTERITIS [id number] 05/03/2015 06:45:00 05/03/2015 23:59:59 CLS Outpatient KAREEM BERRY FACC, TINA BENITO CCDS [facility] HLP, AA STENSOS [id number] 04/28/2015 14:00:00 04/28/2015 23:59:59 CLS Preadmit KATE GUERRERO DO [facility] RAD COPD,SINUSITIS CHRONIC, CRONCHITIS,ASTHMA [id number] 03/30/2015 10:55:00 04/27/2015 00:01:00 DIS Outpatient KATE GUERRERO DO [facility] RAD COPD,SINUSITIS CHRONIC, CRONCHITIS,ASTHMA [id number] 03/09/2015 12:03:00 03/09/2015 13:17:00 DIS Outpatient ESTEPHANIE MAY MD [facility] CR STABLE ANGINA [id number] 02/16/2015 11:56:00 02/16/2015 23:59:59 CLS Outpatient SIMRAN JEFFRIES APRN [facility] RAD COPD,HX OF PULMONARY HTN,NOCTURNAL HYPOXEMIA [id number] 01/07/2015 20:53:00 01/08/2015 06:30:00 DIS Outpatient KATE GUERRERO DO [facility] SLEEP SNORING,GASPING DURING SLEEP [id number] 12/29/2014 11:00:00 01/01/2015 17:45:00 DIS Inpatient ESTEPHANIE MAY MD [facility] 4TH INTRACTABLE NAUSEA/ VOMITING;UTI [id number] 11/29/2014 12:01:00 11/30/2014 00:01:00 DIS Outpatient ESTEPHANIE MAY MD [facility] CR STABLE ANGINA [id number] 11/18/2014 00:11:00 11/18/2014 23:59:59 CLS Preadmit TINA SERNA MD, FACC, FACP CCDS [facility] LAB AFIB,CAD, DIABETES,HTN, [id number] 08/19/2014 14:59:00 11/17/2014 00:01:00 DIS Outpatient TINA SERNA MD, FACC, FACP CCDS [facility] LAB AFIB,CAD, DIABETES,HTN, [id number] 11/15/2014 13:04:00 11/15/2014 23:59:59 CLS Outpatient KATE GUERRERO DO [facility] RT COPD,SNORING,MOOD DISORDER ,ATRIAL FIBRILLATION [id number] 11/08/2014 10:01:00 11/08/2014 23:59:59 CLS Outpatient ESTEPHANIE MAY MD [facility] RAD COPD [id number] 10/15/2014 10:30:00 10/19/2014 10:13:00 DIS Inpatient ESTEPHANIE MAY MD [facility] 4TH PNUEMONIA [id number] 08/03/2014 10:32:00 08/03/2014 23:59:59 CLS Outpatient TINA SERNA MD, FACC, FACP CCDS [facility] A FIB,ANTICOAG [place], HYPOPOTASSIUM, HTN [id number] 07/27/2014 12:50:00 07/27/2014 23:59:59 CLS Outpatient TINA SERNA MD, FACC, FACP CCDS [facility] DM,COPD,HTN, AFIB,ANTICOAG THERAPY [id number] 07/21/2014 08:49:00 07/24/2014 10:52:00 DIS Inpatient ESTEPHANIE MAY MD [facility] 4TH DEHYDRATION,POSSIBLE SEPTISEMIA,BRONHEAL ASTHMA [id number] 07/10/2014 17:05:00 07/19/2014 14:30:00 DIS Inpatient ESTEPHANIE MAY MD [facility] ICU ASTHMA EXACERBATION,A- FIB [id number] 07/07/2014 12:19:00 07/07/2014 23:59:59 CLS Outpatient ESTEPHANIE MAY MD [facility] RAD TACHYCARDIA DYSPNEA AFIB [id number] 05/25/2014 13:46:00 05/25/2014 23:59:59 CLS Outpatient KAREEM BERRY FACC, TINA BENITO CCDS [facility] CARD HLP,AFIB, COPD [id number] 04/15/2014 09:00:00 04/15/2014 23:59:59 CLS Outpatient CARLOS YOUSIF [facility] RAD SCREENING OSTEOPENIA [id number] 01/09/2013 10:57:00 01/09/2013 23:59:59 CLS Outpatient CRALOS YOUSIF [facility] RAD SCREENING, OSTEOPENIA [id number] 12/24/2012 08:39:00 12/26/2012 09:55:00 DIS Inpatient ESTEPHANIE MAY MD [facility] 4TH NAUSEA VOMITING DIARRHEA ABDOMINAL PAIN UTI [id number] 10/03/2018 01:25:00 ACT Emergency CHIP BAR DO [facility] ER N/V/D [id number] 10/11/2014 12:25:00 Document Registration [id number] 09/30/2014 06:41:00 Document Registration [id number] 09/21/2014 13:31:00 Document Registration [id number] 07/09/2012 10:25:00 Document Registration [id number] 06/26/2012 19:10:00 Document Registration [id number] 06/14/2012 08:04:00 Document Registration [id number] 11/28/2011 12:33:00 Document Registration [id number] 11/10/2011 20:21:00 Document Registration [id number] 08/23/2011 13:10:00 Document Registration [id number] 06/26/2011 14:44:00 Document Registration [id number] 01/15/2011 11:50:00 Document Registration [id number] 01/11/2011 13:45:00 Document Registration [id number] 12/07/2010 12:32:00 Document Registration [id number] 11/13/2010 21:46:00 Document Registration [id number] 10/10/2010 11:03:00 Document Registration [id number] 09/27/2010 08:43:00 Document Registration [id number] 09/12/2010 09:52:00 Document Registration [id number] 08/23/2010 10:46:00 Document Registration [id number] 08/08/2010 15:24:00 Document Registration [id number] 08/01/2010 05:33:00 Document Registration [id number] 05/31/2010 09:52:00 Document Registration [id number] 05/29/2010 08:55:00 Document Registration [id number] 05/03/2010 13:51:00 Document Registration [id number] 2010 11:02:00 Document Registration [id number] 05/03/2015 12:35:50 ACT Document Registration [id number] 10/02/2016 12:14:00 10/02/2016 23:59:00 DIS Outpatient VIVIENNE SR
[2018-10-03] MEDS ORDERED: LACTATED RINGERS 1,000 ML IV ONE (02:17)
[2018-10-03] MEDS ORDERED: ONDANSETRON 4 MG/2 ML (SDV) Z0FRAN IVP ONE (02:30)
[2018-10-03 02:43] LABS: BASOPHILS % (AUTO) 0 % (0-10); EOSINOPHILS # (AUTO) 0.1 10^3/uL (0.0-0.3); EOSINOPHILS % (AUTO) 1 % (0-10); HEMATOCRIT 43 % (35-52); HEMOGLOBIN 14.3 G/DL (11.5-16.0); LYMPHOCYTES # (AUTO) 1.3 X 10^3 (1.0-4.0); LYMPHOCYTES % (AUTO) 9 % (12-44); MEAN CORPUSCULAR HEMOGLOBIN 32 PG (25-34); MEAN CORPUSCULAR HGB CONC 33 G/DL (32-36); MEAN CORPUSCULAR VOLUME 95 FL (80-99); MEAN PLATELET VOLUME 11.1 FL (7.4-10.4); MONOCYTES # (AUTO) 0.5 X 10^3 (0.0-1.0); MONOCYTES % (AUTO) 4 % (0-12); NEUTROPHILS # (AUTO) 12.3 X 10^3 (1.8-7.8); NEUTROPHILS % (AUTO) 87 % (42-75); PLATELET COUNT 219 10^3/uL (130-400); RED CELL DISTRIBUTION WIDTH 13.8 % (10.0-14.5); WHITE BLOOD COUNT 14.2 10^3/uL (4.3-11.0)
[2018-10-03 03:02] LABS: ALBUMIN 4.1 GM/DL (3.2-4.5); BILIRUBIN,TOTAL 1.3 MG/DL (0.1-1.0); CALCIUM 9.7 MG/DL (8.5-10.1); CREATININE SERUM 1.16 MG/DL (0.60-1.30); MAGNESIUM 2.4 MG/DL (1.8-2.4); POTASSIUM 4.3 MMOL/L (3.6-5.0); TOTAL PROTEIN 6.8 GM/DL (6.4-8.2)
[2018-10-03 03:13] LABS: INR 2.7 (0.8-1.4); PROTHROMBIN TIME PATIENT 28.5 SEC (12.2-14.7)
[2018-10-03 03:34] LABS: BILIRUBIN,URINE NEGATIVE (NEGATIVE); CLARITY,URINE CLEAR; COLOR,URINE YELLOW; GLUCOSE, URINE (UA) NEGATIVE (NEGATIVE); KETONES,URINE NEGATIVE (NEGATIVE); LEUKOCYTE ESTERASE ,URINE NEGATIVE (NEGATIVE); NITRITE,URINE NEGATIVE (NEGATIVE); PH,URINE 5 (5-9); PROTEIN,URINE NEGATIVE (NEGATIVE); UROBILINOGEN,URINE NORMAL (NORMAL)
[2018-10-03 03:44] LABS: BACTERIA,URINE NEGATIVE /HPF; SQUAMOUS EPITHELIAL CELL,UR 0-2 /HPF
[2018-10-03] MEDS ORDERED: fentaNYL INJECTION 100 MCG/2 ML AMP IVP STA (04:58)
[2018-10-03] MEDS ORDERED: MEROPENEM 1,000 MG in WATER (STERILE) FOR INJECTION 20 ML IV ONE (05:00)
[2018-10-03] MEDS ORDERED: metroNIDAZOLE 500MG/100ML IVPB 100 ML IV ONE (05:00)
--- NOTE | 2018-10-03 07:09 | Diagnostic Imaging Report ---
INDICATION: Nausea, vomiting, diarrhea. TECHNIQUE: Single view chest 3:55 AM. CORRELATION STUDY: 09/23/2017 FINDINGS: Heart size enlarged. Left sided unipolar pacemaker present. Vascular slightly prominent. Minimal basilar atelectasis suggested. There is very coarse lucency of the right costophrenic angle with small amount of pneumoperitoneum not excluded. IMPRESSION: 1. Questionable small amount of pneumoperitoneum. Bibasilar areas of atelectasis. Cardiac enlargement without overt failure. (At time of review of this study, there has been subsequent followup CT imaging with report generated.) Dictated by: Dictated on workstation # [id number]
--- NOTE | 2018-10-03 07:21 | NUR ---
REPORT GIVEN TO MARNIE GRIFFITHS. PT TO ROOM #[id number] UPON ARRIVAL TO FOURTH FLOOR.
--- NOTE | 2018-10-03 07:22 | Diagnostic Imaging Report ---
PROCEDURE: CT abdomen and pelvis without contrast. TECHNIQUE: Multiple contiguous axial images were obtained through the abdomen and pelvis without the use of intravenous contrast. INDICATION: Nausea, vomiting, diarrhea. CORRELATION STUDY: 06/27/2017 FINDINGS: There is presence of at least moderate volume pneumoperitoneum. This is most pronounced along the anterior epigastric region. The etiology is somewhat indeterminate. However, there is extensive colonic diverticulosis present, most pronounced at the sigmoid colon. There does appear to be focal inflammatory changes of the sigmoid colon suggesting a severe diverticulitis, likely the source. Small amount of abdominal and pelvic fluid is noted. No drainable abscess. No evidence for bowel obstruction. Heart size enlarged with presence of pacemaker leads. Minimal basilar atelectasis suggested. Calcified granuloma left costophrenic angle posteriorly. Liver slightly heterogeneous and nodular but otherwise without focal lesion. Gallbladder not visualized. Pancreas, adrenal glands and spleen unremarkable apart from calcified granulomas. Kidneys demonstrate tiny nonobstructing stones. Slightly exophytic nodule about the inferior pole left kidney 18 mm in size low density favoring probable cyst. Dense aortoiliac wall calcification, nonaneurysmal. Urinary bladder is relatively decompressed around a Doherty catheter. Uterus is absent. Advanced degenerative changes of the L5-S1 disc space. IMPRESSION: 1. Moderate volume pneumoperitoneum. Source likely at the level of the perforated acute sigmoid diverticulitis. However, there is a small amount of gas in and around this area. Small amount of the abdominal pelvic fluid without drainable abscess formation at this time. A preliminary report was provided by [employer]. Dictated by: Dictated on workstation # [id number]
[2018-10-03 07:45] VITALS: BP 109/56
--- NOTE | 2018-10-03 10:15 | NUR ---
Palliative Care RN in to see patient and talk with her daughters about POC for the weekend. Daughters indicate that the surgeon told them the perforation may seal over but only time will tell. For the weekend we will continue to treat aggressively with Antibiotics but if she gets worse then they will move to [facility] in the hospital. They are not willing to undergo any surgeries reporting that their mother is tired and has refused surgical interventions in the past. Brief hospice discussion was had. Both daughters are nurses and understand how hospice works. Will continue to offer support.
[2018-10-03] MEDS: D5 1/2 NS W/KCL 20 MEQ/L 1,000 ML IV SCH ×3 (10:42→19:41)
[2018-10-03] MEDS ORDERED: BIOT5TAB PO (10:57)
[2018-10-03] MEDS ORDERED: POLY17PO6 PO (10:57)
[2018-10-03] MEDS ORDERED: L.AC1CAP6 PO (10:57)
[2018-10-03] MEDS ORDERED: RANI150T46 PO (10:57)
[2018-10-03] MEDS ORDERED: MELA3TAB PO (10:57)
[2018-10-03] MEDS ORDERED: RT-ALBUINH INH (10:57)
[2018-10-03] MEDS ORDERED: IPRA3AMP31 IH (10:57)
[2018-10-03] MEDS ORDERED: VITA1CAP PO (10:57)
[2018-10-03] MEDS ORDERED: POLY119P5 PO (10:57)
[2018-10-03] MEDS ORDERED: CETI10TA20 PO (10:57)
[2018-10-03] MEDS ORDERED: DOCU-143 PO (10:57)
[2018-10-03] MEDS ORDERED: RIVA3CAP5 PO (10:57)
[2018-10-03] MEDS ORDERED: ACET600C PO (10:57)
[2018-10-03] MEDS ORDERED: SULF-11 PO (10:57)
[2018-10-03] MEDS ORDERED: ASCO-262 PO (10:57)
[2018-10-03] MEDS ORDERED: BUSP7.5T5 PO (11:02)
[2018-10-03] MEDS ORDERED: WARF-48 PO ×2 (11:05)
--- NOTE | 2018-10-03 11:08 | NUR ---
PATIENTS FAMILY HAD A DETAILED LIST OF MEDICATIONS. I UPDATED THE MED REC ACCORDINGLY AND VERIFIED THE PRESCRIPTIONS WITH THE EXT MED HX. IN ADDITION TO WHAT IS SHOWN ON THE EXT MED HX [facility] FILLED: 07-23-18 KLOR CON 20MEQ 2 TID #180 (LIST STATES SHE TAKES 1 BID) 06-16-18 BUSPAR 7.5MG BID #60 (LIST STATES SHE USES PRN) 06-14-18 WARFARIN 5MG DAILY #90 (LIST STATES 1 FISHER,, AND 1/2 MO,WE,FR,SA) 04-25-18 SINGULAIR 10MG EVENING #90 [facility] DID NOT HAVE A LAST FILL DATE ON FUROSEMIDE BUT LIST STATES 40MG PRN. IN ADDITION TO WHAT IS ON THE MED LIST THE FAMILY BROUGHT IN THE EXT MED HX SHOWS ALBUTEROL FILLED 09-11-18, I ADDED IT TO THE MED REC PRN.
--- NOTE | 2018-10-03 11:42 | History & Physical-Hospitalist ---
History of Present Illness HPI/Chief Complaint CC: Intestinal perforation HPI: This is an 88-year-old white female known to hospitalist service for hospital stays in the past with a past medical history of dementia who presented to the ER with abdominal pain found to have free air on imaging and questionable recovery potential given this dire medical condition. Dr. Lau has been consulted and she is not a surgical candidate so at this time we will provide supportive care along with IV antibiotics and possibly the perforation will reseal but unsure of the possibility of that. Family at the bedside. Family is very reasonable and daughter is a nurse. At this current time we will monitor for pain and discomfort if patient worsens we'll switch to palliative care. Source: family, RN/MD, old records Exam Limitations: clinical condition Date Seen 10/03/18 Time Seen by a Provider: 11:00 Attending Physician Rosy Soto Floyd R MD Referring Physician Date of Admission Oct 03, 2018 at 05:30 Home Medications & Allergies Home Medications Reviewed patient Home Medication Reconciliation performed by pharmacy medication reconciliations software validation technician and/or nursing. Patients Allergies have been reviewed. Allergies Allergies Coded Allergies amoxicillin (Verified Allergy, Unknown, 06/21/15) cefadroxil (Verified Allergy, Unknown, 06/21/15) clavulanic acid (Verified Allergy, Unknown, 06/21/15) codeine (Verified Allergy, Unknown, 06/21/15) haloperidol (Verified Allergy, Unknown, 06/21/15) iodine (Verified Allergy, Unknown, 06/21/15) triazolam (Verified Allergy, Unknown, PT TAKES ALPRAZOLAM AT HOME, 08/31/16) zolpidem (Verified Allergy, Unknown, 06/21/15) donepezil (Verified Adverse Reaction, Severe, 11/20/15) NAUSEA/VOMITING promethazine HCl (Unverified Adverse Reaction, Mild, 06/21/15) Past Fmprrgf-Tvgvro-Dbxbzh Hx Past Med/Social Hx: Reviewed Nursing Past Med/Soc Hx, Reviewed and Corrections made Patient Social History Marrital Status: Employed/Student: retired Alcohol Use: Denies Use Number of Drinks Today: Alcohol Beverage of Choice: Wine Recreational Drug Use: No 2nd Hand Smoke Exposure: No Recent Foreign Travel: No Contact w/other who traveled: No Recent Hopitalizations: Yes Recent Infectious Disease Expo: No Immunizations Up To Date Tetanus Booster (TDap): Unknown Pediatric: No Date of Pneumonia Vaccine: Jun 09, 2014 Date of Influenza Vaccine: May 31, 2017 Seasonal Allergies Seasonal Allergies: No Past Medical History Surgeries: Abdominal, Appendectomy, Bladder Surgery, Breast, Cardiac, Eye Surgery, Gallbladder, Hysterectomy, Oophorectomy, Pacemaker Respiratory: Pneumonia Currently Using CPAP: No Currently Using BIPAP: No Cardiac: Atrial Fibrillation, Chronic Edema/Swelling, Heart Murmur, High Cholesterol, Irregular Heartbeat, Valvular Heart Disease Neurological: Dementia Reproductive: No Sexually Transmitted Disease: No HIV/AIDS: No Female Reproductive Disorders: Denies Genitourinary: Bladder Infection, Renal Failure, UTI-Chronic Gastrointestinal: Chronic Constipation, Irritable Bowel Musculoskeletal: Osteoporosis, Arthritis Endocrine: Hypothyroidsim HEENT: Cataract Loss of Vision: Denies Hearing Impairment: Denies History of Blood Disorders: No Adverse Reaction to Blood Castañeda: No Family History Alzheimer's disease 19 MOTHER FHx: throat cancer 19 FATHER Review of Systems Constitutional: see HPI Gastrointestinal: abdominal pain (LLQ) Physical Exam Physical Exam Vital Signs Vital Signs - First Documented 10/03/18 02:10 Temp 99.5 Pulse 70 Resp 18 B/P (MAP) 141/71 (94) Pulse Ox 94 O2 Delivery Room Air Capillary Refill : Less Than 3 Seconds Height, Weight, BMI Height: 5'2.00" Weight: 148lbs. 0.0oz. 67.287937xp; 26.6 BMI Method:Stated General Appearance: No Apparent Distress, WD/WN, Chronically ill, Other (pale, resting) Eyes: Right Eye Normal Inspection, Right Eye PERRL Respiratory: Chest Non Tender, Lungs Clear, Normal Breath Sounds, No Accessory Muscle Use, No Respiratory Distress Cardiovascular: No Edema, No Gallop, No JVD, No Murmur, Normal Peripheral Pulses, Irregularly Irregular Gastrointestinal: Abnormal Bowel Sounds, Distended, Tenderness Extremity: Normal Capillary Refill, Normal Inspection, Normal Range of Motion, Non Tender, No Calf Tenderness, No Pedal Edema Neurologic/Psychiatric: Other (resting) Skin: Cool, Pallor Lymphatic: No Adenopathy Results Results/Procedures Labs Laboratory Tests 10/03/18 02:30 Patient resulted labs reviewed. Assessment/Plan Admission Diagnosis Assessment: Intestinal perforation probable making survival unlikely Nonsurgical candidate since risk outweigh benefits Dementia Atrial fibrillation Plan: Supportive care IV fluids IV antibiotics If worsens will go palliative Admission Status: Inpatient Order (span 2 midnights) Reason for Inpatient Admission: Perforated intestine will take 4 days of hospital stay Diagnosis/Problems Diagnosis/Problems (1) Perforated viscus Status: Acute (2) Diverticulitis Status: Acute ROSY SOTO DO Oct 03, 2018 11:42
--- NOTE | 2018-10-03 13:07 | Consultation ---
History of Present Illness History of Present Illness Patient Consulted On(parisa/time) 10/03/18 08:10 Date Seen by Provider: Oct 03, 2018 Time Seen by Provider: 08:10 History of Present Illness consult requested by Dr. Soto for pneumoperitoneum, perforated diverticulitis Patient is an 88-year-old female with dementia who presented to the emergency department with severe abdominal pain that began last night around 1130 p.m. reported by family members. Patient family states that she's been having issues with constipation and diarrhea since last Saturday. Patient has been taking Dulcolax laxatives, mineral oil and Lomotil to prevent having her diarrhea constipation. Patient had not complained any abdominal pain previous to last night. Patient's pain was reported as being all over last night. She was also having nausea and vomiting. Patient had a CT scan demonstrating moderate amount of pneumoperitoneum with a small portion of the sigmoid having some slight fat stranding otherwise significant amount of diverticulosis and a small amount of fluid in the pelvis no abscess. Allergies and Home Medications Allergies Coded Allergies: amoxicillin (Verified Allergy, Unknown, 06/21/15) cefadroxil (Verified Allergy, Unknown, 06/21/15) clavulanic acid (Verified Allergy, Unknown, 06/21/15) codeine (Verified Allergy, Unknown, 06/21/15) haloperidol (Verified Allergy, Unknown, 06/21/15) iodine (Verified Allergy, Unknown, 06/21/15) triazolam (Verified Allergy, Unknown, PT TAKES ALPRAZOLAM AT HOME, 08/31/16) zolpidem (Verified Allergy, Unknown, 06/21/15) donepezil (Verified Adverse Reaction, Severe, 11/20/15) NAUSEA/VOMITING promethazine HCl (Unverified Adverse Reaction, Mild, 06/21/15) Home Medications Acetylcysteine 600 Mg Capsule, 600 MG PO BID, (Reported) Albuterol Sulfate 1 Puff Puff, 2 PUFF INH Q4H PRN for SHORTNESS OF BREATH, ( Reported) Ascorbate Calcium 500 Mg Tablet, 500 MG PO DAILY, (Reported) Biotin 5 Mg Tablet, 5 MG PO BID, (Reported) Buspirone HCl 7.5 Mg Tablet, 7.5 MG PO BID PRN for ANXIETY, (Reported) Cetirizine HCl 10 Mg Tablet, 10 MG PO DAILY PRN for ALLERGIES, (Reported) Docusate Sodium 100 Mg Capsule, 100 MG PO 1800, (Reported) Fluticasone/Vilanterol 1 Each Blst.w.dev, 1 PUFF IH HS, (Reported) Furosemide 40 Mg Tablet, 40 MG PO DAILY PRN for 4LB WEIGHT GAIN, (Reported) Ipratropium/Albuterol Sulfate 3 Ml Ampul.neb, 3 ML IH Q4H PRN for SHORTNESS OF BREATH, (Reported) L.acidoph & Paracasei,B.lactis 1 Each Capsule, 1 CAP PO DAILY, (Reported) Levothyroxine Sodium 50 Mcg Tablet, 50 MCG PO DAILY, (Reported) Magnesium Oxide 250 Mg Tablet, 250 MG PO DAILY, (Reported) Melatonin 3 Mg Tablet, 1.5 MG PO HS, (Reported) TAKES 1/2 (3MG) TABLET Montelukast Sodium 10 Mg Tablet, 10 MG PO 1800, (Reported) Polyethylene Glycol 3350 17 Gm Powd.pack, 8.5-17 GM PO 1800, (Reported) Potassium Chloride 20 Meq Tab.er.prt, 20 MEQ PO BID, (Reported) Pravastatin Sodium 40 Mg Tablet, 40 MG PO 1800, (Reported) Prednisone 5 Mg Tablet, 5 MG PO DAILY, (Reported) Ranitidine HCl 150 Mg Tablet, 150 MG PO 0800,1800, (Reported) Rivastigmine Tartrate 3 Mg Capsule, 3 MG PO BID, (Reported) Sulfamethoxazole/Trimethoprim 1 Each Tablet, 1 TAB PO 1800, (Reported) Vitamin B Complex 1 Each Capsule, 1 CAP PO DAILY, (Reported) Warfarin Sodium 5 Mg Tablet, 5 MG PO SuTuTh@1800, (Reported) Warfarin Sodium 5 Mg Tablet, 2.5 MG PO MoWeFrSa@1800, (Reported) TAKES 1/2 (5MG) TABLET Patient Home Medication List Home Medication List Reviewed: Yes Past Etpuvjv-Fkllzc-Gymfyr Hx Patient Social History Alcohol Use: Denies Use Number of Drinks Today: HH Recreational Drug Use: No 2nd Hand Smoke Exposure: No Recent Foreign Travel: No Contact w/Someone Who Travel: No Recent Infectious Disease Expo: No Recent Hopitalizations: Yes Immunizations Up To Date Tetanus Booster (TDap): Unknown PED Vaccines UTD: No Date of Pneumonia Vaccine: Jun 09, 2014 Date of Influenza Vaccine: May 31, 2017 Seasonal Allergies Seasonal Allergies: No Surgeries History of Surgeries: Yes (SINUS, HEMORRHOIDECTOMY, hiatal hernia, av node ablation) Surgeries: Abdominal, Appendectomy, Bladder Surgery, Breast, Cardiac, Eye Surgery, Gallbladder, Hysterectomy, Oophorectomy, Pacemaker Respiratory History of Respiratory Disorde: Yes (RESPIRATORY ARREST MULTIPLE TIMES--ON VENT IN PAST) Respiratory Disorders: Asthma, Pneumonia Cardiovascular History of Cardiac Disorders: Yes (PACEMAKER, AORTIC STENOSIS, av NODE ABLATION ) Cardiac Disorders: Atrial Fibrillation, Chronic Edema/Swelling, Heart Murmur, High Cholesterol, Irregular Heartbeat, Valvular Heart Disease Neurological History of Neurological Disord: Yes Neurological Disorders: Dementia Reproductive System Hx Reproductive Disorders: No Sexually Transmitted Disease: No HIV/AIDS: No Female Reproductive Disorders: Denies Genitourinary History of Genitourinary Disor: No Genitourinary Disorders: Bladder Infection, Renal Failure, UTI-Chronic Gastrointestinal History of Gastrointestinal Di: Yes Gastrointestinal Disorders: Chronic Constipation, Irritable Bowel Musculoskeletal History of Musculoskeletal Dis: Yes (MULTIPLE FX R LOWER LEG) Musculoskeletal Disorders: Osteoporosis, Arthritis Endocrine History of Endocrine Disorders: Yes Endocrine Disorders: Hypothyroidsim HEENT History of HEENT Disorders: Yes HEENT Disorders: Cataract Loss of Vision: Denies Hearing Impairment: Denies Cancer History of Cancer: No Psychosocial History of Psychiatric Problem: No Integumentary History of Skin or Integumenta: No Blood Transfusions History of Blood Disorders: No Adverse Reaction to a Blood Tr: No Family Medical History Significant Family History: No Pertinent Family Hx Family Medial History: Alzheimer's disease 19 MOTHER FHx: throat cancer 19 FATHER Review of Systems-General ROS-Unable to Obtain: patient resting and demented Physical Exam-General Problems Physical Exam Vital Signs Vital Signs - First Documented 10/03/18 02:10 Temp 99.5 Pulse 70 Resp 18 B/P (MAP) 141/71 (94) Pulse Ox 94 O2 Delivery Room Air Capillary Refill : Less Than 3 Seconds General Appearance: WD/WN, other (resting) HEENT: PERRL/EOMI Neck: supple, normal inspection Respiratory: chest non-tender, no respiratory distress, no accessory muscle use Cardiovascular: regular rate, rhythm Gastrointestinal: distended, tenderness (lower abdomen b/l) Rectal: deferred Back: normal inspection Extremities: non-tender, normal inspection Neurologic/Psychiatric: other (resting) Skin: warm/dry, pallor Lymphatic: no adenopathy Data Review Labs Laboratory Tests 10/03/18 02:30: White Blood Count 14.2H, Red Blood Count 4.54, Hemoglobin 14.3, Hematocrit 43, Mean Corpuscular Volume 95, Mean Corpuscular Hemoglobin 32, Mean Corpuscular Hemoglobin Concent 33, Red Cell Distribution Width 13.8, Platelet Count 219, Mean Platelet Volume 11.1H, Neutrophils (%) (Auto) 87H, Lymphocytes (%) (Auto) 9L, Monocytes (%) (Auto) 4, Eosinophils (%) (Auto) 1, Basophils (%) (Auto) 0, Neutrophils # (Auto) 12.3H, Lymphocytes # (Auto) 1.3, Monocytes # (Auto) 0.5, Eosinophils # (Auto) 0.1, Basophils # (Auto) 0.0, Prothrombin Time 28.5H, INR Comment 2.7H, Activated Partial Thromboplast Time 36H, Sodium Level 138, Potassium Level 4.3, Chloride Level 106, Carbon Dioxide Level 19L, Anion Gap 13 , Blood Urea Nitrogen 21H, Creatinine 1.16, Estimat Glomerular Filtration Rate 44, BUN/Creatinine Ratio 18, Glucose Level 120H, Lactic Acid Level 1.93, Calcium Level 9.7, Corrected Calcium 9.6, Magnesium Level 2.4, Total Bilirubin 1.3H, Aspartate Amino Transf (AST/SGOT) 38H, Alanine Aminotransferase (ALT/SGPT ) 18, Alkaline Phosphatase 48, Total Protein 6.8, Albumin 4.1, Amylase Level 69 , Lipase 22 10/03/18 03:20: Urine Color YELLOW, Urine Clarity CLEAR, Urine pH 5, Urine Specific [place] 1.020, Urine Protein NEGATIVE, Urine Glucose (UA) NEGATIVE, Urine Ketones NEGATIVE, Urine Nitrite NEGATIVE, Urine Bilirubin NEGATIVE, Urine Urobilinogen NORMAL, Urine Leukocyte Esterase NEGATIVE, Urine RBC (Auto) NEGATIVE, Urine RBC NONE, Urine WBC NONE, Urine Squamous Epithelial Cells 0-2, Urine Crystals NONE, Urine Bacteria NEGATIVE, Urine Casts NONE, Urine Mucus SMALLH, Urine Culture Indicated NO Microbiology 10/03/18 Influenza Types A,B Antigen (DANIAL) - Final, Complete Assessment/Plan Assessment/Plan Assessment/Plan pneumoperitoneum Hollow viscus perforation likely due to sigmoid diverticulitis Dementia COPD A. fib Chronic anticoagulation on Coumadin Patients daughters and present at time of examination and provided information. We discussed patient's CT scan findings which I did review her CT scan and discussed that she did have a perforation likely from sigmoid diverticulitis. We discussed surgical intervention which she is higher risk for surgical intervention but if no surgical intervention patient could continue to to deteriorate and pass. Patient's family states that she would not want surgical intervention and they do not wish for her to proceed with surgical intervention. Patient family are agreeable to conservative management keeping the patient nothing by mouth IV antibiotics and pain control. this is hoping that the perforated area will seal off . If does not improve they wish to make her comfort/hospice care. The family states that they have discussed this for the last 2-3 years with all of her medical issues, so they are all on the same page. FLORA FABIAN DO Oct 03, 2018 13:07
[2018-10-03] MEDS: metroNIDAZOLE 500MG/100ML IVPB 100 ML IV SCH ×2 (13:25→22:17)
[2018-10-03] MEDS: ONDANSETRON 4 MG/2 ML (SDV) Z0FRAN IV PRN ×2 (13:25→20:30)
[2018-10-03] MEDS: fentaNYL INJECTION 100 MCG/2 ML AMP IV PRN ×4 (13:25→22:42)
[2018-10-03] MEDS: MEROPENEM 500 MG in WATER (STERILE) FOR INJECTION 10 ML IV SCH ×2 (13:25→20:32)
--- NOTE | 2018-10-03 18:48 | NUR ---
JOSIE DURON] admitted to room 410-1, with an admitting diagnosis of PERFORATED VISCOUS AND DIVERTICULITIX, on 10/03/18 from ED via WHELLCHAIR, accompanied by DAUGHTER AND STAFF.JOSIE DURON AND FAMILY introduced to surroundings, call light, bed controls, phone, TV, temperature control, lights, meal times, smoking policy, visitor policy, side rail policy, bathrooms and showers. Patient Rights given to patient in the handbook.JOSIE DURON FAMILY verbalizes understanding that [facility] is not responsible for the loss or damage to any personal effects or valuables that are kept in the patients posession during their hospitalization.
[2018-10-04] VITALS: BP 148/64
[2018-10-04] MEDS: fentaNYL INJECTION 100 MCG/2 ML AMP IV PRN ×8 (02:09→23:39)
[2018-10-04] MEDS: MEROPENEM 500 MG in WATER (STERILE) FOR INJECTION 10 ML IV SCH ×3 (04:42→21:36)
[2018-10-04] MEDS: D5 1/2 NS W/KCL 20 MEQ/L 1,000 ML IV SCH ×2 (05:37→15:49)
[2018-10-04] MEDS: metroNIDAZOLE 500MG/100ML IVPB 100 ML IV SCH ×3 (05:38→22:31)
--- NOTE | 2018-10-04 06:22 | ED GI ---
General Chief Complaint: Abdominal/GI Problems Stated Complaint: PERFORATED VISCOUS,DIVERTICULITIS Nursing Triage Note: PT TO ROOM #9 VIA ED W/C BY FAMILY. ALERT TO SELF AND SITUATION. UPON ARRIVAL PT NOTED TO BE INCONTINENT OF BOWEL. DAUGHTER REPORTS SINCE APPROX 2200 YESTERDAY EVENING, PT DEVELOPED ABD PAIN, NAUSEA, VOMITING, AND DIARRHEA. DAUGHTER REPORTS SHE GAVE PT 4MG ZOFRAN @ APPROX 2345. DAUGHTER REPORTS PT HAS HAD CHILLLS AND TREMORS. PT REPORTS LOWER RT QUADRANT ABD PAIN. Sepsis Screen: No Definite Risk Source of Information: Family (DAUGHTERS) History of Present Illness Date Seen by Provider: Oct 03, 2018 Time Seen by Provider: 02:18 Initial Comments PT ARRIVES VIA POV FROM HOME WITH 2 DAUGHTERS, WHO ARE BOTH NURSES--PT LIVES AT HOME WITH HER , WHO IS NOT PRESENT AT THIS TIME. PT WITH DEMENTIA AND IS NOT TALKING OR FOLLOWING ANY COMMANDS. PT HAS HAD NAUSEA/VOMITING / DIARRHEA AND ABDOMINAL PAIN THIS EVENING PT WITH CHRONIC CONSTIPATION, AND IS SUPPOSED TO BE ON STOOL SOFTENERS AND MIRALAX DAILY PT'S MIXES HER MIRALAX, BUT DAUGHTERS REPORT THAT PT FREQUENTLY WILL TAKE A SIP AND POUR THE REST OUT, AND ARE NOT CERTAIN IF OR WHEN SHE HAS HAD ANY RECENTLY. PT HAD CONSTIPATION ON Saturday09/28/18 AND GAVE HER AN UNKNOWN AMOUNT OF DULCOLAX ORAL TABLETS. PT THEN HAD DIARRHEA ON SATURDAY, SO GAVE HER AT LEAST 2 LOMOTIL TO STOP THE DIARRHEA PT WAS THEN CONSTIPATED ON SATURDAY AND PASSED ONLY A COUPLE OF HARD SHYANN, SO ON SATURDAY GAVE HER AN UNKNOWN AMOUNT OF MINERAL OIL STILL NO BM TODAY, SO HAD GIVEN 2 DOSES OF MINERAL OIL BY THE TIME ONE OF THE DAUGHTERS STOPPED BY THIS AFTERNOON. THEN AROUND 1629, DAUGHTER HAD GONE TO [employer] AND FOUND THAT PT AND WERE THERE ALSO TO BUY MORE MINERAL OIL. PT HAD AT LEAST ONE MORE DOSE OF MINERAL OIL. PT HAD A LARGE, SOFT FORMED STOOL THIS AFTERNOON. DAUGHTER REPORTS THAT THIS A CHRONIC/FREQUENT PATTERN FOR PARENTS TO DO THIS-- ALTERNATING LAXATIVES THEN ANTIDIARRHEALS ALL THE TIME. DAUGHTER REPORTS THAT AROUND 2200 TONIGHT, PT BEGAN TO HAVE NAUSEA, FOLLOWED BY VOMITING AND DIARRHEA AND ABDOMINAL PAIN AROUND 2300 DAUGHTER STATES PT IS NOW HAVING "EXPLOSIVE" DIARRHEA PT WAS GIVEN ZOFRAN AT 2345 TONIGHT PT HAS BEEN HAVING CHILLS AND TREMORS TONIGHT. PT IMMEDIATELY HAD 3 DIARRHEA STOOLS SOON SHE ARRIVED IN ER. PCP: DR. MAY Allergies and Home Medications Allergies Coded Allergies: amoxicillin (Verified Allergy, Unknown, 06/21/15) cefadroxil (Verified Allergy, Unknown, 06/21/15) clavulanic acid (Verified Allergy, Unknown, 06/21/15) codeine (Verified Allergy, Unknown, 06/21/15) haloperidol (Verified Allergy, Unknown, 06/21/15) iodine (Verified Allergy, Unknown, 06/21/15) triazolam (Verified Allergy, Unknown, PT TAKES ALPRAZOLAM AT HOME, 08/31/16) zolpidem (Verified Allergy, Unknown, 06/21/15) donepezil (Verified Adverse Reaction, Severe, 11/20/15) NAUSEA/VOMITING promethazine HCl (Unverified Adverse Reaction, Mild, 06/21/15) Home Medications Acetylcysteine 600 Mg Capsule, 600 MG PO BID, (Reported) Albuterol Sulfate 1 Puff Puff, 2 PUFF INH Q4H PRN for SHORTNESS OF BREATH, ( Reported) Ascorbate Calcium 500 Mg Tablet, 500 MG PO DAILY, (Reported) Biotin 5 Mg Tablet, 5 MG PO BID, (Reported) Buspirone HCl 7.5 Mg Tablet, 7.5 MG PO BID PRN for ANXIETY, (Reported) Cetirizine HCl 10 Mg Tablet, 10 MG PO DAILY PRN for ALLERGIES, (Reported) Docusate Sodium 100 Mg Capsule, 100 MG PO 1800, (Reported) Fluticasone/Vilanterol 1 Each Blst.w.dev, 1 PUFF IH HS, (Reported) Furosemide 40 Mg Tablet, 40 MG PO DAILY PRN for 4LB WEIGHT GAIN, (Reported) Ipratropium/Albuterol Sulfate 3 Ml Ampul.neb, 3 ML IH Q4H PRN for SHORTNESS OF BREATH, (Reported) L.acidoph & Paracasei,B.lactis 1 Each Capsule, 1 CAP PO DAILY, (Reported) Levothyroxine Sodium 50 Mcg Tablet, 50 MCG PO DAILY, (Reported) Magnesium Oxide 250 Mg Tablet, 250 MG PO DAILY, (Reported) Melatonin 3 Mg Tablet, 1.5 MG PO HS, (Reported) TAKES 1/2 (3MG) TABLET Montelukast Sodium 10 Mg Tablet, 10 MG PO 1800, (Reported) Polyethylene Glycol 3350 17 Gm Powd.pack, 8.5-17 GM PO 1800, (Reported) Potassium Chloride 20 Meq Tab.er.prt, 20 MEQ PO BID, (Reported) Pravastatin Sodium 40 Mg Tablet, 40 MG PO 1800, (Reported) Prednisone 5 Mg Tablet, 5 MG PO DAILY, (Reported) Ranitidine HCl 150 Mg Tablet, 150 MG PO 0800,1800, (Reported) Rivastigmine Tartrate 3 Mg Capsule, 3 MG PO BID, (Reported) Sulfamethoxazole/Trimethoprim 1 Each Tablet, 1 TAB PO 1800, (Reported) Vitamin B Complex 1 Each Capsule, 1 CAP PO DAILY, (Reported) Warfarin Sodium 5 Mg Tablet, 5 MG PO SuTuTh@1800, (Reported) Warfarin Sodium 5 Mg Tablet, 2.5 MG PO MoWeFrSa@1800, (Reported) TAKES 1/2 (5MG) TABLET Patient Home Medication List Home Medication List Reviewed: Yes Review of Systems Review of Systems Constitutional: see HPI, chills, weakness, other (PT UNABLE TO ANSWER QUESTIONS ) Gastrointestinal: See HPI, Abdominal Pain, Constipated, Diarrhea, Nausea, Poor Appetite, Poor Fluid Intake, Vomiting Past Kjzwegn-Jfqplu-Vtzpmi Hx Past Med/Social Hx: Reviewed Nursing Past Med/Soc Hx, Reviewed and Corrections made Patient Social History Alcohol Use: Rarely Uses Number of Drinks Today: Alcohol Beverage of Choice: Wine Recreational Drug Use: No Smoking Status: Never a Smoker 2nd Hand Smoke Exposure: No Recent Foreign Travel: No Contact w/Someone Who Travel: No Recent Infectious Disease Expo: No Recent Hopitalizations: Yes Immunizations Up To Date Tetanus Booster (TDap): Unknown PED Vaccines UTD: No Date of Pneumonia Vaccine: Jun 09, 2014 Date of Influenza Vaccine: May 28, 2019 Seasonal Allergies Seasonal Allergies: No Past Medical History Surgeries: Yes (SINUS SURGERY, HEMORRHOIDECTOMY, HIATAL HERNIA REPAIR; AV NODE ABLATION; CARDIAC CATHS) Abdominal, Appendectomy, Bladder Surgery, Breast, Cardiac, Eye Surgery, Gallbladder, Hysterectomy, Oophorectomy, Pacemaker Respiratory: Yes (RESPIRATORY ARREST MULTIPLE TIMES--ON VENT IN PAST) Asthma, Pneumonia, COPD Currently Using CPAP: No Currently Using BIPAP: No Cardiac: Yes (PACEMAKER, AORTIC STENOSIS, av NODE ABLATION; CODED MULTIPLE TIMES--AT LEAST 3-4 TIMES; CARDIAC CATHS) Atrial Fibrillation, Chronic Edema/Swelling, Heart Murmur, High Cholesterol, Irregular Heartbeat, Valvular Heart Disease Neurological: Yes Dementia Reproductive Disorders: No Female Reproductive Disorders: Denies Sexually Transmitted Disease: No HIV/AIDS: No Genitourinary: Yes Bladder Infection, Renal Failure, UTI-Chronic Gastrointestinal: Yes Chronic Constipation, Diverticulosis, Hiatal Hernia, Irritable Bowel Musculoskeletal: Yes (MULTIPLE FX R LOWER LEG) Osteoporosis, Arthritis, Fractures Endocrine: Yes Hypothyroidsim HEENT: Yes Cataract Loss of Vision: Denies Hearing Impairment: Denies Cancer: No Psychosocial: Yes Anxiety Integumentary: No Blood Disorders: No Adverse Reaction/Blood Tranf: No Family Medical History Alzheimer's disease 19 MOTHER FHx: throat cancer 19 FATHER No Pertinent Family Hx Physical Exam Vital Signs Vital Signs - First Documented 10/03/18 02:10 Temp 99.5 Pulse 70 Resp 18 B/P (MAP) 141/71 (94) Pulse Ox 94 O2 Delivery Room Air Capillary Refill : Less Than 3 SecondsLess Than 3 Seconds Height/Weight/BMI Height: 5'2.00" Weight: 150lbs. 0.0oz. 68.221177ys; 26.6 BMI Method:Stated General Appearance: no apparent distress, other (PT LAYING STILL WITH EYES CLOSED AND KEEPS THEM CLOSED THROUGHOUT ENTIRE ER STAY. ) Respiratory: normal breath sounds, no respiratory distress, no accessory muscle use Cardiovascular: regular rate, rhythm Gastrointestinal: soft, abnormal bowel sounds (DECREASED ), tenderness (MARKED DIFFUSE TENDERNESS--PT WINCES, MOANS A LITTLE WITH PALPATION AND WITH MOVEMENTS ) Neurologic/Psychiatric: other (MENTATION ABOVE. NO OVERT PARALYSIS, BUT PT IS NOT MOVING--IS LAYING STILL. NOT TALKING, KEEPS EYES CLOSED AND IS NOT FOLLOWING COMMANDS. ) Skin: warm/dry, pallor Focused Exam Lactate Level 10/03/18 02:30: Lactic Acid Level 1.93 Lactic Acid Level Laboratory Tests Test 10/03/18 02:30 Lactic Acid Level 1.93 MMOL/L (0.50-2.00) Progress/Results/Core Measures Results/Orders Lab Results Laboratory Tests Test 10/03/18 02:30 10/03/18 03:20 Range/Units White Blood Count 14.2 H 4.3-11.0 10^3/uL Red Blood Count 4.54 4.35-5.85 10^6/uL Hemoglobin 14.3 11.5-16.0 G/DL Hematocrit 43 35-52 % Mean Corpuscular Volume 95 80-99 FL Mean Corpuscular Hemoglobin 32 25-34 PG Mean Corpuscular Hemoglobin Concent 33 32-36 G/DL Red Cell Distribution Width 13.8 10.0-14.5 % Platelet Count 219 130-400 10^3/uL Mean Platelet Volume 11.1 H 7.4-10.4 FL Neutrophils (%) (Auto) 87 H 42-75 % Lymphocytes (%) (Auto) 9 L 12-44 % Monocytes (%) (Auto) 4 0-12 % Eosinophils (%) (Auto) 1 0-10 % Basophils (%) (Auto) 0 0-10 % Neutrophils # (Auto) 12.3 H 1.8-7.8 X 10^3 Lymphocytes # (Auto) 1.3 1.0-4.0 X 10^3 Monocytes # (Auto) 0.5 0.0-1.0 X 10^3 Eosinophils # (Auto) 0.1 0.0-0.3 10^3/uL Basophils # (Auto) 0.0 0.0-0.1 10^3/uL Prothrombin Time 28.5 H 12.2-14.7 SEC INR Comment 2.7 H 0.8-1.4 Activated Partial Thromboplast Time 36 H 24-35 SEC Sodium Level 138 135-145 MMOL/L Potassium Level 4.3 3.6-5.0 MMOL/L Chloride Level 106 98-107 MMOL/L Carbon Dioxide Level 19 L 21-32 MMOL/L Anion Gap 13 5-14 MMOL/L Blood Urea Nitrogen 21 H 7-18 MG/DL Creatinine 1.16 0.60-1.30 MG/DL Estimat Glomerular Filtration Rate 44 BUN/Creatinine Ratio 18 Glucose Level 120 H 70-105 MG/DL Lactic Acid Level 1.93 0.50-2.00 MMOL/L Calcium Level 9.7 8.5-10.1 MG/DL Corrected Calcium 9.6 8.5-10.1 MG/DL Magnesium Level 2.4 1.8-2.4 MG/DL Total Bilirubin 1.3 H 0.1-1.0 MG/DL Aspartate Amino Transf (AST/SGOT) 38 H 5-34 U/L Alanine Aminotransferase (ALT/SGPT) 18 0-55 U/L Alkaline Phosphatase 48 40-136 U/L Total Protein 6.8 6.4-8.2 GM/DL Albumin 4.1 3.2-4.5 GM/DL Amylase Level 69 25-125 U/L Lipase 22 8-78 U/L Urine Color YELLOW Urine Clarity CLEAR Urine pH 5 5-9 Urine Specific [place] 1.020 1.016-1.022 Urine Protein NEGATIVE NEGATIVE Urine Glucose (UA) NEGATIVE NEGATIVE Urine Ketones NEGATIVE NEGATIVE Urine Nitrite NEGATIVE NEGATIVE Urine Bilirubin NEGATIVE NEGATIVE Urine Urobilinogen NORMAL NORMAL MG/DL Urine Leukocyte Esterase NEGATIVE NEGATIVE Urine RBC (Auto) NEGATIVE NEGATIVE Urine RBC NONE /HPF Urine WBC NONE /HPF Urine Squamous Epithelial Cells 0-2 /HPF Urine Crystals NONE /LPF Urine Bacteria NEGATIVE /HPF Urine Casts NONE /LPF Urine Mucus SMALL H /LPF Urine Culture Indicated NO Micro Results Microbiology 10/03/18 Influenza Types A,B Antigen (DANIAL) - Final, Complete My Orders Orders - CHIP BAR DO Saline Lock/Iv-Start (10/03/18 02:17) Monitor-Rhythm Ecg Trace Only (10/03/18 02:17) Amylase (10/03/18 02:17) Cbc With Automated Diff (10/03/18 02:17) Comprehensive Metabolic Panel (10/03/18 02:17) Lipase (10/03/18 02:17) Magnesium (10/03/18 02:17) Ua Culture If Indicated (10/03/18 02:17) Saline Lock/Iv-Start (10/03/18 02:17) Lactated Ringers (Lr 1000 Ml Iv Solution (10/03/18 02:17) Ondansetron Injection (Zofran Injectio (10/03/18 02:30) Catheter(Urinary) Insert & Ass 03,15 (10/03/18 02:17) Influenza A And B Antigens (10/03/18 02:22) Lactic Acid Analyzer (10/03/18 02:57) Protime With Inr (10/03/18 02:57) Partial Thromboplastin Time (10/03/18 02:57) Blood Culture (10/03/18 02:57) Ct Abdomen/Pelvis Wo (10/03/18 03:27) Chest 1 View, Ap/Pa Only (10/03/18 03:27) Fentanyl Injection (Sublimaze Injection (10/03/18 04:58) Meropenem (Merrem 1000 Mg) (10/03/18 05:00) Metronidazole 500mg/100ml Ivpb (Flagyl 5 (10/03/18 05:00) Vital Signs/I&O 10/03/18 02:10 Temp 99.5 Pulse 70 Resp 18 B/P (MAP) 141/71 (94) Pulse Ox 94 O2 Delivery Room Air Blood Pressure Mean: 92 Progress Progress Note : Progress Note NO DETERIORATION IN PT'S CONDITION DURING ER STAY. VITALS REMAINED STABLE Diagnostic Imaging Comments CXR--BIBASILAR ATELECTASIS, NO ACUTE PROCESS, PENDING RADIOLOGIST REVIEW CT ABDOMEN/PELVIS--ACUTE SIGMOID DIVERTICULITIS, MODERATE AMOUNT OF DIFFUSE FREE AIR--LIKELY SECONDARY TO RUPTURED DIVERTICULUM--PER [facility] VIA FAX @ 1476 Reviewed: Reviewed by Me Departure Communication (Admissions) Family Conversation DISCUSSIONS WITH DAUGHTERS REGARDING PT'S VERY POOR PROGNOSIS, DUE TO CURRENT ILLNESS COMPOUNDED BY MULTIPLE CO-MORBIDITIES, AND LIKELIHOOD THAT SHE MAY NOT SURVIVE THIS. THEY CONFIRM THAT PT IS DNR/DNI, AND DO NOT THINK PT WOULD SURVIVE A SURGERY. THEY WILL DISCUSS WITH SURGEON/DR. FABIAN AND WITH DR. AGGARWAL BEFORE THEY MAKE FINAL DECISION REGARDING SURGERY VS PALLIATIVE CARE / COMFORT CARE. Communication (PCP) 0520--MESSAGE LEFT ON DR. AGGARWAL'S CELL PHONE 0520--SPOKE WITH DR. FABIAN, SURGEON CHARTER AND TOUR BUS DRIVER. HE WILL BE IN EARLY THIS AM TO SEE PT AND TALK WITH FAMILY REGARDING SURGERY / RISKS. 0530--SPOKE WITH DR. AGGARWAL, ACCEPTS PT FOR ADMIT. Impression Primary Impression: Diverticulitis of colon with perforation Additional Impressions: Dementia Atrial fibrillation Chronic anticoagulation COPD (chronic obstructive pulmonary disease) Disposition: ADMITTED INPATIENT Condition: Stable Admissions Decision to Admit Reason: Admit from ER (General) Decision to Admit/Date: Oct 03, 2018 Time/Decision to Admit Time: 05:30 Departure-Patient Inst. Referrals: ESTEPHANIE MAY MD (PCP) Primary Care Physician CHIP BAR DO Oct 04, 2018 06:22
--- NOTE | 2018-10-04 08:00 | NUR ---
PATIENT'S IV FLUIDS DECREASED TO 30 MLS PER HOUR PER FAMILY REQUEST. THEY STATED THAT HER OUTPUT IS LOW AND SHE HAS DEVELOPED A WET MOIST COUGH. THEY ARE WORRIED ABOUT FLUID OVERLOAD. THIS RN TALKED TO DR AGGARWAL WHILE SHE WAS MAKING ROUNDS. SHE IS OKAY WITH THIS.
--- NOTE | 2018-10-04 09:22 | Progress Note-Standard ---
Standard Progress Note Progress Notes/Assess & Plan Date Seen by a Provider: Oct 04, 2018 Time Seen by a Provider: 09:21 Progress/Assessment & Plan overall condition appears to be deteriorating. Comfortable with narcotics. Abdomen distended.we'll continue comfort measures. Final Diagnosis sigmoid diverticulitis with perforation Focused Exam Lactate Level 10/03/18 02:30: Lactic Acid Level 1.93 JULIO C PALOMO MD Oct 04, 2018 09:22
[2018-10-04] MEDS ORDERED: ACETAMINOPHEN 650 MG SUPP (TYLENOL) PR PRN (11:15)
--- NOTE | 2018-10-04 12:52 | Progress Note-Hospitalist ---
Subjective HPI/CC On Admission Date Seen by Provider: Oct 04, 2018 Time Seen by Provider: 11:30 CC: Intestinal perforation HPI: This is an 88-year-old white female known to hospitalist service for hospital stays in the past with a past medical history of dementia who presented to the ER with abdominal pain found to have free air on imaging and questionable recovery potential given this dire medical condition. Dr. Lau has been consulted and she is not a surgical candidate so at this time we will provide supportive care along with IV antibiotics and possibly the perforation will reseal but unsure of the possibility of that. Family at the bedside. Family is very reasonable and daughter is a nurse. At this current time we will monitor for pain and discomfort if patient worsens we'll switch to palliative care. Subjective/Events-last exam Patient now running a fever Family concerned about volume overload with IV fluids so that was decreased at 30 mL/HR Patient remains comatose No bowel sounds are noted Very poor prognosis Will likely shift to palliative care tomorrow Review of Systems General: Fatigue Focused Exam Lactate Level 10/03/18 02:30: Lactic Acid Level 1.93 Objective Exam Vital Signs Vital Signs Date Time Temp Pulse Resp B/P (MAP) Pulse Ox O2 Delivery O2 Flow Rate FiO2 10/04/18 12:31 99.8 10/04/18 08:04 20 Room Air 10/04/18 08:00 93 10/04/18 07:01 70 10/04/18 00:00 148/64 (92) Capillary Refill : Less Than 3 SecondsLess Than 3 Seconds General Appearance: No Apparent Distress, WD/WN, Chronically ill, Other (pale, resting) Respiratory: Chest Non Tender, Lungs Clear, Normal Breath Sounds, No Accessory Muscle Use, No Respiratory Distress Cardiovascular: No Edema, No Gallop, No JVD, No Murmur, Normal Peripheral Pulses, Irregularly Irregular Gastrointestinal: Abnormal Bowel Sounds, Distended, Tenderness Extremity: Normal Capillary Refill, Normal Inspection, Normal Range of Motion, Non Tender, No Calf Tenderness, No Pedal Edema Neurologic/Psychiatric: Other (comatose) Skin: Cool, Pallor Lymphatic: No Adenopathy Results/Procedures Lab Patient resulted labs reviewed. Assessment/Plan Assessment and Plan Assess & Plan/Chief Complaint Assessment: Intestinal perforation probably unrecoverable Nonsurgical candidate since risk outweigh benefits Dementia Atrial fibrillation Fever Plan: Supportive care IV fluids IV antibiotics If worsens will go palliative tomorrow and it appears the process is starting Diagnosis/Problems Diagnosis/Problems (1) Perforated viscus Status: Acute (2) Diverticulitis Status: Acute Clinical Quality Measures DVT/VTE Risk/Contraindication: Risk Factor Score Per Nursin RFS Level Per Nursing on Admit: 4+=Very High JAGRUTI AGGARWAL DO Oct 04, 2018 12:52
[2018-10-04 16:22] VITALS: BP 141/63
[2018-10-05] VITALS: BP 116/63
[2018-10-05] MEDS: fentaNYL INJECTION 100 MCG/2 ML AMP IV PRN ×6 (04:05→21:59)
[2018-10-05] MEDS: MEROPENEM 500 MG in WATER (STERILE) FOR INJECTION 10 ML IV SCH (05:37)
[2018-10-05] MEDS: metroNIDAZOLE 500MG/100ML IVPB 100 ML IV SCH (06:07)
[2018-10-05] MEDS: D5 1/2 NS W/KCL 20 MEQ/L 1,000 ML IV SCH (08:28)
[2018-10-05] MEDS ORDERED: LACTATED RINGERS 1,000 ML IV SCH (10:45)
[2018-10-05] MEDS: ONDANSETRON 4 MG/2 ML (SDV) Z0FRAN IV PRN (10:57)
--- NOTE | 2018-10-05 11:12 | Progress Note (SOAP) ---
Subjective Date Seen by a Provider: Oct 05, 2018 Time Seen by a Provider: 11:10 Subjective/Events-last exam abdominal pain improved. Urine output quite low and appears to be concentrated. Patient more awake and able to communicate Review of Systems General: No Chills, No Night Sweats, No Fatigue, No Malaise HEENT: No Head Aches, No Eye Pain, No Ear Pain, No Dysphasia, No Sinus Congestion, No Post Nasal Drip, No Sore Throat Pulmonary: No Dyspnea, No Cough, No Pleuritic Chest Pain Cardiovascular: No: Chest Pain, Palpitations, Orthopnea, Paroxysmal Noc. Dyspnea, Edema, Lt Headedness Gastrointestinal: Abdominal Pain Genitourinary: No Dysuria, No Frequency, No Incontinence, No Hematuria, No Retention Musculoskeletal: No: other, neck pain, shoulder pain, arm pain, back pain, hand pain, leg pain, foot pain Neurological: No: Weakness, Numbness, Incoordination, Change in speech, Confusion, Seizures, Other Focused Exam Lactate Level 10/03/18 02:30: Lactic Acid Level 1.93 Objective Exam Vital Signs Date Time Temp Pulse Resp B/P (MAP) Pulse Ox O2 Delivery O2 Flow Rate FiO2 10/05/18 00:00 98.2 67 18 116/63 (80) 93 Room Air 10/04/18 20:00 Room Air 10/04/18 16:22 98.2 76 16 141/63 (89) 90 Room Air 10/04/18 12:31 99.8 10/04/18 11:24 102.6 I & O 10/05/18 07:00 Output Total 350 ml Balance -350 ml Capillary Refill : Less Than 3 SecondsLess Than 3 Seconds General Appearance: No Apparent Distress Neck: Normal Inspection Respiratory: Lungs Clear Cardiovascular: Regular Rate, Rhythm Gastrointestinal: tenderness Skin: Warm/Dry Other comments localized tenderness over the left lower quadrant. Moderate distention. Results Lab Microbiology 10/03/18 Blood Culture - Preliminary, Resulted No growth 10/03/18 Influenza Types A,B Antigen (DANIAL) - Final, Complete Assessment/Plan Assessment/Plan Assess & Plan/Chief Complaint lady with sigmoid over to colitis and perforation. Nonoperative therapy in progress. We'll increase intravenous fluids in anticipation of improved urine output. Final Diagnosis sigmoid diverticulitis with perforation Clinical Quality Measures DVT/VTE Risk/Contraindication: Risk Factor Score Per Nursin RFS Level Per Nursing on Admit: 4+=Very High JULIO C PALOMO MD Oct 05, 2018 11:12
--- NOTE | 2018-10-05 12:39 | Progress Note-Hospitalist ---
Subjective HPI/CC On Admission Date Seen by Provider: Oct 05, 2018 Time Seen by Provider: 12:00 CC: Intestinal perforation HPI: This is an 88-year-old white female known to hospitalist service for hospital stays in the past with a past medical history of dementia who presented to the ER with abdominal pain found to have free air on imaging and questionable recovery potential given this dire medical condition. Dr. Lau has been consulted and she is not a surgical candidate so at this time we will provide supportive care along with IV antibiotics and possibly the perforation will reseal but unsure of the possibility of that. Family at the bedside. Family is very reasonable and daughter is a nurse. At this current time we will monitor for pain and discomfort if patient worsens we'll switch to palliative care. Subjective/Events-last exam Upper respiratory rattle noted Updated family Perforated intestine appears to be unrecoverable No other option except for keep comfortable Discontinue antibiotics and IV fluids Review of Systems Gastrointestinal: Abdominal Pain Neurological: Confusion Focused Exam Lactate Level 10/03/18 02:30: Lactic Acid Level 1.93 Objective Exam Vital Signs Vital Signs Date Time Temp Pulse Resp B/P (MAP) Pulse Ox O2 Delivery O2 Flow Rate FiO2 10/05/18 08:00 Room Air 10/05/18 00:00 98.2 67 18 93 Capillary Refill : Less Than 3 SecondsLess Than 3 Seconds General Appearance: No Apparent Distress, WD/WN, Chronically ill, Other ( lathargic, opens eyes) Neck: Normal Inspection Respiratory: Lungs Clear Cardiovascular: Regular Rate, Rhythm Gastrointestinal: Abnormal Bowel Sounds, Distended, Tenderness Extremity: Normal Capillary Refill, Normal Inspection, Normal Range of Motion, Non Tender, No Calf Tenderness, No Pedal Edema Neurologic/Psychiatric: Other (comatose) Skin: Warm/Dry Lymphatic: No Adenopathy Results/Procedures Lab Patient resulted labs reviewed. Assessment/Plan Assessment and Plan Assess & Plan/Chief Complaint Assessment: Intestinal perforation deemed unrecoverable with no improvement with IV abx for past [address] on comfort care today Nonsurgical candidate since risk outweigh benefits Dementia Atrial fibrillation Fever Plan: Palliative care starting today since unrecoverable Diagnosis/Problems Diagnosis/Problems (1) End of life care Status: Acute (2) Perforated viscus Status: Acute (3) Diverticulitis Status: Acute Clinical Quality Measures DVT/VTE Risk/Contraindication: Risk Factor Score Per Nursin RFS Level Per Nursing on Admit: 4+=Very High JAGRUTI AGGARWAL DO Oct 05, 2018 12:39
[2018-10-05] MEDS ORDERED: SALIVA STIMULANT MOUTH SPRAY (BIOTENE) 1.5 OZ MM PRN (12:45)
[2018-10-05] MEDS ORDERED: ARTIFICAL TEARS 0.4 ML UNIT DOSE (REFRESH PLUS) OU PRN (12:45)
[2018-10-05] MEDS ORDERED: BISACODYL 10 MG SUPP (DULCOLAX) PR PRN (12:45)
[2018-10-05] MEDS ORDERED: ONDANSETRON 4 MG/2 ML (SDV) Z0FRAN IVP PRN (12:45)
[2018-10-05] MEDS: GLYCOPYRROLATE 0.2 MG/ML (ROBINUL) 2 ML VIAL IV PRN (18:48)
[2018-10-06] MEDS: fentaNYL INJECTION 100 MCG/2 ML AMP IV PRN ×6 (01:29→19:57)
[2018-10-06] MEDS: LORazepam ORAL CONCENTRATE 2 MG/ML 30 ML (ATIVAN) PO PRN ×2 (07:13→22:59)
[2018-10-06] MEDS: GLYCOPYRROLATE 0.2 MG/ML (ROBINUL) 2 ML VIAL IV PRN ×3 (07:18→20:05)
--- NOTE | 2018-10-06 11:06 | Progress Note-Hospitalist ---
Subjective HPI/CC On Admission Date Seen by Provider: Oct 06, 2018 Time Seen by Provider: 10:00 CC: Intestinal perforation HPI: This is an 88-year-old white female known to hospitalist service for hospital stays in the past with a past medical history of dementia who presented to the ER with abdominal pain found to have free air on imaging and questionable recovery potential given this dire medical condition. Dr. Lau has been consulted and she is not a surgical candidate so at this time we will provide supportive care along with IV antibiotics and possibly the perforation will reseal but unsure of the possibility of that. Family at the bedside. Family is very reasonable and daughter is a nurse. At this current time we will monitor for pain and discomfort if patient worsens we'll switch to palliative care. Subjective/Events-last exam rattle noted Comfort care protocol Family at bedside line palliative care consult for options regarding future disposition Review of Systems Neurological: Confusion Objective Exam Vital Signs Vital Signs Date Time Temp Pulse Resp B/P (MAP) Pulse Ox O2 Delivery O2 Flow Rate FiO2 10/05/18 20:00 Room Air 10/05/18 08:00 10/05/18 08:00 93 10/05/18 00:00 98.2 67 18 Capillary Refill : Less Than 3 SecondsLess Than 3 Seconds General Appearance: No Apparent Distress, WD/WN, Chronically ill, Other ( lathargic, opens eyes) Respiratory: Other (rattle) Neurologic/Psychiatric: Other (comatose) Results/Procedures Lab Patient resulted labs reviewed. Assessment/Plan Assessment and Plan Assess & Plan/Chief Complaint Assessment: Intestinal perforation deemed unrecoverable with no improvement with IV abx for past [address] on comfort care today Nonsurgical candidate since risk outweigh benefits Dementia Atrial fibrillation Fever Plan: Palliative care starting today since unrecoverable Diagnosis/Problems Diagnosis/Problems (1) End of life care Status: Acute (2) Perforated viscus Status: Acute (3) Diverticulitis Status: Acute Clinical Quality Measures DVT/VTE Risk/Contraindication: Risk Factor Score Per Nursin RFS Level Per Nursing on Admit: 4+=Very High JAGRUTI AGGARWAL DO Oct 06, 2018 11:06
--- NOTE | 2018-10-06 11:27 | NUR ---
Palliative Care RN in to see patient. She is not responsive this morning upon my visit. Family is at bedside and son-in law is asking how long she can stay. Upon m y assessment it is thought the patient has 24 to 48 hours of life expectancy so verbalized that I would reassess in the morning and see how she has progressed. Would anticipate that she will in the hospital.
--- NOTE | 2018-10-06 14:05 | NUR ---
I made contact with multiple family members outside the door of pts room, I shared regarding pastoral cares availability and offered support and encouragement.
--- NOTE | 2018-10-06 15:31 | NUR ---
PALLIATIVE CARE RN in to see the patient and talk with family. Patient appears to be unresponsive, with audible " rattle". When I moved to assess her LE, she verbalized something not completely understandable about "legs". Patient denied pain and reports not needs. NOted urine output to have decreased. Noted that patient's ears are less plump and thinning. Would still anticipate 24-48 hours life expectancy.
--- NOTE | 2018-10-06 20:40 | Progress Note ---
Subjective Date Seen by a Provider: Oct 06, 2018 Time Seen by a Provider: 08:30 Subjective/Events-last exam patient not arousable. Lying in bed. rattle from lungs. Patient has family at bedside. Comfort care measures have been initiated. Patient states that they're going to have discussion today for further palliative/hospice care. patient's family feel that she is comfortable at this time. No new concerns or questions at this time. Objective Exam Vital Signs Date Time Temp Pulse Resp B/P (MAP) Pulse Ox O2 Delivery O2 Flow Rate FiO2 10/06/18 08:00 93 Room Air I & O 10/06/18 07:00 Intake Total 1260 ml Output Total 425 ml Balance 835 ml Capillary Refill : Less Than 3 SecondsLess Than 3 Seconds General Appearance: No Apparent Distress, WD/WN Neck: Normal Inspection, Supple Respiratory: Other (rattle) Cardiovascular: Regular Rate, Rhythm Gastrointestinal: soft, tenderness (bilateral lower quadrants) Extremity: Non Tender Neurologic/Psychiatric: Alert, Other (comatose) Skin: Normal Color Lymphatic: No Adenopathy Results Lab Microbiology 10/03/18 Blood Culture - Preliminary, Resulted No growth 10/03/18 Influenza Types A,B Antigen (DANIAL) - Final, Complete Assessment/Plan Assessment/Plan Assessment/Plan Pneumoperitoneum Perforated hollow viscus Sigmoid diverticulitis Dementia Patient and family were discussed risk and benefits of surgical intervention which would've been high risk patients family declined surgical intervention one to try conservative measures. Conservative measures have failed outpatient is now on comfort care measures. Patient's to meet with palliative/hospice later today to make final arrangements they state. All questions were answered. Patient's family was informed that any questions to not hesitate to have me called. All other questions were answered. Will sign off at this time please call if needed please. Clinical Quality Measures DVT/VTE Risk/Contraindication: Risk Factor Score Per Nursin RFS Level Per Nursing on Admit: 4+=Very High FLORA FABIAN DO Oct 06, 2018 20:40
[2018-10-07] MEDS: GLYCOPYRROLATE 0.2 MG/ML (ROBINUL) 2 ML VIAL IV PRN ×2 (00:20→04:58)
[2018-10-07] MEDS ORDERED: SCOPOLAMINE 1.5 MG (TRANSDERM-SCOP) PATCH TD SCH (10:15)
--- NOTE | 2018-10-07 10:23 | NUR ---
Report to Shanti who will assume care of patient.
[2018-10-07] MEDS: fentaNYL INJECTION 100 MCG/2 ML AMP IV PRN (10:28)
--- NOTE | 2018-10-07 10:50 | NUR ---
Palliative Care RN in to see patient. She is resting but arousable to voice. Is getting Fentanyl at her request for pain in abdomen. Lips are dry and she allowed this RN to wet her lips and tongue and I washed her face with a warm cloth as well. Noted to have good pulses in LE. Her eyes are a bit more sunken and her ears are faintly cyanotic with with additional thinning noted. Spoke with daughter and son-in-law regarding discharge POC. I will have [facility] to speak to them this afternoon in an effort to be prepared for discharge if she survives the next 24 hours.
--- NOTE | 2018-10-07 10:56 | Progress Note-Hospitalist ---
Subjective HPI/CC On Admission Date Seen by Provider: Oct 07, 2018 Time Seen by Provider: 10:00 CC: Intestinal perforation HPI: This is an 88-year-old white female known to hospitalist service for hospital stays in the past with a past medical history of dementia who presented to the ER with abdominal pain found to have free air on imaging and questionable recovery potential given this dire medical condition. Dr. Lau has been consulted and she is not a surgical candidate so at this time we will provide supportive care along with IV antibiotics and possibly the perforation will reseal but unsure of the possibility of that. Family at the bedside. Family is very reasonable and daughter is a nurse. At this current time we will monitor for pain and discomfort if patient worsens we'll switch to palliative care. Subjective/Events-last exam End of life status continues Family at the bedside Awake and alert Hospice now becoming involved in case we need to DC back to assisted living on Hospice Objective Exam Vital Signs Vital Signs Date Time Temp Pulse Resp B/P (MAP) Pulse Ox O2 Delivery O2 Flow Rate FiO2 10/07/18 10:50 Room Air 10/06/18 08:00 93 10/05/18 08:00 10/05/18 00:00 98.2 67 18 Capillary Refill : Less Than 3 SecondsLess Than 3 Seconds General Appearance: No Apparent Distress, WD/WN Neck: Normal Inspection, Supple Respiratory: Other (rattle) Cardiovascular: Regular Rate, Rhythm Extremity: Non Tender Neurologic/Psychiatric: Alert, Other (comatose) Skin: Normal Color Lymphatic: No Adenopathy Results/Procedures Lab Patient resulted labs reviewed. Assessment/Plan Assessment and Plan Assess & Plan/Chief Complaint Assessment: Intestinal perforation deemed unrecoverable with no improvement with IV abx for past [address] on comfort care today Nonsurgical candidate since risk outweigh benefits Dementia Atrial fibrillation Fever Plan: Palliative care starting today since unrecoverable Diagnosis/Problems Diagnosis/Problems (1) End of life care Status: Acute (2) Perforated viscus Status: Acute (3) Diverticulitis Status: Acute Clinical Quality Measures DVT/VTE Risk/Contraindication: Risk Factor Score Per Nursin RFS Level Per Nursing on Admit: 4+=Very High JAGRUTI AGGARWAL DO Oct 07, 2018 10:56
[2018-10-07] MEDS: LORazepam ORAL CONCENTRATE 2 MG/ML 30 ML (ATIVAN) PO PRN ×3 (11:27→21:02)
--- NOTE | 2018-10-07 15:17 | NUR ---
PC RN in to see patient, she looks uncomfortable and the family reports they have asked for pain medication. Will notify RN that they still are in need. Family is visiting with hospice and will make a decision.
[2018-10-08] MEDS: fentaNYL INJECTION 100 MCG/2 ML AMP IV PRN ×5 (06:40→20:58)
[2018-10-08] MEDS: LORazepam ORAL CONCENTRATE 2 MG/ML 30 ML (ATIVAN) PO PRN (10:20)
--- NOTE | 2018-10-08 10:20 | NUR ---
Color Tester follow up: Pt's sister Pat and pt's two daughters were present. Pt's daughters are nurses. Both shared experiences caring for their grandparents at end of life and also verbalized familiarity from the clinical perspective. Pt is [employer] Catholic and a member of [employer] in [place]. The daughters and sister report Fr. PJ ministered [facility] [employer] [facility] a few days ago. During my visit, pt began demonstrating physical agitation. I communicated daughter's request for more Ativan to the RN, Shanti.
--- NOTE | 2018-10-08 11:08 | Progress Note-Hospitalist ---
Subjective HPI/CC On Admission Date Seen by Provider: Oct 08, 2018 Time Seen by Provider: 10:30 CC: Intestinal perforation HPI: This is an 88-year-old white female known to hospitalist service for hospital stays in the past with a past medical history of dementia who presented to the ER with abdominal pain found to have free air on imaging and questionable recovery potential given this dire medical condition. Dr. Lau has been consulted and she is not a surgical candidate so at this time we will provide supportive care along with IV antibiotics and possibly the perforation will reseal but unsure of the possibility of that. Family at the bedside. Family is very reasonable and daughter is a nurse. At this current time we will monitor for pain and discomfort if patient worsens we'll switch to palliative care. Subjective/Events-last exam Patient non-verbal Hospice will be chosen and patient will go back to [facility] inside facility close to Abdominal pain at times Objective Exam Vital Signs Vital Signs Date Time Temp Pulse Resp B/P (MAP) Pulse Ox O2 Delivery O2 Flow Rate FiO2 10/07/18 20:00 Room Air 10/06/18 08:00 93 10/05/18 08:00 10/05/18 00:00 98.2 67 18 Capillary Refill : Less Than 3 SecondsLess Than 3 Seconds General Appearance: No Apparent Distress, WD/WN Neck: Normal Inspection, Supple Respiratory: Other (rattle) Cardiovascular: Regular Rate, Rhythm Extremity: Non Tender Neurologic/Psychiatric: Alert, Other (comatose) Skin: Normal Color Lymphatic: No Adenopathy Results/Procedures Lab Patient resulted labs reviewed. Assessment/Plan Assessment and Plan Assess & Plan/Chief Complaint Assessment: Intestinal perforation deemed unrecoverable with no improvement with IV abx for past [address] on comfort care today Nonsurgical candidate since risk outweigh benefits Dementia Atrial fibrillation Fever Plan: Palliative care starting today since unrecoverable DC to [facility] tomorrow on Hospice Diagnosis/Problems Diagnosis/Problems (1) End of life care Status: Acute (2) Perforated viscus Status: Acute (3) Diverticulitis Status: Acute Clinical Quality Measures DVT/VTE Risk/Contraindication: Risk Factor Score Per Nursin RFS Level Per Nursing on Admit: 4+=Very High JAGRUTI AGGARWAL DO Oct 08, 2018 11:08
--- NOTE | 2018-10-08 14:27 | NUR ---
Family has selected [facility] as their hospice provider. has indicated that she plans on dismissing the patient tomorrow back to [facility] with [facility] in place. F/U with [facility] et they reported that they already have the needed equipment in place. F/U with [facility] et will need to fax additional clinical information and any comfort medication scripts to them in the morning once doctor has completed them. Family member Ashley reports everything is in place et they are in agreement with this POC. Deny any further needs or requests at this time.
--- NOTE | 2018-10-08 18:26 | NUR ---
Pt resting with eyes closed at this time respirations irregular, unlabored on room air at this time . Family and visitors at bedside no needs voiced to the RN at this time.
[2018-10-09] MEDS: fentaNYL INJECTION 100 MCG/2 ML AMP IV PRN ×3 (00:20→12:52)
[2018-10-09] MEDS: GLYCOPYRROLATE 0.2 MG/ML (ROBINUL) 2 ML VIAL IV PRN ×3 (02:31→12:52)
[2018-10-09] MEDS: LORazepam ORAL CONCENTRATE 2 MG/ML 30 ML (ATIVAN) PO PRN ×3 (02:32→12:08)
[2018-10-09] MEDS ORDERED: LORA2ORA PO (10:46)
[2018-10-09] MEDS ORDERED: MORP100S3 PO (10:46)
--- NOTE | 2018-10-09 10:47 | Discharge Summary-Hospitalist ---
Diagnosis/Chief Complaint Date of Admission Oct 03, 2018 at 05:30 Date of Discharge Discharge Date: Oct 09, 2018 Admission Diagnosis Assessment: Intestinal perforation probable making survival unlikely Nonsurgical candidate since risk outweigh benefits Dementia Atrial fibrillation Plan: Supportive care IV fluids IV antibiotics If worsens will go palliative Discharge Diagnosis (1) End of life care Status: Acute (2) Perforated viscus Status: Acute (3) Diverticulitis Status: Acute Discharge Summary Discharge Physical Exam Allergies: Coded Allergies: amoxicillin (Verified Allergy, Unknown, 06/21/15) cefadroxil (Verified Allergy, Unknown, 06/21/15) clavulanic acid (Verified Allergy, Unknown, 06/21/15) codeine (Verified Allergy, Unknown, 06/21/15) haloperidol (Verified Allergy, Unknown, 06/21/15) iodine (Verified Allergy, Unknown, 06/21/15) triazolam (Verified Allergy, Unknown, PT TAKES ALPRAZOLAM AT HOME, 08/31/16) zolpidem (Verified Allergy, Unknown, 06/21/15) donepezil (Verified Adverse Reaction, Severe, 11/20/15) NAUSEA/VOMITING promethazine HCl (Unverified Adverse Reaction, Mild, 06/21/15) Vitals & I&Os Vital Signs Date Time Temp Pulse Resp B/P (MAP) Pulse Ox O2 Delivery O2 Flow Rate FiO2 10/09/18 08:00 Room Air 10/06/18 08:00 93 10/05/18 08:00 10/05/18 00:00 98.2 67 18 General Appearance: Other (unresponsive) Hospital Course Was the Problem List Reviewed?: Yes Hospital course: Patient had a lengthy hospital course after she was admitted given IV fluids and broad-spectrum antibiotics because she was a nonsurgical candidate for free air likely due to a ruptured diverticula on CT scan on admission. She is Comfortable after placed on comfort care protocol 3 days after admission when it was deemed unrecoverable and she was discharged back to [facility] on hospice. Labs (last 24 hrs) Microbiology 10/03/18 Blood Culture - Final, Complete No growth 10/03/18 Influenza Types A,B Antigen (DANIAL) - Final, Complete Patient resulted labs reviewed. Discussion & Recommendations Discharge Planning: <30 minutes discharge planning Discharge Home Medications: Active Scripts Active Morphine Conc. 20mg/ml (Morphine Sulfate) 100 Mg/5 Ml Solution 5 Mg PO Q2H PRN Lorazepam Intensol (Lorazepam) 2 Mg/1 Ml Oral.conc 0.5 Mg PO Q2H PRN Reported Warfarin Sodium 5 Mg Tablet 2.5 Mg PO MOWEFRSA@1800 TAKES 1/2 (5MG) TABLET Warfarin Sodium 5 Mg Tablet 5 Mg PO SUTUTH@1800 Buspirone HCl 7.5 Mg Tablet 7.5 Mg PO BID PRN Iprat-Albut 0.5-3(2.5) mg/3 ml (Ipratropium/Albuterol Sulfate) 3 Ml Ampul.neb 3 Ml IH Q4H PRN Melatonin 3 Mg Tablet 1.5 Mg PO HS TAKES 1/2 (3MG) TABLET Miralax (Polyethylene Glycol 3350) 17 Gm Powd.pack 8.5-17 Gm PO 1800 Colace (Docusate Sodium) 100 Mg Capsule 100 Mg PO 1800 Nac (Acetylcysteine) 600 Mg Capsule 600 Mg PO BID Vitamin C (Ascorbate Calcium) 500 Mg Tablet 500 Mg PO DAILY Biotin 5 Mg Tablet 5 Mg PO BID Zantac (Ranitidine HCl) 150 Mg Tablet 150 Mg PO 0800,1800 Sulfamethoxazole-Tmp Ss Tablet (Sulfamethoxazole/Trimethoprim) 1 Each Tablet 1 Tab PO 1800 Ventolin Hfa (Albuterol Sulfate) 1 Puff Puff 2 Puff INH Q4H PRN Rivastigmine (Rivastigmine Tartrate) 3 Mg Capsule 3 Mg PO BID Probiotic (L.acidoph & Paracasei,B.lactis) 1 Each Capsule 1 Cap PO DAILY Zyrtec (Cetirizine HCl) 10 Mg Tablet 10 Mg PO DAILY PRN Vitamin B Complex 1 Each Capsule 1 Cap PO DAILY Prednisone 5 Mg Tablet 5 Mg PO DAILY Breo Ellipta 100-25 Mcg INH (Fluticasone/Vilanterol) 1 Each Blst.w.dev 1 Puff IH HS Furosemide 40 Mg Tablet 40 Mg PO DAILY PRN Montelukast Sodium 10 Mg Tablet 10 Mg PO 1800 Pravastatin Sodium 40 Mg Tablet 40 Mg PO 1800 Levothyroxine Sodium 50 Mcg Tablet 50 Mcg PO DAILY Klor-Con M20 (Potassium Chloride) 20 Meq Tab.er.prt 20 Meq PO BID Magnesium (Magnesium Oxide) 250 Mg Tablet 250 Mg PO DAILY Instructions to patient/family Please see electronic discharge instructions given to patient. Clinical Quality Measures DVT/VTE Risk/Contraindication: Risk Factor Score Per Nursin RFS Level Per Nursing on Admit: 4+=Very High JAGRUTI AGGARWAL DO Oct 09, 2018 10:47
--- NOTE | 2018-10-09 11:52 | NUR ---
Important Message from Medicare presented/reviewed/signed and charted by patient's daughter, Ashley. Ashley voiced no intention to appeal and deny any needs or further questions at this time.
--- NOTE | 2018-10-09 11:57 | NUR ---
Discharge today to [facility] with [facility] in place. Finalized discharge orders faxed to [facility] et placed in the red discharge packet including her needed comfort medication scripts. [facility] confirms that they have the patient's needed equipment in place. Ambulance transfer form has been faxed et needed information for the ambulance has been clipped to the front of the red discharge packet. F/U with Selma from [facility] et she reports that she will go out to [place] et have Lanny's sign needed forms et get her medications in place so that when she arrives she will have her comfort medications available. Updated primary care nurse Sarita with above information et she will call the ambulance for transport et also call Selma at [facility] when the ambulance picks the patient up. No further interventions noted at this time.
[2018-10-10] MEDS ORDERED: SCOPOLAMINE PATCH REMOVAL TP SCH (10:14)
== END 2018-10-09 13:10 | disposition hospice, home (50) | DRG 392 ==
LOC: EDUNIT# 01:24 → ER 01:25 → 4TH 05:30
PROVIDERS: ADMIT Internal Medicine; ATTEND Internal Medicine
DX: K57.20 Diverticulitis of large intestine with perforation and abscess without bleeding (principal); I48.91 Unspecified atrial fibrillation; K58.1 Irritable bowel syndrome with constipation; K58.0 Irritable bowel syndrome with diarrhea; K66.8 Other specified disorders of peritoneum; J44.9 Chronic obstructive pulmonary disease, unspecified; F03.90 Unspecified dementia, unspecified severity, without behavioral disturbance, psychotic disturbance, mood disturbance, and anxiety; Z66 Do not resuscitate; Z51.5 Encounter for palliative care; R50.9 Fever, unspecified; I35.0 Nonrheumatic aortic (valve) stenosis; R01.1 Cardiac murmur, unspecified; E03.9 Hypothyroidism, unspecified; E78.00 Pure hypercholesterolemia, unspecified; F41.9 Anxiety disorder, unspecified; M81.0 Age-related osteoporosis without current pathological fracture; M19.91 Primary osteoarthritis, unspecified site; Z95.0 Presence of cardiac pacemaker; Z79.01 Long term (current) use of anticoagulants
CPT/HCPCS: 36415; 51702; 71045; 74176; 80053; 81000; 82150; 83605; 83690; 83735; 85025; 85610; 85730; 87040; 87804; 93041; 96361; 96374; 96375